=== PATIENT | female | born 1950 | race Caucasian/White ===

== ENCOUNTER 2023-12-28 02:18 | Outpatient (RCR) | payer MEDICARE, OTHER, SELFPAY ==
--- OUTSIDE RECORDS SUMMARY | 2023-12-28 02:20 | XMS_ITS | Encounter Summary ---
Author Organization [facility] Address [facility] [place] [address] Care Team Providers Care Network Specialist Name Role Phone Josefina Crocker APRN Primary Care Provider +1- [phone] Reason for Visit * Reason Comments Medication Refill Encounter Details Date Type Department Care Team (Late st Contact Info) Description 12/01/2023 Refill Hematology [place] [phone] Jenny Melissa MD [facility] HEMATOLOGY/[place] [address] Social History Tobacco Use Types Packs/Day Years Used Date Smoking Tobacco: Never Smokeless Tobacco: Never Alcohol Use Standard Drinks/Week Comments Not Currently 1 (1 standard drink = 0.6 oz pur e alcohol) 1-2 times a month B1300 Health Literacy Answer Date Recor ded How often do you need to hav e someone help you when you read instructions, pamphlets, or other written material from your doctor or pharmacy? Never 10/31/2023 [facility] Utilities Answer Date Recorded In the past 12 months has th e electric, gas, oil, or water company threatened to shut off services in your home? No 10/31/2023 Overall Financial Resource Strain (CARDIA) Answe r Date Recorded How hard is it for you to pa y for the very basics like food, housing, medical care, and heating? Patient declined 10/31/2023 Hunger Vital Sign Answer Date Recorded Within the past 12 months, y ou worried that your food would run out before you got the money to buy more. Never true 10/31/19 24 Within the past 12 months, t he food you bought just didn't last and you didn't have money to get more. Never true 10/31/2023 PRAPARE - Transportation Answer Date Re corded In the past 12 months, has l ack of transportation kept you from medical appointments or from getting medications? No 10/04 In the past 12 months, has l ack of transportation kept you from meetings, work, or from getting things needed for daily living? No 10/31/2023 Housing Stability Vital Sign Answer Levar e Recorded In the last 12 months, was t here a time when you were not able to pay the mortgage or rent on time? No 10/31/2023 Number of Times Moved in the Last Year Not on fi le 10/31/2023 At any time in the past 12 m [facility], were you homeless or living in a assisted (including now)? No 10/31/2023 Sex and Gender Information Value Date Recorded Sex Assigned at Not on file Gender Identity Not on file Sexual Orientation Not on file documented as of this encounter Plan of Treatment Upcoming Encounters Date Type Department Care Team (Late st Contact Info) Description 12/28/2023 10:00 AM EDT Office Visit Hematology/Oncology at [address] [phone] Sumanth Bermudez MD [facility] HEMATOLOGY/[place] [address] 12/28/2023 10:30 AM EDT Infusion Hematology Oncology at [address] [phone] 01/02/2024 3:20 PM EDT Hospital [place] [address] Astrid Ortega MD [facility] [place] [address] 04/22/2024 10:00 AM EST TH Visit (TeleHealth) Hematology and Oncology at [address] [phone] Tracy Beltran [facility] [place] [address] 05/20/2024 10:40 AM EST Hospital Encounter Mammography/[place] [phone] 05/20/2024 11:50 AM EST Office [place] [phone] Magaly Quijano APRN [facility] [place] [address] 11/15/2024 4:00 PM EDT Office Visit Hematology [place] [phone] Jenny Melissa MD [facility] DR HEMATOLOGY/[place] [address] documented as of this encounter Visit Diagnoses Not on filedocumented in this encounter Care Teams Network Specialist Relationship Specialty Start Date End Date Josefina Crocker APRN [address] [place] [address] PCP - General Family Medicine 07/17/23 documented as of this encounter
--- OUTSIDE RECORDS SUMMARY | 2023-12-28 02:20 | XMS_ITS | Encounter Summary ---
[place] [address] Care Team Providers Care Hairspring Ii Inspector Name Role Phone Josefina Crockre APRN Primary Care Provider [phone]- [phone] Reason for Visit * Treatment/Therapy Plan Authorization (Routine) - Authorized Specialty Diagnoses / Procedures Referred By Contac t Referred To Contact Gynecology Oncology Diagnoses Endometrial adenocarcinoma Acquired hypothyroidism Astrid Ortega MD [facility] [place] [address] [facility] Top Precipitator Operator [address] [place] [address] Referral ID Status Reason Start Date Expiration Date V isits Requested Visits Authorized [id number] Authorized 12/01/2023 11/30/2024 99 100 Encounter Details Date Type Department Care Team (Latest Contact Info) Description 12/04/2023 7:53 AM EDT - 12/04/2023 7:55 AM EDT Hospital Encounter [place] [address] Endometrial adenocarcinoma; Acquired hypothyroidism Discharge Disposition: Home Social History Tobacco Use Types Packs/Day Years [...] from your doctor or pharmacy? Never 10/31/2023 [facility] Utilities Answer Date Recorded In the past [...] any time in the past 12 m [facility], were you homeless or living in a [place] health care facility (including now)? No 10/31/2023 Sex and Gender Information Value Date Recorded Sex Assigned at Not on file Gender Identity Not on file Sexual Orientation Not on file documented as of this encounter Last Filed Vital Signs Vital Sign Reading Time Taken Comments Blood Pressure 134/64 12/04/2023 9:00 AM EDT Pulse 70 12/04/2023 9:00 AM EDT Temperature 36.3 ??C (97.3 ??F) 12/04/2023 9:00 AM ED T Respiratory Rate 16 12/04/2023 9:00 AM EDT Oxygen Saturation 97% 12/04/2023 9:00 AM EDT Inhaled Oxygen Concentration - - Weight 57.5 kg (126 lb 12.2 oz) 12/04/2023 9:00 AM EDT Height 160 cm (5' 2.99) 12/04/2023 9:00 AM EDT Body Mass Index 22.46 12/04/2023 9:00 AM EDT documented in this encounter Medications at Time of Discharge Medication Sig Dispensed Refills Start Date End Date prochlorperazine (Compazine) 10 mg tabletIndications:Endome trial adenocarcinoma,Chemother apy induced nausea and vomiting Take 1 tablet by mouth every 6 hours on schedule for the first 3 days after chemotherapy. Thereafter, take 1 tablet by mouth every 6 hours as needed for nausea and vomiting. 30 tablet 5 11/03/2023 lidocaine-prilocaine (EMLA) CreamIndications:Endomet rial adenocarcinoma,Central venous catheter in place Apply to port site 1 hour prior to access. Cover with saran wrap. 30 g 11/03/2023 ondansetron (Zofran) 8 mg tabletIndications:Endome trial adenocarcinoma,Chemother apy induced nausea and vomiting Take 1 tablet by mouth every 8 hours as needed for nausea and vomiting. DO NOT take within the first 3 days after chemotherapy. 20 tablet 11/03/2023 cholecalciferol, Vitamin D3, 50 mcg (2,000 unit) Capsule Take 2,000 Units by mouth daily. lisinopriL (Zestril) 40 mg tabletIndications:hypert ension Take 40 mg by mouth daily. Indications: high blood pressure amLODIPine (Norvasc) 5 mg tabletIndications:hypert ension Take 5 mg by mouth daily. Indications: high blood pressure EPINEPHrine (EPIPEN) 0.3 mg/0.3 mL (1:1,000) Auto-Injector Inject 0.3 mg into the muscle once. multivitamin (THERAGRAN) Tablet Take 1 tablet by mouth daily. documented as of this encounter Progress Notes * Jossie Nolan RN - 12/04/2023 9:40 AM EDT Patient Name: Marychuy Hood Patient Age: 73 y.o. Birthdate: 1950 Admit date: 12/04/2023 Attending Physician: No att. providers found TIME TREATMENT STARTED: 09:02 TIME TREATMENT ENDED: 15:05 Marychuy Hood, 73 y.o. female with diagnosis of endometrial cancer is here for chemotherapy infusion of pembrolizumab, paclitaxel, and carboplatin. CYCLE: 1 DAY: 1 S: Pt. offers no complaints at this time. O: Chemotherapy orders independently verified for correct drug name, route and dosage per patient'sheight, weight and BSA by Jossie Nolan RN and onsite pharmacist REACTIONS (DESCRIPTION, TIME, INTERVENTION AND EFFECTIVENESS) NA A: Pt. Tolerated treatment well. Marychuy Hood confirms that all questions and issues have been addressed. P: Return to clinic as advised. documented in this encounter Plan of Treatment Upcoming Encounters Date Type Department Care Team (Late st Contact Info) Description 12/28/2023 10:00 AM EDT Office Visit Hematology/Oncology at [address] [phone] Sumanth Bermudez MD [facility] HEMATOLOGY/[place] [address] 12/28/2023 10:30 AM EDT Infusion Hematology Oncology at [address] [address] 01/02/2024 3:20 PM EDT Hospital [place] [address] Astrid Ortega MD [facility] [place] [address] 04/22/2024 10:00 AM EST TH Visit (TeleHealth) Hematology and Oncology at [address] [phone] Tracy Beltran [facility] [place] [address] 05/20/2024 10:40 AM EST Hospital Encounter Mammography/[place] [address] 05/20/2024 11:50 AM EST Office Visit General Surgery at [place] [phone] Magaly Quijano APRN [facility] [place] [address] 11/15/2024 4:00 PM EDT Office Visit [place] [address] Jenny Melissa MD [facility] DR HEMATOLOGY/[place]O [place] [phone] documented as of this encounter Visit Diagnoses Diagnosis Endometrial adenocarcinoma Malignant neoplasm of corpus uteri, except isthmus Acquired hypothyroidism Unspecified hypothyroidism documented in this encounter Administered Medications Inactive Administered Medications - up to 3 most recent administrations Medication Order MAR Action Action Date Dose Rate Site aprepitant (Cinvanti) (7.2 mg/mL) injection emulsion 130 mg 130 mg, Intravenous, Administer over 2 Minutes, ONCE, 1 dose, On Mon12/04/23 at 0915, Alternative administration of IV push over 2 minutes is a recommendation from the government operations consultant. Administer prior to chemotherapy., Routine Given 12/04/2023 9:25 AM EDT 130 mg CARBOplatin (Paraplatin) 384 mg in dextrose 5% 288.4 mL infusion 384 mg (Target AUC = 5), Intravenous, ONCE, 1 dose, On Mon12/04/23 at 1015, Administer over 30 Minutes, Warning Vesicant/Irritant Medication New Bag 12/04/2023 2:27 PM EDT 384 mg 576.8 mL/hr dexAMETHasone (Decadron) tablet 10 mg 10 mg, Oral, ONCE, 1 dose, On Mon12/04/23 at 0915, Administer 30 minutes prior to PACLitaxeL., Routine Given 12/04/2023 9:26 AM EDT 10 mg diphenhydrAMINE (Benadryl) capsule 50 mg 50 mg, Oral, ONCE, 1 dose, On Mon12/04/23 at 0915, Administer 30 minutes prior to PACLitaxeL., Routine Given 12/04/2023 9:26 AM EDT 50 mg famotidine (Pepcid) (10 mg/mL) injection 20 mg 20 mg, Intravenous, ONCE, 1 dose, On Mon12/04/23 at 0915, Administer 30 minutes prior to PACLitaxeL. Given 12/04/2023 9:26 AM EDT 20 mg PACLitaxeL (Taxol) 280 mg in sodium chloride 0.9% Non-PVC 546.67 mL infusion 280 mg (175 mg/m2/dose ? 1.6 m2 Treatment Plan BSA from Recorded weight), Intravenous, ONCE, 1 dose, On Mon12/04/23 at 1015, Administer over 3 Hours, 3 Step Titration for Infusions 1 and 2. Regular (Not Titrated) Rate to start at infusion 3 if no HSR. Step 1: Start at a rate of 1.8 mL/hr for 15 minutes. Step 2: Increase rate to 18.2 mL/hr for 15 minutes. Step 3: Increase to regular infusion rate 182.2 mL/hr for remainder of infusion. Warning Vesicant/Irritant Medication Warning Vesicant/Irritant Medication , Should this infusion follow 3 Step Titration (Initial Dosing) or Standard Infusion? Initial: 3 Step Titration New Bag 12/04/2023 10:35 AM EDT 280 mg 182.2 mL/hr palonosetron (Aloxi) (0.05 mg/mL) injection 0.25 mg 0.25 mg, Intravenous, ONCE, 1 dose, On Mon12/04/23 at 0915, Administer over 30 seconds., Routine Given 12/04/2023 9:15 AM EDT 0.25 mg pembrolizumab (Keytruda) 200 mg in sodium chloride 0.9% 108 mL infusion 200 mg, Intravenous, ONCE, 1 dose, On Mon12/04/23 at 1015, Administer over 30 Minutes, Flush Line with NS after each dose, This agent is restricted to outpatient use. Is this drug being given as an outpatient? Yes New Bag 12/04/2023 9:45 AM EDT 200 mg 216 mL/hr sodium chloride 0.9 % (flush) (BD PosiFlush Normal Saline 0.9) flush 5-20 mL 5-20 mL, Intravenous, EVERY 1 MIN PRN, Starting on Mon12/04/23 at 0855, Until Mon12/05/23 at 0434, Line Care, Flush pertains to all indwelling lines. Flush per protocol found in the job aid using the link provided on this medication record. Refer to Intravenous (IV) Job Aid: Adult Flushing & Catheter Care (4736) job aid for additional information regarding guidelines and administration., Routine Given 12/04/2023 3:03 PM EDT 20 mLs Given 12/04/2023 2:21 PM EDT 10 mLs Given 12/04/2023 9:25 AM EDT 20 mLs sodium chloride 0.9% infusion 500 mL, Intravenous, ONCE, 1 dose, On Mon12/04/23 at 0915 New Bag 12/04/2023 9:29 AM EDT 500 mLs documented in this encounter Care Teams Hairspring Ii Inspector Relationship Specialty Start Date End Date Josefina Crocker, MARKET RESEARCH ASSOCIATE [address] [place] [address] PCP - General Family Medicine 07/17/23 documented as of this encounter
--- OUTSIDE RECORDS SUMMARY | 2023-12-28 02:20 | XMS_ITS | Encounter Summary ---
Author Organization [place] [address] Care Team Providers Care Global Sales Executive Name Role Phone ObiJosefina Mona RIOS Primary Care Provider +1- [phone] Reason for Referral * Diagnostic Test (Routine) - Authorized Specialty Diagnoses / Procedures Referred By Contac t Referred To Contact Radiology Diagnoses Endometrial adenocarcinoma Procedures CT Chest Abdomen Pelvis w Contrast (Generic) Astrid Ortega MD [facility] [place] [address] [facility] [place] [address] Referral ID Status Reason Start Date Expiration Date Visits Requested Visits Authorized [id number] Authorized Specialty Service Requested 12/01/2023 06/01/2025 1 1 Encounter Details Date Type Department Care Team (Late st Contact Info) Description 12/01/2023 Orders Only [place] [address] Adriana Rincon RN Endometrial adenocarcinoma; Abnormal results of thyroid function studies Social History Tobacco Use Types Packs/Day Years [...] from your doctor or pharmacy? Never 10/31/[address] [facility] Utilities Answer Date Recorded In the [...] any time in the past 12 m [facility], were you homeless or living in a half-way (including now)? No 10/31/2023 Sex and Gender Information Value Date Recorded Sex Assigned at Not on file Gender Identity Not on file Sexual Orientation Not on file documented as of this encounter Plan of Treatment Upcoming Encounters Date Type Department Care Team (Late st Contact Info) Description 12/28/2023 10:00 AM EDT Office Visit Hematology/Oncology at [address] [address] Sumanth Bermudez MD [facility] HEMATOLOGY/[place] [address] 12/28/2023 10:30 AM EDT Infusion Hematology Oncology at [address] [address] 01/02/2024 3:20 PM EDT Hospital Encounter CT Scan at [place] [phone] Astrid Ortega MD [facility] [place] [address] 04/22/2024 10:00 AM EST TH Visit (TeleHealth) Hematology and Oncology at [address] [phone] Tracy Beltran [facility] [place] [address] 05/20/2024 10:40 AM EST Hospital Encounter Mammography/[place] [phone] 05/20/2024 11:50 AM EST Office Visit [place] [phone] Magaly Quijano APRN [facility] [place] [address] 11/15/2024 4:00 PM EDT Office Visit Hematology [place] [phone] Jenny Melissa MD [facility] HEMATOLOGY/[place] [address] Scheduled Orders Name Type Priority Associated Diagnoses Orde r Schedule [facility] STAT Endometrial adenocarcinoma Abnormal results of thyroid function studies Every 3 weeks for 11 Occurrences starting 12/01/2023 until 11/30/2024, [address] Chest Abdomen Pelvis w Contrast (Generic) Imaging Routine Endometrial adenocarcinoma Expected: 01/05/2024 (Approximate), Expires: 06/01/2024 documented as of this encounter Results * [facility] (12/04/2023 8:11 AM EDT) TSH 4.00 0.27 - 4.20 mcIU/mL [facility] Comment: Reference Interval (mcIU/mL): Females: ??First Trimester: 0.23-3.88 ??Second Trimester: 0.22-3.90 ??Third Trimester: 0.44-4.66 Blood 12/04/2023 8:11 AM EDT 12/04/2023 8:15 AM EDT Narrative Resulting Agency Comment Spec In Lab Astrid Ortega MD CHEMISTRY ORDERABL ES [facility] [place] [address] documented in this encounter Visit Diagnoses Diagnosis Endometrial adenocarcinoma Malignant neoplasm of corpus uteri, except isthmus Abnormal results of thyroid function studies Nonspecific abnormal results of thyroid function study documented in this encounter Care Teams Global Sales Executive Relationship Specialty Start Date End Date Josefina Crocker APRN [address] [place] [address] PCP - General Family Medicine 07/17/23 documented as of this encounter
--- OUTSIDE RECORDS SUMMARY | 2023-12-28 02:20 | XMS_ITS | Encounter Summary ---
Author Organization [facility] [address] Care Team Providers Care Impregnator Operator Name Role Phone Josefina Crocker APRN Primary Care Provider +1- [phone] Reason for Visit * Consultation (Routine) - Closed Specialty Diagnoses / Procedures Referred By Renato linares Referred To Contact Diagnoses Endometrial adenocarcinoma Astrid Ortega MD [facility] [place] [address] [facility] Hem [place]c [address] [place] [address] Referral ID Status Reason Start Date Expiration Date V isits Requested Visits Authorized [id number] Closed Continuity of Care 11/29/2023 11/28/2024 1 1 Encounter Details Date Type Department Care Team (Latest Contact Info) Description 12/04/2023 1:00 PM EDT Clinical Support Hematology [place] [address] [facility] DR [place] [address] Endometrial adenocarcinoma, endometrioid type, FIGO grade 2 Social History Tobacco Use Types Packs/Day Years [...] from your doctor or pharmacy? Never 10/31/2023 [facility] Utilities Answer Date Recorded In the [...] any time in the past 12 m [facility], were you homeless or living in a nursing home (including now)? No 10/31/2023 Sex and Gender Information Value Date Recorded Sex Assigned at Not on file Gender Identity Not on file Sexual Orientation Not on file documented as of this encounter Progress Notes * Gilma Chávez, RD - 12/04/2023 1:00 PM EDT [facility] Initial Assessment Patient Name: Marychuy Hood Diagnosis: Endometrial Cancer Referred by: Astrid Ortega MD Treatment: Carboplatin/Paclitaxel/Bevacizumab/Pembrolizumab Assessment: Marychuy is a 73 year old female diagnosed with Stage 1 breast s/p right mastectomy and Tamoxifen x 3 years. Recently diagnosed with metastatic endometrial cancer. Met with patient during infusion to answer questions and concerns related to low fiber diet. Per record review, she was placed on a low f iber diet per colorectal surgeon (per 10/10/23 note). Low fiber diet due to an obstructing mass to her colon. Marychuy has historically consumed a very high fiber diet and had many questions based on her online research. Past Medical History: Diagnosis Date Acquired hypothyroidism 12/04/2023 Wt Readings from Last 10 Encounters: 12/04/23 57.5 kg (126 lb 12.2 oz) 11/13/23 58 kg (127 lb 13.9 oz) 11/08/23 58.2 kg (128 lb 4.9 oz) 11/01/23 58.1 kg (128 lb) 10/10/23 58.9 kg (129 lb 14.4 oz) 05/18/23 59.8 kg (131 lb 13.4 oz) 03/25/21 55.4 kg (122 lb 1.6 oz) 02/17/21 54.7 kg (120 lb 9.6 oz) 01/28/21 57.6 kg (127 lb) 12/30/20 57.8 kg (127 lb 8 oz) Estimated Needs: Calories: 3118-8248 (25 - 30 kcal/kg) Protein: 86-115 gm (1.5 - 2 gm/kg) Meds: Miralax, MVI, Lisinopril, Vitamin D3 Labs: (12/04/23) Juanito MOTTL A/P: Reviewed foods with Marychuy that are recommended and what she should avoid. Recommend she follow low fiber diet guidelines and not to exceed 8 gm per day. While a low fiber diet will likely be challenging for her, as she eats a high fiber diet at baseline, anticipate good compliance. Patient asked well thought out and appropriate questions. Intervention: [place] [employer] - list of fiber containing foods and amount per serving NCM - Low Fiber Diet (8 grams) Geriatric Dietitian, Low Fiber Foods List Monitoring: Follow up phone call in 3 weeks. Moving forward, infusions will be in [place], [place]. Patient has RD contact information and was encouraged to call or email with any questions or concerns. documented in this encounter Plan of Treatment Upcoming Encounters Date Type Department Care Team (Late st Contact Info) Description 12/28/2023 10:00 AM EDT Office Visit Hematology/Oncology at [address] [place] [address] [phone] Sumanth Bermudez MD [facility] HEMATOLOGY/[place] [address] 12/28/2023 10:30 AM EDT Infusion Hematology Oncology at [address] [place] [address] [phone] 01/02/2024 3:20 PM EDT Hospital Encounter [place] [phone] Astrid Ortega MD [facility] [place] [address] 04/22/2024 10:00 AM EST TH Visit (TeleHealth) Hematology and Oncology at [address] [phone] Tracy Beltran [facility] [place] [address] 05/20/2024 10:40 AM EST Hospital Encounter Mammography/[place] [phone] 05/20/2024 11:50 AM EST Office Visit [place] [phone] Magaly Quijano APRN [facility] [place] [address] 11/15/2024 4:00 PM EDT Office Visit Hematology [place] [address] Jenny Melissa MD [facility] HEMATOLOGY/[place] [address] Scheduled Referrals Name Type Priority Associated Diagnoses Orde r Schedule Referral to Nutrition Services Outpatient Referral Routine Endometrial adenocarcinoma Ordered: 11/29/2023 documented as of this encounter Visit Diagnoses Diagnosis Endometrial adenocarcinoma, endometrioid type, FIGO grade 2 Malignant neoplasm of corpus uteri, except isthmus documented in this encounter Care Teams Impregnator Operator Relationship Specialty Start Date End Date Josefina Crocker APRN [address] [place] [address] PCP - General Family Medicine 07/17/23 documented as of this encounter
--- OUTSIDE RECORDS SUMMARY | 2023-12-28 02:20 | XMS_ITS | Encounter Summary ---
[place] [address] Care Team Providers Care Converting Technician Name Role Phone Josefina Crocker APRN Primary Care Provider +1- [phone] Encounter Details Date Type Department Care Team (Latest Contact Info) Description 12/04/2023 7:56 AM EDT - 12/04/2023 11:59 PM EDT Hospital Encounter Hematology [place] [phone] Endometrial adenocarcinoma; Abnormal results of thyroid function studies Discharge Disposition: Home Social History Tobacco Use [...] from your doctor or pharmacy? Never 10/31/2023 [facility] Utilities Answer Date Recorded In the past 12 months has e electric, gas, oil, or water company [...] were you homeless or living in a penitentiary (including now)? No 10/31/2023 Sex and Gender Information Value Date Recorded Sex Assigned at Not on file Gender Identity Not on file Sexual Orientation Not on file documented as of this encounter Medications at Time of Discharge Medication Sig Dispensed Refills Start Date End Date prochlorperazine (Compazine) 10 mg tabletIndications:Endome trial adenocarcinoma,Chemother apy induced nausea and vomiting Take 1 tablet by mouth every 6 hours on schedule for the first 3 days after chemotherapy. Thereafter, take 1 tablet by mouth every 6 hours as needed for nausea and vomiting. 30 tablet 11/03/2023 lidocaine-prilocaine (EMLA) CreamIndications:Endomet rial adenocarcinoma,Central venous [...] mouth daily. documented as of this encounter Plan of Treatment Upcoming Encounters Date Type Department Care Team (Late st Contact Info) Description 12/28/2023 10:00 AM EDT Office Visit Hematology/Oncology at [address] [phone] Sumanth Bermudez MD [facility] HEMATOLOGY/[place] [address] 12/28/2023 10:30 AM EDT Infusion Hematology Oncology at [address] [address] 01/02/2024 3:20 PM EDT Hospital Encounter [place] [phone] Astrid Ortega MD [facility] [place] [address] 04/22/2024 10:00 AM EST TH Visit (TeleHealth) Hematology and Oncology at [address] [address] Tracy Beltran [facility] [place] [address] 05/20/2024 10:40 AM EST Hospital Encounter Mammography/[place] [phone] 05/20/2024 11:50 AM EST Office Visit [place] [phone] Magaly Quijano APRN [facility] [place] [address] 11/15/2024 4:00 PM EDT Office Visit Hematology and Oncology at [facility] [place] [phone] Tesha Melissa MD [facility] [place]EMATOLOGY/[place] [address] documented as of this encounter Procedures Procedure Name Priority Date/Time Associated Diagnosis Comments HC THYROID STIMULATING HORMONE, SERUM STAT 12/04/2023 8:11 AM EDT Endometrial adenocarcinoma Abnormal results of thyroid function studies HEMOGRAM Routine 12/04/2023 8:11 AM EDT Endometrial adenocarcinoma DIFFERENTIAL, AUTOMATED Routine 12/04/2023 8:11 AM EDT Endometrial adenocarcinoma HC CBC,PLT & AUTO DIFF Routine 12/04/2023 8:11 AM EDT Endometrial adenocarcinoma COMPREHENSIVE METABOLIC PANEL (NON-FASTING) STAT 12/04/2023 8:11 AM EDT Endometrial adenocarcinoma documented in this encounter Results * Differential, Automated (12/04/2023 8:11 AM EDT) Neutrophils % 58.6 % [facility] Neutr Abs (ANC) 2.34 1.70 - 6.10 x10(3)/[facility] Lymphocytes % 27.1 % [facility] Lymphocytes Abs 1.1 0.9 - 3.2 x10(3)/[facility] Monocytes % 12.0 % [facility] Monocyte Abs 0.5 0.3 - 0.9 x10(3)/[facility] Eosinophils % 1.0 % [facility] Eosinophils Abs 0.0 0.0 - 0.4 x10(3)/[facility] Basophils % 0.8 % [facility] Basophils Abs 0.0 0.0 - 0.1 x10(3)/[facility]OR[facility]ORY Immature Gran % 0.50 % [facility] Comment: Immature granulocytes(IG's)percentage and absolute count will include metamyelocytes, myelocytes, and promyelocytes. Blood smears from CBCs yielding IG's will be scanned manually for concordance. If this scan disagrees with the automated IG or if promyelocytes are noted, a manual differential will be performed. [place] Gran Abs 0.02 0.00 - 0.04 x10(3)/[facility] Blood 12/04/2023 8:11 AM EDT 12/04/2023 8:15 AM EDT Narrative Resulting Agency Comment Spec In Lab Astrid Ortega MD HEMATOLOGY ORDERAB LES Performing Organization Address City/State/[facility] Co de Phone Number [facility] [place] [address] * (ABNORMAL) Hemogram (12/04/2023 8:11 AM EDT) WBC 4.0 4.0 - 9.5 x10(3)/[facility] RBC 3.85(L) 4.00 - 5.21 x10(6)/[facility] Hemoglobin 11.2(L) 11.7 - 15.5 g/dL [facility] Hematocrit 34.3(L) 35.7 - 45.8 % [facility] MCV 89.1 82.6 - 94.4 fL [facility] MCH 29.1 27.1 - 32.0 pg [facility] MCHC 32.7 31.7 - 35.0 g/dL [facility] Platelets 314 145 - 357 x10(3)/[place] RDWSD 43.3 37.0 - 46.0 fL [facility] RDWCV 13.3 11.5 - 14.1 % [facility] MPV 8.4 7.6 - 12.9 fL [facility] nRBC % Auto 0.0 % [facility] nRBC Abs Auto 0.000 0.000 - 0.000 x10(3)/mcL [facility] Blood 12/04/2023 8:11 AM EDT 12/04/2023 8:15 AM EDT Narrative Resulting Agency Comment Spec In Lab Astrid Ortega MD HEMATOLOGY ORDERAB LES [facility] [place] [address] * (ABNORMAL) Comprehensive metabolic panel (non-fasting) (12/04/2023 8:11 AM EDT) Glucose Lvl 84 65 - 199 mg/dL [facility] Comment:Diabetes: >=200 mg/d L plus symptoms BUN 17 8 - 18 mg/dL [facility] Creatinine 0.92 0.70 - 1.20 mg/dL [facility] Sodium 140 135 - 145 mmol/L [facility] Potassium 4.6 3.5 - 5.0 mmol/L [facility] Comment: Please note: ??Patients with WBC >100,000 may have falsely elevated Potassium levels. ??For accurate Potassium quantification in these patients send serum separator tube (gold top) for subsequent determinations. ??Contact the Clinical Chemistry Laboratory if there are any questions. Chloride 103 98 - 107 mmol/L [facility] CO2 27 22 - 31 mmol/L [facility] Anion Gap 10 5 - 15 mmol/L [facility] Calcium 9.5 8.5 - 10.5 mg/dL [facility] Total Protein 7.0 6.1 - 8.0 g/dL [facility] Albumin 4.0 3.2 - 5.2 g/dL [facility] AST 22 0 - 30 unit/L [facility] ALT 16 0 - 30 unit/L [facility] Alk Phos 52 35 - 105 unit/L [facility] Total Bilirubin <0.2(L) 0.2 - 1.3 mg/dL [facility] Estimated GFR 67 >=60 mL/min/1. 73 m?? [facility] Comment: This patient's estimated GFR was calculated using the 2020 CKD-EPI equation. The estimated GFR can vary from the measured GFR by up to 30% in the absence of rapidly changing kidney function. Assessment of the estimated GFR is not appropriate when creatinine concentrations are rapidly changing. For clinical situations in which a more precise estimate of GFR is necessary, consider alternative methods of GFR estimation such as a 24-hour urine creatinine clearance. Assignment of CKD stage 1-5 for patients with an eGFR near the transition point between stages may be based on clinical assessment of muscle mass and symptoms in addition to eGFR. Blood 12/04/2023 8:11 AM EDT 12/04/2023 8:15 AM EDT Narrative Resulting Agency Comment Spec In Lab Astrid Ortega MD CHEMISTRY ORDERABL ES Performing Organization Address [facility] Co de Phone Number [facility] [place] [address] * TSH Leary (12/04/2023 8:11 AM EDT) TSH 4.00 0.27 - 4.20 mcIU/mL [facility] Comment: Reference Interval (mcIU/mL): Females: ??First Trimester: 0.23-3.88 ??Second Trimester: 0.22-3.90 ??Third Trimester: 0.44-4.66 Blood 12/04/2023 8:11 AM EDT 12/04/2023 8:15 AM EDT Narrative Resulting Agency Comment Spec In Lab Astrid Ortega MD CHEMISTRY ORDERABL ES Performing Organization Address City/[facility]/ZIP Co de Phone Number [place] [address] documented in this encounter Visit Diagnoses Diagnosis Endometrial adenocarcinoma Malignant neoplasm of corpus uteri, except isthmus Abnormal results of thyroid function studies Nonspecific abnormal results of thyroid function study documented in this encounter Care Teams Converting Technician Relationship Specialty Start Date End Date Josefina Crocker APRN [address] [place] [address] PCP - General Family Medicine 07/17/23 documented as of this encounter
--- OUTSIDE RECORDS SUMMARY | 2023-12-28 02:20 | XMS_ITS | Encounter Summary ---
Author Organization [facility] Address [facility] [place] [address] Care Team Providers Care Kiln Packer Name Role Phone ObiJosefina Mona RIOS Primary Care Provider +1- [phone] Encounter Details Date Type Department Care Team (Late st Contact Info) Description 12/04/2023 Orders Only [place] [address] Astrid Ortega MD [facility] [place] [address] Acquired hypothyroidism Social History Tobacco Use Types Packs/Day Years [...] any time in the past 12 m [facility], were you homeless or living in a long-term (including now)? No 10/31/2023 Sex and Gender Information Value Date Recorded Sex Assigned at Not on file Gender Identity Not on file Sexual Orientation Not on file documented as of this encounter Plan of Treatment Upcoming Encounters Date Type Department Care Team (Late st Contact Info) Description 12/28/2023 10:00 AM EDT Office Visit Hematology/Oncology at [address] [phone] Sumanth Bermudez MD [facility] HEMATOLOGY/[place] [address] 12/28/2023 10:30 AM EDT Infusion Hematology Oncology at [address] [phone] 01/02/2024 3:20 PM EDT Hospital [place] [address] Astrid Ortega MD [facility] [place] [address] 04/22/2024 10:00 AM EST TH Visit (TeleHealth) Hematology and Oncology at [address] [phone] Tracy Beltran [facility] [place] [address] 05/20/2024 10:40 AM EST Hospital Encounter Mammography[place] [phone] 05/20/2024 11:50 AM EST Office [place] [phone] Magaly Quijano APRN [facility] [place] [address] 11/15/2024 4:00 PM EDT Office Visit Hematology [place] [phone] Jenny Melissa MD [facility] [place]EMATOLOGY/[place] [address] documented as of this encounter Visit Diagnoses Diagnosis Acquired hypothyroidism Unspecified hypothyroidism documented in this encounter Care Teams Kiln Packer Relationship Specialty Start Date End Date Josefina Crocker APRN [address] [place] [address] PCP - General Family Medicine 07/17/23 documented as of this encounter
--- OUTSIDE RECORDS SUMMARY | 2023-12-28 02:20 | XMS_ITS | Encounter Summary ---
[place] [address] Care Team Providers Care Oil Rigger Name Role Phone Josefina Crocker APRN Primary Care Provider +1- [phone] Encounter Details Date Type Department Care Team (Late st Contact Info) Description 12/05/2023 Telephone [place] [address] Adriana Rincon, RN Social History Tobacco Use Types Packs/Day Years [...] from your doctor or pharmacy? Never 10/31/2023 [facility] Utilities Answer Date Recorded In the past [...] any time in the past 12 m [facility], were you homeless or living in a half-way (including now)? No 10/31/2023 Sex and Gender Information Value Date Recorded Sex Assigned at Not on file Gender Identity Not on file Sexual Orientation Not on file documented as of this encounter Miscellaneous Notes * Telephone Encounter - Adriana Rincon RN - 12/05/2023 12:05 PM EDT Attempted to call patient but reached voicemail. Informed patient that a message would be sent via [facility]. Left call back number for any questions. * Telephone Encounter - Adriana Rincon RN - 12/05/2023 11:22 AM EDT ----- Message from Nannette Rojas RN sent at 12/05/2023 10:46 AM EDT ----- 1042: She had chemo yesterday (Monday) and she has a friend that has tested positive for covid. Shehas tested negative for covid, but she doesn't know if there is anything she should be doing or looking out for. She would like a call back documented in this encounter Plan of Treatment Upcoming Encounters Date Type Department Care Team (Late st Contact Info) Description 12/28/2023 10:00 AM EDT Office Visit Hematology/Oncology at [address] [address] Sumanth Bermudez MD [facility] HEMATOLOGY/[place] [address] 12/28/2023 10:30 AM EDT Infusion Hematology Oncology at [address] [address] 01/02/2024 3:20 PM EDT Hospital [place] [phone] Astrid Ortega MD [facility] [place] [address] 04/22/2024 10:00 AM EST TH Visit (TeleHealth) Hematology and Oncology at [address] [address] Tracy Beltran [facility] [place] [address] 05/20/2024 10:40 AM EST Hospital Encounter Mammography/[place] [address] 05/20/2024 11:50 AM EST Office [place] [phone] Magaly Quijano APRN [facility] [place] [address] 11/15/2024 4:00 PM EDT Office Visit Hematology [place] [phone] Jenny Melissa MD [facility] DR HEMATOLOGY/[place] [address] documented as of this encounter Visit Diagnoses Not on filedocumented in this encounter Care Teams Oil Rigger Relationship Specialty Start Date End Date Josefina Crocker APRN [address] [place] [address] PCP - General Family Medicine 07/17/23 documented as of this encounter
--- OUTSIDE RECORDS SUMMARY | 2023-12-28 02:20 | XMS_ITS | Encounter Summary ---
Author Organization [facility] Address [facility] [place] [address] Care Team Providers Care Police Patrol Officer Name Role Phone ObiJosefina Mona RIOS Primary Care Provider +1- [phone] Encounter Details Date Type Department Care Team (Latest Contact Info) Description 12/01/2023 1:30 PM EDT TH Visit (TeleHealth) Gynecology [place] [phone] Fuad Perez MD [facility] [place] [address] Endometrial adenocarcinoma, endometrioid type, FIGO grade 2 [...] from your doctor or pharmacy? Never 10/31/2023 [facility] Utilities Answer Date Recorded In the [...] money to buy more. Never true 10/31/19 Within the past 12 months, t he [...] any time in the past 12 m [facility], were you homeless or living in a [place] health care facility (including now)? No 10/31/2023 Sex and Gender Information Value Date Recorded Sex Assigned at Not on file Gender Identity Not on file Sexual Orientation Not on file documented as of this encounter Progress Notes * Fuad Perez MD - 12/01/2023 1:30 PM EDT Division of Gynecologic Oncology [place] [phone] Pre-chemotherapy Visit: Patient Active Problem List Diagnosis Code Endometrial adenocarcinoma, endometrioid type, FIGO grade 2 C54.1 Malignant neoplasm of right breast in female, estrogen receptor positive C50.911, Z17.0 Osteopenia of multiple sites M85.89 Liver mass R16.0 Acquired hypothyroidism E03.9 Reason for visit: Marychuy Hood is seen today in anticipation of cycle # 2 of Carboplatin/Paclitaxel chemotherapy. She is undergoing chemotherapy for recurrent endometrial cancer. MMR proficient Oncology history: grade 2 endometrial cancer s/p TAHBSO in 2014, breast cancer s/p right mastectomy in 2020 presenting for evaluation of likely metastatic endometrial cancer. CT 09/27/23 with large colon mass, hilar lymphadenopathy, liver mass Marychuy had a colonoscopy in September 2023 for evaluation of bright red rectal bleeding which showed alarge mass in the sigmoid colon pathology c/w endometrial ca recurrence. 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 She did OK with her first cycle. She had ~1 week malaise and has been feeling a little better since. On cycle day 4-5 she had significant muscle aches. She does have significant fatigue with significant decrease in her stamina. No new issues with her bladder or bowels. No numbness or tingling in her hands or feet. She did have some nausea up to cycle day 4, well treated with antiemetics. Review of Systems All other systems reviewed and are negative. Objective: There were no vitals filed for this visit. There is no height or weight on file to calculate BMI. There is no height or weight on file to calculate BSA. Physical Exam TH visit GOG performance status= 0 CTCAE Toxicity grading for the prior cycle: Neutrophils: 0- Normal / not present Hemoglobin: 1- < LLN - 10.0 g/dl ; < LLN - 6.2 mmol/L ; < LLN - 100 g/L Platelets: 0- Normal / not present Creatinine: 0- Normal Fatigue: 0- Normal / not present Hand-foot: 0- Normal / not present Nausea: 0- Normal / not present Vomitin- Normal / not present Neuropathy (sensory): 0- Normal / not present Labs: Acceptable for chemotherapy No results found for: CA125 Assessment and Plan: Marychuy Hood is a 73 y.o. year old with recurrent endometrioid endometrial cancerwho is here today for cycle 2 of Taxol/Carboplatin. She tolerated the first cycle well, plan to add Pembrolizumab. We reviewed possible toxicity related to Pembrolizumab. No dose-limiting toxicities, will proceedwith chemotherapy today as scheduled. RTC three weeks. FUAD PEREZ MD documented in this encounter Plan of Treatment Upcoming Encounters Date Type Department Care Team (Late st Contact Info) Description 12/28/2023 10:00 AM EDT Office Visit Hematology/Oncology at [address] [phone] Sumanth Bermudez MD [facility] HEMATOLOGY/[place] [address] 12/28/2023 10:30 AM EDT Infusion Hematology Oncology at [address] [address] 01/02/2024 3:20 PM EDT Hospital Encounter [place] [phone] Fuad Perez MD [facility] [place] [address] 04/22/2024 10:00 AM EST TH Visit (TeleHealth) Hematology and Oncology at [address] [phone] Tracy Beltran [facility] [place] [address] 05/20/2024 10:40 AM EST Hospital Encounter Mammography/[place] [phone] 05/20/2024 11:50 AM EST Office Visit [place] [address] Magaly Quijano APRN [facility] [place] [address] 11/15/2024 4:00 PM EDT Office Visit Hematology [place] [phone] Jenny Melissa MD [facility] [place]EMATOLOGY/[place] [address] documented as of this encounter Visit Diagnoses Diagnosis Endometrial adenocarcinoma, endometrioid type, FIGO grade 2 Malignant neoplasm of corpus uteri, except isthmus documented in this encounter Care Teams Police Patrol Officer Relationship Specialty Start Date End Date Josefina Crocker APRN [address] [place] [address] PCP - General Family Medicine 07/17/23 documented as of this encounter
--- OUTSIDE RECORDS SUMMARY | 2023-12-28 02:20 | XMS_ITS | Encounter Summary ---
Author Organization [facility] Address [facility] [place] [address] Care Team Providers Care Seed Corn Manager Production Name Role Phone Josefina Crocker APRN Primary Care Provider +1- [phone] Encounter Details Date Type Department Care Team (Latest Contact Info) Description 12/04/2023 Travel Social History Tobacco Use Types Packs/Day Years [...] from your doctor or pharmacy? Never 10/31/2023 [facility] Utilities Answer Date Recorded In the past 12 months has [employer], gas, oil, or water [employer] threatened to shut off services in your [...] any time in the past 12 m [facility], were you homeless or living in a senior living (including now)? No 10/31/2023 Sex and Gender Information Value Date Recorded Sex Assigned at Not on file Gender Identity Not on file Sexual Orientation Not on file documented as of this encounter Plan of Treatment Upcoming Encounters Date Type Department Care Team (Late st Contact Info) Description 12/28/2023 10:00 AM EDT Office Visit Hematology/Oncology at [address] [address] Sumanth Bermudez MD [facility] HEMATOLOGY/[place] [address] 12/28/2023 10:30 AM EDT Infusion Hematology Oncology at [address] [address] 01/02/2024 3:20 PM EDT Hospital [place] [address] Astrid Ortega MD [facility] [place] [address] 04/22/2024 10:00 AM EST TH Visit (TeleHealth) Hematology and Oncology at [address] [phone] Tracy Beltran [facility] [place] [address] 05/20/2024 10:40 AM EST Hospital Encounter Mammography/DXA at [place] [phone] 05/20/2024 11:50 AM EST Office Visit General Surgery at [place] [phone] Magaly Quijano APRN [facility] [place] [address] 11/15/2024 4:00 PM EDT Office Visit Hematology and Oncology at [place] [phone] Jenny Melissa MD [facility] [place]EMATOLOGY/[place] [address] documented as of this encounter Visit Diagnoses Not on filedocumented in this encounter Care Teams Seed Corn Manager Production Relationship Specialty Start Date End Date Josefina Crocker APRN [address] [place] [address] PCP - General Family Medicine 07/17/23 documented as of this encounter
--- OUTSIDE RECORDS SUMMARY | 2023-12-28 02:20 | XMS_ITS | Encounter Summary ---
[facility] Organization [facility] [address] Care Team Providers Care Fence Installer Helper Name Role Phone Josefina Crocker APRN Primary Care Provider [phone]- [phone] Reason for Visit * Treatment/Therapy Plan Authorization (Routine) - Authorized Specialty Diagnoses / Procedures Referred By Contac t Referred To Contact Gynecology Oncology Diagnoses Endometrial adenocarcinoma Acquired hypothyroidism Astrid Ortega MD [facility] [place] [address] [facility] Propeller Engineer [address] [place] [id number] Referral ID Status Reason Start Date Expiration Date V isits Requested Visits Authorized [id number] Authorized 12/01/2023 11/30/2024 99 100 Encounter Details Date Type Department Care Team (Late st Contact Info) Description 12/28/2023 10:30 AM EDT Infusion Hematology Oncology at [address] [phone] Social History Tobacco Use Types Packs/Day Years [...] from your doctor or pharmacy? Never 10/31/2023 [facility] Utilities Answer Date Recorded In [...] any time in the past 12 m [facility], were you homeless or living in a intermediate (including now)? No 10/31/2023 Sex and Gender Information Value Date Recorded Sex Assigned at Not on file Gender Identity Not on file Sexual Orientation Not on file documented as of this encounter Plan of Treatment Upcoming Encounters Date Type Department Care Team (Late st Contact Info) Description 12/28/2023 10:00 AM EDT Office Visit Hematology/Oncology at [address] [phone] Sumanth Bermudez MD [facility] HEMATOLOGY/[place] [address] 01/02/2024 3:20 PM EDT Hospital Encounter CT Scan at [place] [phone] Astrid Ortega MD [facility] DR [place] [address] 04/22/2024 10:00 AM EST TH Visit (TeleHealth) Hematology and Oncology at [address] [phone] Tracy Beltran [facility] [place] [address] 05/20/2024 10:40 AM EST Hospital Encounter Mammography/DXA at [place] [phone] 05/20/2024 11:50 AM EST Office [place] [address] Magaly Quijano APRN [facility] [place] [address] 11/15/2024 4:00 PM EDT Office Visit Hematology and Oncology at [place] [phone] Jenny Melissa MD [facility] HEMATOLOGY/[place] [address] documented as of this encounter Visit Diagnoses Not on filedocumented in this encounter Care Teams Fence Installer Helper Relationship Specialty Start Date End Date Josefina Crocker APRN [address] [place] [id number] PCP - General Family Medicine 07/17/23 documented as of this encounter
--- OUTSIDE RECORDS SUMMARY | 2023-12-28 02:20 | XMS_ITS ---
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 Name Role Phone Josefina Crocker APRN Primary Care Provider +1- [phone] Active Problems Problem Noted Date Diagnosed Date Acquired hypothyroidism 12/04/2023 Liver mass 10/16/2023 Osteopenia of multiple sites 04/18/2021 Malignant neoplasm of right breast in female, estrogen receptor positive 12/25/2020 Overview (02/17/2021): 12/16/20 dx AVH: ER/NV+/HER2- right breast IDC [id number] Stage IA right upper outer quadrant Screening mammogram detected at [facility] 11/30/20 cat 0 Diagnostic images 12/10 , biopsy 12/16/20 c/w grade 2 IDCA er/pr++ her2 neg MRI 12/30/20 showed bilateral multifocal abnormalities and 2 abnormal nodes on the right Right axillary US was benign MRI guided biopsy of the Left lesions 1 and 3 were benign, papilloma and ALH respectively Right mastectomy and sentinel node biopsy showed IDCA 20 mm grade 2, 0/2 LN + , with DCIS Oncotype dx is pending. Risk factors: personal hx of endometrial cancer; FHx breast cancer in one half- sister who recently of lung cancer and was a chronic smoker; 2 other sisters are without cancer. Marychuy's grand mother had bone cancer. Menses began at age 15 until approximately age 59; DUB resulted in endometrial biopsy s/p TAHBSO at [facility] in 2016. 1st at age 31 Endometrial adenocarcinoma, endometrioid type, F IGO grade 2 08/01/2014 Current Oncology Plans [facility] TYPE COPYIST ONC CERVICAL CANCER - CARBOplatin / PACLitaxeL / BEVACizumab / PEMBROLIZUMAB (EVERY 3 WEEKS)* Plan Start Date:12/04/2023 Plan Provider:Astrid Ortega MD Linked Problems Endometrial adenocarcinomaAc quired hypothyroidism Treatment Medications Current Day (Day 1 , Cycle 2 - Planned for 12/25/2023) Next Day (Day 1, Cycle 3 - Planned for 01/15/2024) CARBOplatin (Paraplatin) in 150 mL infusionPACLitaxeL (Taxol) ConcentratePACLitaxeL (Taxol) in Non-PVC sodium chloride 0.9% 500 mL infusionpembrolizumab (Keytruda) in sodium chloride 0.9% 100 mL infusionpembrolizumab (Keytruda) Recon Soln CARBOplatin (Paraplatin) 373 mg in dextrose 5% 287.3 mL infusionPACLitaxeL (Taxol) 280 mg in sodium chloride 0.9% Non-PVC 546.67 mL infusionpembrolizumab (Keytruda) 200 mg in sodium chloride 0.9% 108 mL infusion CARBOplatin (Paraplatin) 373 mg in dextrose 5% 287.3 mL infusionPACLitaxeL (Taxol) 280 mg in sodium chloride 0.9% Non-PVC 546.67 mL infusionpembrolizumab (Keytruda) 200 mg in sodium chloride 0.9% 108 mL infusion Past Plans ADULT TREATMENT Plan Name Start Date Discontinue Date Treatment Medications Discontinue Reason Plan Provider Cycles [facility] TYPE COPYIST ONC ENDOMETRIAL CANCER - CARBOplatin / PACLitaxeL 11/13/19 24 12/01/2023 CARBOplatin (Paraplatin) in 150 mL infusionPACLitaxeL (Taxol) ConcentratePACLitaxeL (Taxol) in Non-PVC sodium chloride 0.9% 500 mL infusion Patient Preference Astrid Rutherford MD 1 of 4 cycles started Radiation Treatments * No radiation treatments are documented for this patient in [facility]. Treatments may have been administered in another system.
--- OUTSIDE RECORDS SUMMARY | 2023-12-28 02:20 | XMS_ITS | Clinical Summary ---
Author Organization [facility] [place] [address] Care Team Providers Care Judo Teacher Name Role Phone Josefina Crocker APRN Primary Care Provider [phone] Allergies Active Allergy Reactions Criticality Noted Date Comments Hymenoptera Allergenic Extract Anaphylaxis High 07/07 Medications Medication Sig Dispensed Refills Start Date End Date Status EPINEPHrine (EPIPEN) 0.3 mg/0.3 mL (1:1,000) Auto-Injector Inject 0.3 mg into the muscle once. Active multivitamin (THERAGRAN) Tablet Take 1 tablet by mouth daily. Active lisinopriL (Zestril) 40 mg tabletIndications:h ypertension Take 40 mg by mouth daily. Indications: high blood pressure Active amLODIPine (Norvasc) 5 mg tabletIndications:h ypertension Take 5 mg by mouth daily. Indications: high blood pressure Active cholecalciferol, Vitamin D3, 50 mcg (2,000 unit) Capsule Take 2,000 Units by mouth daily. Active prochlorperazine (Compazine) 10 mg tabletIndications:E ndometrial adenocarcinoma,Chem otherapy induced nausea and vomiting Take 1 tablet by mouth every 6 hours on schedule for the first 3 days after chemotherapy. Thereafter, take 1 tablet by mouth every 6 hours as needed for nausea and vomiting. 30 tablet 5 11/03/2023 Active Additional Information Patient not taking.Reported on 11/08/2023 lidocaine-prilocain e (EMLA) CreamIndications:En dometrial adenocarcinoma,Cent ral venous catheter in place Apply to port site 1 hour prior to access. Cover with saran wrap. 30 g 11/03/2023 Active Additional Information Patient not taking.Reported on 11/08/2023 ondansetron (Zofran) 8 mg tabletIndications:E ndometrial adenocarcinoma,Chem otherapy induced nausea and vomiting Take 1 tablet by mouth every 8 hours as needed for nausea and vomiting. DO NOT take within the first 3 days after chemotherapy. 20 tablet 11/03/2023 Active Additional Information Patient not taking.Reported on 11/08/2023 Active Problems Problem Noted Date Diagnosed Date Acquired hypothyroidism 12/04/2023 Liver mass 10/16/2023 Osteopenia of multiple sites 04/18/2021 Malignant neoplasm of right breast in female, estrogen receptor positive 12/25/2020 Overview (02/17/2021): 12/16/20 dx AVH: ER/HI+/HER2- right breast IDC [id number] Stage IA right upper outer quadrant Screening mammogram detected at [facility] 11/30/20 cat 0 Diagnostic images [...] 59; DUB resulted in endometrial biopsy s/p ADRIANNE at [facility] in 2015. 1st at age 31 Endometrial adenocarcinoma, endometrioid type, F IGO grade 2 08/01/2014 Encounters Date Type Department Care Team Description 12/28/2023 10:30 AM EDT Infusion Hematology Oncology at [address] [phone] 12/26/2023 Travel 12/15/2023 12:30 PM EDT TH Visit (TeleHealth) [place] [address] Astrid Ortega MD Endometrial adenocarcinoma, endometrioid type, FIGO grade 2 12/15/2023 Orders Only [place] [address] Nannette Perea, RN Endometrial adenocarcinoma 12/05/2023 Telephone Gyne[place] [address] Adriana Rincon RN 12/04/2023 1:00 PM EDT Clinical Support Hematology and Oncology at [place] [phone] Endometrial adenocarcinoma, endometrioid type, FIGO grade 2 12/04/2023 7:56 AM EDT - 12/04/2023 11:59 PM EDT Hospital Encounter Hematology [place] [address] Endometrial adenocarcinoma; Abnormal results of thyroid function studies Discharge Disposition: Home 12/04/2023 7:53 AM EDT - 12/04/2023 7:55 AM EDT Hospital Encounter Hematology [place] [phone] Endometrial adenocarcinoma; Acquired hypothyroidism Discharge Disposition: Home 12/04/2023 Orders Only [place] [address] Astrid Ortega MD Acquired hypothyroidism 12/04/2023 Travel 12/01/2023 1:30 PM EDT TH Visit (TeleHealth) [place] [address] Astrid Ortega MD Endometrial adenocarcinoma, endometrioid type, FIGO grade 2 12/01/2023 Orders Only [place] [address] Adriana Rincon RN Endometrial adenocarcinoma; Abnormal results of thyroid function studies 12/01/2023 Refill Hematology [place] [address] Jenny Melissa MD 11/29/2023 Travel 11/28/2023 Orders Only Hematology [place] [address] Mark Landin MD Endometrial adenocarcinoma (Primary Dx) 11/22/2023 12:49 PM EDT - 11/22/2023 11:59 PM EDT Hospital En[place] [address] Astrid Ortega MD Endometrial adenocarcinoma Discharge Disposition: Home 11/22/2023 11:00 AM EDT Clinical Support Hematology and Oncology at [place] [phone] Eliezer Kelly, [facility] Endometrial adenocarcinoma, endometrioid type, FIGO grade 2 11/22/2023 Travel 11/19/2023 Travel 11/14/2023 Telephone [place]ne[place] [address] Kaitlynn Ford 11/13/2023 6:55 AM EDT - 11/13/2023 11:59 PM EDT Hospital Encounter Hematology [place] [phone] Endometrial adenocarcinoma Discharge Disposition: Home 11/13/2023 6:55 AM EDT - 11/13/2023 11:59 PM EDT Hospital Encounter Hematology [place] [phone] Endometrial adenocarcinoma Discharge Disposition: Home 11/12/2023 Travel 11/10/2023 Orders Only Hematology [place] [address] Mark Landin MD 11/10/2023 Orders Only [place] [phone] Saba Pace RN Endometrial adenocarcinoma 11/09/2023 Orders Only Gynecology Oncology at [place] [phone] Nannette Perea, RN Endometrial adenocarcinoma 11/08/2023 1:00 PM EDT Clinical Support Hematology and Oncology at [place] [phone] Eliezer Kelly, [facility] Endometrial adenocarcinoma, endometrioid type, FIGO grade 2 11/08/2023 10:30 AM EDT Office Visit Hematology and Oncology at [place] [phone] Jenny Melissa MD Endometrial adenocarcinoma, endometrioid type, FIGO grade 2; Malignant neoplasm of upper-outer quadrant of right breast in female, estrogen receptor positive 11/08/2023 Travel 11/08/2023 Notes Only Gynecology Oncology at [place] [phone] Saba Pace RN 11/06/2023 Travel 11/06/2023 Orders Only Radiology at [place] [phone] Zulma Loyd PA 11/01/2023 1:20 PM EDT Office Visit Gynecology Oncology at [place] [phone] Astrid Ortega MD Endometrial adenocarcinoma, endometrioid type, FIGO grade 2 11/01/2023 Orders Only [place] [address] Astrid Ortega MD 11/01/2023 Orders Only [place] [address] Nannette Perea, RN Endometrial adenocarcinoma; Central venous catheter in place; Chemotherapy induced nausea and vomiting 10/31/2023 Travel 10/26/2023 Orders Only [place] [address] Astrid Ortega MD Endometrial adenocarcinoma, endometrioid type, FIGO grade 2; Liver mass 10/24/2023 Orders [place] [address] Jossie Jamison MD Endometrial cancer 10/24/2023 Multidisciplinary Ca re Committee [place] [address] Jossie Jamison MD 10/20/2023 1:27 PM EDT - 10/20/2023 11:59 PM EDT Hospital En[place] [address] Jossie Jamison MD Discharge Disposition: Home 10/20/2023 1:26 PM EDT Hospital Encounter [place] [address] Jossie Jamison MD Malignant neoplasm of sigmoid colon Discharge Disposition: Home 10/19/2023 6:21 AM EDT - 10/19/2023 11:59 PM EDT Hospital En[place] [address] Jossie Jamison MD Malignant neoplasm of sigmoid colon Discharge Disposition: Home 10/19/2023 Travel 10/17/2023 Travel 10/10/2023 10:00 AM EDT Office [place] [address] Jossie Jamison MD Malignant neoplasm of sigmoid colon; Personal history of breast cancer; History of endometrial cancer; S/P total hysterectomy and bilateral salpingo-oophorectom y; S/P mastectomy, right; Liver mass 10/10/2023 Notes [place] [address] Jeremias Erwin DO 10/10/2023 Travel 10/08/2023 8:30 PM EDT Ancillary [place] [address] Jossie Jamison MD Malignant neoplasm of sigmoid colon 10/08/2023 Orders Only [place] [phone] Jossie Jamison MD Malignant neoplasm of sigmoid colon from Last 3 Months Family History Medical History Relation Comments Cancer Maternal Grandfather bone Lung Cancer Maternal Uncle Breast Cancer Paternal Half-Sister half sister Lung Cancer Paternal Half-Sister Bladder Cancer Neg Hx Colorectal Cancer Neg Hx Kidney Cancer Neg Hx Ovarian Cancer Neg Hx Uterine Cancer Neg Hx Relation Status Comments Maternal Grandfather Maternal Uncle Paternal Half-Sister Social History Tobacco Use Types Packs/Day Years [...] from your doctor or pharmacy? Never 10/31/2023 [facility] Utilities Answer Date Recorded In the past 12 months has th e [employer], gas, oil, or water Gertrude threatened to shut off services in your [...] any time in the past 12 m [facility], were you homeless or living in a intermediate (including now)? No 10/31/2023 Sex and Gender Information Value Date Recorded Sex Assigned at Not on file Gender Identity Not on file Sexual Orientation Not on file Last Filed Vital Signs Vital Sign Reading [...] Mass Index 22.46 12/04/2023 9:00 AM EDT Plan of Treatment Upcoming Encounters Date Type Department Care Team (Late st Contact Info) Description 12/28/2023 10:00 AM EDT Office Visit Hematology/Oncology at [address] [phone] Sumanth Bermudez MD [facility] HEMATOLOGY/[place] [address] 12/28/2023 10:30 AM EDT Infusion Hematology Oncology at [address] [address] 01/02/2024 3:20 PM EDT Hospital [place] [phone] Astrid Ortega MD [facility] [place] [address] 04/22/2024 10:00 AM EST TH Visit (TeleHealth) Hematology and Oncology at [address] [address] Tracy Beltran, [facility] [place] [address] 05/20/2024 10:40 AM EST Hospital Encounter Mammography/DXA at [place] [phone] 05/20/2024 11:50 AM EST Office Visit General Surgery at [place] [phone] Magaly Quijano APRN [facility] [place] [address] 11/15/2024 4:00 PM EDT Office Visit Hematology and Oncology at [place] [phone] Jenny Melissa MD [facility] HEMATOLOGY/[place] [address] Health Maintenance Due Date Last Done Comments CT Colonography 1952 Colonoscopy 1952 Colorectal Cancer Screening 1952 FIT DNA 1952 FIT 1952 Sigmoidoscopy (10 year) with FIT yearly 1952 Sigmoidoscopy 1952 Hepatitis C Screening 1970 Tdap adult 09/10/1971 Tetanus vaccine 09/10/1971 Breast Cancer Share Decision Needed 1992 Zoster vaccine (1 of 2) 2002 Advance Directive 09/10/2007 Pneumoccocal Vaccine: 65+ (1 of 1 - PCV) 2017 Covid-19 Vaccine (1 - 2022- season) 2023 Influenza (Flu) vaccine (1 o f 1 - Influenza standard series) 02/04/2024 Breast Cancer screening 05/18/2025 05/18/2023, 03/23 Bone Density Scan 05/18/2038 05/18/2023 Medical Devices Implanted Type Area Partner Cco Device Identifier Shelf Expiration Date Model / Serial / Lot Breast Clip-01/04/2021 Implanted:Qty : 1 on 01/04/2021 Breast Clip Left: Breast [id number] / [id number] / [id number] Breast Clip-01/04/2021 Implanted:Qty : 1 on 01/04/2021 Breast Clip Left: Breast TRIMARK-E VIVA-2S / [id number] / [id number] Port Infusion 8fr Cath Power Lp Ct Plastic Dignity [id number]/03 Implanted:Qty : 1 on 11/22/2023 by Dov Walls PA IMPLANTS Right: Chest Wall [employer] - [employer] [place] 11/03/2027 [id number] / [id number] Procedures Procedure Name Priority Date/Time Associated Diagnosis Comments DIFFERENTIAL, AUTOMATED Routine 12/04/2023 8:11 AM EDT Endometrial adenocarcinoma HEMOGRAM Routine 12/04/2023 8:11 AM EDT Endometrial adenocarcinoma HC CBC,PLT & AUTO DIFF Routine 12/04/2023 8:11 AM EDT Endometrial adenocarcinoma COMPREHENSIVE METABOLIC PANEL (NON-FASTING) STAT 12/04/2023 8:11 AM EDT Endometrial adenocarcinoma HC THYROID STIMULATING HORMONE, SERUM STAT 12/04/2023 8:11 AM EDT Endometrial adenocarcinoma Abnormal results of thyroid function studies IR MEDIPORT PLACEMENT Routine 11/22/2023 2:51 PM EDT Endometrial adenocarcinoma DIFFERENTIAL, AUTOMATED Routine 11/13/2023 7:00 AM EDT Endometrial adenocarcinoma HEMOGRAM Routine 11/13/2023 7:00 AM EDT Endometrial adenocarcinoma HC VENIPUNCTURE Routine 11/13/2023 7:00 AM EDT Endometrial adenocarcinoma COMPREHENSIVE METABOLIC PANEL (NON-FASTING) STAT 11/13/2023 7:00 AM EDT Endometrial adenocarcinoma NM PET CT SKULL BASE TO MID-THIGH ([facility]) Routine 10/20/2023 2:53 PM EDT Malignant neoplasm of sigmoid colon POCT GLUCOSE Routine 10/20/2023 1:34 PM EDT IR BIOPSY LIVER PERCUTANEOUS - NON-FOCAL PARENCHYMA STAT 10/19/2023 8:20 AM EDT Malignant neoplasm of sigmoid colon SURGICAL PATHOLOGY REPORT Routine 10/19/2023 8:10 AM EDT SPECIMEN TO PATHOLOGY Routine 10/19/2023 7:00 AM EDT SURGICAL PATHOLOGY SCAN 10/11/2023 12:00 AM EDT DIFFERENTIAL, AUTOMATED Routine 10/10/2023 12:17 PM EDT Malignant neoplasm of sigmoid colon HEMOGRAM Routine 10/10/2023 12:17 PM EDT Malignant neoplasm of sigmoid colon HC CBC,PLT & AUTO DIFF Routine 10/10/2023 12:17 PM EDT Malignant neoplasm of sigmoid colon BASIC METABOLIC PANEL (NON-FASTING) Routine 10/10/2023 12:17 PM EDT Malignant neoplasm of sigmoid colon HEPATIC FUNCTION PANEL Routine 10/10/2023 12:17 PM EDT Malignant neoplasm of sigmoid colon HC CARCINO-EMBRYONIC AG ASSAY Routine 10/10/2023 12:17 PM EDT Malignant neoplasm of sigmoid colon REQUEST FOR 2ND READ CT CHEST ABDOMEN PELVIS Routine 10/08/2023 8:25 PM EDT Malignant neoplasm of sigmoid colon DXA CENTRAL SPINE, HIP, AND/OR WHOLE BODY (GENERIC) Routine 05/18/2023 11:15 AM EST Malignant neoplasm of upper-outer quadrant of right breast in female, estrogen receptor positive Osteopenia of multiple sites MAMMO SCREENING CAD AND MARKOS LEFT Routine 05/18/2023 10:16 AM EST Encounter for screening mammogram for breast cancer from Last 3 Months or Most Recently Relevant to Health Maintenance Results * TSH [place] (12/04/2023 8:11 AM EDT) Pathologist [facility] [place] TSH 4.00 0.27 - 4.20 mcIU/mL [facility] Comment: Reference Interval (mcIU/mL): Females: ??First Trimester: 0.23-3.88 ??Second Trimester: 0.22-3.90 ??Third Trimester: 0.44-4.66 Blood 12/04/2023 8:11 AM EDT 12/04/2023 8:15 AM EDT Narrative Resulting Agency Comment Spec In Lab Astrid Ortega MD CHEMISTRY ORDERABL ES [facility] [place] [address] * (ABNORMAL) Hemogram (12/04/2023 8:11 AM EDT) Only the most recent of3 resultswithin the time period is included. Pathologist [facility] [place] WBC 4.0 4.0 - 9.5 x10(3)/[facility] LABORATORY RBC 3.85(L) 4.00 - 5.21 x10(6)/[facility]ATORY Hemoglobin 11.2(L) 11.7 - 15.5 g/dL [facility] Hematocrit 34.3(L) 35.7 - 45.8 % [facility] MCV 89.1 82.6 - 94.4 fL [facility] MCH 29.1 27.1 - 32.0 pg [facility] MCHC 32.7 31.7 - 35.0 g/dL [facility] Platelets 314 145 - 357 x10(3)/[facility] LABORATORY RDWSD 43.3 37.0 - 46.0 fL [facility] RDWCV 13.3 11.5 - 14.1 % [facility] MPV 8.4 7.6 - 12.9 fL [facility] nRBC % Auto 0.0 % [facility] nRBC Abs Auto 0.000 0.000 - 0.000 x10(3)/[facility] Blood 12/04/2023 8:11 AM EDT 12/04/2023 8:15 AM EDT Narrative Resulting Agency Comment Spec In Lab Astrid Ortega MD HEMATOLOGY ORDERAB LES [facility] [place] [address] * Differential, Automated (12/04/2023 8:11 AM EDT) Only the most recent of3 resultswithin the time period is included. Neutrophils % 58.6 % [facility] Neutr Abs (ANC) 2.34 1.70 - 6.10 x10(3)/[facility] Lymphocytes % 27.1 % [facility] Lymphocytes Abs 1.1 0.9 - 3.2 x10(3)/[facility] Monocytes % 12.0 % [facility] Monocyte Abs 0.5 0.3 - 0.9 x10(3)/[facility]ATORY Eosinophils % 1.0 % [facility] Eosinophils Abs 0.0 0.0 - 0.4 x10(3)/[facility] Basophils % 0.8 % [facility] Basophils Abs 0.0 0.0 - 0.1 x10(3)/[facility] Immature Gran % 0.50 % [facility] Comment: Immature granulocytes(IG's)percentage and absolute count will include metamyelocytes, myelocytes, and promyelocytes. Blood smears from CBCs yielding IG's will be scanned manually for concordance. If this scan disagrees with the automated IG or if promyelocytes are noted, a manual differential will be performed. [place] Gran Abs 0.02 0.00 - 0.04 x10(3)/mcL [facility] Blood 12/04/2023 8:11 AM EDT 12/04/2023 8:15 AM EDT Narrative Resulting Agency Comment Spec In Lab Astrid Ortega MD HEMATOLOGY ORDERAB LES [facility] [place] [address] * (ABNORMAL) Comprehensive metabolic panel (non-fasting) (12/04/2023 8:11 AM EDT) Only the most recent of2 resultswithin the time period is included. Glucose Lvl 84 65 - 199 mg/dL [facility] Comment:Diabetes: >=200 mg/d L plus symptoms BUN 17 8 - 18 mg/dL [facility] Creatinine 0.92 0.70 - 1.20 mg/dL [facility] Sodium 140 135 - 145 mmol/L [facility] Potassium 4.6 3.5 - 5.0 mmol/L [facility] Comment: Please note: ??Patients with WBC >100,000 may have falsely elevated Potassium levels. ??For accurate Potassium quantification in these patients send serum separator tube (gold top) for subsequent determinations. ??Contact the Clinical Chemistry Laboratory if there are any questions. Chloride 103 98 - 107 mmol/L [facility] CO2 27 22 - 31 mmol/L [facility] Anion Gap 10 5 - 15 mmol/L [facility] Calcium 9.5 8.5 - 10.5 mg/dL [facility] Total Protein 7.0 6.1 - 8.0 g/dL [facility] Albumin 4.0 3.2 - 5.2 g/dL [facility] AST 22 0 - 30 unit/L [facility] ALT 16 0 - 30 unit/L [facility] Alk Phos 52 35 - 105 unit/L [facility] Total Bilirubin <0.2(L) 0.2 - 1.3 mg/dL [facility] Estimated GFR 67 >=60 mL/min/1. 73 m?? [facility] Comment: This patient's estimated GFR [...] MD CHEMISTRY ORDERABL ES Performing Organization Address City/State/[facility] Co de Phone Number [facility] [place] [address] * IR Mediport Placement (11/22/2023 2:51 PM EDT) Anatomical Region Laterality Modality X-Ray Angiograph y Narrative 11/22/2023 3:14 PM EDT Interventional Radiology Procedure Note Procedure: Chest port implant Indication: Endometrial adenocarcinoma, durable fpc central venous access for chemotherapy Procedure summary: 1.) Venous access with ultrasound guidance 2.) Tunneled port insertion under fluoroscopic guidance Pre-procedure: Informed consent for the procedure including risks, benefits, and alternatives was obtained. Active time-out was performed prior to the procedure. Maximum sterile barrier technique was used throughout the procedure. Sedation: The patient received split doses of intravenous midazolam and fentanyl from the interventional radiology nurse while pulse, pressure, and oxygen saturation were continuously monitored. Technique: The patient's neck was sonographically evaluated for potential access sites, and the right internal jugular vein was determined to be patent. Local anesthetic was administered. The vein was accessed via real-time ultrasound and micropuncture set with 21 gauge needle and a permanent image was stored. A 0.018 wire was advanced into superior vena cava. The remainder of the procedure was performed under fluoroscopic guidance. A 4 F introducer sheath was placed and the wire exchanged for a 0.035 J wire. The wire was advanced into the inferior vena cava. Local anesthetic was administered on the anterior chest wall inferolateral to the puncture site. A 2 cm transverse incision was made in the right anterior chest wall, and with blunt dissection the port pocket was created. A trocar was then used to advance the catheter subcutaneously to the venous access site. A 4 F introducer sheath was exchanged for a peel-away sheath over the wire. The wire and inner obturator were removed and the catheter advanced into the superior vena cava under fluoroscopic guidance. The catheter was trimmed to appropriate length and attached to the port. The port was inserted into the pocket and the sheath was removed. Catheter tip location was identified and a permanent image was stored. The port flushed and aspirated well. ??The pocket was closed using a two-layer technique with 2-0 vicryl deep interrupted and 4-0 vicryl running sutures. The skin closed was with dermabond. The port was not left accessed. Medications: Lidocaine 1% 10 mL subcut; lidocaine 2% with epinephrine 1:100,000 10 mL subcut; midazolam 1 mg IV; fentanyl 50 mcg IV Contrast: None Fluoroscopy: 0.89 mGy Estimated blood loss: 4 mL Complications: No immediate Impression: 1.) Patent right internal jugular vessel by sonographic evaluation. 2.) Implantation of power-injectable, Medcomp Dignity Mini 8 F low profile single-lumen port in right chest with tip in the superior cavoatrial junction. The port may be used immediately. hydrotel operator: Dov Walls PA-C. Present during the intraservice time as documented by the interventional radiology nurse. Attending of record: Kenneth Lai MD 11/22/2023 Astrid Ortega MD IM IR ORDERABLES * NM PET CT Skull Base to Mid-thigh (10/20/2023 2:53 PM EDT) [employer] WORKSTATION ID [id number] DH RAD Anatomical Region Laterality Modality Positron Emissio n Tomography (PET) Impressions 10/25/2023 1:31 PM EDT 1. ??FDG avid right hepatic lesion consistent with biopsy proven mullerian origin metastatic disease. 2. ??FDG avid sigmoid colon mass, consistent with biopsy-proven primary adenocarcinoma. 3. ??FDG avid right subphrenic lymph node highly concerning for metastatic disease. 4. ??FDG avid right mammary lymph node, concerning for metastatic disease. 5. ??FDG avid peritoneal nodule concerning for peritoneal metastatic disease. 6. ??Indeterminate left upper lobe pulmonary nodule, this may be inflammatory versus malignant. Attention on future imaging. Preliminary report signed by: Yris Aguilar at 10/25/2023 1:27 PM I have personally reviewed the image(s) and the resident's interpretation and agree with the findings, Jude Meneses MD at 10/25/2023 1:31 PM Thank you for letting us participate in the care of this patient. ??If you are a health care provider and have any questions regarding this report, please contact the number below. ??For patients who have questions please contact the health care technician that requested your imaging first. ? Electronically signed by: Jude Meneses MD, [facility] ([phone]), at 10/25/2023 1:31 PM Narrative 10/25/2023 1:31 PM EDT EXAMINATION: NM PET CT STANDARD SKULL BASE TO MID-THIGH CLINICAL HISTORY: Colon, breast, endometrial cancers, new liver lesion, chest nodes, lung nodules C18.7, Malignant neoplasm of sigmoid colon TECHNIQUE: Following IV injection of 89-whskyc-1-deoxyglucose (FDG) a standard uptake of approximately 60 minutes, a noncontrast CT scan followed by a PET scan were acquired from the base of the skull to mid thighs. The noncontrast CT was used for anatomic localization and photon attenuation correction of the PET scan. Blood glucose level: 104 (mg/dL) FDG dose: 8.7 mCi COMPARISON: CT of chest abdomen and pelvis dated 09/27/2023 FINDINGS: HEAD/NECK: Normal activity in all soft tissue regions of the neck and visualized lower head. CHEST: Sub-5 mm non-FDG avid left upper lobe pulmonary nodule (axial image 89). FDG avid 0.8 cm right mammary lymph node (axial image 73). Status post right mastectomy. ABDOMEN/PELVIS: Similar size of a 5.2 cm right subcapsular hepatic lobe FDG avid lesion (axial image 107). Enlarged 1.7 cm right subphrenic FDG avid lymph node (axial image 117). Similar size of a 3.6 cm FDG avid sigmoid colon mass (axial image 208). No bowel dilation. FDG avid FDG avid peritoneal soft tissue nodule within the pelvis (axial image 194). SKELETON/EXTREMITIES: Normal activity in all regions of the axial and visualized appendicular skeleton. No suspicious osseous lesions. Procedure Note Jude Meneses MD - 10/25/2023 EXAMINATION: NM PET CT STANDARD SKULL BASE TO MID-THIGH CLINICAL HISTORY: Colon, breast, endometrial cancers, new liver lesion,chest nodes, lung nodules C18.7, Malignant neoplasm of sigmoid colon TECHNIQUE: Following IV injection of 57-xlpkvd-6-deoxyglucose (FDG) astandard uptake of approximately 60 minutes, a noncontrast CT scan followed by aPET scan were acquired from the base of the skull to mid thighs. The noncontrast CTwas used for anatomic localization and photon attenuation correction of thePET scan. Blood glucose level: 104 (mg/dL) FDG dose: 8.7 mCi COMPARISON: CT of chest abdomen and pelvis dated 09/27/2023 FINDINGS: HEAD/NECK: Normal activity in all soft tissue regions of the neck and visualizedlower head. CHEST: Sub-5 mm non-FDG avid left upper lobe pulmonary nodule (axial image 89). FDG avid 0.8 cm right mammary lymph node (axial image 73). Status post right mastectomy. ABDOMEN/PELVIS: Similar size of a 5.2 cm right subcapsular hepatic lobe FDG avid lesion(axial image 107). Enlarged 1.7 cm right subphrenic FDG avid lymph node (axial image 117). Similar size of a 3.6 cm FDG avid sigmoid colon mass (axial image 208). Nobowel dilation. FDG avid FDG avid peritoneal soft tissue nodule within the pelvis (axialimage 194). SKELETON/EXTREMITIES: Normal activity in all regions of the axial and visualized appendicular skeleton. No suspicious osseous lesions. IMPRESSION 1. FDG avid right hepatic lesion consistent with biopsy proven mullerianorigin metastatic disease. 2. FDG avid sigmoid colon mass, consistent with biopsy-proven primary adenocarcinoma. 3. FDG avid right subphrenic lymph node highly concerning formetastatic disease. 4. FDG avid right mammary lymph node, concerning for metastaticdisease. 5. FDG avid peritoneal nodule concerning for peritoneal metastaticdisease. 6. Indeterminate left upper lobe pulmonary nodule, this may beinflammatory versus malignant. Attention on future imaging. Preliminary report signed by: Yris Aguilar at 10/25/2023 1:27 PM I have personally reviewed the image(s) and the resident's interpretationand agree with the findings, Jude Meneses MD at 10/25/2023 1:31 PM Thank you for letting us participate in the care of this patient. If youare a health care provider and have any questions regarding this report,please contact the number below. For patients who have questions please contactthe health care technician that requested your imaging first. Electronically signed by: Jude Meneses MD, [facility]([phone]), at 10/25/2023 1:31 PM Jossie Jamison MD IMG PET ORDERABLES * POCT Glucose (10/20/2023 1:34 PM EDT) POC Glucose 104 65 - 199 mg/dL [facility] Comment: Supplemental ranges: <140 mg/dL before meals <180 mg/dL all other times of the day Blood 10/20/2023 1:34 PM EDT 10/20/2023 1:34 PM EDT Jossie Jamison MD POINT OF CARE TEST O RDERABLES [facility] [place] [address] * IR Biopsy Liver Percutaneous (10/19/2023 8:20 AM EDT) Anatomical Region Laterality Modality Abdomen X-Ray Angiograph y Narrative 10/19/2023 8:19 AM EDT Preoperative Diagnosis: ? Liver mass. ??History of colon cancer, ovarian cancer, breast cancer. Postoperative Diagnosis: ?? Same. Procedure Performed: US guided ??liver mass biopsy. Estimated Blood Loss: Negligible. Anesthesia: 1. Conscious sedation with titrated Fentanyl and Versed during continuous hemodynamic monitoring including pulse oximetry, heart rate and blood pressure was provided by an independent qualified trained Nurse. ?? I was present during the intraservice time as documented by the IR Nurse. ?? Please see nursing notes for exact medication dosages. 2. 1% lidocaine, local. The patient was informed of the risks, benefits, and alternatives to the procedure and gave written consent, which was then placed in the chart. Appropriate time-out was performed prior to the procedure. Description of Procedure and Findings: All elements of maximal sterile barrier technique were met including cap, mask, sterile gown, sterile gloves, large sterile sheet, hand hygiene and 2% chlorhexidine for cutaneous antisepsis. The upper abdomen was prepped and draped in the usual sterile fashion. ?? Local anesthetic was administered. ??Using US guidance, a 17-gauge trocar needle was advanced into the mass within the high right hepatic lobe/capsule. Through this trocar needle, multiple 18-gauge cores were obtained. The needles were removed. A follow-up US demonstrates no evidence of capsular hematoma or free fluid. The patient tolerated the procedure well. Impression: Uneventful US guided liver mass biopsy. I, the attending Interventional Radiologist performed the entire procedure. Jossie Jamison MD [facility] [place]LES * (ABNORMAL) Surgical Pathology Report (10/19/2023 8:10 AM EDT) FINAL DIAGNOSIS (AP) [id number] ? Location: 3ZV The signing pathologist has (i) examined the relevant preparation(s) for the specimen(s) and (ii) rendered or confirmed the diagnosis(es). . ?Molecular Genetics RESULTS TEST: HER2 (ERBB2) FISH, Liver Biopsy, tumor of mullerian origin METHOD: Fluorescence in situ hybridization (FISH) with chromosome 17 centromere (17p11.1-q11.1) probe and a locus specific probe for the HER2 gene locus (17q11.2- q12). SAMPLE ANALYZED: A2-18 RESULT: ?NEGATIVE FOR HER2/ADELINA AMPLIFICATION ? TOTAL # SIGNALS/TOTAL # NUCLEI COUNTED FOR HER2 PROBE = 109 ? TOTAL # SIGNALS/TOTAL # NUCLEI COUNTED FOR CEP-17 PROBE = 78 ? HER2 TO CEP-17 RATIO = 1.4 ?(NORMAL RANGE <2.0) ? TOTAL # NUCLEI COUNTED = 40 ? AVERAGE # HER2 signals/cell = 2.7 Interpretation: ??Paraffin-embedded tissue sections were submitted for HER2 (ERBB2)gene amplification analysis by FISH. ??Direct analysis was performed using the Spokeable Kit. ??Slide adequacy and signal enumeration were evaluated and satisfactory for both control and patient slides. In typical settings, a signal ratio derived from the HER2 probe and the CEP-17 centromere probe of ?2.0 is considered positive for HER2 gene amplification. Up to about 35% of patients with uterine serous carcinomas may harbor ERBB2 (HER2) gene amplification, and it has been shown that addition of trastuzumab to carboplatin and paclitaxel based chemotherapeutic regimens is well tolerated and increases progression-free survival. The NCCN guidelines for uterine cancers recognizes the utility of adding trastuzumab to therapeutic regimens in advanced (stage III/IV) and recurrent uterine serous carcinomas that are HER2-positive. Reference: Sg VACA et al. Randomized Phase II Trial of Carboplatin-Paclitaxel Versus Carboplatin-Paclitaxel- Trastuzumab in Uterine Serous Carcinomas That Overexpress Human Epidermal Growth Factor Receptor 2/adelina. J Clin Oncol. 2018;36(20):7769-7250. National Comprehensive Cancer Network. Uterine Neoplasms (Version 3.2019). https:// www.nccn.org/profession als/physician_gls/pdf/u kathie.pdf. Accessed 09/07/2018. Electronically signed by: ?Asha Capellan MD Verified: ??12/22/2023 16:36 ??Pathologist Performed at: ??-[facility] Dept. of Pathology, [place] [address] [employer] Servicer: Deangelo Iverson MD, AP, ??CLIA Certificate: [id number] ? Addendum ADDENDUM DISCUSSION . ADDENDUM DISCUSSION Immunostaining for HER2 is equivocal (2+). HER2 FISH is pending and will be reported in a separate molecular pathology report. Assessment of Her2 Overexpression by Immunohistochemistry ?Score ?Criteria ?Biopsies ?Resections Negative ?0 ?? Absence of membranous ?? Absence of membranous ?staining at any ? staining at any ?magnification. ?magnification. Negative ?1+ ??Complete or incomplete ??Complete or incomplete ?(basolateral/lateral) ?? (basolateral/lateral) ? staining in 5 or more ??staining in 10% cells ?clustered cells visible or more visible only ? only with x 400. ? with x 400. Equivocal ?? 2+ ??Complete or incomplete ??Complete or incomplete ?(basolateral/lateral) ?? (basolateral/lateral) ?staining in 5 or more ?? staining in 10% cells ?clustered cells visible ??or more visible with ? only with x 100-200. ?? x 100-200. Positive ?3+ ??Strong complete or in ?? Strong complete or in ?complete (basolater ? complete (basolater ?al/lateral) membranous ??al/lateral) membra ? reactivity in 5 or ? nous reactivity in 10% ? more clustered cells ?cells or more visible ? visible with x 20-40. ?? with x 20-40. Immunohistochemical assay was performed on paraffin-embedded tissue sections fixed in 10% neutral buffered formalin for 6-72 hours using the polymer technique with appropriate positive and negative controls. The assay was performed according to the gravel machine operator ??'s instructions using an Anti-HER2 (4B5) antibody. Electronically signed by: ?Cb PEREZ PhD, Michelle Verified: ??12/18/2023 16:28 ??Pathologist Performed at: ??-[facility] Dept. of Pathology, [place] [id number] [employer] Servicer: Deangelo Iverson MD, FCAP, ??[facility] Certificate: [id number] ? Addendum ADDENDUM DISCUSSION Block ? Antibody ? Result (Positive/Negative) A2 ? MLH1 ?Positive, intact nuclear staining ? MSH2 ?Positive, intact nuclear staining ? MSH6 ?Positive, intact nuclear staining ? PMS2 ?Positive, intact nuclear staining Interpretation: Immunostains for MLH1, MSH2, MSH6 and PMS2 reveal intact nuclear staining in tumor cells. ??In a very small percentage of tumors, there may still be an underlying hereditary defect in these DNA mismatch repair genes despite intact nuclear expression of the protein in tumor cells ?? . Genetic counseling and/or additional workup is indicated in patients with a family history that meets current criteria for HNPCC screening. ?? Further testing for microsatellite instability in available in the [facility] ([facility]) if the clinical suspicion for Russ syndrome remains high despite the intact mismatch repair protein expression. Electronically signed by: ?Rita PEREZ, Cash Verified: ??11/14/2023 9:58 ?? Pathologist Performed at: ??-[facility] Dept. of Pathology, [place] [address] [employer] Servicer: Deangelo Iverson MD, [facility], ??CLIA Certificate: [id number] . 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 Electronically signed by: ?Cb PEREZ PhD, Michelle Verified: ??10/23/2023 11:04 ??Pathologist Performed at: ??-[facility] Dept. of Pathology, [place] [address] [employer] Servicer: Deangelo Iverson MD, AP, ??CLIA Certificate: [id number] DISCUSSION Dr. Jovanni Mccain (Gynecologic Pathology) has reviewed this case and agrees with the diagnosis. THIS RESULT REQUIRES PHYSICIAN/A.P.P. FOLLOW UP ADDITIONAL STUDIES Immunohistochemistry Studies: Formalin-fixed, paraffin-embedded tissue sections are studied using the polymer technique with appropriate positive and negative controls. ?These IHC studies provide the pathologist with adjunctive diagnostic information. Antibody specificity has been verified by testing antibodies on a series of in-house tissues with known immunohistochemical performance characteristics. The clinical interpretation of any antibody positive staining or its absence is evaluated within the context of clinical presentation, morphology, histopathological criteria and other diagnostic tests. Block ? Antibody ?Result (Positive/Negative) A2 ? PAX8 ? Positive A2 ? ER ? Positive A2 ? HI ? Positive A2 ? CK7 ?Positive A2 ? CDX2 ? Positive (patchy) A2 ? CK20 ? Negative A2 ? GATA3 ?Negative A2 ? SATB2 ?Negative SPECIMEN(S) SUBMITTED A - Liver, biopsy (Multiple) CLINICAL INFORMATION Malignant neoplasm of sigmoid colon, DX: New diagnosis of colon cancer-liver mass, has history of breast and endometrial cancer SPECIMEN PROCESSING A - Labeled/Fixative: Liver, formalin. Quantity/Size: Multiple, ranging from 0.6 x 0.1 cm to 2.3 x 0.1 cm Tissue Description: Romo needle core biopsies. Sections/Processing: Entirely submitted in 2 cassettes labeled A1-A2. ??sdy(A) 12/22/2023 4:36 PM EDT [facility] 10/19/2023 8:10 AM EDT Jossie Jamison MD PATHOLOGY/CYTOLOGY O RDERAGOYO Performing Organization Address City/[facility]/ZIP Co de Phone Number [facility] [place] [address] * Specimen to Pathology (10/19/2023 7:00 AM EDT) AP Specimen 10/19/2023 7:00 AM EDT 10/19/2023 7:00 AM EDT Narrative [facility] - 10/19/2023 7:00 AM EDT Specimen requisition ordered. ??Separate Pathology report to follow Jossie Jamison MD PATHOLOGY/CYTOLOGY O OPAL Performing Organization Address [facility] Co de Phone Number [facility] [place] [address] * SCAN DOC: SURGICAL PATHOLOGY (10/11/2023 12:00 AM EDT) Narrative 10/11/2023 12:00 AM EDT Ordered by an unspecified provider. Scanning Provider MEDIA MGR SCAN EXT O RDR/RSLT * CEA (10/10/2023 12:17 PM EDT) CEA 1.3 ng/mL [facility] Comment: Reference range: ??(20-69 years): Non-smoker: ??less than or equal to 3.8 ng/mL Smoker: ??less than 5.5 ng/ml This result was generated using a Maryan Kenan immunoassay. ??Results obtained from other methods or manufacturers cannot be used interchangeably with this method. Blood 10/10/2023 12:1 7 PM EDT 10/10/2023 12:22 PM EDT Narrative Resulting Agency Comment Spec In Lab Jossie Jamison MD CHEMISTRY ORDERABLES Performing Organization Address [facility] Co de Phone Number [facility] [place] [address] * (ABNORMAL) Hepatic Function Panel (10/10/2023 12:17 PM EDT) Total Protein 7.2 6.1 - 8.0 g/dL [facility] Albumin 4.2 3.2 - 5.2 g/dL [facility] AST 18 0 - 30 unit/L [facility] ALT 12 0 - 30 unit/L [facility] Alk Phos 47 35 - 105 unit/L [facility] Total Bilirubin <0.2(L) 0.2 - 1.3 mg/dL [facility] Bili, Direct <0.1 0.0 - 0.3 mg/dL [facility] Blood 10/10/2023 12:1 7 PM EDT 10/10/2023 12:22 PM EDT Narrative Resulting Agency Comment Spec In Lab Jossie Jamison MD CHEMISTRY ORDERABLES [facility] [place] [address] * (ABNORMAL) Basic Metabolic Panel (non-fasting) (10/10/2023 12:17 PM EDT) Glucose Lvl 102 65 - 199 mg/dL [facility] Comment:Diabetes: >=200 mg/d L plus symptoms BUN 19(H) 8 - 18 mg/dL [facility] Creatinine 0.94 0.70 - 1.20 mg/dL [facility] Sodium 138 135 - 145 mmol/L [facility] Potassium 4.5 3.5 - 5.0 mmol/L [facility] Comment: Please note: ??Patients with WBC >100,000 may have falsely elevated Potassium levels. ??For accurate Potassium quantification in these patients send serum separator tube (gold top) for subsequent determinations. ??Contact the Clinical Chemistry Laboratory if there are any questions. Chloride 102 98 - 107 mmol/L [facility] CO2 26 22 - 31 mmol/L [facility] Anion Gap 10 5 - 15 mmol/L [facility] Calcium 9.5 8.5 - 10.5 mg/dL [facility] Estimated GFR 65 >=60 mL/min/1. 73 m?? [facility] Comment: This patient's estimated GFR [...] and symptoms in addition to eGFR. Blood 10/10/2023 12:1 7 PM EDT 10/10/2023 12:22 PM EDT Narrative Resulting Agency Comment Spec In Lab Jossie Jamison MD CHEMISTRY ORDERABLES Performing Organization Address City/State/[facility] Co de Phone Number [facility] [place] [phone] * Request For 2nd Read CT Chest Abdomen Pelvis (10/08/2023 8:25 PM EDT) WORKSTATION ID [id number] DH RAD Anatomical Region Laterality Modality Chest, Abdomen, Pelvis SO Impressions 10/08/2023 8:47 PM EDT 1. ??New enlarged cardiophrenic lymph node accompanies many new subcentimeter mediastinal and hilar lymph nodes in this patient status post right mastectomy. 2. ??New 5 cm enhancing hepatic pericapsular mass at the liver dome bulging into the newly thickened right hemidiaphragm reflecting peritoneal metastatic disease. 3. ??Obstructing sigmoid mass. No pathologically enlarged deep pelvic nor retroperitoneal lymph nodes. Thank you for letting us participate in the care of this patient. ??If you are a health care provider and have any questions regarding this report, please contact the number below. ??For patients who have questions please contact the health care technician that requested your imaging first. ? Electronically signed by: Xenia Boss MD, [facility] ([phone]), at 10/08/2023 8:47 PM Narrative 10/08/2023 8:47 PM EDT EXAMINATION: REQUEST FOR 2ND READ CT CHEST ABDOMEN PELVIS CLINICAL HISTORY: new diagnosis colon cancer, history of breast and ovarian cancer. Evaluate for metastatic disease; Sending Institution [facility]; Date of exam [id number]; I believe a reinterpretation of this exam may alter care of Patient. Yes C18.7, Malignant neoplasm of sigmoid colon TECHNIQUE: Helical CT of the chest, abdomen, and pelvis following the intravenous administration of contrast. 100 cc Omnipaque 350 intravenous contrast.. Oral contrast was administered. Study performed September 27, [address] [facility] COMPARISON: CT scan the chest August 19, 2014 FINDINGS: Chest: Lungs and large airways: No nodule. No mass. Pleura: No effusion. Heart/vasculature: Normal size heart without pericardial effusion. No central pulmonary artery emboli. Lymph nodes: Many new subcentimeter mediastinal and hilar lymph nodes. Mediastinum and it[place]: New right 8 x 23 mm cardiophrenic lymph node. Status post right mastectomy. Abdomen/pelvis: Liver: New 5 cm heterogeneously enhancing pericapsular implant at the liver dome bulging into the newly thickened right hemidiaphragm. Bile ducts: Nondilated. Gallbladder: No calcified gallstones. Normal caliber wall. Pancreas: Normal attenuation without ductal dilatation. Spleen: Normal. Adrenals: Normal. Kidneys: Normal. Urinary Bladder: Normal. Vasculature: Normal caliber abdominal aorta. Patent renal, hepatic and portal veins. Lymph Nodes: No pathologically enlarged retroperitoneal, mesenteric nor deep pelvic lymph nodes Bowel: Enhancing shouldered 4.5 cm sigmoid mass proximal to which is above average fecal burden within the nonthickened remaining colon. Enteric contrast reaches the splenic flexure. Normal caliber small bowel. Peritoneum and retroperitoneum: No omental thickening. No ascites. Abdominal wall: New thickening of the right diaphragm Reproductive organs: Uterus not visualized Osseous structures: No suspicious lesions. Procedure Note Xenia Boss MD - 10/08/2023 EXAMINATION: REQUEST FOR 2ND READ CT CHEST ABDOMEN PELVIS CLINICAL HISTORY: new diagnosis colon cancer, history of breast andovarian cancer. Evaluate for metastatic disease; Sending Institution [facility];Date of exam [id number]; I believe a reinterpretation of this exam may alter careof Patient. Yes C18.7, Malignant neoplasm of sigmoid colon TECHNIQUE: Helical CT of the chest, abdomen, and pelvis following the intravenous administration of contrast. 100 cc Omnipaque 350 intravenous contrast.. Oral contrast was administered. Study performed September [facility]. COMPARISON: CT scan the chest August 19, 2014 FINDINGS: Chest: Lungs and large airways: No nodule. No mass. Pleura: No effusion. Heart/vasculature: Normal size heart without pericardial effusion. Nocentral pulmonary artery emboli. Lymph nodes: Many new subcentimeter mediastinal and hilar lymph nodes. Mediastinum and italia: New right 8 x 23 mm cardiophrenic lymph node. Status post right mastectomy. Abdomen/pelvis: Liver: New 5 cm heterogeneously enhancing pericapsular implant at theliver dome bulging into the newly thickened right hemidiaphragm. Bile ducts: Nondilated. Gallbladder: No calcified gallstones. Normal caliber wall. Pancreas: Normal attenuation without ductal dilatation. Spleen: Normal. Adrenals: Normal. Kidneys: Normal. Urinary Bladder: Normal. Vasculature: Normal caliber abdominal aorta. Patent renal, hepatic andportal veins. Lymph Nodes: No pathologically enlarged retroperitoneal, mesenteric nordeep pelvic lymph nodes Bowel: Enhancing shouldered 4.5 cm sigmoid mass proximal to which isabove average fecal burden within the nonthickened remaining colon. Entericcontrast reaches the splenic flexure. Normal caliber small bowel. Peritoneum and retroperitoneum: No omental thickening. No ascites. Abdominal wall: New thickening of the right diaphragm Reproductive organs: Uterus not visualized Osseous structures: No suspicious lesions. IMPRESSION 1. New enlarged cardiophrenic lymph node accompanies many newsubcentimeter mediastinal and hilar lymph nodes in this patient status post rightmastectomy. 2. New 5 cm enhancing hepatic pericapsular mass at the liver dome bulginginto the newly thickened right hemidiaphragm reflecting peritoneal metastatic disease. 3. Obstructing sigmoid mass. No pathologically enlarged deep pelvic nor retroperitoneal lymph nodes. Thank you for letting us participate in the care of this patient. If youare a health care provider and have any questions regarding this report,please contact the number below. For patients who have questions please contactthe health care technician that requested your imaging first. Jossie Jamison MD IMG OUTSIDE [facility] ORDERABLES * DXA Central Spine, Hip, and/or Whole Body (Generic) (05/18/2023 11:15 AM EST) Anatomical Region Laterality Modality C-spine, Hip N/A Other Impressions 05/18/2023 4:09 PM EST Measurements meet WHO criteria for osteopenia. Estimating Fracture Risk: ? The relationship between bone mineral density (BMD) and risk of fracture is well established. As BMD decreases, risk increases. Quantifying risk is difficult and is usually limited to estimation of the relative risk - a term which may have limited value when trying to discuss an individual's risk. Estimating the absolute risk for a patient requires an understanding of the incidence rate in a given population and consideration of multiple, partially independent, risk factors in addition to BMD. ? The World Health Organization (WHO) has developed a fracture risk prediction tool that calculates a ten-year risk of major osteoporotic fracture based on femoral neck bone density measurements and nine clinical risk factors for individuals who have not been treated for osteoporosis. This is available through an interactive web-based interface (http://www.shef.ac.uk/FRAX/) and can be used to estimate a given patient's absolute risk of major osteoporotic fracture or hip fracture over the next 10 years. These estimates may prove useful when discussing risk with a patient. It is important, however, to understand the tool's limitations and how a given individual's risk might differ from the tool's estimate. The tool does not take into account the dose-response associated with most risk factors. For example, the significant increase in risk associated with multiple prior fractures compared to a single prior fracture is not taken into account. Similarly, the location of a previous fracture, the amount of glucocorticoids and number of cigarettes smoked are not considered. These limitations are discussed in a Frequently Asked Questions section of the FRAX website which you are encouraged to review. ? DEXA data sheets with BMD measurements and plots are available in [employer] under the imaging tab. Paper copies will be sent to providers without World[employer] access. If you have received this report without the data sheet and do not have access to Worldrat, please contact Radiology [facility] at [phone] Monday thru Monday 8am-4pm. ? Bone Density Report ? Name: ?ErwinYuMarychuy W Age: ? 72 Sex: ? Female Ethnicity: ? White Date of : 1950 Referring Provider: JENNY MELISSA Study: Bone densitometry was performed. Model: [employer] Bibi (S/N [id number]) SW version 13.6.0.5 Exam Date: May 18, 2023 Accession number: [id number] Bone Density: Region ? BMD ?T-score ??Z-score ? AP Spine(L1, L2, L4) ? 1.004 ?? -0.3 ?1.9 ? Femoral Neck (Left) ?0.620 ?? -2.1 ? -0.2 ? Total Hip (Left) ? 0.844 ?? -0.8 ?0.7 ? World Health Organization criteria for BMD impression classify patients as: Normal (T-score at or above -1.0), Osteopenia (T-score between -1.0 and -2.5), or Osteoporosis (T-score at or below -2.5). Thank you for letting us participate in the care of this patient. ??If you are a health care provider and have any questions regarding this report, please contact the number below. ??For patients who have questions please contact the health care technician that requested your imaging first. ? Electronically signed by: Yris Eduardo MD, [facility] ([phone]), at 05/18/2023 4:09 PM Narrative 05/18/2023 4:09 PM EST EXAMINATION: DXA CENTRAL SPINE, HIP, AND/OR WHOLE BODY (GENERIC) CLINICAL HISTORY: 72 years Female hx osteopenia ?? (as entered by ordering provider) TECHNIQUE: Scans were acquired at the lumbar spine and ??left hip using the [employer] Horizon A system. COMPARISON: none FINDINGS: Femoral neck BMD: 0.620 ? g/cm2 Lowest T-score at a diagnostic region of interest: T-score: -2.1, JOSIE: left ??femoral neck, WHO diagnosis: ??osteopenia Procedure Note Yris Eduardo MD - 05/18/2023 EXAMINATION: DXA CENTRAL SPINE, HIP, AND/OR WHOLE BODY (GENERIC) CLINICAL HISTORY: 72 years Female hx osteopenia (as entered byordering provider) TECHNIQUE: Scans were acquired at the lumbar spine and left hip usingthe [employer] Horizon A system. COMPARISON: none FINDINGS: Femoral neck BMD: 0.620 g/cm2 Lowest T-score at a diagnostic region of interest: T-score: -2.1, JOSIE: left femoral neck, WHO diagnosis: osteopenia IMPRESSION Measurements meet WHO criteria for osteopenia. Estimating Fracture Risk: ? The relationship between bone mineral density (BMD) and risk of fractureis well established. As BMD decreases, risk increases. Quantifying risk isdifficult and is usually limited to estimation of the relative risk - a term which mayhave limited value when trying to discuss an individual's risk. Estimatingthe absolute risk for a patient requires an understanding of the incidencerate in a given population and consideration of multiple, partially independent,risk factors in addition to BMD. ? The World Health Organization (WHO) has developed a fracture riskprediction tool that calculates a ten-year risk of major osteoporotic fracture basedon femoral neck bone density measurements and nine clinical risk factorsfor individuals who have not been treated for osteoporosis. This isavailable through an interactive web-based interface (http://www.shef.ac.uk/FRAX/)and can be used to estimate a given patient's absolute risk of majorosteoporotic fracture or hip fracture over the next 10 years. These estimates mayprove useful when discussing risk with a patient. It is important, however, to understand the tool's limitations and how a given individual's risk mightdiffer from the tool's estimate. The tool does not take into account thedose-response associated with most risk factors. For example, the significant increasein risk associated with multiple prior fractures compared to a single priorfracture is not taken into account. Similarly, the location of a previous fracture,the amount of glucocorticoids and number of cigarettes smoked are notconsidered. These limitations are discussed in a Frequently Asked Questions sectionof the FRAX website which you are encouraged to review. ? DEXA data sheets with BMD measurements and plots are available in [employer]under the imaging tab. Paper copies will be sent to providers without [employer] access.If you have received this report without the data sheet and do not haveaccess to [employer], please contact Radiology [facility] at [phone] Monday thr 8am-4pm. Bone Density Report Name: Marychuy Hood Age: 72 Sex: Female Ethnicity: White Date of : 1950 Referring Provider: JENNY MELISSA Study: Bone densitometry was performed. Model: [employer] A (S/N [id number]) Molcure version 13.6.0.5 Exam Date: May 18, 2023 Accession number: [id number] Bone Density: Region BMD T-score Z-score AP Spine(L1, L2, L4) 1.004 -0.3 1.9 Femoral Neck (Left) 0.620 -2.1 -0.2 Total Hip (Left) 0.844 -0.8 0.7 World Health Organization criteria for BMD impression classify patients as: Normal (T-score at or above -1.0), Osteopenia (T-score between -1.0 and -2.5), or Osteoporosis (T-score at or below -2.5). Thank you for letting us participate in the care of this patient. If youare a health care provider and have any questions regarding this report,please contact the number below. For patients who have questions please contactthe health care technician that requested your imaging first. Electronically signed by: Yris Eduardo MD, [facility]([phone]), at 05/18/2023 4:09 PM Jenny Melissa MD IMG DEXA ORDERABLES * Mammo Screening Cad and Markos Left (05/18/2023 10:16 AM EST) Anatomical Region Laterality Modality Breast Left Mammography Narrative 05/18/2023 10:55 AM EST LEFT BREAST MAMMOGRAPHY REASON FOR EXAM: Screening TECHNIQUE: CC and MLO views were obtained of the left breast using standard 2-D mammography as well as 3-D tomosynthesis. Computer aided detection was used. This is compared with prior images. FINDINGS: There are scattered areas of fibroglandular density. There are no suspicious microcalcifications, masses, or areas of distortion. The pattern is stable. CONCLUSION: No mammographic evidence of malignancy. RECOMMENDATION: Regular screening mammograms starting at age 40 reduces the risk of from breast cancer. Yearly screening provides the most benefit. Women should discuss with their provider their preferred breast cancer screening schedule. Women should report any breast changes to a health care provider right away. Some women, because of their family history, a genetic tendency, or other factors, should be screened with annual breast MRI as well as with mammograms. A result letter has been sent to this patient by the [facility]. BIRADS CATEGORY 1: NEGATIVE Electronically signed by: Dion Martinez III, MD Chelita Connelly APRN IMG MAMMO ORDERABLE S from Last 3 Months or Most Recently Relevant to Health Maintenance Advance Directives Documents on File Type Date Recorded Patient Effervescent Salts Compounder Expl anation Personal Effervescent Salts Compounder 12/31/2020 1:23 PM eric hood Personal Effervescent Salts Compounder 12/31/2020 1:23 PM ty hood * Attempt Cardiopulmonary Resuscitation - Inpatient (Latest Code Status on File) Date Activated Date Inactivated Comments 11/22/2023 1:44 PM 11/23/2023 4:36 AM Question Answer Comments Code Status decision made by: Patient * Attempt Cardiopulmonary Resuscitation - Inpatient Date Activated Date Inactivated Comments 10/19/2023 6:39 AM 10/20/2023 4:39 AM Question Answer Comments Code Status decision made by: Patient * Attempt Cardiopulmonary Resuscitation - Inpatient Date Activated Date Inactivated Comments 01/28/2021 12:42 PM 01/28/2021 7:42 PM Question Answer Comments Code Status decision made by: Patient * Full Code Date Activated Date Inactivated Comments 08/01/2014 4:11 PM 08/04/2014 2:55 PM Care Teams Judo Teacher Relationship Specialty Start Date End Date Josefina Crocker APRN [address] [place] [address] PCP - General Family Medicine 07/17/23
--- OUTSIDE RECORDS SUMMARY | 2023-12-28 02:20 | XMS_ITS | Encounter Summary ---
Author Organization [facility] Address [facility] [place] [address] Care Team Providers Care Supercharge Repair Supervisor Name Role Phone ObiJosefina Mona RIOS Primary Care Provider +1- [phone] Encounter Details Date Type Department Care Team (Latest Contact Info) Description 12/15/2023 12:30 PM EDT TH Visit (TeleHealth) [place] [phone] Fuad Perez MD [facility] [place] [address] Endometrial adenocarcinoma, endometrioid type, FIGO grade 2 [...] from your doctor or pharmacy? Never 10/31/2023 [facility] Utilities Answer Date Recorded In [...] any time in the past 12 m [facility], were you homeless or living in a penitentiary (including now)? No 10/31/2023 Sex and Gender Information Value Date Recorded Sex Assigned at Not on file Gender Identity Not on file Sexual Orientation Not on file documented as of this encounter Progress Notes * Fuad Perez MD - 12/15/2023 12:30 PM EDT Division of Gynecologic Oncology [place] [id number] Pre-chemotherapy Visit: Patient Active Problem List Diagnosis Code Endometrial adenocarcinoma, endometrioid type, FIGO grade 2 C54.1 Malignant neoplasm of right breast in female, estrogen receptor positive C50.911, Z17.0 Osteopenia of multiple sites M85.89 Liver mass R16.0 Acquired hypothyroidism E03.9 Reason for visit: Marychuy Hood is seen via [facility] in anticipation of cycle # 3 of carbo/taxol/pembro chemotherapy. She is undergoing chemotherapy for recurrent [...] to the office today before cycle # 3 of carbo/taxol/pembrolizumab chemotherapy. Pembrolizumab was added with cycle 2. She tolerated this cycle well. Her bone and joint pain was less severe. Her primary issue is the degree of fatigue. She feels her bowels are improving and she has started to incorperate some vegetable. No nausea/emesis. She has soft stools, using miralax daily. Review of Systems All other systems reviewed [...] year old with recurrent endometrioid endometrial cancerwho presenting prior to cycle 3 of cabro/taxol/pembro. She is tolerating therapy OK, her main issue now is fatigue. We discussed strategies to manage this. I do think she can safely expand her diet and this may help. She is going to transition her infusions to St. . She will see me back after cycle 3 with a CTscan at that time. FUAD PEREZ MD documented in this encounter Plan of Treatment Upcoming Encounters Date Type Department Care Team (Late st Contact Info) Description 12/28/2023 10:00 AM EDT Office Visit Hematology/Oncology at [address] [phone] Sumanth Bermudez MD [facility] HEMATOLOGY/[place] [address] 12/28/2023 10:30 AM EDT Infusion Hematology Oncology at [address] [address] 01/02/2024 3:20 PM EDT Hospital [place] [phone] Fuad Perez MD [facility] [place] [address] 04/22/2024 10:00 AM EST TH Visit (TeleHealth) Hematology and Oncology at [address] [phone] Tracy Beltran [facility] [address] 05/20/2024 10:40 AM EST Hospital Encounter Mammography/[place] [address] 05/20/2024 11:50 AM EST Office [place] [address] Magaly Quijano APRN [facility] [place] [address] 11/15/2024 4:00 PM EDT Office Visit Hematology [place] [address] Jenny Melissa MD [facility] DR HEMATOLOGY/[place] [address] documented as of this encounter Visit Diagnoses Diagnosis Endometrial adenocarcinoma, endometrioid type, 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
--- OUTSIDE RECORDS SUMMARY | 2023-12-28 02:20 | XMS_ITS | Encounter Summary ---
[place] [address] Care Team Providers Care Senior Media Planner Name Role Phone Obi Josefina Mona RIOS Primary Care Provider +1- [phone] Encounter Details Date Type Department Care Team (Late st Contact Info) Description 12/15/2023 Orders Only Gyne[place] [phone] Nannette Perea, RN Endometrial adenocarcinoma Social History Tobacco Use Types Packs/Day Years [...] from your doctor or pharmacy? Never 10/31/2023 [facility] Utilities Answer Date Recorded In the past 12 months has [employer] electric, gas, oil, or water company threatened [...] any time in the past 12 m [facility], were you homeless or living in a chcf (including now)? No 10/31/2023 Sex and Gender Information Value Date Recorded Sex Assigned at Not on file Gender Identity Not on file Sexual Orientation Not on file documented as of this encounter Plan of Treatment Upcoming Encounters Date Type Department Care Team (Late st Contact Info) Description 12/28/2023 10:00 AM EDT Office Visit Hematology/Oncology at [address] [phone] Sumanth Bermudez MD [facility] HEMATOLOGY/[place] [address] 12/28/2023 10:30 AM EDT Infusion Hematology Oncology at [address] [phone] 01/02/2024 3:20 PM EDT Hospital Encounter [place] [address] Astrid Ortega MD [facility] [place] [address] 04/22/2024 10:00 AM EST TH Visit (TeleHealth) Hematology and Oncology at [address] [place] [address] Tracy Beltran [facility] [place] [address] 05/20/2024 10:40 AM EST Hospital Encounter Mammography/[place] [address] 05/20/2024 11:50 AM EST Office [place] [address] Magaly Quijano APRN [facility] [place] [address] 11/15/2024 4:00 PM EDT Office Visit Hematology and Oncology at [place] [phone] Jenny Melissa MD [facility] [place]ATOLOGY[place] [address] documented as of this encounter Visit Diagnoses Diagnosis Endometrial adenocarcinoma Malignant neoplasm of corpus uteri, except isthmus documented in this encounter Care Teams Senior Media Planner Relationship Specialty Start Date End Date Josefina Crocker APRN [address] [place] [phone] PCP - General Family Medicine 07/17/23 documented as of this encounter
--- OUTSIDE RECORDS SUMMARY | 2023-12-28 02:20 | XMS_ITS | Encounter Summary ---
Author Organization [facility] Address [facility] [place] [address] Care Team Providers Care It Technical Specialist Name Role Phone Josefina Crocker APRN Primary Care Provider +1- [phone] Encounter Details Date Type Department Care Team (Latest Contact Info) Description 12/26/2023 Travel Social History Tobacco Use Types Packs/Day [...] from your doctor or pharmacy? Never 10/31/2023 [facility] Utilities Answer Date Recorded In the past 12 months has [employer], gas, oil, or water [employer] threatened to shut off services in your [...] any time in the past 12 m [facility], were you homeless or living in a long term (including now)? No 10/31/2023 Sex and Gender Information Value Date Recorded Sex Assigned at Not on file Gender Identity Not on file Sexual Orientation Not on file documented as of this encounter Plan of Treatment Upcoming Encounters Date Type Department Care Team (Late st Contact Info) Description 12/28/2023 10:00 AM EDT Office Visit Hematology/Oncology at [address] [phone] Sumanth Bermudez MD [facility] HEMATOLOGY/[place] [address] 12/28/2023 10:30 AM EDT Infusion Hematology Oncology at [address] [phone] 01/02/2024 3:20 PM EDT Hospital [place] [address] Astrid Ortega MD [facility] GYNECOLOGIC [place] [address] 04/22/2024 10:00 AM EST TH Visit (TeleHealth) Hematology and Oncology at [address] [phone] Tracy Beltran [facility] [place] [address] 05/20/2024 10:40 AM EST Hospital Encounter Mammography/DXA at [place] [phone] 05/20/2024 11:50 AM EST Office Visit General Surgery at [place] [phone] Magaly Quijano APRN [facility] [place] [address] 11/15/2024 4:00 PM EDT Office Visit Hematology and Oncology at [place] [phone] Jenny Melissa MD [facility] HEMATOLOGY/[place] [address] documented as of this encounter Visit Diagnoses Not on filedocumented in this encounter Care Teams It Technical Specialist Relationship Specialty Start Date End Date Josefina Crocker APRN 2 [place] [address] PCP - General Family Medicine 07/17/23 documented as of this encounter
--- OUTSIDE RECORDS SUMMARY | 2023-12-28 02:21 | XMS_ITS | Encounter Summary ---
[place] [address] Care Team Providers Care Grape Crusher Name Role Phone Josefina Crocker APRN Primary Care Provider +1- [phone] Encounter Details Date Type Department Care Team (Late st Contact Info) Description 11/14/2023 Telephone [place] [phone] Kaitlynn Ford Social History Tobacco Use Types Packs/Day Years [...] from your doctor or pharmacy? Never 10/31/2023 [facility] Utilities Answer Date Recorded In the past [...] in the past 12 m [facility], were you homeless or living in a skilled nursing (including now)? No 10/31/2023 Sex and Gender Information Value Date Recorded Sex Assigned at Not on file Gender Identity Not on file Sexual Orientation Not on file documented as of this encounter Plan of Treatment Upcoming Encounters Date Type Department Care Team (Late st Contact Info) Description 12/28/2023 10:00 AM EDT Office Visit Hematology/Oncology at [address] [phone] Sumanth Bermudez MD [facility] HEMATOLOGY/[place] [address] 12/28/2023 10:30 AM EDT Infusion Hematology Oncology at [address] [address] 01/02/2024 3:20 PM EDT Hospital [place] [address] Astrid Ortega MD [facility] GYNECOLOGIC [place] [address] 04/22/2024 10:00 AM EST TH Visit (TeleHealth) Hematology and Oncology at [address] [address] Tracy Beltran [facility] [place] [address] 05/20/2024 10:40 AM EST Hospital Encounter Mammography/DXA at [place] [phone] 05/20/2024 11:50 AM EST Office [place] [address] Magaly Quijano APRN [facility] [place] [address] 11/15/2024 4:00 PM EDT Office Visit Hematology and Oncology at [place] [phone] Jenny Melissa MD [facility] HEMATOLOGY/[place] [address] documented as of this encounter Visit Diagnoses Not on filedocumented in this encounter Care Teams Grape Crusher Relationship Specialty Start Date End Date Josefina Crocker APRN [address] [place] [address] PCP - General Family Medicine 07/17/23 documented as of this encounter
--- OUTSIDE RECORDS SUMMARY | 2023-12-28 02:21 | XMS_ITS | Encounter Summary ---
Author Organization [facility] Address [facility] [place] [address] Care Team Providers Care Traffic Police Officer Name Role Phone ObiJosefina Mona RIOS Primary Care Provider +1- [phone] Encounter Details Date Type Department Care Team (Late st Contact Info) Description 10/26/2023 Orders Only [place] [address] Astrid Ortega MD [facility] [place] [address] Endometrial adenocarcinoma, endometrioid type, FIGO grade 2; Liver mass Social History Tobacco Use Types Packs/Day Years Used Date Smoking Tobacco: Never Smokeless Tobacco: Never Alcohol Use Standard Drinks/Week Comments Not Currently 1 (1 standard drink = 0.6 oz pur e alcohol) 1-2 times a month Overall Financial Resource Strain (CARDIA) Answe r Date Recorded How hard is it for you to pa y for the very basics like food, housing, medical care, and heating? Not very hard 12/25/2020 PRAPARE - Transportation Answer Date Re corded In the past 12 months, has l ack of transportation kept you from medical appointments or from getting medications? No 12/04 In the past 12 months, has l ack of transportation kept you from meetings, work, or from getting things needed for daily living? No 12/25/2020 Sex and Gender Information Value Date Recorded Sex Assigned at Not on file Gender Identity Not on file Sexual Orientation Not on file documented as of this encounter Plan of Treatment Upcoming Encounters Date Type Department Care Team (Late st Contact Info) Description 12/28/2023 10:00 AM EDT Office Visit Hematology/Oncology at [address] [phone] Sumanth Bermudez MD [facility] HEMATOLOGY/[place] [address] 12/28/2023 10:30 AM EDT Infusion Hematology Oncology at [address] [phone] 01/02/2024 3:20 PM EDT Hospital [place] [phone] Astrid Ortega MD [facility] G[place] [address] 04/22/2024 10:00 AM EST TH Visit (TeleHealth) Hematology and Oncology at [address] [address] Tracy Beltran [facility] [place] [address] 05/20/2024 10:40 AM EST Hospital Encounter Mammography[place] [phone] 05/20/2024 11:50 AM EST Office [place] [phone] Magaly Quijano APRN [facility] [place] [address] 11/15/2024 4:00 PM EDT Office Visit Hematology [place] [address] Jenny Melissa MD [facility] HEMATOLOGY[place] [address] Scheduled Orders Name Type Priority Associated Diagnoses Orde r Schedule Specimen to Pathology Additional Testing Pathology/Cytol ogy Routine Endometrial adenocarcinoma, endometrioid type, FIGO grade 2 Liver mass Ordered: 10/26/2023 documented as of this encounter Visit Diagnoses Diagnosis Endometrial adenocarcinoma, endometrioid type, FIGO grade 2 Malignant neoplasm of corpus uteri, except isthmus Liver mass Unspecified disorder of liver documented in this encounter Care Teams Traffic Police Officer Relationship Specialty Start Date End Date Josefina Crocker APRN [address] [place] [address] PCP - General Family Medicine 07/17/23 documented as of this encounter
--- OUTSIDE RECORDS SUMMARY | 2023-12-28 02:21 | XMS_ITS | Encounter Summary ---
Author Organization [facility] Address [facility] [place] [address] Care Team Providers Care Certified Pedorthotist Name Role Phone Obi Josefina Dunn APRN Primary Care Provider +1- [phone] Encounter Details Date Type Department Care Team (Latest Contact Info) Description 10/24/2023 Multidisciplinary Ca [place] [address] Jossie Jamison MD [facility] [place] [address] Social History Tobacco Use Types Packs/Day Years [...] of this encounter Progress Notes * Jossie Jamison MD - 10/24/2023 7:24 AM EDT GI - Tumor Board Note Date Presented: 10/24/2023 Presenting Physician: Jossie Jamison Diagnosis/Tumor Site: Distal sigmoid colon Is this Metastatic Disease: Yes Synopsis of History/HPI: Marychuy Hood is a 73 yo woman with a newly diagnosed endoscopically obstructing colon mass - no clinical or radiographic signs of obstruction. Staging CT scan with a new liver mass, thickening of the diaphragm and some enlarged nodes in the chest She has a personal history of breast and endometrial cancers. She underwent liver biopsy and PET CT(not read) CEA 1.3 Imaging: CT CAP 09/27/2023 IMPRESSION 1. New enlarged cardiophrenic lymph node accompanies many new subcentimeter mediastinal and hilar lymph nodes in this patient status post right mastectomy. 2. New 5 cm enhancing hepatic pericapsular mass at the liver dome bulging into the newly thickened right hemidiaphragm reflecting peritoneal metastatic disease. 3. Obstructing sigmoid mass. No pathologically enlarged deep pelvic nor retroperitoneal lymph nodes. PET CT done but not read. 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 Surgical Pathology DIAGNOSIS Distal sigmoid mass Biopsy: - Adenocarcinoma (see Note). Note: Immunostains for MLH1, MSH2, MSH6 and PMS2 reveal intact nuclear staining in tumor cells. In a very small percentage of tumors, there may still be an underlying hereditary defect in these DNA mismatch repair genes despite intact nuclear expression of the protein in tumor cells . Genetic counseling and/or additional workup is indicated in patients with a family history that meets current criteria for Russ syndrome screening. NOTE: Slides re-reviewed in light of liver biopsy showing metastatic endometrial cancer and colon tumor with PAX8 stain positive consistent with endometrial cancer. Stage: IV Clinical Data (Exams, Labs, etc.): CEA 1.3 Recommendations: All sites consistent with recurrent, metastatic endometrial cancer. Referral to [facility] [facility] ONC. May benefit from fecal diversion DISCLAIMER: The patient was discussed and the tumor board made recommendations but it is ultimatelyup to the treatment provider(s) and the patient to determine the patient???s care. Jossie Jamison MD FACS F[employer] cable rigger Division of Colon and Rectal Surgery [facility] Pager [phone] documented in this encounter Plan of Treatment Upcoming Encounters Date Type Department Care Team (Late st Contact Info) Description 12/28/2023 10:00 AM EDT Office Visit Hematology/Oncology at [address] [phone] Sumanth Bermudez MD [facility] HEMATOLOGY/[place] [address] 12/28/2023 10:30 AM EDT Infusion Hematology Oncology at [address] [phone] 01/02/2024 3:20 PM EDT [place] [phone] Astrid Ortega MD [facility] [place] [address] 04/22/2024 10:00 AM EST TH Visit (TeleHealth) Hematology and Oncology at [address] [phone] Tracy Beltran [facility] [place] [address] 05/20/2024 10:40 AM EST Hospital Encounter Mammography[place] [phone] 05/20/2024 11:50 AM EST Office [place] [address] Magaly Quijano APRN [facility] [place] [address] 11/15/2024 4:00 PM EDT Office Visit [place] [address] Jenny Melissa MD [facility] HEMATOLOGY/[place] [address] documented as of this encounter Visit Diagnoses Not on filedocumented in this encounter Care Teams Certified Pedorthotist Relationship Specialty Start Date End Date Josefina Crocker APRN [address] [place], [place] [phone] PCP - General Family Medicine 07/17/23 documented as of this encounter
--- OUTSIDE RECORDS SUMMARY | 2023-12-28 02:21 | XMS_ITS | Encounter Summary ---
[place] [address] Care Team Providers Care Clinical Review Specialist Name Role Phone Josefina Crocker APRN Primary Care Provider +1- [phone] Encounter Details Date Type Department Care Team (Latest Contact Info) Description 11/13/2023 6:55 AM EDT - 11/13/2023 11:59 PM EDT Hospital Encounter Hematology [place] [phone] Endometrial adenocarcinoma Discharge Disposition: Home Social History Tobacco Use [...] doctor or pharmacy? Never 10/31/2023 [facility] Utilities Answer Date Recorded In the [...] any time in the past 12 m [facility], were you homeless or living in a custodial (including now)? No 10/31/2023 Sex and Gender Information Value Date Recorded Sex Assigned at Not on file Gender Identity Not on file Sexual Orientation Not on file documented as of this encounter Medications at Time of Discharge Medication Sig Dispensed Refills Start Date End Date prochlorperazine (Compazine) 10 mg tabletIndications:Endom etrial adenocarcinoma,Chemothe rapy induced nausea and vomiting Take 1 tablet by mouth every 6 hours on schedule for the first 3 days after chemotherapy. Thereafter, take 1 tablet by mouth every 6 hours as needed for nausea and vomiting. 30 tablet 11/03/2023 lidocaine-prilocaine (EMLA) CreamIndications:Endome trial adenocarcinoma,Central venous catheter in place Apply to port site 1 hour prior to access. Cover with saran wrap. 30 g 11/03/2023 ondansetron (Zofran) 8 mg tabletIndications:Endom etrial adenocarcinoma,Chemothe rapy induced nausea and vomiting Take 1 tablet by mouth every 8 hours as needed for nausea and vomiting. DO NOT take within the first 3 days after chemotherapy. 20 tablet 11/03/2023 cholecalciferol, Vitamin D3, 50 mcg (2,000 unit) Capsule Take 2,000 Units by mouth daily. lisinopriL (Zestril) 40 mg tabletIndications:hyper tension Take 40 mg by mouth daily. Indications: high blood pressure amLODIPine (Norvasc) 5 mg tabletIndications:hyper tension Take 5 mg by mouth daily. Indications: high blood pressure EPINEPHrine (EPIPEN) 0.3 mg/0.3 mL (1:1,000) Auto-Injector Inject 0.3 mg into the muscle once. multivitamin (THERAGRAN) Tablet Take 1 tablet by mouth daily. dexAMETHasone (Decadron) 4 mg tabletIndications:Endom etrial adenocarcinoma,Chemothe rapy induced nausea and vomiting Take 1 tablet by mouth 2x daily as needed for nausea and vomiting. 20 tablet 5 11/03/2023 11/15/2023 tamoxifen (Nolvadex) 10 mg tablet Take 1 tablet by mouth daily. 90 tablet 3 07/14/2023 11/15/2023 documented as of this encounter Plan of Treatment Upcoming Encounters Date Type Department Care Team (Late st Contact Info) Description 12/28/2023 10:00 AM EDT Office Visit Hematology/Oncology at [address] [phone] Sumanth Bermudez MD [facility] HEMATOLOGY/[place] [address] 12/28/2023 10:30 AM EDT Infusion Hematology Oncology at [address] [phone] 01/02/2024 3:20 PM EDT Hospital [place] [address] Astrid Ortega MD [facility] [place] [address] 04/22/2024 10:00 AM EST TH Visit (TeleHealth) Hematology and Oncology at [address] [phone] Tracy Beltran [facility] [place] [address] 05/20/2024 10:40 AM EST Hospital Encounter Mammography/[place] [address] 05/20/2024 11:50 AM EST Office [place] [address] Magaly Quijano APRN [facility] [place] [address] 11/15/2024 4:00 PM EDT Office Visit Hematology [place] [address] Jenny Melissa MD [facility] DR HEMATOLOGY/[place] [address] documented as of this encounter Procedures Procedure Name Priority Date/Time Associated Diagnosis Comments HEMOGRAM Routine 11/13/2023 7:00 AM EDT Endometrial adenocarcinoma DIFFERENTIAL, AUTOMATED Routine 11/13/2023 7:00 AM EDT Endometrial adenocarcinoma HC VENIPUNCTURE Routine 11/13/2023 7:00 AM EDT Endometrial adenocarcinoma COMPREHENSIVE METABOLIC PANEL (NON-FASTING) STAT 11/13/2023 7:00 AM EDT Endometrial adenocarcinoma documented in this encounter Results * Differential, Automated (11/13/2023 7:00 AM EDT) Neutrophils % 64.2 % [facility] Neutr Abs (ANC) 3.98 1.70 - 6.10 x10(3)/[facility] Lymphocytes % 23.6 % [facility] Lymphocytes Abs 1.5 0.9 - 3.2 x10(3)/[facility] Monocytes % 10.0 % [facility] Monocyte Abs 0.6 0.3 - 0.9 x10(3)/[facility] Eosinophils % 1.5 % [facility] Eosinophils Abs 0.1 0.0 - 0.4 x10(3)/[facility] Basophils % 0.5 % [facility] Basophils Abs 0.0 0.0 - 0.1 x10(3)/[facility] Immature Gran % 0.20 % [facility] Comment: Immature granulocytes(IG's)percentage and absolute count will include metamyelocytes, myelocytes, and promyelocytes. Blood smears from CBCs yielding IG's will be scanned manually for concordance. If this scan disagrees with the automated IG or if promyelocytes are noted, a manual differential will be performed. Citlalli Gran Abs 0.01 0.00 - 0.04 x10(3)/[facility] Blood 11/13/2023 7:00 AM EDT 11/13/2023 7:07 AM EDT Narrative Resulting Agency Comment Spec In Lab Astrid Ortega MD HEMATOLOGY ORDERAB LES [facility] [place] [address] * (ABNORMAL) Hemogram (11/13/2023 7:00 AM EDT) WBC 6.2 4.0 - 9.5 x10(3)/[facility] RBC 4.03 4.00 - 5.21 x10(6)/[facility] Hemoglobin 11.6(L) 11.7 - 15.5 g/dL [facility] Hematocrit 35.7 35.7 - 45.8 % [facility] MCV 88.6 82.6 - 94.4 fL [facility] MCH 28.8 27.1 - 32.0 pg [facility] MCHC 32.5 31.7 - 35.0 g/dL [facility] Platelets 415(H) 145 - 357 x10(3)/[facility] RDWSD 42.2 37.0 - 46.0 [facility] RDWCV 12.9 11.5 - 14.1 % [facility] MPV 8.6 7.6 - 12.9 [facility] nRBC % Auto 0.0 % [facility] nRBC Abs Auto 0.000 0.000 - 0.000 x10(3)/[facility] Blood 11/13/2023 7:00 AM EDT 11/13/2023 7:07 AM EDT Narrative Resulting Agency Comment Spec In Lab Astrid Ortega MD HEMATOLOGY ORDERAB LES [facility] [place] [address] * Comprehensive metabolic panel (non-fasting) (11/13/2023 7:00 AM EDT) Glucose Lvl 100 65 - 199 mg/dL [facility] Comment:Diabetes: >=200 mg/d L plus symptoms BUN 16 8 - 18 mg/dL [facility] Creatinine 0.96 0.70 - 1.20 mg/dL [facility] Sodium 135 135 - 145 mmol/L [facility] Potassium 4.6 3.5 - 5.0 mmol/L [facility] Comment: Please note: ??Patients with WBC >100,000 may have falsely elevated Potassium levels. ??For accurate Potassium quantification in these patients send serum separator tube (gold top) for subsequent determinations. ??Contact the Clinical Chemistry Laboratory if there are any questions. Chloride 100 98 - 107 mmol/L [facility] CO2 26 22 - 31 mmol/L [facility] Anion Gap 9 5 - 15 mmol/L [facility] Calcium 9.7 8.5 - 10.5 mg/dL [facility] Total Protein 7.1 6.1 - 8.0 g/dL [facility] Albumin 4.2 3.2 - 5.2 g/dL [facility] AST 28 0 - 30 unit/L [facility] ALT 17 0 - 30 unit/L [facility] Alk Phos 52 35 - 105 unit/L [facility] Total Bilirubin 0.2 0.2 - 1.3 mg/dL [facility] Estimated GFR 63 >=60 mL/min/1. 73 m?? [facility] Comment: This patient's estimated GFR [...] and symptoms in addition to eGFR. Blood 11/13/2023 7:00 AM EDT 11/13/2023 7:07 AM EDT Narrative Resulting Agency Comment Spec In Lab Astrid Ortega MD CHEMISTRY ORDERABL ES [facility] [place] [address] documented in this encounter Visit Diagnoses Diagnosis Endometrial adenocarcinoma Malignant neoplasm of corpus uteri, except isthmus documented in this encounter Care Teams Clinical Review Specialist Relationship Specialty Start Date End Date Josefina Crocker APRN [address] [place] [id number] PCP - General Family Medicine 07/17/23 documented as of this encounter
--- OUTSIDE RECORDS SUMMARY | 2023-12-28 02:21 | XMS_ITS | Encounter Summary ---
Author Organization [facility] [place] [address] Care Team Providers Care Tubing Machine Operator Name Role Phone ObiJosefina Mona RIOS Primary Care Provider +1- [phone] Encounter Details Date Type Department Care Team (Late st Contact Info) Description 11/06/2023 [place] [address] Zulma Loyd PA [facility] [place] [address] Social History Tobacco Use Types Packs/Day Years [...] from your doctor or pharmacy? Never 10/31/2023 [facility] Utilities Answer Date Recorded In [...] time in the past 12 m [facility], were you homeless or living in a jail (including now)? No 10/31/2023 Sex and Gender Information Value Date Recorded Sex Assigned at Not on file Gender Identity Not on file Sexual Orientation Not on file documented as of this encounter H&P Notes * Zulma Loyd PA - 11/06/2023 9:27 AM EDT Images from the original note were not included. Interventional Radiology Focused Pre-procedure H&P: PCP: Josefina Crocker APRN Referring Provider: No ref. provider found Planned procedure: Port implant Procedure indication: Endometrial cancer, need for long-term durable venous access for systemic chemotherapy IR workflow: Procedure request received through Interventional Radiology eDH order queue. There are no answered order specific questions. History of Present Illness: Per chart review, Marychuy Hood is a 73 y.o. female with PMH of endometrial CA who presents to Interventional Radiology to undergo port implant for systemic chemotherapy. First infusion is not yet scheduled. Remainder of patient's medical and surgical history, allergies, medications, and social/family history obtained below as previously outlined in patient's medical record. IR History: Date/Procedure Meds Given/Comments 10/19/23 Liver Biopsy Perc Fentanyl 100mcg/IV, Versed 1mg/IV. Tolerated procedure well. Gelfoam usedupon removal of needle. Imagin10/20/23 Assessment: 73 y.o. female with endometrial CA presenting to Interventional Radiology for port. Plan Planned procedure: Port implant Labs to be performed day of procedure: No labs Sedation: Moderate (Conscious sedation) Prophylactic antibiotic : None Contrast: No contrast Additional medications for procedure: Lidocaine Planned access site: RIGHT IJ vein Position: Supine Consent: Pending Medications to discontinue (and days held): None Cytopathology presence needed: No Case Urgency:: G3- Elective Outpatient intervention over14 days Labs: Lab Results Component Value Date HGB 11.7 10/10/2023 HCT 36.3 10/10/2023 WBC 6.6 10/10/2023 PLATELET 388 (H) 10/10/2023 BUN 19 (H) 10/10/2023 CREATININE 0.94 10/10/2023 ALBUMIN 4.2 10/10/2023 BILIDIR <0.1 10/10/2023 BILITOT <0.2 (L) 10/10/2023 AST 18 10/10/2023 ALT 12 10/10/2023 ALKPHOS 47 10/10/2023 Allergies: Hymenoptera allergenic extract Medications: Current Outpatient Medications on File Prior to Visit Medication Sig Dispense Refill prochlorperazine (Compazine) 10 mg tablet Take 1 tablet by mouth every 6 hours on schedule for the first 3 days after chemotherapy. Thereafter, take 1 tablet by mouth every 6 hours as needed for nausea and vomiting. 30 tablet 5 dexAMETHasone (Decadron) 4 mg tablet Take 1 tablet by mouth 2x daily as needed for nausea and vomiting. 20 tablet 5 lidocaine-prilocaine (EMLA) Cream Apply to port site 1 hour prior to access. Cover with saran wrap.30 g 5 ondansetron (Zofran) 8 mg tablet Take 1 tablet by mouth every 8 hours as needed for nausea and vomiting. DO NOT take within the first 3 days after chemotherapy. 20 tablet 5 cholecalciferol, Vitamin D3, 50 mcg (2,000 unit) Capsule Take 2,000 Units by mouth daily. tamoxifen (Nolvadex) 10 mg tablet Take 1 tablet by mouth daily. (Patient not taking: Reported on 11/01/2023) 90 tablet 3 lisinopriL (Zestril) 40 mg tablet Take 40 mg by mouth daily. Indications: high blood pressure amLODIPine (Norvasc) 5 mg tablet Take 5 mg by mouth daily. Indications: high blood pressure EPINEPHrine (EPIPEN) 0.3 mg/0.3 mL (1:1,000) Auto-Injector Inject 0.3 mg into the muscle once. multivitamin (THERAGRAN) Tablet Take 1 tablet by mouth daily. No current facility-administered medications on file prior to visit. Past Medical/Surgical history: Patient Active Problem List Diagnosis Code Endometrial adenocarcinoma, endometrioid type, FIGO grade 2 C54.1 Malignant neoplasm of right breast in female, estrogen receptor positive C50.911, Z17.0 Osteopenia of multiple sites M85.89 Liver mass R16.0 No past medical history on file. Past Surgical History: Procedure Laterality Date IR BIOPSY LIVER PERCUTANEOUS - NON-FOCAL PARENCHYMA 10/19/2023 IR Biopsy Liver Percutaneous [facility] INTERVENTIONL RAD MRI GUIDED BIOPSY BREAST VACUUM ASSISTED LEFT Left 01/04/2021 MRI Guided Biopsy Breast Vacuum Assisted Left 01/04/2021 [facility] RAD MRI PRO BX/REMV, LYMPH NODE, DEEP AXILL Right 01/28/2021 BIOPSY OR EXCISION OF LYMPH NODE(S), OPEN, DEEP AXILLARY NODE(S) (WRVU 6.43) performed by Trev Erazo MD at [facility] MAIN OR PRO INTRAOP SENTINEL LYMPH ID W/DYE INJECTION Right 01/28/2021 INTRAOPERATIVE ID (MAPPING) SENTINEL LYMPH NODE,INCLUDES INJECTION (WRVU 2.5) performed by Trev Erazo MD at [facility] MAIN OR PRO MASTECTOMY, SIMPLE, COMPLETE Right 01/28/2021 MASTECTOMY, SIMPLE, COMPLETE (WRVU 15.85) performed by Trev Erazo MD at [facility] MAIN OR Social History and Habits: Social History Tobacco Use Smoking status: Never Smokeless tobacco: Never Vaping Use Vaping status: Never Used Substance Use Topics Alcohol use: Not Currently Alcohol/week: 1.0 standard drink of alcohol Types: 1 Cans of beer per week Comment: 1-2 times a month Drug use: No Significant Family History: Family History Problem Relation Age of Onset Cancer Maternal Grandfather bone Breast Cancer Paternal Half-Sister 60 half sister Lung Cancer Paternal Half-Sister Lung Cancer Maternal Uncle Colorectal Cancer Neg Hx Kidney Cancer Neg Hx Bladder Cancer Neg Hx Uterine Cancer Neg Hx Ovarian Cancer Neg Hx Pertinent ROS: as per HPI Physical Exam: Pending (to be performed in IR the day of procedure) ASA: Pending (to be assessed in IR the day of procedure) Mallampati class: Pending (to be assessed in IR the day of procedure) 11/06/2023 Zulma Loyd PA-C documented in this encounter Plan of Treatment Upcoming Encounters Date Type Department Care Team (Late st Contact Info) Description 12/28/2023 10:00 AM EDT Office Visit Hematology/Oncology at [address] [phone] Sumanth Bermudez MD [facility] HEMATOLOGY/[place] [address] 12/28/2023 10:30 AM EDT Infusion Hematology Oncology at [address] [phone] 01/02/2024 3:20 PM EDT Hospital [place] [address] Astrid Ortega MD [facility] [place] [address] 04/22/2024 10:00 AM EST TH Visit (TeleHealth) Hematology and Oncology at [address] [phone] Tracy Beltran [facility] [place] [address] 05/20/2024 10:40 AM EST Hospital Encounter Mammography[place] [address] 05/20/2024 11:50 AM EST Office [place] [address] Magaly Quijano APRN [facility] [place] [address] 11/15/2024 4:00 PM EDT Office Visit Hematology [place] [address] Jenny Melissa MD [facility] [place]OLOGY[place] [address] documented as of this encounter Visit Diagnoses Not on filedocumented in this encounter Care Teams Tubing Machine Operator Relationship Specialty Start Date End Date Josefina Crocker APRN [address] [place] [address] PCP - General Family Medicine 07/17/23 documented as of this encounter
--- OUTSIDE RECORDS SUMMARY | 2023-12-28 02:21 | XMS_ITS | Encounter Summary ---
[place] [address] Care Team Providers Care Advanced Research Programs Director Name Role Phone Obi Josefina Dunn APRN Primary Care Provider +1- [phone] Encounter Details Date Type Department Care Team (Late st Contact Info) Description 11/10/2023 Orders Only [place] [phone] Saba Pace, RN Endometrial adenocarcinoma Social History Tobacco Use [...] your doctor or pharmacy? Never 10/31/2023 [facility] Utilities Answer Date Recorded In the past 12 months has [employer], gas, oil, or water company threatened [...] time in the past 12 m [facility], were you homeless or living in [...] 10:00 AM EDT Office Visit Hematology/Oncology at [address] [phone] Sumanth Bermudez MD [facility] HEMATOLOGY/[place] [address] 12/28/2023 10:30 AM EDT Infusion Hematology Oncology at [address] [phone] 01/02/2024 3:20 PM EDT Hospital [place] [address] Astrid Ortega MD [facility] [place] [address] 04/22/2024 10:00 AM EST TH Visit (TeleHealth) Hematology and Oncology at [address] [place] [address] [facility]an [facility] [place] [address] 05/20/2024 10:40 AM EST Hospital Encounter Mammography/[place] [address] 05/20/2024 11:50 AM EST Office Visit [place] [address] Magaly Quijano APRN [facility] [place] [address] 11/15/2024 4:00 PM EDT Office Visit Hematology and Oncology at [place] [phone] Jenny Melissa MD [facility] HEMATOLOGY/[place] [address] Scheduled Orders Name Type Priority Associated Diagnoses Orde r Schedule Specimen to Pathology Additional Testing Pathology/Cyto logy Routine Endometrial adenocarcinoma Ordered: 11/10/2023 documented as of this encounter Visit Diagnoses Diagnosis Endometrial adenocarcinoma Malignant neoplasm of corpus uteri, except isthmus documented in this encounter Care Teams Advanced Research Programs Director Relationship Specialty Start Date End Date Josefina Crocker APRN [address] [place] [id number] PCP - General Family Medicine 07/17/23 documented as of this encounter
--- OUTSIDE RECORDS SUMMARY | 2023-12-28 02:21 | XMS_ITS | Encounter Summary ---
Author Organization [facility] [place] [address] Care Team Providers Care Renewable Energy Project Manager Name Role Phone Josefina Crocker APRN Primary Care Provider +1- [phone] Encounter Details Date Type Department Care Team (Latest Contact Info) Description 10/10/2023 Travel Social History Tobacco Use Types Packs/Day [...] 10:00 AM EDT Office Visit Hematology/Oncology at [address] [phone] Sumanth Bermudez MD [facility] HEMATOLOGY/[place] [address] 12/28/2023 10:30 AM EDT Infusion Hematology Oncology at [address] [phone] 01/02/2024 3:20 PM EDT Hospital Encounter CT Scan at [place] [phone] Astrid Ortega MD [facility] [place] [address] 04/22/2024 10:00 AM EST TH Visit (TeleHealth) Hematology and Oncology at [address] [phone] Tracy Beltran [facility] [place] [address] 05/20/2024 10:40 AM EST Hospital Encounter Mammography/DXA at [place] [phone] 05/20/2024 11:50 AM EST Office Visit General Surgery at [place] [phone] Maagly Quijano APRN [facility] [place] [address] 11/15/2024 4:00 PM EDT Office Visit Hematology and Oncology at [place] [phone] Jenny Melissa MD [facility] HEMATOLOGY/[place] [address] documented as of this encounter Visit Diagnoses Not on filedocumented in this encounter Care Teams Renewable Energy Project Manager Relationship Specialty Start Date End Date Josefina Crocker APRN [address] [place] [address] PCP - General Family Medicine 07/17/23 documented as of this encounter
--- OUTSIDE RECORDS SUMMARY | 2023-12-28 02:21 | XMS_ITS | Encounter Summary ---
[place] [address] Care Team Providers Care Junior Business Analyst Name Role Phone Josefina Crocker APRN Primary Care Provider +1- [phone] Reason for Referral * Consultation (Routine) - Authorized Specialty Diagnoses / Procedures Referred By Conttalon t Referred To Contact Hematology and Oncology Diagnoses Endometrial adenocarcinoma Astrid Ortega MD [facility] [place] [address] Mark Landin MD [address] [place] [address] [place] [address] Referral ID Status Reason Start Date Expiration Date Visits Requested Visits Authorized [id number] Authorized Consult, Test & Treat 11/03/2023 11/02/2024 1 1 * Diagnostic Test (Routine) - Closed Specialty Diagnoses / Procedures Referred By Conttalon t Referred To Contact Radiology Diagnoses Endometrial adenocarcinoma Procedures IR Mediport Placement Astrid Ortega MD [facility] [place] [address] [facility] [place] [address] Referral ID Status Reason Start Date Expiration Date V isits Requested Visits Authorized [id number] Closed Specialty Service Requested 11/03/2023 05/03/2025 1 1 Encounter Details Date Type Department Care Team (Late st Contact Info) Description 11/01/2023 Orders Only [place] [phone] Nannette Perea, RN Endometrial adenocarcinoma; Central venous catheter in place; Chemotherapy induced nausea and vomiting Social History Tobacco Use Types Packs/Day Years [...] from your doctor or pharmacy? Never 10/31/2023 [facility] Utilities Answer Date Recorded In the past 12 months has th e [employer], gas, oil, or water [place] threatened to shut off services in your [...] time in the past 12 m [facility], were you homeless or living in [...] 10:00 AM EDT Office Visit Hematology/Oncology at [address] [phone] Sumanth Bermudez MD [facility] HEMATOLOGY/[place] [address] 12/28/2023 10:30 AM EDT Infusion Hematology Oncology at [address] [phone] 01/02/2024 3:20 PM EDT Hospital [place] [phone] Astrid Ortega MD [facility] [place] [address] 04/22/2024 10:00 AM EST TH Visit (TeleHealth) Hematology and Oncology at [address] [phone] Tracy Beltran [facility] [place] [address] 05/20/2024 10:40 AM EST Hospital Encounter Mammography/[place] [phone] 05/20/2024 11:50 AM EST Office [place] [phone] Magaly Quijano APRN [facility] [place] [address] 11/15/2024 4:00 PM EDT Office Visit Hematology [place] [phone] Jenny Melissa MD [facility] HEMATOLOGY/[place] [address] Scheduled Orders Name Type Priority Associated Diagnoses Orde r Schedule CBC (with Diff) Lab Routine Endometrial adenocarcinoma Every 3 weeks for 12 Occurrences starting 11/03/2023 until 10/31/2024, 2 completed Comprehensive metabolic panel (non-fasting) Lab STAT Endometrial adenocarcinoma Every 3 weeks for 12 Occurrences starting 11/03/2023 until 10/31/2024, 2 completed Scheduled Referrals Name Type Priority Associated Diagnoses Orde r Schedule Referral to Hematology and Oncology Outpatient Referral Routine Endometrial adenocarcinoma Ordered: 11/03/2023 documented as of this encounter Results * (ABNORMAL) Comprehensive metabolic panel (non-fasting) (12/04/2023 8:11 AM EDT) Glucose Lvl 84 65 - 199 mg/dL [facility] Comment:Diabetes: >=200 mg/d L plus symptoms BUN 17 8 - 18 mg/dL [facility] Creatinine 0.92 0.70 - 1.20 mg/dL [facility] Sodium 140 135 - 145 mmol/L [facility] Potassium 4.6 3.5 - 5.0 mmol/L [facility] Comment: Please note: ??Patients with WBC >100,000 may have falsely elevated Potassium levels. ??For accurate Potassium quantification in these patients send serum separator tube (gold top) for subsequent determinations. ??Contact the Clinical Chemistry Laboratory if there are any questions. Chloride 103 98 - 107 mmol/L [facility] CO2 27 22 - 31 mmol/L [facility] Anion Gap 10 5 - 15 mmol/L [facility] Calcium 9.5 8.5 - 10.5 mg/dL [facility] Total Protein 7.0 6.1 - 8.0 g/dL [facility] Albumin 4.0 3.2 - 5.2 g/dL [facility] AST 22 0 - 30 unit/L [facility] ALT 16 0 - 30 unit/L [facility] Alk Phos 52 35 - 105 unit/L [facility] Total Bilirubin <0.2(L) 0.2 - 1.3 mg/dL [facility] Estimated GFR 67 >=60 mL/min/1. 73 m?? [facility] Comment: This patient's estimated GFR was [...] Lab Astrid Ortega MD CHEMISTRY ORDERABL ES [facility] [place] [address] * IR Mediport Placement (11/22/2023 2:51 PM EDT) Anatomical Region Laterality Modality X-Ray Angiograph y Narrative 11/22/2023 3:14 PM EDT Interventional Radiology Procedure Note Procedure: Chest port implant Indication: Endometrial adenocarcinoma, [facility] central venous access for chemotherapy Procedure summary: [...] junction. The port may be used immediately. lap machine operator: Dov Walls PA-C. Present during the intraservice time as documented by the interventional radiology nurse. Attending of record: Kenenth Lai MD 11/22/2023 Astrid Ortega MD IMG IR ORDERABLES * Comprehensive metabolic panel (non-fasting) (11/13/2023 7:00 AM EDT) Glucose Lvl 100 65 - 199 mg/dL [facility] Comment:Diabetes: >=200 mg/d L plus symptoms BUN 16 8 - 18 mg/dL [facility] Creatinine 0.96 0.70 - 1.20 mg/dL [facility] Sodium 135 135 - 145 mmol/L [facility] Potassium 4.6 3.5 - 5.0 mmol/L [facility] Comment: Please note: ??Patients with WBC >100,000 may have falsely elevated Potassium levels. ??For accurate Potassium quantification in these patients send serum separator tube (gold top) for subsequent determinations. ??Contact the Clinical Chemistry Laboratory if there are any questions. Chloride 100 98 - 107 mmol/L [facility] CO2 26 22 - 31 mmol/L [facility] Anion Gap 9 5 - 15 mmol/L [facility] Calcium 9.7 8.5 - 10.5 mg/dL [facility] Total Protein 7.1 6.1 - 8.0 g/dL [facility] Albumin 4.2 3.2 - 5.2 g/dL [facility] AST 28 0 - 30 unit/L [facility] ALT 17 0 - 30 unit/L [facility] Alk Phos 52 35 - 105 unit/L [facility] Total Bilirubin 0.2 0.2 - 1.3 mg/dL [facility] Estimated GFR 63 >=60 mL/min/1. 73 m?? [facility] Comment: This patient's estimated GFR was [...] Lab Astrid Ortega MD [place] [address] documented in this encounter Visit Diagnoses Diagnosis Endometrial adenocarcinoma Malignant neoplasm of corpus uteri, except isthmus Central venous catheter in place Chemotherapy induced nausea and vomiting Nausea with vomiting Endometrial adenocarcinoma Malignant neoplasm of corpus uteri, except isthmus documented in this encounter Care Teams Junior Business Analyst Relationship Specialty Start Date End Date Josefina Crocker APRN [address] [place] [address] PCP - General Family Medicine 07/17/23 documented as of this encounter
--- OUTSIDE RECORDS SUMMARY | 2023-12-28 02:21 | XMS_ITS | Encounter Summary ---
[place] [address] Care Team Providers Care Site Physician Name Role Phone Josefina Crocker APRN Primary Care Provider +1- [phone] Reason for Visit * Diagnostic Test (Routine) - Closed Specialty Diagnoses / Procedures Referred By Renato t Referred To Contact Radiology Diagnoses Malignant neoplasm of sigmoid colon Procedures NM PET CT Skull Base to Mid-thigh Jossie Jamison MD [facility] [place] [address] [place] [address] Referral ID Status Reason Start Date Expiration Date V isits Requested Visits Authorized [id number] Closed Specialty Service Requested 10/10/2023 04/11/2025 1 1 Encounter Details Date Type Department Care Team (Latest Contact Info) Description 10/20/2023 1:27 PM EDT - 10/20/2023 11:59 PM EDT Hospital Encounter [place] [phone] Jossie Jamison MD [facility] [place] [address] Discharge Disposition: Home Social History Tobacco Use [...] Sig Dispensed Refills Start Date End Date cholecalciferol, Vitamin D3, 50 mcg (2,000 unit) [...] Tablet Take 1 tablet by mouth daily. tamoxifen (Nolvadex) 10 mg tablet Take 1 tablet by mouth daily. 90 tablet 3 07/14/2023 11/15/2023 melatonin 1 mg Tablet Take 1 mg by mouth daily as needed. Taken at bedtime as needed 11/01/2023 B-Complex with Vitamin C (SUPER B C) Capsule Take 1 capsule by mouth daily. 11/01/2023 documented as of this encounter Plan of Treatment Upcoming Encounters Date Type Department Care Team (Late st Contact Info) Description 12/28/2023 10:00 AM EDT Office Visit Hematology/Oncology at [address] [phone] Sumanth Bermudez MD [facility] HEMATOLOGY/[place] [address] 12/28/2023 10:30 AM EDT Infusion Hematology Oncology at [address] [phone] 01/02/2024 3:20 PM EDT Hospital Encounter CT Scan at [place] [phone] Astrid Ortega MD [facility] [place] [address] 04/22/2024 10:00 AM EST TH Visit (TeleHealth) Hematology and Oncology at [address] [phone] Tracy Beltran [facility] [place] [address] 05/20/2024 10:40 AM EST Hospital Encounter Mammography/DXA at [place] [phone] 05/20/2024 11:50 AM EST Office Visit General Surgery at [place] [phone] Magaly Quijano APRN [facility] [address] 11/15/2024 4:00 PM EDT Office Visit Hematology [place] [phone] Jenny Melissa MD [facility] HEMATOLOGY/[place] [address] documented as of this encounter Procedures Procedure Name Priority Date/Time Associated Diagnosis Comments NM PET CT SKULL BASE TO MID-THIGH ([facility]) Routine 10/20/2023 2:53 PM EDT Malignant neoplasm of sigmoid colon POCT GLUCOSE Routine 10/20/2023 1:34 PM EDT documented in this encounter Results * POCT Glucose (10/20/2023 1:34 PM EDT) POC Glucose 104 65 - 199 mg/dL [facility] Comment: Supplemental ranges: <140 mg/dL before meals <180 mg/dL all other times of the day Blood 10/20/2023 1:34 PM EDT 10/20/2023 1:34 PM EDT Jossie Jamison MD POINT OF CARE TEST O RDERABLES [facility] [place] [address] documented in this encounter Visit Diagnoses Not on filedocumented in this encounter Administered Medications Inactive Administered Medications - up to 3 most recent administrations Medication Order MAR Action Action Date Dose Rate Site ALPRAZolam (Xanax) tablet 0.5 mg 0.5 mg, Oral, ONCE, 1 dose, On Mon10/20/23 at 1400, Radiology Protocol Medication, Routine Given 10/20/2023 1:45 PM EDT 0.5 mg documented in this encounter Care Teams Site Physician Relationship Specialty Start Date End Date Josefina Crocker APRN [address] [place] [address] PCP - General Family Medicine 07/17/23 documented as of this encounter
--- OUTSIDE RECORDS SUMMARY | 2023-12-28 02:21 | XMS_ITS | Encounter Summary ---
Author Organization [facility] Address [facility] [place] [address] Care Team Providers Care Feed Adviser Name Role Phone ObiJosefina Mona RIOS Primary Care Provider +1- [phone] Encounter Details Date Type Department Care Team (Late st Contact Info) Description 10/10/2023 Notes [place] [address] Jeremias Erwin, [facility] [place] [address] Social History Tobacco Use Types Packs/Day Years [...] as of this encounter H&P Notes * Jeremias Erwin, DO - 10/10/2023 3:12 PM EDT Images from the original note were not included. INTERVENTIONAL RADIOLOGY FOCUSED H&P and PRE-PROCEDURE NOTE: PCP: Josefina Crocker APRN Referring Provider: Yocasta Jamison. Planned Procedure: Planned procedure: Liver mass biopsy Procedure Indication: New diagnosis of colon cancer. Liver mass. History of both breast and endometrial carcinoma. Concern for metastatic disease. Need for histopathologic diagnosis. Procedure Request: Procedure request received through the Interventional Radiology eDH order queue. Presenting Diagnosis/ Complaint: Marychuy Hood is a 73 y.o. female presenting to IR for liver mass biopsy. Past medical history is significant for history of both breast and endometrial carcinoma with newly diagnosed colon cancer. Found to have a liver mass on staging CT. Concern for metastatic disease. Need for histopathologic diagnosis to guide treatment. Antiplatelets: None. Anticoagulants: None. Recent Laboratories: Platelets: 388 on 10/10/2023. INR: None. Creatinine: 0.94 on 10/10/2023. Getting Laboratories Before Procedure: No. Allergies: None pertinent. Past Medical/Surgical History: Patient Active Problem List Diagnosis Code Endometrial adenocarcinoma, endometrioid type, FIGO grade 2 C54.1 Malignant neoplasm of right breast in female, estrogen receptor positive C50.911, Z17.0 Osteopenia of multiple sites M85.89 No past medical history on file. Past Surgical History: Procedure Laterality Date MRI GUIDED BIOPSY BREAST VACUUM ASSISTED LEFT Left 01/04/2021 MRI Guided Biopsy Breast Vacuum Assisted Left 01/04/2021 [facility] RAD MRI PRO BX/REMV, LYMPH NODE, DEEP AXILL Right 01/28/2021 BIOPSY OR EXCISION OF LYMPH NODE(S), OPEN, DEEP AXILLARY NODE(S) (WRVU 6.43) performed by Trev Erazo MD at [facility] MAIN OR PRO INTRAOP SENTINEL LYMPH ID W/DYE INJECTION Right 01/28/2021 INTRAOPERATIVE ID (MAPPING) SENTINEL LYMPH NODE,INCLUDES INJECTION (WRVU 2.5) performed by Trev Erazo MD at [facility] MAIN OR PRO MASTECTOMY, SIMPLE, COMPLETE Right 01/28/2021 MASTECTOMY, SIMPLE, COMPLETE (WRVU 15.85) performed by Trev Erazo MD at [facility] MAIN OR Medications: Current Outpatient Medications on File Prior to Visit Medication Sig Dispense Refill cholecalciferol, Vitamin D3, 50 mcg (2,000 unit) Capsule Take 2,000 Units by mouth daily. tamoxifen (Nolvadex) 10 mg tablet Take 1 tablet by mouth daily. 90 tablet 3 lisinopriL (Zestril) 40 mg tablet Take 40 mg by mouth daily. Indications: high blood pressure amLODIPine (Norvasc) 5 mg tablet Take 5 mg by mouth daily. Indications: high blood pressure melatonin 1 mg Tablet Take 1 mg by mouth daily as needed. Taken at bedtime as needed EPINEPHrine (EPIPEN) 0.3 mg/0.3 mL (1:1,000) Auto-Injector Inject 0.3 mg into the muscle once. multivitamin (THERAGRAN) Tablet Take 1 tablet by mouth daily. B-Complex with Vitamin C (SUPER B C) Capsule Take 1 capsule by mouth daily. No current facility-administered medications on file prior to visit. Allergies: Hymenoptera allergenic extract Social History and Habits: Social History Socioeconomic History Marital status: Spouse name: Not on file Number of children: Not on file Years of education: Not on file Highest education level: Not on file Occupational History Not on file Tobacco Use Smoking status: Never Smokeless tobacco: Never Vaping Use Vaping Use: Never used Substance and Sexual Activity Alcohol use: Not Currently Alcohol/week: 1.0 standard drink of alcohol Types: 1 Cans of beer per week Comment: 1-2 times a month Drug use: No Sexual activity: Yes Partners: Male Other Topics Concern Not on file Social History Narrative Marychuy lives in [place], she has been to Shailesh for 36 years. They have two children 30 and 33yo; and 1 granddaughter 2yo. 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 Social Determinants of Health Financial Resource Strain: Low Risk (12/25/2020) Overall Financial Resource Strain (CARDIA) Difficulty of Paying Living Expenses: Not very hard Food Insecurity: Not on file Transportation Needs: No Transportation Needs (12/25/2020) PRAPARE - Transportation Lack of Transportation (Medical): No Lack of Transportation (Non-Medical): No Physical Activity: Not on file Intimate Partner Violence: Not on file Housing Stability: Not on file Significant Family History: Family History Problem Relation Age of Onset Cancer Maternal Grandfather bone Breast Cancer Paternal Half-Sister 60 half sister Lung Cancer Paternal Half-Sister Lung Cancer Maternal Uncle Colorectal Cancer Neg Hx Kidney Cancer Neg Hx Bladder Cancer Neg Hx Uterine Cancer Neg Hx Ovarian Cancer Neg Hx Pertinent ROS: as per HPI Labs: Lab Results Component Value Date WBC 6.6 10/10/2023 HCT 36.3 10/10/2023 PLATELET 388 (H) 10/10/2023 BUN 19 (H) 10/10/2023 CREATININE 0.94 10/10/2023 ALKPHOS 47 10/10/2023 AST 18 10/10/2023 ALBUMIN 4.2 10/10/2023 BILIDIR <0.1 10/10/2023 BILITOT <0.2 (L) 10/10/2023 ALT 12 10/10/2023 PROT 7.2 10/10/2023 K 4.5 10/10/2023 Imaging: Physical Exam: Pending (to be performed in angio the day of procedure) ASA: Pending (to be assessed in angio the day of procedure) Mallampati Class: Pending (to be assessed in angio the day of procedure) Assessment: 73 y.o. female presenting to IR for liver mass biopsy. Past medical history is significant for history of both breast and endometrial carcinoma with newly diagnosed colon cancer. Found tohave a liver mass on staging CT. Concern for metastatic disease. Need for histopathologic diagnosisto guide treatment. Reviewed with Attending: Dr. Erwin Plan: Planned procedure: Liver mass biopsy Labs to be performed day of procedure: No labs Sedation: Moderate (Conscious sedation) Prophylactic antibiotic : None Contrast: No contrast Additional medications for procedure: Lidocaine Planned access site: Right upper quadrant Position: Supine Consent: Pending Medications to discontinue (and days held): None Case Urgency:: G2- Elective Outpatient intervention within 8-14 days 10/10/2023 documented in this encounter Plan of Treatment Upcoming Encounters Date Type Department Care Team (Late st Contact Info) Description 12/28/2023 10:00 AM EDT Office Visit Hematology/Oncology at [address] [phone] Sumanth Bermudez MD [facility] HEMATOLOGY/[place] [address] 12/28/2023 10:30 AM EDT Infusion Hematology Oncology at [address] [phone] 01/02/2024 3:20 PM EDT Hospital Encounter CT Scan at [place] [phone] Astrid Ortega MD [facility] [place] [address] 04/22/2024 10:00 AM EST TH Visit (TeleHealth) Hematology and Oncology at [address] [phone] Tracy Beltran [facility] [place] [address] 05/20/2024 10:40 AM EST Hospital Encounter Mammography/DXA at [place] [phone] 05/20/2024 11:50 AM EST Office Visit General Surgery at [place] [phone] Magaly Quijano APRN [facility] [place] [address] 11/15/2024 4:00 PM EDT Office Visit H[place]ology [place] [phone] Jenny Melissa MD [facility] HEMATOLOGY/[place] [address] documented as of this encounter Visit Diagnoses Not on filedocumented in this encounter Care Teams Feed Adviser Relationship Specialty Start Date End Date Josefina Crocker APRN [address] [place] [address] PCP - General Family Medicine 07/17/23 documented as of this encounter
--- OUTSIDE RECORDS SUMMARY | 2023-12-28 02:21 | XMS_ITS | Encounter Summary ---
Author Organization [facility] Address [facility] [place] [address] Care Team Providers Care Particle Board Supervisor Name Role Phone Josefina Crocker APRN Primary Care Provider +1- [phone] Encounter Details Date Type Department Care Team (Latest Contact Info) Description 10/31/2023 Travel Social History Tobacco Use Types Packs/Day [...] from your doctor or pharmacy? Never 10/31/2023 [facility] Utilities Answer Date Recorded In the past 12 months has [employer], gas, oil, or water [employer] threatened to shut off services in your [...] any time in the past [address] [facility], were you homeless or living in a senior care (including now)? No 10/31/2023 Sex and Gender Information Value Date Recorded Sex Assigned at Not on file Gender Identity Not on file Sexual Orientation Not on file documented as of this encounter Plan of Treatment Upcoming Encounters Date Type Department Care Team (Late st Contact Info) Description 12/28/2023 10:00 AM EDT Office Visit Hematology/Oncology at [address] [phone] Sumanth Bermudez MD [facility] HEMATOLOGY/[place] [address] 12/28/2023 10:30 AM EDT Infusion Hematology Oncology at [address] [phone] 01/02/2024 3:20 PM EDT Hospital [place] [address] Astrid Ortega MD [facility] [place] [address] 04/22/2024 10:00 AM EST TH Visit (TeleHealth) Hematology and Oncology at [address] [phone] Tracy Beltran [facility] [address] 05/20/2024 10:40 AM EST Hospital Encounter Mammography/DXA at [place] [phone] 05/20/2024 11:50 AM EST Office Visit General Surgery at [place] [phone] Magaly Quijano APRN [facility] [place] [place] [address] 11/15/2024 4:00 PM EDT Office Visit Hematology and Oncology at [place] [phone] Jenny Melissa MD [facility] HEMATOLOGY/[place] [address] documented as of this encounter Visit Diagnoses Not on filedocumented in this encounter Care Teams Particle Board Supervisor Relationship Specialty Start Date End Date Josefina Crocker APRN [address] [place] [address] PCP - General Family Medicine 07/17/23 documented as of this encounter
--- OUTSIDE RECORDS SUMMARY | 2023-12-28 02:21 | XMS_ITS | Encounter Summary ---
[place] [address] Care Team Providers Care Hospice Clinical Supervisor Name Role Phone Obi Josefina Dunn APRN Primary Care Provider +1- [phone] Encounter Details Date Type Department Care Team (Late st Contact Info) Description 11/08/2023 Notes Only Gy[place] [phone] Saba Pace, RN Social History Tobacco Use Types Packs/Day [...] Recorded In the past 12 months has [employer], gas, oil, or water company threatened [...] any time in the past 12 m [facility], were you homeless or living in a snf (including now)? No 10/31/2023 Sex and Gender Information Value Date Recorded Sex Assigned at Not on file Gender Identity Not on file Sexual Orientation Not on file documented as of this encounter Progress Notes * Saba Pace RN - 11/08/2023 9:50 AM EDT Prior auth submitted via CoverMyMeds for Lidocaine-Prilocaine 2.5-2.5% cream. Rubio: [id number]. Awaiting response from plan. documented in this encounter Plan of Treatment Upcoming Encounters Date Type Department Care Team (Late st Contact Info) Description 12/28/2023 10:00 AM EDT Office Visit Hematology/Oncology at [address] [phone] Sumanth Bermudez MD [facility] HEMATOLOGY/[place] DEPT. [place], [place] [phone] 12/28/2023 10:30 AM EDT Infusion Hematology Oncology at [address] [phone] 01/02/2024 3:20 PM EDT Hospital Encounter CT Scan at [place] [phone] Astrid Ortega MD [facility] [place] [address] 04/22/2024 10:00 AM EST TH Visit (TeleHealth) Hematology and Oncology at [address] [phone] Tracy Beltran [facility] [place] [address] 05/20/2024 10:40 AM EST Hospital Encounter Mammography/DXA at [place] [phone] 05/20/2024 11:50 AM EST Office [place] [address] Magaly Quijano APRN [facility] [place] [address] 11/15/2024 4:00 PM EDT Office Visit Hematology and Oncology at [place] [phone] Jenny Melissa MD [facility] [place]EMATOLOGY/[place] [address] documented as of this encounter Visit Diagnoses Not on filedocumented in this encounter Care Teams Hospice Clinical Supervisor Relationship Specialty Start Date End Date Josefina Crocker APRN [address] [place] [address] PCP - General Family Medicine 07/17/23 documented as of this encounter
--- OUTSIDE RECORDS SUMMARY | 2023-12-28 02:21 | XMS_ITS | Encounter Summary ---
[place] [address] Care Team Providers Care Dye Operator Name Role Phone Josefina Crocker APRN Primary Care Provider +1- [phone] Reason for Referral * Diagnostic Test (STAT) - Closed Specialty Diagnoses / Procedures Referred By Contac t Referred To Contact Radiology Diagnoses Malignant neoplasm of sigmoid colon Procedures IR Biopsy Liver Percutaneous Jossie Jamison MD [facility] [place] [address] [place] [address] Referral ID Status Reason Start Date Expiration Date V isits Requested Visits Authorized [id number] Closed Specialty Service Requested 10/10/2023 04/11/2025 1 1 Reason for Visit * Diagnostic Test (STAT) - Closed Specialty Diagnoses / Procedures Referred By Contac t Referred To Contact Radiology Diagnoses Malignant neoplasm of sigmoid colon Procedures IR Biopsy Liver Percutaneous Jossie Jamison MD [facility] [place] [address] [facility] [place] [address] Referral ID Status Reason Start Date Expiration Date V isits Requested Visits Authorized [id number] Closed Specialty Service Requested 10/10/2023 04/11/2025 1 1 Encounter Details Date Type Department Care Team (Latest Contact Info) Description 10/19/2023 6:21 AM EDT - 10/19/2023 11:59 PM EDT Hospital Encounter [place] [address] Jossie Jamison MD [facility] [place] [address] Malignant neoplasm of sigmoid colon Discharge Disposition: Home Social History Tobacco Use [...] Sign Reading Time Taken Comments Blood Pressure 118/63 10/19/2023 9:00 AM EDT Pulse 59 10/19/2023 8:15 AM EDT Temperature 36.7 ??C (98.1 ??F) 10/19/2023 8:25 AM ED T Respiratory Rate 18 10/19/2023 9:00 AM EDT Oxygen Saturation 95% 10/19/2023 9:00 AM EDT Inhaled Oxygen Concentration - - Weight - - Height - - Body Mass Index - - documented in this encounter Discharge Instructions * Discharge Instructions* Ghassan Rubio RN - 10/19/2023 7:14 AM EDT [facility] Vascular and Interventional Radiology Liver Biopsy Biopsy Discharge Instructions Call your doctor immediately if you develop a sudden onset of weakness, increased pain or swelling at the biopsy site or heavy bleeding at the biopsy site. Activity And Diet: Go home and rest quietly for the remainder of the day. You may resume your normal activities tomorrow. Resume your usual diet after the procedure. Do not drive, sign any important/legal documents, or make any important decisions for 24 hours following sedation medications. You have received medication during your procedure to help lessen anxiety and keep you comfortable.These medications affect judgement and reaction time. We recommend that you do not drive, operate equipment, sign any important documents, or smoke unattended for 24 hours following your procedure. Because of the sedation, be careful on stairs, as you may be unsteady on your feet. When to call your healthcare provider: If you see any redness, swelling or drainage at the biopsy site. If you develop chills. If you have a fever greater than or equal to 101 degrees Fahrenheit. If you develop pain around the biopsy site. Bandage: Check the dressing/bandaid throughout the day for an increase in drainage. Keep the biopsy site dryfor 24 hours. Replace the bandaid as needed. You may shower 24 hours after the biopsy. Medication: DO NOT take aspirin-containing products, ibuprofen, or blood-thinning medication for the next 24 hours unless your clinician says you may do so. Generally you may use acetaminophen as needed for discomfort unless you have liver disease and are instructed not to take acetaminophen. Biopsy Results The results of your biopsy should be available within 5 business days and will be reported to you by your primary out of school hours care worker or the clinician who ordered the biopsy. Please do not call us for results as we will not have them. If you have not been contacted by your clinician within 5 business days you should call that officefor further information. When to call the Interventional Radiology Department: Please call with any questions or concerns. If it is during regular office hours, please call [phone]. If it is after regular office hours, or on weekends or holidays, please call [phone] and ask to speak to the Bundle Wrapper coupon collection clerk for Interventional Radiology. documented in this encounter Medications at Time [...] daily. 11/01/2023 documented as of this encounter Progress Notes * Jamie Tilley RN - 10/19/2023 11:59 PM EDT Follow up call completed for Marychuy Hood on 10/20/2023 and a voicemail was left encouraging the patient to call the IR Department should they have any ongoing question or concerns. * Ghassan Rubio RN - 10/19/2023 8:20 AM EDT [facility] NURSING DATABASE Name: Marychuy Hood Date of : 1950 AGE: 73 y.o. Address: [address] [place] [phone] (home) Mobile: Telephone Information: Referring Provider: Jossie Jamison REASON FOR VISIT: Order Questions Answers Where will study be performed? [facility] Radiology [120] To be scheduled Next available after expected date Reason for exam and clinical history: new diagnosis of colon cancer -liver mass. Has history of breast and endometrial cancer. Is the patient on anticoagulant / antiplatelet therapy ? No Planned procedure: Liver mass biopsy Labs to be performed day of procedure: No labs Sedation: Moderate (Conscious sedation) Prophylactic antibiotic : None Contrast: No contrast Additional medications for procedure: Lidocaine Planned access site: Right upper quadrant Position: Supine Consent: Pending Medications to discontinue (and days held): None Case Urgency:: G2- Elective Outpatient intervention within 8-14 days Allergies Allergen Reactions Hymenoptera Allergenic Extract Anaphylaxis Pertinent PMH: Patient Active Problem List Diagnosis Code Endometrial adenocarcinoma, endometrioid type, FIGO grade 2 C54.1 Malignant neoplasm of right breast in female, estrogen receptor positive C50.911, Z17.0 Osteopenia of multiple sites M85.89 Date/Procedure Meds Given/Comments 10/19/23 Liver Biopsy Perc Fentanyl 100mcg/IV, Versed 1mg/IV. Tolerated procedure well. Gelfoam usedupon removal of needle. 0737 to procedure room IR2 via stretcher. Remains in stretcher supine. All monitors, O2, safety strap in place. Meds per protocol. Needle Out: 0814 Laboratory Results: Lab Results Component Value Date CREATININE 0.94 10/10/2023 Lab Results Component Value Date K 4.5 10/10/2023 Lab Results Component Value Date PLATELET 388 (H) 10/10/2023 documented in this encounter H&P Notes * Dov Walls PA - 10/19/2023 6:47 AM EDT Interventional Radiology Interval H&P: Procedure: Liver biopsy Update to H&P: The patient's history and physical exam have been reviewed and completed. There has been NO interval change from that of the pre-procedural note done within the last 30 days. Thereis NO change in the procedural plan. Meds: Current medications reviewed. No medications held. Labs: No new relevant labs. Physical Exam: General: Awake, alert, oriented Cardiovascular: Regular, Normal Pulmonary: Breath sounds clear to auscultation Abdomen: Nontender, nondistended The planned procedure (and sedation plan if appropriate), its benefits and risks, and alternatives were discussed with the patient. The patient consented to the procedure. The indications for the procedure are still present. Pre-sedation Assessment: Sedation Plan: moderate (conscious sedation) ASA: 2: Patient with mild systemic disease Mallampati: I: soft palate, fauces, tonsillar pillars and uvula can be seen Confirm NPO status: Yes History of anesthetic complications: No Current medications reviewed: Yes Allergies reviewed: Yes Source Note - Jeremias Erwin DO - 10/10/2023 3:12 PM EDT Images [...] Guided Biopsy Breast Vacuum Assisted Left 01/04/2021 [facility] RAD MRI PRO BX/REMV, LYMPH NODE, DEEP AXILL Right 01/28/2021 BIOPSY OR EXCISION OF LYMPH NODE(S), OPEN, DEEP AXILLARY NODE(S) (WRVU 6.43) performed by Trev Erazo MD at [facility] MAIN OR PRO INTRAOP SENTINEL LYMPH ID W/DYE INJECTION Right 01/28/2021 INTRAOPERATIVE ID (MAPPING) SENTINEL LYMPH NODE,INCLUDES INJECTION (WRVU 2.5) performed by Trev Erazo MD at [facility] MAIN OR PRO MASTECTOMY, SIMPLE, COMPLETE Right 01/28/2021 MASTECTOMY, SIMPLE, COMPLETE (WRVU 15.85) performed by Trev Erazo MD at [facility] MAIN OR Medications: Current Outpatient Medications [...] file Social History Narrative Marychuy lives in [place], she has been to [facility] for 36 years. They have two children 30 and 33yo; and 1 granddaughter 2yo. 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 Social Determinants of [...] AM EDT Office Visit Hematology/Oncology at [address] [phone] Sumanth Bermudez MD [facility] HEMATOLOGY/[place] [address] 12/28/2023 10:30 AM EDT Infusion Hematology Oncology at [address] [phone] 01/02/2024 3:20 PM EDT Hospital Encounter [place] [address] Astrid Ortega MD [facility] [place] [address] 04/22/2024 10:00 AM EST TH Visit (TeleHealth) Hematology and Oncology at [address] [phone] Tracy Beltran [facility] [address] 05/20/2024 10:40 AM EST Hospital Encounter Mammography/[place] [phone] 05/20/2024 11:50 AM EST Office Visit [place] [address] Magaly Quijano APRN [facility] [place] [address] 11/15/2024 4:00 PM EDT Office Visit Hematology [place] [address] Jenny Melissa MD [facility] HEMATOLOGY[place] [address] documented as of this encounter Procedures Procedure Name Priority Date/Time Associated Diagnosis Comments IR BIOPSY LIVER PERCUTANEOUS - NON-FOCAL PARENCHYMA STAT 10/19/2023 8:20 AM EDT Malignant neoplasm of sigmoid colon SURGICAL PATHOLOGY REPORT Routine 10/19/2023 8:10 AM EDT SPECIMEN TO PATHOLOGY Routine 10/19/2023 7:00 AM EDT documented in this encounter Results * IR Biopsy Liver Percutaneous (10/19/2023 8:20 [...] performed the entire procedure. Jossie Jamison MD [facility] IR ORDERABLES * (ABNORMAL) Surgical Pathology Report (10/19/2023 8:10 AM EDT) Pathologist [facility] [place] FINAL DIAGNOSIS (AP) [id number] ? Location: [facility] The signing pathologist has (i) examined the [...] FISH. ??Direct analysis was performed using the PathVysion Kit. ??Slide adequacy and signal enumeration were [...] serous carcinomas that are HER2-positive. Reference: Sg VACA, et al. Randomized Phase II Trial of Carboplatin-Paclitaxel Versus Carboplatin-Paclitaxel- Trastuzumab in Uterine Serous Carcinomas That Overexpress Human Epidermal Growth Factor Receptor 2/adelina. J Clin Oncol. 2018;36(20):1443-0263. National Comprehensive Cancer Network. Uterine Neoplasms (Version 3.2019). https:// www.nccn.org/profession als/physician_gls/pdf/barron vázquez.pdf. Accessed 09/07/2018. Electronically signed by: ?Asha Capellan MD Verified: ??12/22/2023 16:36 ??Pathologist Performed at: ??-[facility] Dept. of Pathology, [place] [address] Director Of Rehabilitation And Wellness: Deangelo Iverson MD, FCAP, ??CLIA Certificate: [id number] ? Addendum ADDENDUM DISCUSSION . ADDENDUM DISCUSSION [...] The assay was performed according to the reinsurance clerk ??'s instructions using an Anti-HER2 (4B5) antibody. Electronically signed by: ?Cb PEREZ PhD, Michelle Verified: ??12/18/2023 16:28 ??Pathologist Performed at: ??-[facility] Dept. of Pathology, [place] [address] Director Of Rehabilitation And Wellness: Deangelo Iverson MD, FCAP, ??CLIA Certificate: [id number] ? Addendum ADDENDUM DISCUSSION Block ? Antibody [...] Verified: ??11/14/2023 9:58 ?? Pathologist Performed at: ??-[facility] Dept. of Pathology, [place] [address] Director Of Rehabilitation And Wellness: Deangelo Iverson MD, FCPAOLA, ??CLIA Certificate: [id number] . 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 Electronically signed by: ?Cb PEREZ PhD, Michelle Verified: ??10/23/2023 11:04 ??Pathologist Performed at: ??-[facility] Dept. of Pathology, [place] [address] Director Of Rehabilitation And Wellness: Deangelo Iverson MD, [facility], ??CLIA Certificate: [id number] DISCUSSION Dr. Jovanni Mccain (Gynecologic Pathology) has [...] A2 ? ER ? Positive A2 ? MT ? Positive A2 ? CK7 ?Positive A2 [...] 8:10 AM EDT Jossie Jamison MD PATHOLOGY/CYTOLOGY Ignacio JOSEPH Performing Organization Address [facility] de Phone Number [facility] [place] [address] * Specimen to Pathology (10/19/2023 7:00 AM EDT) AP Specimen 10/19/2023 7:00 AM EDT 10/19/2023 7:00 AM EDT Narrative [facility] - 10/19/2023 7:00 AM EDT Specimen requisition ordered. ??Separate Pathology report to follow Jossie Jamison MD PATHOLOGY/CYTOLOGY Ignacio JOSEPH Performing Organization Address [facility] de Phone Number [facility] [place] [address] documented in this encounter Visit Diagnoses Diagnosis Malignant neoplasm of sigmoid colon documented in this encounter Administered Medications Inactive Administered Medications - up to 3 most recent administrations Medication Order MAR Action Action Date Dose Rate Site fentaNYL (pf) (50 mcg/mL) multi-dose injection 25-50 mcg 25-50 mcg, Intravenous, EVERY 3 MIN PRN, Starting on Radha 10/19/23 at 0640, Until Radha 10/19/23 at 0918, Pain, per unit protocol, For use in Interventional Radiology (IR) only for procedural sedation with direct provider supervision and verbal order. - Start dose: 50 mcg (reduce dose to 25 mcg if history of sedation sensitivity). - Titration dose: 25-50 mcg IV, (based on patient response) every 3 minutes PRN to maintain procedural pain less than 2 per Pain Scale. Maximum dose: 50 mcg/dose, 250 mcg/hour, Angio/IR (Intra-Procedure), Routine Given 10/19/2023 8:07 AM EDT 25 mcg Given 10/19/2023 8:03 AM EDT 25 mcg Given 10/19/2023 8:00 AM EDT 25 mcg lidocaine (Xylocaine) 1% (10 mg/mL) injection 10 mg 10 mg, Subcutaneous, ONCE, 1 dose, On Radha 10/19/23 at 0700, For use in Interventional Radiology (IR) only for procedure with direct provider supervision and verbal order., Angio/IR (Intra-Procedure), Routine Given 10/19/2023 8:07 AM EDT 10 mg midazolam (pf) (Versed) (1 mg/mL) multi-dose injection 0.5-1 mg 0.5-1 mg, Intravenous, EVERY 3 MIN PRN, Starting on Radha 10/19/23 at 0640, Until Radha 10/19/23 at 0918, Sedation, For use in Interventional Radiology (IR) only for procedural sedation with direct provider supervision and verbal order. - Start dose: 1 mg (Reduce dose to 0.5 mg if history of sedation sensitivity). - Titration dose: 0.5 mg - 1 mg (based on patient response) every 3 minutes PRN to obtain RASS score of -3. Maximum dose: 1 mg/dose, 5 mg/hour., Angio/IR (Intra-Procedure), Routine Given 10/19/2023 8:00 AM EDT 0.5 mg Given 10/19/2023 7:50 AM EDT 0.5 mg documented in this encounter Care Teams Dye Operator Relationship Specialty Start Date End Date Josefina Crocker APRN [address] [place] [address] PCP - General Family Medicine 07/17/23 documented as of this encounter
--- OUTSIDE RECORDS SUMMARY | 2023-12-28 02:21 | XMS_ITS | Encounter Summary ---
Author Organization [facility] [place] [address] Care Team Providers Care Wooden Box Maker Name Role Phone Joesfina Crocker APRN Primary Care Provider +1- [phone] Encounter Details Date Type Department Care Team (Latest Contact Info) Description 10/17/2023 Travel Social History Tobacco Use Types Packs/Day [...] 10:00 AM EDT Office Visit Hematology/Oncology at [address] [phone] Sumanth Bemrudez MD [facility] HEMATOLOGY/[place] [address] 12/28/2023 10:30 AM EDT Infusion Hematology Oncology at [address] [phone] 01/02/2024 3:20 PM EDT Hospital Encounter CT Scan at [place] [phone] Astrid Ortega MD [facility] [place] [address] 04/22/2024 10:00 AM EST TH Visit (TeleHealth) Hematology and Oncology at [address] [phone] Tracy Beltran [facility] [place] [address] 05/20/2024 10:40 AM EST Hospital Encounter Mammography/DXA at [place] [phone] 05/20/2024 11:50 AM EST Office Visit General Surgery at [place] [phone] Magaly Quijano APRN [facility] [place] [address] 11/15/2024 4:00 PM EDT Office Visit Hematology and Oncology at [place] [phone] Jenny Melissa MD [facility] HEMATOLOGY[place] [address] documented as of this encounter Visit Diagnoses Not on filedocumented in this encounter Care Teams Wooden Box Maker Relationship Specialty Start Date End Date Josefina Crocker APRN [address] [place] [address] PCP - General Family Medicine 07/17/23 documented as of this encounter
--- OUTSIDE RECORDS SUMMARY | 2023-12-28 02:21 | XMS_ITS | Encounter Summary ---
Author Organization [facility] [place] [address] Care Team Providers Care Dumping Machine Operator Name Role Phone ObiJosefina Mona RIOS Primary Care Provider +1- [phone] Reason for Referral * Consultation (Urgent) - Closed Specialty Diagnoses / Procedures Referred By Conttalon t Referred To Contact Gynecology Oncology Diagnoses Endometrial cancer Jossie Jamison MD [facility] [address] Astrid Ortega MD [facility] [place] [address] Referral ID Status Reason Start Date Expiration Date V isits Requested Visits Authorized [id number] Closed Consult, Test & Treat 10/24/2023 10/23/2024 1 1 Encounter Details Date Type Department Care Team (Late st Contact Info) Description 10/24/2023 Orders [place] [address] Jossie Jamison MD [facility] [place] [address] Endometrial cancer Social History Tobacco Use Types Packs/Day Years [...] Notes * Jossie Jamison MD - 10/24/2023 9:56 AM EDT I spoke with Marychuy on the phone. Discussed that pathology shows metastatic endometrial cancer on liver biopsy. Colon pathology re-reviewed and is consistent with an endometrial cancer NOT a colon cancer. Her prior endometrial cancer treatment was at [facility] due to insurance coverage. She is now able to have treatment at and would like to be seen by our Forestry Support Specialist Onc team here. I have already reached out to Dr. Ortega and will place an urgent referral Discussed with Marychuy that PET CT is still not read. Discussed that liver lesion is actually thought to be a large peritoneal lesion on the liver capsule and with some diaphragm thickening. There isalso a node in the chest that is FDG avid. Discussed possible fecal diversion due to obstructive symptoms. Marychuy is noticing increasing changes in her bowels but is moving her bowels. Would like to discuss with Dr. No Elena regarding this diagnosis but may need to consider fecal diversion. Suspect resection is not beneficial at thistime given multiple sites of disease Jossie Jamison MD FACS [employer] geothermal heat pump machinist Division of Colon and Rectal Surgery [facility] Pager [phone] documented in this encounter Plan of Treatment Upcoming Encounters Date Type Department Care Team (Late st Contact Info) Description 12/28/2023 10:00 AM EDT Office Visit Hematology/Oncology at [address] [phone] Sumanth Bermudez MD [facility] HEMATOLOGY/[place] [address] 12/28/2023 10:30 AM EDT Infusion Hematology Oncology at [address] [phone] 01/02/2024 3:20 PM EDT Hospital [place] [phone] Astrid Ortega MD [facility] [place] [address] 04/22/2024 10:00 AM EST TH Visit (TeleHealth) Hematology and Oncology at [address] [phone] Tracy Beltran [facility] [place] [address] 05/20/2024 10:40 AM EST Hospital Encounter Mammography/[place] [address] 05/20/2024 11:50 AM EST Office [place] [phone] Magaly Quijano APRN [facility] [place] [address] 11/15/2024 4:00 PM EDT Office Visit Hematology [place] [phone] Jenny Melissa MD [facility] HEMATOLOGY[place] [address] Scheduled Referrals Name Type Priority Associated Diagnoses Order Schedule Referral to Gynecologic Oncology Outpatient Referral Urgent Endometrial cancer Ordered: 10/24/2023 documented as of this encounter Visit Diagnoses Diagnosis Endometrial cancer Malignant neoplasm of corpus uteri, except isthmus documented in this encounter Care Teams Dumping Machine Operator Relationship Specialty Start Date End Date Josefina Crocker APRN [address] [place] [address] PCP - General Family Medicine 07/17/23 documented as of this encounter
--- OUTSIDE RECORDS SUMMARY | 2023-12-28 02:21 | XMS_ITS | Encounter Summary ---
Author Organization [facility] Address [facility] [place] [address] Care Team Providers Care Nursery School Attendant Name Role Phone ObiJosefina Mona RIOS Primary Care Provider +1- [phone] Encounter Details Date Type Department Care Team (Late st Contact Info) Description 11/28/2023 Orders Only Hematology [place] [address] Mark Landin MD [facility] HEMATOLOGY/[place] [address] Endometrial adenocarcinoma (Primary Dx) Social History Tobacco Use Types Packs/Day Years [...] from your doctor or pharmacy? Never 10/31/2023 [facility] Utilities Answer Date Recorded In the [...] any time in the past 12 m [facility], were you homeless or living in a detention (including now)? No 10/31/2023 Sex and Gender Information Value Date Recorded Sex Assigned at Not on file Gender Identity Not on file Sexual Orientation Not on file documented as of this encounter Plan of Treatment Upcoming Encounters Date Type Department Care Team (Late st Contact Info) Description 12/28/2023 10:00 AM EDT Office Visit Hematology/Oncology at [address] [phone] Sumanth Bermudez MD [facility] HEMATOLOGY/[place] [address] 12/28/2023 10:30 AM EDT Infusion Hematology Oncology at [address] [phone] 01/02/2024 3:20 PM EDT Hospital [place] [address] Astrid Ortega MD [facility] [place] [address] 04/22/2024 10:00 AM EST TH Visit (TeleHealth) Hematology and Oncology at [address] [phone] [facility] [place] [address] 05/20/2024 10:40 AM EST Hospital Encounter Mammography/[place] [phone] 05/20/2024 11:50 AM EST Office Visit [place] [phone] Magaly Quijano APRN [facility] [place] [address] 11/15/2024 4:00 PM EDT Office Visit Hematology [place] [phone] Jenny Melissa MD [facility] DR HEMATOLOGY/[place] [address] Scheduled Orders Name Type Priority Associated Diagnoses Orde r Schedule CBC (with Diff) Lab Routine Endometrial adenocarcinoma As Needed for 4 Occurrences starting 11/28/2023 until 11/27/2024 Comprehensive metabolic panel (non-fasting) Lab Routine Endometrial adenocarcinoma As Needed for 4 Occurrences starting 11/28/2023 until 11/27/2024 documented as of this encounter Visit Diagnoses Diagnosis Endometrial adenocarcinoma- Primary Malignant neoplasm of corpus uteri, except isthmus documented in this encounter Care Teams Nursery School Attendant Relationship Specialty Start Date End Date Josefina Crocker APRN [address] [place] [address] PCP - General Family Medicine 07/17/23 documented as of this encounter
--- OUTSIDE RECORDS SUMMARY | 2023-12-28 02:21 | XMS_ITS | Encounter Summary ---
[place] [address] Care Team Providers Care Harp Regulator Name Role Phone Josefina Crocker APRN Primary Care Provider +1- [phone] Reason for Visit * Reason Comments Follow-up Encounter Details Date Type Department Care Team (Latest Contact Info) Description 11/08/2023 1:00 PM EDT Clinical Support Hematology [place] [phone] Eliezer Kelly, [facility] Endometrial adenocarcinoma, endometrioid type, FIGO [...] from your doctor or pharmacy? Never 10/31/2023 [facility] Utilities Answer Date Recorded In the past 12 months has e [employer], gas, oil, or water [employer] threatened to shut off services in your [...] any time in the past 12 m [facility], were you homeless or living in a mcfp (including now)? No 10/31/2023 Sex and Gender Information Value Date Recorded Sex Assigned at Not on file Gender Identity Not on file Sexual Orientation Not on file documented as of this encounter Progress Notes * Eliezer Kelly, [facility] - 11/08/2023 1:00 PM EDT Chemotherapy Teaching Visit PATIENT ID: Marychuy Hood is a 73 y.o. female with endometrial adenocarcinoma who presents today for chemotherapy teaching and is accompanied by her Shailesh. The plan is for carboplatin and paclitaxel given every 21 days. The following information was reviewed with the patient and Shailesh. Chemotherapy Therapy Schedule: Carboplatin (30 minute infusion) + paclitaxel (3 hour infusion) IV every 21 days Attending IS ANALYST/ONC: Dr. Ortega Provider Visits: Marychuy will see either her physician or nurse practitioner prior to every cycle Possible Side Effects include, but are not limited to: Carboplatin (paraplatin): The most common side effects include decrease in blood counts (decrease in white blood cells, red blood cells and platelets resulting in increased risk of infection, anemia and bleeding), nausea and vomiting, taste changes, hair loss, weakness, low magnesium level. Less common side effects include infusion reaction, diarrhea or constipation, mouth sores, kidney dysfunction, ringing in the ears or hearing loss, electrolyte abnormalities. Paclitaxel (taxol): The most common potential side effects include: Decrease in blood counts (decrease in white blood cells, red blood cells and platelets, resulting in increased risk of infection, anemia and bleeding), numbness and tingling in the hands and feet, infusion reactions, nausea/vomiting, hair loss, diarrhea, muscle aches/joint pain, fatigue. The muscle aches tend to occur in the 2-3 days after treatment and last a few days. Less common side effects include swelling of the feet or ankles, liver dysfunction, nail changes. Medications: the following prescriptions should be picked up before starting treatment Prochlorperazine (compazine): 1 tablet (10 mg) PO Q6H on days 1 through 3. Dexamethasone 4 mg PO BID PRN nausea & vomiting on days 1 through 3. Ondansetron (zofran): 1 tablet (8 mg) every 8 hours as needed for nausea starting on day 4. Do NOT take within 3 days of chemotherapy. Plan: Marychuy was given written information regarding chemotherapy regimen, side effects and management strategies. she was given an opportunity to ask questions and verbalized understanding of the information and treatment plan. No barriers to learning were identified. she was counseled on how to call for any further questions or concerns. Chemotherapy is scheduled to begin on 11/13/23 Supportive Care: Antiemetics were reviewed with and Marychuy understands how and when to take the medications prescribed Prescriptions for prochlorperazine, ondansetron, and dexamethasone were sent/called to her preferred pharmacy. Each medication reviewed with patient. Discussed bowel regimen. Recommended to increase fiber, fluids and activity to help bowel function.Discussed possible need for stool softener, gentle laxative and fiber supplement if she is having issues with constipation. Advised that she call the clinic if she has not had a bowel movement in > 48 hours. Discussed use of acetaminophen (Tylenol). Patient made aware of antipyretic effects and encouraged she monitor temperature prior to taking when at risk for infection. We also discussed ibuprofen. Patient made aware of risks of bleeding with NSAIDS and to monitor this throughout treatment. Discussed potential for peripheral neuropathy with paclitaxel. Informed patient new chemotherapy teaching packet will include information on complementary and alternative medicine options. Explained there is limited robust evidence in support of these therapies, but they may help some patients. Advised Marychuy to further discuss these options with their provider if interested. Discussed hair loss. Chemotherapy exposure precautions reviewed. Follow up: Return to clinic on 11/13/23 60 of this 60 minute face to face encounter was spent in counseling, education and coordination of care. documented in this encounter Plan of Treatment Upcoming Encounters Date Type Department Care Team (Late st Contact Info) Description 12/28/2023 10:00 AM EDT Office Visit Hematology/Oncology at [address] [phone] Sumanth Bermudez MD [facility] HEMATOLOGY/[place] [address] 12/28/2023 10:30 AM EDT Infusion Hematology Oncology at [address] [phone] 01/02/2024 3:20 PM EDT Hospital [place] [phone] Astrid Ortega MD [facility] [place] [address] 04/22/2024 10:00 AM EST TH Visit (TeleHealth) Hematology and Oncology at [address] [phone] Tracy Beltran [facility] [place] [address] 05/20/2024 10:40 AM EST Hospital Encounter Mammography/[place] [phone] 05/20/2024 11:50 AM EST Office [place] [phone] Magaly Quijano APRN [facility] [place] [address] 11/15/2024 4:00 PM EDT Office Visit Hematology [place] [address] Jenny Melissa MD [facility] HEMATOLOGY/[place] [address] documented as of this encounter Visit Diagnoses Diagnosis Endometrial adenocarcinoma, endometrioid type, FIGO grade 2 Malignant neoplasm of corpus uteri, except isthmus documented in this encounter Care Teams Harp Regulator Relationship Specialty Start Date End Date Josefina Crockre APRN [address] [place] [address] PCP - General Family Medicine 07/17/23 documented as of this encounter
--- OUTSIDE RECORDS SUMMARY | 2023-12-28 02:21 | XMS_ITS | Encounter Summary ---
Author Organization [facility] Address [facility] [place] [address] Care Team Providers Care Night Shift Name Role Phone ObiJosefina Mona RIOS Primary Care Provider +1- [phone] Reason for Visit * Reason Comments Follow-up Encounter Details Date Type Department Care Team (Late st Contact Info) Description 11/08/2023 10:30 AM EDT Office Visit Hematology [place] [phone] Jenny Melissa MD [facility] HEMATOLOGY/[place] [address] Endometrial adenocarcinoma, endometrioid type, FIGO grade 2; Malignant neoplasm of upper-outer quadrant of right breast in female, estrogen receptor positive Social History Tobacco Use Types Packs/Day Years [...] your doctor or pharmacy? Never 10/31/2023 [facility] Utilities Answer Date Recorded In the [...] in the past 12 m [facility], were you homeless or living in a halfway (including now)? No 10/31/2023 Sex and Gender Information Value Date Recorded Sex Assigned at Not on file Gender Identity Not on file Sexual Orientation Not on file documented as of this encounter Last Filed Vital Signs Vital Sign Reading Time Taken Comments Blood Pressure 142/73 11/08/2023 10:27 AM EDT Pulse 63 11/08/2023 10:27 AM EDT Temperature 36.1 ??C (96.9 ??F) 11/08/2023 10:27 AM E DT Respiratory Rate 18 11/08/2023 10:27 AM EDT Oxygen Saturation 99% 11/08/2023 10:27 AM EDT Inhaled Oxygen Concentration - - Weight 58.2 kg (128 lb 4.9 oz) 11/08/2023 10:27 AM EDT Height 159.5 cm (5' 2.8) 11/08/2023 10:27 AM ED T Body Mass Index 22.88 11/08/2023 10:27 AM EDT documented in this encounter Progress Notes * Jenny Melissa MD - 11/08/2023 10:30 AM EDT 73 yo with right breast cancer dx 2019 Current treatment : tamoxifen Cc: breast cancer Interval history: Unfortunately Marychuy was recently diagnosed with metastatic endometrial cancer. She had a TAHBSO in 2015 for this, but developed bowel function changes and colonoscopy revealed an obstructing mass. Pathology cn/w metastatic endometrial cancer. I was contacted and recommended d/c of tamoxifen. She'd been on it since 04/25 and we stopped it and resumed reduced dose last June due to fatigue and depression symptoms. Patient Active Problem List Diagnosis Code Endometrial adenocarcinoma, endometrioid type, FIGO grade 2 C54.1 Malignant neoplasm of right breast in female, estrogen receptor positive C50.911, Z17.0 HPI: 12/16/20 dx AVH: ER/PA+/HER2- right breast IDC pT1cN0 Stage IA right upper outer quadrant Screening mammogram detected at [facility] 11/30/20 cat 0 Diagnostic images [...] + , with DCIS Oncotype dx is low risk. Risk factors: personal hx of endometrial cancer; FHx breast cancer in one half- sister who recently of lung cancer and was a chronic smoker; 2 other sisters are without cancer. Marychuy's grand mother had bone cancer. Menses began at age 15 until approximately age 59; [facility] 1st at age 31 S/p Right mastectomy, SLN neg. 01/23 oncotype score of 5 pT2N0 grade 2 dexa viewed independently by me, T-2.2 , osteopenia/ borderline osteoporosis. Left mammo 03/26 benign Left mammo today benign. Imaging, pathology, medical chart reviewed and discussed with Tahira other providers. Impression: 73 yo with stage I breast cancer, s/p tamoxifen x 3 years. D/c tamoxifen due to caution even though she has had TAHBSO given known effect of endometrial hyperplasia due to tamoxifen. Plan: ok to omit mammogram while she's undergoing treatments F/u 1 yr documented in this encounter Plan of Treatment Upcoming Encounters Date Type Department Care Team (Late st Contact Info) Description 12/28/2023 10:00 AM EDT Office Visit Hematology/Oncology at [address] [phone] Sumanth Bermudez MD [facility] HEMATOLOGY/[place] [address] 12/28/2023 10:30 AM EDT Infusion Hematology Oncology at [address] [phone] 01/02/2024 3:20 PM EDT Hospital [place] [address] Astrid Ortega MD [facility] [place] [address] 04/22/2024 10:00 AM EST TH Visit (TeleHealth) Hematology and Oncology at [address] [phone] Tracy Beltran [facility] MEDICAL ONCOLOGY [place], [place] [phone] 05/20/2024 10:40 AM EST Hospital Encounter Mammography/[place] [address] 05/20/2024 11:50 AM EST Office [place] [address] Magaly Quijano APRN [facility] GENERAL SURGERY [place], [place] [phone] 11/15/2024 4:00 PM EDT Office Visit Hematology [place] [address] Jenny Melissa MD [facility] HEMATOLOGY/[place] [address] documented as of this encounter Visit Diagnoses Diagnosis Endometrial adenocarcinoma, endometrioid type, FIGO grade 2 Malignant neoplasm of corpus uteri, except isthmus Malignant neoplasm of upper-outer quadrant of right breast in female, estrogen receptor positive documented in this encounter Care Teams Night Shift Relationship Specialty Start Date End Date Josefina Crocker APRN [address] [place] [address] PCP - General Family Medicine 07/17/23 documented as of this encounter
--- OUTSIDE RECORDS SUMMARY | 2023-12-28 02:21 | XMS_ITS | Encounter Summary ---
Author Organization [facility] Address [facility] [place] [address] Care Team Providers Care Hostess Name Role Phone Josefina Crocker APRN Primary Care Provider +1- [phone] Encounter Details Date Type Department Care Team (Latest Contact Info) Description 11/12/2023 Travel Social History Tobacco Use Types Packs/Day [...] from your doctor or pharmacy? Never 10/31/2023 [facility] Utilities Answer Date Recorded In the past 12 months has [email or web address], gas, oil, or water [employer] threatened to shut off services in your [...] time in the past 12 m [facility], were you homeless or living in a prison (including now)? No 10/31/2023 Sex and Gender Information Value Date Recorded Sex Assigned at Not on file Gender Identity Not on file Sexual Orientation Not on file documented as of this encounter Plan of Treatment Upcoming Encounters Date Type Department Care Team (Late st Contact Info) Description 12/28/2023 10:00 AM EDT Office Visit Hematology/Oncology at [address] [phone] Sumanth Bermudez MD [facility] HEMATOLOGY/[place] [address] 12/28/2023 10:30 AM EDT Infusion Hematology Oncology at [address] [phone] 01/02/2024 3:20 PM EDT Hospital [place] [address] Astrid Ortega MD [facility] [place] [address] 04/22/2024 10:00 AM EST TH Visit (TeleHealth) Hematology and Oncology at [address] [phone] Tracy Beltran [facility] [place] [address] 05/20/2024 10:40 AM EST Hospital Encounter Mammography/DXA at [place] [phone] 05/20/2024 11:50 AM EST Office Visit General Surgery at [place] [phone] Magaly Quijano APRN [facility] [place] [place] [address] 11/15/2024 4:00 PM EDT Office Visit Hematology and Oncology at [place] [phone] Jenny Melissa MD [facility] HEMATOLOGY[place] [address] documented as of this encounter Visit Diagnoses Not on filedocumented in this encounter Care Teams Hostess Relationship Specialty Start Date End Date Josefina Crocker APRN [address] [place] [address] PCP - General Family Medicine 07/17/23 documented as of this encounter
--- OUTSIDE RECORDS SUMMARY | 2023-12-28 02:21 | XMS_ITS | Encounter Summary ---
Author Organization [facility] Address [facility] [place] [address] Care Team Providers Care Application Packaging Consultant Name Role Phone Josefina Crocker APRN Primary Care Provider +1- [phone] Encounter Details Date Type Department Care Team (Latest Contact Info) Description 11/08/2023 Travel Social History Tobacco Use Types Packs/Day [...] or pharmacy? Never 10/31/2023 [facility] Utilities Answer Date Recorded In the past 12 months has [employer], gas, oil, or water [employer] threatened to shut off services in your [...] 10:00 AM EDT Office Visit Hematology/Oncology at [address] [phone] Sumanth Bermudez MD [facility] HEMATOLOGY/[place] [address] 12/28/2023 10:30 AM EDT Infusion Hematology Oncology at [address] [phone] 01/02/2024 3:20 PM EDT Hospital [place] [address] Astrid Ortega MD [facility] [place] [address] 04/22/2024 10:00 AM EST TH Visit (TeleHealth) Hematology and Oncology at [address] [phone] Tracy Beltran [facility] [place] [place] [address] 05/20/2024 10:40 AM EST Hospital Encounter Mammography/DXA at [place] [phone] 05/20/2024 11:50 AM EST Office Visit General Surgery at [place] [phone] Magaly Quijano APRN [facility] [place] [address] 11/15/2024 4:00 PM EDT Office Visit Hematology and Oncology at [place] [phone] Jenny Melissa MD [facility] [place] [address] documented as of this encounter Visit Diagnoses Not on filedocumented in this encounter Care Teams Application Packaging Consultant Relationship Specialty Start Date End Date Josefina Crocker APRN [address] [place] [address] PCP - General Family Medicine 07/17/23 documented as of this encounter
--- OUTSIDE RECORDS SUMMARY | 2023-12-28 02:21 | XMS_ITS | Encounter Summary ---
[place] [address] Care Team Providers Care Chief Counsel Name Role Phone Josefina Crocker APRN Primary Care Provider +1- [phone] Reason for Referral * Diagnostic Test (Routine) - Closed Specialty Diagnoses / Procedures Referred By Contac t Referred To Contact Radiology Diagnoses Malignant neoplasm of sigmoid colon Procedures NM PET CT Skull Base to Mid-thigh Jossie Jamison MD [facility] [place] [address] [place] [address] Referral ID Status Reason Start Date Expiration Date V isits Requested Visits Authorized [id number] Closed Specialty Service Requested 10/10/2023 04/11/2025 1 1 Reason for Visit * Diagnostic Test (Routine) - Closed Specialty Diagnoses / Procedures Referred By Contac t Referred To Contact Radiology Diagnoses Malignant neoplasm of sigmoid colon Procedures NM PET CT Skull Base to Mid-thigh Jossie Jamison MD [facility] [place] [address] [facility] [place] [address] Referral ID Status Reason Start Date Expiration Date V isits Requested Visits Authorized [id number] Closed Specialty Service Requested 10/10/2023 04/11/2025 1 1 Encounter Details Date Type Department Care Team (Latest Contact Info) Description 10/20/2023 1:26 PM EDT Hospital Encounter [place] [address] Jossie Jamison MD [facility] GENERAL SURGERY [place] [id number] Malignant neoplasm of sigmoid colon Discharge Disposition: [...] AM EDT Office Visit Hematology/Oncology at [address] [phone] Sumanth Bermudez MD [facility] HEMATOLOGY/[place] [address] 12/28/2023 10:30 AM EDT Infusion Hematology Oncology at [address] [phone] 01/02/2024 3:20 PM EDT Hospital [place] [phone] Astrid Ortega MD [facility] [place] [address] 04/22/2024 10:00 AM EST TH Visit (TeleHealth) Hematology and Oncology at [address] [phone] Tracy Beltran [facility] [place] [address] 05/20/2024 10:40 AM EST Hospital Encounter Mammography/[place] [phone] 05/20/2024 11:50 AM EST Office [place] [phone] Magaly Quijano APRN [facility] [place] [address] 11/15/2024 4:00 PM EDT Office Visit Hematology [place] [address] Jenny Melissa MD [facility] HEMATOLOGY[place] [address] documented as of this encounter Procedures Procedure Name Priority Date/Time Associated Diagnosis Comments NM PET CT SKULL BASE TO MID-THIGH ([facility]) Routine 10/20/2023 2:53 PM EDT Malignant neoplasm of sigmoid colon documented in this encounter Results * NM PET CT Skull Base to Mid-thigh (10/20/2023 2:53 PM EDT) WORKSTATION ID [id number] [facility] Anatomical Region Laterality Modality Positron Emissio n [...] who have questions please contact the health home care scheduler that requested your imaging first. ? Electronically signed by: Jude Meneses MD, [facility] ([phone]), at 10/25/2023 1:31 PM Narrative 10/25/2023 1:31 PM EDT EXAMINATION: NM PET CT STANDARD SKULL BASE TO MID-THIGH CLINICAL HISTORY: Colon, breast, endometrial cancers, new liver lesion, chest nodes, lung nodules C18.7, Malignant neoplasm of sigmoid colon TECHNIQUE: Following IV injection of 95-xlhffr-8-deoxyglucose (FDG) a standard uptake of approximately 60 [...] sigmoid colon TECHNIQUE: Following IV injection of 27-gatffw-5-deoxyglucose (FDG) astandard uptake of approximately 60 minutes, [...] patients who have questions please contactthe health home care scheduler that requested your imaging first. Electronically signed by: Jude Meneses MD, [facility]([phone]), at 10/25/2023 1:31 PM Jossie Jamison MD IMG PET ORDERABLES documented in this encounter Visit Diagnoses Diagnosis Malignant neoplasm of sigmoid colon documented in this encounter Administered Medications Inactive Administered Medications - up to 3 most recent administrations Medication Order MAR Action Action Date Dose Rate Site fludeoxyglucose (F-18) FDG injection 0-20 mCi 0-20 mCi, Intravenous, ONCE PRN, 1 dose, Starting on Mon10/20/23 at 1345, Until Mon10/20/23 at 1340, Per Protocol, Radiology Contrast, Routine Given 10/20/2023 1:40 PM EDT 8.7 mCi Left Arm documented in this encounter Care Teams Chief Counsel Relationship Specialty Start Date End Date Josefina Crocker, FLIGHT SURGEON [address] [place] [address] PCP - General Family Medicine 07/17/23 documented as of this encounter
--- OUTSIDE RECORDS SUMMARY | 2023-12-28 02:21 | XMS_ITS | Encounter Summary ---
Author Organization [facility] Address [facility] [place] [address] Care Team Providers Care Story Writer Name Role Phone Josefina Crocker APRN Primary Care Provider +1- [phone] Encounter Details Date Type Department Care Team (Latest Contact Info) Description 11/06/2023 Travel Social History Tobacco Use Types Packs/Day [...] from your doctor or pharmacy? Never 10/31/2023 [facility] Utilities Answer Date Recorded In the past 12 months has [email or web address], gas, oil, or water [employer] threatened to shut off services in your [...] time in the past [address] [facility], were you homeless or living [...] 10:00 AM EDT Office Visit Hematology/Oncology at [address] [phone] Sumanth Bermudez MD [facility] HEMATOLOGY/[place] [address] 12/28/2023 10:30 AM EDT Infusion Hematology Oncology at [address] [phone] 01/02/2024 3:20 PM EDT Hospital Encounter [place] [address] Astrid Ortega MD [facility] [place] [address] 04/22/2024 10:00 AM EST TH Visit (TeleHealth) Hematology and Oncology at [address] [phone] Tracy Beltran [facility] [place] [place] [address] 05/20/2024 10:40 AM EST Hospital Encounter Mammography/DXA at [place] [phone] 05/20/2024 11:50 AM EST Office Visit General Surgery at [place] [phone] Magaly Quijano APRN [facility] [place] [address] 11/15/2024 4:00 PM EDT Office Visit Hematology and Oncology at [place] [phone] Jenny Melissa MD [facility] HEMATOLOGY/[place] [address] documented as of this encounter Visit Diagnoses Not on filedocumented in this encounter Care Teams Story Writer Relationship Specialty Start Date End Date Josefina Crocker APRN [address] [place] [address] PCP - General Family Medicine 07/17/23 documented as of this encounter
--- OUTSIDE RECORDS SUMMARY | 2023-12-28 02:21 | XMS_ITS | Encounter Summary ---
Author Organization [facility] [place] [address] Care Team Providers Care Inspection Machine Tender Name Role Phone Josefina Crocker APRN Primary Care Provider +1- [phone] Encounter Details Date Type Department Care Team (Latest Contact Info) Description 11/29/2023 Travel Social History Tobacco Use Types Packs/Day [...] from your doctor or pharmacy? Never 10/31/2023 [facility] Utilities Answer Date Recorded In the past 12 months has [employer], gas, oil, or water [employer] threatened to shut off services in your [...] time in the past 12 m [facility], were you homeless or living in a group home (including now)? No 10/31/2023 Sex and Gender Information Value Date Recorded Sex Assigned at Not on file Gender Identity Not on file Sexual Orientation Not on file documented as of this encounter Plan of Treatment Upcoming Encounters Date Type Department Care Team (Late st Contact Info) Description 12/28/2023 10:00 AM EDT Office Visit Hematology/Oncology at [address] [phone] Sumanth Bermudez MD [facility] HEMATOLOGY/[place] [address] 12/28/2023 10:30 AM EDT Infusion Hematology Oncology at [address] [phone] 01/02/2024 3:20 PM EDT Hospital [place] [address] Astrid Ortega MD [facility] [place] [address] 04/22/2024 10:00 AM EST TH Visit (TeleHealth) Hematology and Oncology at [address] [phone] Tracy Beltran [facility] [place] [address] 05/20/2024 10:40 AM EST Hospital Encounter Mammography/DXA at [place] [phone] 05/20/2024 11:50 AM EST Office Visit General Surgery at [place] [phone] Magaly Quijano APRN [facility] [place] [address] 11/15/2024 4:00 PM EDT Office Visit Hematology and Oncology at [place] [phone] Jenny Melisas MD [facility] [place]ATOLOGY[place] [address] documented as of this encounter Visit Diagnoses Not on filedocumented in this encounter Care Teams Inspection Machine Tender Relationship Specialty Start Date End Date Josefina Crocker APRN 2 [place] [address] PCP - General Family Medicine 07/17/23 documented as of this encounter
--- OUTSIDE RECORDS SUMMARY | 2023-12-28 02:21 | XMS_ITS | Encounter Summary ---
[place] [address] Care Team Providers Care Associate Pastor Name Role Phone Josefina Crocker APRN Primary Care Provider +1- [phone] Encounter Details Date Type Department Care Team (Latest Contact Info) Description 11/22/2023 11:00 AM EDT Clinical Support [place]ematology [place] [phone] Eliezer Kelly, [facility] Endometrial adenocarcinoma, endometrioid type, FIGO grade 2 [...] from your doctor or pharmacy? Never 10/31/2023 [facility] Utilities Answer Date Recorded In the [...] any time in the past 12 m [facility], were you homeless or living in a assisted (including now)? No 10/31/2023 Sex and Gender Information Value Date Recorded Sex Assigned at Not on file Gender Identity Not on file Sexual Orientation Not on file documented as of this encounter Progress Notes * Eliezer Kelly, [facility] - 11/22/2023 11:00 AM EDT PATIENT ID: Marychuy Hood is a 73 y.o. female with endometrial cancer who presents today for immunotherapy teaching and is accompanied by her Shailesh. The plan is for carbo/taxol (already initiated, chemotherapy teach complete) plus the addition of pembrolizumab if carbo/taxol are tolerated well given every 21 days. The following information was reviewed with the patient and Shailesh. See Chemo Teach note from 11/08/2023 for Carbo/Taxol information. Only pembrolizumab was covered during today's visit. Antitumor Therapy Schedule: Carboplatin (30 minute infusion) + paclitaxel (3 hour infusion) + pembrolizumab (30 minute infusion) IV every 21 days Laboratory Tests: Check blood counts, kidney and liver function, thyroid function and electrolytes prior to each treatment. Possible Side Effects of pembrolizumab include, but are not limited to: Side effects are most likely to occur after 3-4 cycles of immunotherapy, though they can occur at any time. The most common potential side effects are fatigue, decreased appetite, itching, rash, nausea, and anemia (low red blood cell counts). Potential for more serious immune-mediated reaction can involve the lungs (pneumonitis), GI tract (colitis), liver (hepatitis) and kidney (nephritis), among others.Additionally endocrinopathies, or dysfunction of an endocrine gland, such as the thyroid gland or adrenal gland can occur. If the following symptoms occur, we ask that you call to report them immediately: Profound fatigue Rash and/or itching. Particularly if the rash is blistering, or located on the palms of the hands, soles of the feet, mouth or groin. Joint pain. Call especially if joint pain is interfering with your normal activities. Any change in breathing or new cough. 3 or more watery stools in 24 hrs, or blood in the stool. (Do not take Imodium) Severe or persistent headaches, vision changes or dizziness. Prompt treatment with high dose steroids may be required. Plan: Marychuy Hood was given written information regarding immunotherapy regimen, side effects and management strategies. She was given an opportunity to ask questions and verbalized understanding of the information and treatment plan. No barriers to learning were identified. She was counseled on how to call for any further questions or concerns. Immunotherapy is scheduled to begin on date TBD Supportive Care: Do not take antidiarrheal for diarrhea- patient must call to evaluate further 30 of this 30 minute face to face encounter was spent in counseling, education and coordination of care documented in this encounter Plan of Treatment Upcoming Encounters Date Type Department Care Team (Late st Contact Info) Description 12/28/2023 10:00 AM EDT Office Visit Hematology/Oncology at [address] [phone] Sumanth Bermudez MD [facility] [place] [address] 12/28/2023 10:30 AM EDT Infusion Hematology Oncology at [address] [phone] 01/02/2024 3:20 PM EDT Hospital Encounter CT Scan at [address] Astrid Ortega MD [facility] [place] [address] 04/22/2024 10:00 AM EST TH Visit (TeleHealth) Hematology and Oncology at [address] [phone] Tracy Beltran, [facility] [place] [address] 05/20/2024 10:40 AM EST Hospital Encounter Mammography/[place] [address] 05/20/2024 11:50 AM EST Office Visit General Surgery at [address] Magaly Quijano APRN [facility] [place] [address] 11/15/2024 4:00 PM EDT Office Visit Hematology and Oncology at [place] [phone] Jenny Melissa MD [facility] HEMATOLOGY/[place] [address] documented as of this encounter Visit Diagnoses Diagnosis Endometrial adenocarcinoma, endometrioid type, FIGO grade 2 Malignant neoplasm of corpus uteri, except isthmus documented in this encounter Care Teams Associate Pastor Relationship Specialty Start Date End Date Josefina Crocker APRN [address] [place] [address] PCP - General Family Medicine 07/17/23 documented as of this encounter
--- OUTSIDE RECORDS SUMMARY | 2023-12-28 02:21 | XMS_ITS | Encounter Summary ---
Author Organization [facility] [address] Care Team Providers Care Gas Plumbing Inspector Name Role Phone ObiJosefina Mona RIOS Primary Care Provider +1- [phone] Encounter Details Date Type Department Care Team (Late st Contact Info) Description 11/10/2023 Orders Only Hematology [place] [address] Mark Landin MD [facility] HEMATOLOGY/[place] [address] Social History Tobacco Use Types Packs/Day Years [...] from your doctor or pharmacy? Never 10/31/2023 [facility] Utilities Answer Date Recorded In the [...] any time in the past 12 m [facility], were you homeless or living in a [facility] (including now)? No 10/31/2023 Sex and Gender Information Value Date Recorded Sex Assigned at Not on file Gender Identity Not on file Sexual Orientation Not on file documented as of this encounter Plan of Treatment Upcoming Encounters Date Type Department Care Team (Late st Contact Info) Description 12/28/2023 10:00 AM EDT Office Visit Hematology/Oncology at [address] [phone] Sumanth Bermudez MD [facility] HEMATOLOGY/[place] [address] 12/28/2023 10:30 AM EDT Infusion Hematology Oncology at [address] [phone] 01/02/2024 3:20 PM EDT Hospital [place] [address] Astrid Ortega MD [facility] [place] [address] 04/22/2024 10:00 AM EST TH Visit (TeleHealth) Hematology and Oncology at [address] [phone] Tracy Beltran [facility] [place] [address] 05/20/2024 10:40 AM EST Hospital Encounter Mammography[place] [phone] 05/20/2024 11:50 AM EST Office [place] [phone] Magaly Quijano APRN [facility] [place] [address] 11/15/2024 4:00 PM EDT Office Visit Hematology [place] [phone] Jenny Melissa MD [facility] HEMATOLOGY/[place] [address] documented as of this encounter Visit Diagnoses Not on filedocumented in this encounter Care Teams Gas Plumbing Inspector Relationship Specialty Start Date End Date Josefina Crocker APRN [address] [place] [address] PCP - General Family Medicine 07/17/23 documented as of this encounter
--- OUTSIDE RECORDS SUMMARY | 2023-12-28 02:21 | XMS_ITS | Encounter Summary ---
Author Organization [facility] Address [place] [address] Care Team Providers Care Color Maker Formulator Name Role Phone ObiJosefina Mona RIOS Primary Care Provider +1- [phone] Encounter Details Date Type Department Care Team (Late st Contact Info) Description 11/01/2023 Orders Only Gy[place] [address] Atsrid Ortega MD [facility] [place] [address] Social History Tobacco Use Types Packs/Day Years [...] your doctor or pharmacy? Never 10/31/2023 [facility] Utilities Answer Date Recorded In [...] in the past 12 m [facility], were you homeless or living in [...] 10:00 AM EDT Office Visit Hematology/Oncology at [address] [phone] Sumanth Bermudez MD [facility] HEMATOLOGY/[place] [address] 12/28/2023 10:30 AM EDT Infusion Hematology Oncology at [address] [phone] 01/02/2024 3:20 PM EDT Hospital [place] [address] Astrid Ortega MD [facility] [place] [address] 04/22/2024 10:00 AM EST TH Visit (TeleHealth) Hematology and Oncology at [address] [phone] Tracy Beltran [facility] [place] [address] 05/20/2024 10:40 AM EST Hospital Encounter Mammography/[place] [phone] 05/20/2024 11:50 AM EST Office Visit [place] [phone] Magaly Quijano APRN [facility] [place] [address] 11/15/2024 4:00 PM EDT Office Visit Hematology [place] [phone] Jenny Melissa MD [facility] [place]EMATOLOGY[place] [address] documented as of this encounter Visit Diagnoses Not on filedocumented in this encounter Care Teams Color Maker Formulator Relationship Specialty Start Date End Date Josefina Crocker APRN [address] [place] [address] [id number] PCP - General Family Medicine 07/17/23 documented as of this encounter
--- OUTSIDE RECORDS SUMMARY | 2023-12-28 02:21 | XMS_ITS | Encounter Summary ---
[place] [address] Care Team Providers Care Magnetizer Name Role Phone Josefina Crocker APRN Primary Care Provider [phone]- [phone] Reason for Referral * Diagnostic Test (Routine) - Closed Specialty Diagnoses / Procedures Referred By Contac t Referred To Contact Radiology Diagnoses Endometrial adenocarcinoma Procedures IR Mediport Astrid Driver MD [facility] [place] [address] [place] [address] Referral ID Status Reason Start Date Expiration Date V isits Requested Visits Authorized [id number] Closed Specialty Service Requested 11/03/2023 05/03/2025 1 1 Reason for Visit * Diagnostic Test (Routine) - Closed Specialty Diagnoses / Procedures Referred By Contac t Referred To Contact Radiology Diagnoses Endometrial adenocarcinoma Procedures IR Astrid Hartman MD [facility] [place] [address] [facility] [place] [address] Referral ID Status Reason Start Date Expiration Date V isits Requested Visits Authorized [id number] Closed Specialty Service Requested 11/03/2023 05/03/2025 1 1 Encounter Details Date Type Department Care Team (Latest Contact Info) Description 11/22/2023 12:49 PM EDT - 11/22/2023 11:59 PM EDT Hospital [place] [address] Astrid Ortega MD [facility] [place] [address] Endometrial adenocarcinoma Discharge Disposition: Home Social History [...] from your doctor or pharmacy? Never 10/31/2023 [facility] Utilities Answer Date Recorded In the [...] any time in the past 12 m [facility], were you homeless or living in a skilled nursing (including now)? No 10/31/2023 Sex and Gender Information Value Date Recorded Sex Assigned at Not on file Gender Identity Not on file Sexual Orientation Not on file documented as of this encounter Last Filed Vital Signs Vital Sign Reading Time Taken Comments Blood Pressure 141/71 11/22/2023 3:00 PM EDT Pulse 63 11/22/2023 2:46 PM EDT Temperature 36.6 ??C (97.8 ??F) 11/22/2023 1:14 PM ED T Respiratory Rate 16 11/22/2023 3:00 PM EDT Oxygen Saturation 98% 11/22/2023 3:00 PM EDT Inhaled Oxygen Concentration - - Weight - - Height - - Body Mass Index - - documented in this encounter Discharge Instructions * Discharge Instructions* Asha Schroeder RN - 11/22/2023 2:09 PM EDT Department of Vascular and Interventional Radiology Discharge Instructions for your Chest Port You have received a ???Power Port?? , which provides access for infusions and blood draws. What makes this a ???Power Port?? is the unique ability to ???power inject?? contrast (intravenous dye) through the port when getting a CT scan, which produces superior images (pictures). Patients who don???t have these special ports need to have an IV started if they need dye injected for their CT scan. Your port is printed with the letters ???CT?? which can be detected by x- ray to identify it as a ???Power Port?? . You will be provided with an ID card stating the credit interviewer and type of port you have. Please carry this with you in a safe place. Bandage: There is a sterile dressing over the port site consisting of small gauze with a clear dressing (Tegaderm or [id number] ). This dressing should be left in place for 48 hours. If the clear dressing becomes loose you should place tape over the edges to secure it in place. Note: If you have steri-strips beneath your dressing, simply allow them to fall off. Do not peel them off. There may be [place] (skin glue) also, allow this to flake off. Pain: Apply ice bag to site (s) at 30 minute intervals (30 minutes on and 30 minutes off) for 24 hours?? . May use as needed for pain and/or bruising after 24 hours. Bathing: Do not take a shower until 48 hours after your port is placed; after this time you may shower with the dressing in place, then remove it and pat your skin dry. After 48 hours, we recommend that you cover the area with THE AQUA GUARD PROVIDED for 1 week while showering, facing away from theshower stream. You may use a bandaid to cover the site after the 48 hours are up if there is any drainage. No tub baths, whirlpools or swimming for one week following port placement. Flushing the mediport: If your port has not been used, it must be flushed every 30 days. What to expect when your port is accessed: 1. You may feel tenderness the first few times it is accessed but generally this subsides over time. Ask your healthcare provider to use a local anesthetic on the site if discomfort is a problem for you. You may ask for a prescription for a topical cream (EMLA) from your clinician; you may apply athome prior to your appointments, to help numb the skin over your port. 2. The clinician should be wearing sterile gloves and a mask during the access procedure. Anyone inthe room with you should also have a mask on. 3. The skin over and 2 inches around the port should be cleaned with a disinfectant 4. Tell the clinician if you would like the skin numbed (lidocaine) before the access needle is placed. 5. Unless you are unable to take heparin (blood thinner), the port should be injected with a heparin solution before deaccess (at end of each treatment or blood draw). When to call your healthcare provider: If you notice bleeding from the puncture site in your neck, or from the port incision on your chest, you should apply firm pressure over the site for 10-15 minutes, keeping the site covered. Call if you are still bleeding after 10-15 minutes. If you develop pain, redness, drainage or swelling at or around the port site, or the puncture sitein the neck If you develop fever (elevation of more than 2 degrees or greater than 101F) and/or shaking chills When to call the Interventional Radiology Department: Please call with any questions or concerns. If it is during regular office hours, please call [phone]. If it is after regular office hours, or on weekends or holidays, please call [phone] and ask to speak to the Judicial Registrar correctional therapy teacher for Interventional Radiology. XXX You have received medication during your procedure to help lessen anxiety and keep you comfortable. These medications affect judgement and reaction time. We recommend that you do not drive, operate equipment, sign any important documents, or smoke unattended for 24 hours following your procedure. Because of the sedation, be careful on stairs, as you may be unsteady on your feet. You may resume your regular diet as tolerated. IV site -- slight redness, or tenderness is normal, you can use a warm compress. If tenderness and redness increases or foul drainage occurs, please contact your M. D. Revised 03/21/19 documented in this encounter Medications at Time [...] 3 days after chemotherapy. 20 tablet 5 11/03/2023 cholecalciferol, Vitamin D3, 50 mcg (2,000 [...] as of this encounter Progress Notes * Emy Garcia RN - 11/22/2023 11:59 PM EDT Follow up call completed for mediport placement on 11/22/23. Patient states that they have no concerns or questions at this time and was encouraged to call IR Department should any question or concerns arise. * Asha Schroeder RN - 11/22/2023 2:06 PM EDT ANGIO NURSING DATABASE Name: Marychuy Hood Date of : 1950 AGE: 73 y.o. [address]: [address] [place] [phone] (home) Mobile: Telephone Information: Referring Provider: Astrid Ortega REASON FOR VISIT: Order Questions Answers Where will study be performed? [facility] Radiology [120] To be scheduled Ordering department to coordinate scheduling Is the patient on anticoagulant / antiplatelet therapy ? No Reason for exam and clinical history: 73 y.o. with endometrial cancer needs port Planned procedure: Port implant Labs to be performed day of procedure: No labs Sedation: Moderate (Conscious sedation) Prophylactic antibiotic : None Contrast: No contrast Additional medications for procedure: Lidocaine Planned access site: RIGHT IJ vein Position: Supine Consent: Pending Medications to discontinue (and days held): None Case Urgency:: G3- Elective Outpatient intervention over14 days Allergies Allergen Reactions Hymenoptera Allergenic Extract Anaphylaxis Pertinent PMH: Patient Active Problem List Diagnosis Code Endometrial adenocarcinoma, endometrioid type, FIGO grade 2 C54.1 Malignant neoplasm of right breast in female, estrogen receptor positive C50.911, Z17.0 Osteopenia of multiple sites M85.89 Liver mass R16.0 Date/Procedure Meds Given/Comments 10/19/23 Liver Biopsy Perc Fentanyl 100mcg/IV, Versed 1mg/IV. Tolerated procedure well. Gelfoam usedupon removal of needle. 11/22/23 Mediport Placement Fentanyl 50mcg IV, Versed 1 mg IV, Lido/wwo Epi 1354 to procedure room IR6 via stretcher. Onto table supine. All monitors, O2, safety strap in place. Meds per protocol. Laboratory Results: Lab Results Component Value Date CREATININE 0.96 11/13/2023 Lab Results Component Value Date K 4.6 11/13/2023 Lab Results Component Value Date PLATELET 415 (H) 11/13/2023 documented in this encounter H&P Notes * Dov Walls PA - 11/22/2023 1:43 PM EDT Interventional Radiology Interval H&P: Procedure: Chest port Update to H&P: The patient's history and [...] Normal Pulmonary: Breath sounds clear to auscultation The planned procedure (and sedation plan if [...] Yes Allergies reviewed: Yes Source Note - Zulma Loyd PA - 11/06/2023 9:27 AM [...] NON-FOCAL PARENCHYMA 10/19/2023 IR Biopsy Liver Percutaneous [facility] MRI GUIDED BIOPSY BREAST VACUUM ASSISTED LEFT Left 01/04/2021 MRI Guided Biopsy Breast Vacuum Assisted Left 01/04/2021 [facility] RAD MRI PRO BX/REMV, LYMPH NODE, DEEP AXILL Right 01/28/2021 BIOPSY OR EXCISION OF LYMPH NODE(S), OPEN, DEEP AXILLARY NODE(S) (WRVU 6.43) performed by Trev Erazo MD at [facility] MAIN OR PRO INTRAOP SENTINEL LYMPH ID W/DYE INJECTION Right 01/28/2021 INTRAOPERATIVE ID (MAPPING) SENTINEL LYMPH NODE,INCLUDES INJECTION (WRVU 2.5) performed by Trev Erazo MD at [facility] MAIN OR PRO MASTECTOMY, SIMPLE, COMPLETE Right 01/28/2021 MASTECTOMY, SIMPLE, COMPLETE (WRVU 15.85) performed by Trev Erazo MD at [facility] MAIN OR Social History and Habits: Social [...] 10:00 AM EDT Office Visit Hematology/Oncology at [address] [phone] Sumanth Bermudez MD [facility] HEMATOLOGY/[place] [address] 12/28/2023 10:30 AM EDT Infusion Hematology Oncology at [address] [phone] 01/02/2024 3:20 PM EDT Hospital [place] [phone] Astrid Ortega MD [facility] [place] [address] 04/22/2024 10:00 AM EST TH Visit (TeleHealth) Hematology and Oncology at [address] [phone] Tracy Beltran [facility] [place] [address] 05/20/2024 10:40 AM EST Hospital Encounter Mammography/DXA at [place] [phone] 05/20/2024 11:50 AM EST Office Visit General Surgery at [place] [phone] Magaly Quijano APRN [facility] [place] [address] 11/15/2024 4:00 PM EDT Office Visit Hematology and Oncology at [place] [phone] Jenny Melissa MD [facility] [place]OLOG[place] [address] documented as of this encounter Procedures Procedure Name Priority Date/Time Associated Diagnosis Comments IR MEDIPORT PLACEMENT Routine 11/22/2023 2:51 PM EDT Endometrial adenocarcinoma documented in this encounter Results * IR Mediport Placement (11/22/2023 2:51 PM EDT) Anatomical Region Laterality Modality X-Ray Angiograph y Narrative 11/22/2023 3:14 PM EDT Interventional Radiology Procedure Note Procedure: Chest port implant Indication: Endometrial adenocarcinoma, durable residential central venous access for chemotherapy Procedure summary: [...] junction. The port may be used immediately. gravity prospecting operator: Dov Walls PA-C. Present during the intraservice time as documented by the interventional radiology nurse. Attending of record: Kenneth Lai MD 11/22/2023 Astrid Ortega MD IMG IR ORDERABLES documented in this encounter Visit Diagnoses Diagnosis Endometrial adenocarcinoma Malignant neoplasm of corpus uteri, except isthmus documented in this encounter Administered Medications Inactive Administered Medications - up to 3 most recent administrations Medication Order MAR Action Action Date Dose Rate Site fentaNYL (pf) (50 mcg/mL) multi-dose injection 25-50 mcg 25-50 mcg, Intravenous, EVERY 3 MIN PRN, Starting on Mon11/22/23 at 1320, Until Mon11/22/23 at 1509, Pain, per unit protocol, For use in [...] mcg/dose, 250 mcg/hour, Angio/IR (Intra-Procedure), Routine Given 11/22/2023 2:05 PM EDT 50 mcg lidocaine (Xylocaine) 1% (10 mg/mL) injection 10 mg 10 mg, Subcutaneous, ONCE, 1 dose, On Mon11/22/23 at 1345, For use in Interventional Radiology (IR) only for procedure with direct provider supervision and verbal order., Angio/IR (Intra-Procedure), Routine Given 11/22/2023 2:23 PM EDT 10 mg midazolam (pf) (Versed) (1 mg/mL) multi-dose injection 0.5-1 mg 0.5-1 mg, Intravenous, EVERY 3 MIN PRN, Starting on Mon11/22/23 at 1320, Until Mon11/22/23 at 1509, Sedation, For use in Interventional Radiology (IR) [...] mg/dose, 5 mg/hour., Angio/IR (Intra-Procedure), Routine Given 11/22/2023 2:05 PM EDT 1 mg documented in this encounter Care Teams Magnetizer Relationship Specialty Start Date End Date Josefina Crocker APRN [address] [place] [id number] PCP - General Family Medicine 07/17/23 documented as of this encounter
--- OUTSIDE RECORDS SUMMARY | 2023-12-28 02:21 | XMS_ITS | Encounter Summary ---
Author Organization [facility] [place] [address] Care Team Providers Care Parking Station Attendant Name Role Phone ObiJosefina Mona RIOS Primary Care Provider +1- [phone] Reason for Visit * Reason Comments Establish Care * Consultation (Urgent) - Closed Specialty Diagnoses / Procedures Referred By Conttalon t Referred To Contact Gynecology Oncology Diagnoses Endometrial cancer Jossie Jamison MD [facility] [place] [address] Astrid Ortega MD [facility] [place] [address] Referral ID Status Reason Start Date Expiration Date V isits Requested Visits Authorized [id number] Closed Consult, Test & Treat 10/24/2023 10/23/2024 1 1 Encounter Details Date Type Department Care Team (Late st Contact Info) Description 11/01/2023 1:20 PM EDT Office Visit Gynecology Oncology at [place] [phone] Astrid Ortega MD [facility] [place] [address] Endometrial adenocarcinoma, endometrioid type, FIGO grade 2 [...] from your doctor or pharmacy? Never 10/31/2023 [facility] Utilities Answer Date Recorded In the past [...] any time in the past 12 m [facility], were you homeless or living in a snf (including now)? No 10/31/2023 Sex and Gender Information Value Date Recorded Sex Assigned at Not on file Gender Identity Not on file Sexual Orientation Not on file documented as of this encounter Last Filed Vital Signs Vital Sign Reading Time Taken Comments Blood Pressure 132/73 11/01/2023 1:18 PM EDT Pulse 78 11/01/2023 1:18 PM EDT Temperature 37.1 ??C (98.7 ??F) 11/01/2023 1:18 PM ED T Respiratory Rate 20 11/01/2023 1:18 PM EDT Oxygen Saturation 98% 11/01/2023 1:18 PM EDT Inhaled Oxygen Concentration - - Weight 58.1 kg (128 lb) 11/01/2023 1:18 PM EDT Height 159 cm (5' 2.6) 11/01/2023 1:18 PM EDT Body Mass Index 22.97 11/01/2023 1:18 PM EDT documented in this encounter Progress Notes * Alexandria Veliz MD - 11/01/2023 1:20 PM EDT Division of [place] [address] Gynecologic Oncology Clinic New Patient Visit Reason for visit: Endometrial cancer, referred by Jossie Jamison MD [facility] [place] [address] Problem List Patient Active Problem List Diagnosis Code Endometrial adenocarcinoma, endometrioid type, FIGO grade 2 C54.1 Malignant neoplasm of right breast in female, estrogen receptor positive C50.911, Z17.0 Osteopenia of multiple sites M85.89 Liver mass R16.0 History of present illness: Marychuy Hood is a 73 y.o. female with a history significant for grade 2 endometrial cancer s/p TAHBSO in 2014, breast cancer s/p right mastectomy in 2020 presenting for evaluation of likely metastatic endometrial cancer. Marychuy had a colonoscopy in September 2023 for evaluation of bright red rectal bleeding which showed alarge mass in the sigmoid colon, initially thought to be a sigmoid adenocarcinoma. CT scan showed an enlarged cardiophrenic lymph node, several enlarged mediastinal and hilar lymph nodes and a 5cm hepatic pericapsular mass at the liver dome with a thickened right hemidiaphragm. 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 Review of the initial colon biopsy showed that it was PAX8 stain positive also consistent with endometrial cancer (addendum pending). She has been feeling OK. She has fatigue and muscle cramps. She has some gas pain. She has frequentsoft bowel movements and she sometimes has fecal incontinence. She is eating a low fiber diet, which she does not like. No nausea. Cancer screening 1. Mammography: 05/2023: Left breast without evidence of malignancy. 2. Colonoscopy: 04/2021: two tubular adenomas in cecum; 09/2023: circumferential distal sigmoid mass, partially obstructing. Family history: Maternal grandfather: bone cancer Paternal half sister: breast and lung cancer Endometrial: None Ovarian:None Colon:None Pancreas:None Past medical history 1. Grade 2 endometrial cancer. 2. Breast cancer. 3. Osteopenia. 4. Sigmoid colon cancer. Past surgical history 1. Total hysterectomy and bilateral salpingo-oophorectomy 2. Right mastectomy Social history: Lives with her , Shailesh, and is retired. Her has had a stroke and is unable to write, but otherwise she does not need to care for her . He also recently completed therapy for Melanoma. Tobacco history: None. Alcohol history: Previously had 7 drinks per week, no recent alcohol use Other drugs: None Herbal/alternative therapies: None. Performance status: Karnofsky Scale - 100 Medications Prior to Admission medications Medication Sig Start Date End Date Taking? Authorizing Provider cholecalciferol, Vitamin D3, 50 mcg (2,000 unit) Capsule Take 2,000 Units by mouth daily. PROVIDER,HISTORICAL tamoxifen (Nolvadex) 10 mg tablet Take 1 tablet by mouth daily. 07/14/23 Jenny Melissa MD lisinopriL (Zestril) 40 mg tablet Take 40 mg by mouth daily. Indications: high blood pressure PROVIDER, HISTORICAL amLODIPine (Norvasc) 5 mg tablet Take 5 mg by mouth daily. Indications: high blood pressure PROVIDER, HISTORICAL melatonin 1 mg Tablet Take 1 mg by mouth daily as needed. Taken at bedtime as needed PROVIDER, HISTORICAL EPINEPHrine (EPIPEN) 0.3 mg/0.3 mL (1:1,000) Auto-Injector Inject 0.3 mg into the muscle once. PROVIDER, HISTORICAL multivitamin (THERAGRAN) Tablet Take 1 tablet by mouth daily. PROVIDER, HISTORICAL B-Complex with Vitamin C (SUPER B C) Capsule Take 1 capsule by mouth daily. PROVIDER, HISTORICAL Allergies Allergies Allergen Reactions Hymenoptera Allergenic Extract Anaphylaxis Vital signs: There were no vitals taken for this visit. Physical examination General: She is alert and oriented, well-groomed and dressed, no obvious distress. She ambulates easily. HEENT: PERRLA, no scleral icterus or corneal arcus. Mucus membranes were moist. Neck was supple andwithout thyromegaly or adenopathy. Lungs: Clear to auscultation bilaterally Heart: RRR, no murmur, rubs, gallop Abdomen:Soft, non tender, non distended. No HSM, no palpable masses. Extremities: No edema. CT PET 10/20/2023: 1. FDG avid right hepatic lesion consistent with biopsy proven mullerian origin metastatic disease. 2. FDG avid sigmoid colon mass, consistent with biopsy-proven primary adenocarcinoma. 3. FDG avid right subphrenic lymph node highly concerning for metastatic disease. 4. FDG avid right mammary lymph node, concerning for metastatic disease. 5. FDG avid peritoneal nodule concerning for peritoneal metastatic disease. 6. Indeterminate left upper lobe pulmonary nodule, this may be inflammatory versus malignant. Attention on future imaging. 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 Electronically signed by: Cb PEREZ PhD, Michelle Impression/plan: Marychuy Hood is a 73 y.o. woman with a history of TAHBSO for grade 2 endometrial cancer nine years ago presenting for metastases to the liver and sigmoid colon. I recommended she undergo carbo/taxol chemotherapy with the addition of Pembrolizumab if she tolerates carbo/taxol OK. We reviewed the planned schedule of q 3 week carbo/taxol and the side effects including alopecia, nausea, emesis, diarrhea, constipation, renal failure, electrolytes imbalance, bone marrow suppression, neuropathy, and fatigue. We reviewed the side effects of Pembrolizumab including autoimmune disease, colitis, pneumonitis. In addition we reviewed the prognosis related to recurrent endometrial cancer and that this is not a curable disease, but we may be able to achieve symptom control and prolongation of life with treatment. . Alexandria Veliz MD, PGY2 10/31/2023 9:50 AM I have seen and examined the patient and reviewed and edited the resident's above history and I agree with the details as written. The assessment and plan were formulated in discussion with me and I agree with them as documented. Astrid Ortega MD documented in this encounter Plan of Treatment Upcoming Encounters Date Type Department Care Team (Late st Contact Info) Description 12/28/2023 10:00 AM EDT Office Visit Hematology/Oncology at [address] [phone] Sumanth Bermudez MD [facility] HEMATOLOGY/[place] [address] 12/28/2023 10:30 AM EDT Infusion Hematology Oncology at [address] [phone] 01/02/2024 3:20 PM EDT Hospital [place] [phone] Astrid Ortega MD [facility] G[place]IC [place] [address] 04/22/2024 10:00 AM EST TH Visit (TeleHealth) Hematology and Oncology at [address] [phone] Tracy Beltran [facility] [place] [address] 05/20/2024 10:40 AM EST Hospital Encounter Mammography/[place] [phone] 05/20/2024 11:50 AM EST Office [place] [phone] Magaly Quijano APRN [facility] [place] [address] 11/15/2024 4:00 PM EDT Office Visit Hematology [place] [phone] Jenny Melissa MD [facility] HEMATOLOGY[place] [address] Scheduled Referrals Name Type Priority Associated Diagnoses Order Schedule Referral to Gynecologic Oncology Outpatient Referral Urgent Endometrial cancer Ordered: 10/24/2023 documented as of this encounter Visit Diagnoses Diagnosis Endometrial adenocarcinoma, endometrioid type, FIGO grade 2 Malignant neoplasm of corpus uteri, except isthmus documented in this encounter Care Teams Parking Station Attendant Relationship Specialty Start Date End Date Josefina Crocker APRN [address] [place] [address] PCP - General Family Medicine 07/17/23 documented as of this encounter
--- OUTSIDE RECORDS SUMMARY | 2023-12-28 02:21 | XMS_ITS | Encounter Summary ---
[place] [address] Care Team Providers Care Sign Language Instructor Name Role Phone Josefina Crocker APRN Primary Care Provider +1- [phone] Reason for Referral * Consultation (Routine) - Closed Specialty Diagnoses / Procedures Referred By Renato linares Referred To Contact Diagnoses Endometrial adenocarcinoma Astrid Ortega MD [facility] DR [place] [address] [facility] Hem Onc [address] [place] [address] Referral ID Status Reason Start Date Expiration Date V isits Requested Visits Authorized [id number] Closed Continuity of Care 11/29/2023 11/28/2024 1 1 Encounter Details Date Type Department Care Team (Late st Contact Info) Description 11/09/2023 Orders Only [place] [address] Nannette Perea RN Endometrial adenocarcinoma Social History Tobacco Use [...] your doctor or pharmacy? Never 10/31/2023 [facility] Utilities Answer Date Recorded In the [...] 10:00 AM EDT Office Visit Hematology/Oncology at [address] [phone] Sumanth Bermudez MD [facility] HEMATOLOGY/[place] [address] 12/28/2023 10:30 AM EDT Infusion Hematology Oncology at [address] [phone] 01/02/2024 3:20 PM EDT Hospital Encounter CT Scan at [place] [phone] Astrid Ortega MD [facility] DR [place]EC[place] [address] 04/22/2024 10:00 AM EST TH Visit (TeleHealth) Hematology and Oncology at [address] [phone] Tracy Beltran [facility] [place] [address] 05/20/2024 10:40 AM EST Hospital Encounter Mammography/DXA at [place] [phone] 05/20/2024 11:50 AM EST Office Visit General Surgery at [place] [phone] Magaly Quijano APRN [facility] [place] [address] 11/15/2024 4:00 PM EDT Office Visit Hematology [place] [address] Jenny Melissa MD [facility] [place]OLOG[place] [address] Scheduled Referrals Name Type Priority Associated Diagnoses Orde r Schedule Referral to Nutrition Services Outpatient Referral Routine Endometrial adenocarcinoma Ordered: 11/29/2023 documented as of this encounter Visit Diagnoses Diagnosis Endometrial adenocarcinoma Malignant neoplasm of corpus uteri, except isthmus documented in this encounter Care Teams Sign Language Instructor Relationship Specialty Start Date End Date Josefina Crocker APRN 2 [place] [address] PCP - General Family Medicine 07/17/23 documented as of this encounter
--- OUTSIDE RECORDS SUMMARY | 2023-12-28 02:21 | XMS_ITS | Encounter Summary ---
Author Organization [facility] Address [facility] [address] Care Team Providers Care Product Marketing Intern Name Role Phone Josefina Crocker APRN Primary Care Provider +1- [phone] Encounter Details Date Type Department Care Team (Latest Contact Info) Description 11/22/2023 Travel Social History Tobacco Use Types Packs/Day [...] Recorded In the past 12 months has [employer], gas, oil, or water [employer] threatened to shut off services in your [...] any time in the past 12 m [facility], were you homeless or living in a [...] 10:00 AM EDT Office Visit Hematology/Oncology at [address] [phone] Sumanth Bermudez MD [facility] HEMATOLOGY/[place] [address] 12/28/2023 10:30 AM EDT Infusion Hematology Oncology at [address] [phone] 01/02/2024 3:20 PM EDT Hospital Encounter [place] [address] Astrid Ortega MD [facility] [place] [address] 04/22/2024 10:00 AM EST TH Visit (TeleHealth) Hematology and Oncology at [address] [phone] Tracy Beltran [facility] [place] [address] 05/20/2024 10:40 AM EST Hospital Encounter Mammography/DXA at [place] [phone] 05/20/2024 11:50 AM EST Office Visit General Surgery at [place] [phone] Magaly Quijano APRN [facility] [place] [address] 11/15/2024 4:00 PM EDT Office Visit Hematology and Oncology at [place] [phone] Jenny Melissa MD [facility] [place]ATOLOGY/[place] [address] documented as of this encounter Visit Diagnoses Not on filedocumented in this encounter Care Teams Product Marketing Intern Relationship Specialty Start Date End Date Josefina Crocker APRN 2 [place] [address] PCP - General Family Medicine 07/17/23 documented as of this encounter
--- OUTSIDE RECORDS SUMMARY | 2023-12-28 02:21 | XMS_ITS | Encounter Summary ---
Author Organization [facility] Address [facility] [place] [address] Care Team Providers Care Heel Varnisher Name Role Phone Josefina Crocker APRN Primary Care Provider +1- [phone] Encounter Details Date Type Department Care Team (Latest Contact Info) Description 11/19/2023 Travel Social History Tobacco Use Types Packs/Day [...] from your doctor or pharmacy? Never 10/31/2023 [facility] Utilities Answer Date Recorded In the past 12 months has [email or web address], gas, oil, or water [employer] threatened to shut off services in your [...] any time in the past 12 m [facility], were you homeless or living in a m[facility] (including now)? No 10/31/2023 Sex and Gender Information Value Date Recorded Sex Assigned at Not on file Gender Identity Not on file Sexual Orientation Not on file documented as of this encounter Plan of Treatment Upcoming Encounters Date Type Department Care Team (Late st Contact Info) Description 12/28/2023 10:00 AM EDT Office Visit Hematology/Oncology at [address] [phone] Sumanth Bermudez MD [facility] HEMATOLOGY/[place] [address] 12/28/2023 10:30 AM EDT Infusion Hematology Oncology at [address] [phone] 01/02/2024 3:20 PM EDT Hospital [place] [address] Astrid Ortega MD [facility] [place] [address] 04/22/2024 10:00 AM EST TH Visit (TeleHealth) Hematology and Oncology at [address] [phone] Tracy Beltran [facility] [place] [address] 05/20/2024 10:40 AM EST Hospital Encounter Mammography/DXA at [place] [phone] 05/20/2024 11:50 AM EST Office Visit General Surgery at [place] [phone] Magaly Quijano APRN [facility] [place] [address] 11/15/2024 4:00 PM EDT Office Visit Hematology and Oncology at [place] [phone] Jenny Melissa MD [facility] HEMATOLOGY/[place] [address] documented as of this encounter Visit Diagnoses Not on filedocumented in this encounter Care Teams Heel Varnisher Relationship Specialty Start Date End Date Josefina Crocker APRN 2 [place] [address] PCP - General Family Medicine 07/17/23 documented as of this encounter
--- OUTSIDE RECORDS SUMMARY | 2023-12-28 02:21 | XMS_ITS | Encounter Summary ---
Author Organization [facility] [place] [address] Care Team Providers Care Clinical Statistical Programmer Name Role Phone Josefina Crocker APRN Primary Care Provider +1- [phone] Reason for Visit * Treatment/Therapy Plan Authorization (Routine) - Closed Specialty Diagnoses / Procedures Referred By Contac t Referred To Contact Hematology and Oncology Diagnoses Endometrial adenocarcinoma Procedures INFUSION THERAPY Astrid Ortega MD [facility] [place] [address] [facility] Infusion [address] [place] [address] Referral ID Status Reason Start Date Expiration Date Visits Re quested Visits Authorized [id number] Closed 11/01/2023 10/31/2024 99 99 Encounter Details Date Type Department Care Team (Latest Contact Info) Description 11/13/2023 6:55 AM EDT - 11/13/2023 11:59 PM EDT Hospital Encounter Hematology [place] [address] Endometrial adenocarcinoma Discharge Disposition: Home Social History [...] from your doctor or pharmacy? Never 10/31/2023 [facility] Utilities Answer Date Recorded In [...] any time in the past 12 m [facility], were you homeless or living in a m[facility] (including now)? No 10/31/2023 Sex and Gender Information Value Date Recorded Sex Assigned at Not on file Gender Identity Not on file Sexual Orientation Not on file documented as of this encounter Last Filed Vital Signs Vital Sign Reading Time Taken Comments Blood Pressure 145/71 11/13/2023 9:09 AM EDT Pulse 63 11/13/2023 9:09 AM EDT Temperature 36.4 ??C (97.5 ??F) 11/13/2023 9:09 AM ED T Respiratory Rate 17 11/13/2023 9:09 AM EDT Oxygen Saturation 99% 11/13/2023 9:09 AM EDT Inhaled Oxygen Concentration - - Weight 58 kg (127 lb 13.9 oz) 11/13/2023 9:09 AM EDT Height 159.8 cm (5' 2.91) 11/13/2023 9:09 AM ED T Body Mass Index 22.71 11/13/2023 9:09 AM EDT documented in this encounter Medications [...] vomiting. 30 tablet 5 11/03/2023 lidocaine-prilocaine (EMLA) CreamIndications:Endome trial adenocarcinoma,Central venous [...] 07/14/2023 11/15/2023 documented as of this encounter Progress Notes * Whit Huang, RN - 11/13/2023 9:15 AM EDT Patient Name: Marychuy Hood Patient Age: 73 y.o. Birthdate: 1950 Admit date: 11/13/2023 Attending Physician: No att. providers found TIME TREATMENT STARTED: 914 TIME TREATMENT ENDED: 1544 Marychuy Hood, 73 y.o. female with diagnosis of Endometrial Ca is here for chemotherapy infusion of Taxol and Carboplatin. CYCLE: 1 DAY: 1 S: Pt. offers no complaints at this time. O: Chemotherapy orders independently verified for correct drug name, route and dosage per patient'sheight, weight and BSA by Whit Huang RN and onsite pharmacist REACTIONS (DESCRIPTION, TIME, INTERVENTION AND EFFECTIVENESS) None A: Pt. Tolerated treatment well. Marychuy Hood confirms that all questions and issues have been addressed. P: Return to clinic as scheduled. Pt. chemo teaching instructions included: During clinic hours (8am-5pm Monday-Monday): pt. can call [phone] with questions or concerns. After clinic hours (5pm-8am Monday-Monday and weekends) pt can call [phone] and ask for the cath lab manager/oncologist medical transcription radiology. Marychuy verbalized understanding of potential chemotherapy side effects and home care including butnot limited to- handwashing to prevent infection, signs and symptoms of low blood counts (fever, fatigue, bleeding), to call with a fever of 100.4 or greater, any significant constipation/diarrhea, importance of nutrition and fluid intake (drinking at least 32-64 ounces of non-caffeinated beverages/ day), mouth care. Marychuy verbalized understanding of how to take prescription medications given for home use after chemotherapy. documented in this encounter Plan of Treatment Upcoming Encounters Date Type Department Care Team (Late st Contact Info) Description 12/28/2023 10:00 AM EDT Office Visit Hematology/Oncology at [address] [phone] Sumanth Bermudez MD [facility] HEMATOLOGY/[place] [address] 12/28/2023 10:30 AM EDT Infusion Hematology Oncology at [address] [phone] 01/02/2024 3:20 PM EDT Hospital Encounter CT Scan at [place] [phone] Astrid Ortega MD [facility] [place] [address] 04/22/2024 10:00 AM EST TH Visit (TeleHealth) Hematology and Oncology at [address] [phone] Tracy Beltran [facility] [place] [place] [address] 05/20/2024 10:40 AM EST Hospital Encounter Mammography/DXA at [place] [phone] 05/20/2024 11:50 AM EST Office Visit General Surgery at [place] [phone] Magaly Quijano APRN [facility] [place] [address] 11/15/2024 4:00 PM EDT Office Visit Hematology [place] [address] Jenny Melissa MD [facility] HEMATOLOGY[place] [address] documented as of this encounter Visit Diagnoses Diagnosis Endometrial adenocarcinoma Malignant neoplasm of corpus uteri, except isthmus documented in this encounter Administered Medications Inactive Administered Medications - up to 3 most recent administrations Medication Order MAR Action Action Date Dose Rate Site aprepitant (CINVANTI) injection Emulsion 130 mg 130 mg, Intravenous, Administer over 2 Minutes, ONCE, 1 dose, On Mon11/13/23 at 0900, Alternative administration of IV push over 2 minutes is a recommendation from the rehabilitation services coordinator. Administer prior to chemotherapy., Routine Given 11/13/2023 9:52 AM EDT 130 mg CARBOplatin (Paraplatin) 373 mg in dextrose 5% 287.3 mL infusion 373 mg (Target AUC = 5), Intravenous, ONCE, 1 dose, On Mon11/13/23 at 1300, Administer over 30 Minutes, Warning Vesicant/Irritant Medication New Bag 11/13/2023 2:58 PM EDT 373 mg 574.6 mL/hr dexAMETHasone (Decadron) 20 mg in sodium chloride 0.9% 50 mL infusion 20 mg, Intravenous, ONCE, 1 dose, On Mon11/13/23 at 0900, Administer over 10 Minutes, Administer 30 minutes prior to PACLitaxeL. New Bag 11/13/2023 9:53 AM EDT 20 mg 300 mL/hr diphenhydrAMINE (Benadryl) capsule 50 mg 50 mg, Oral, ONCE, 1 dose, On Mon11/13/23 at 0900, Administer 30 minutes prior to PACLitaxeL., Routine Given 11/13/2023 9:42 AM EDT 50 mg famotidine (Pepcid) (10 mg/mL) injection 20 mg 20 mg, Intravenous, ONCE, 1 dose, On Mon11/13/23 at 0900, Administer 30 minutes prior to PACLitaxeL. Given 11/13/2023 9:48 AM EDT 20 mg PACLitaxeL (Taxol) 280 mg in sodium chloride 0.9% Non-PVC 546.67 mL infusion 280 mg (175 mg/m2/dose ? 1.6 m2 Treatment Plan BSA from Recorded weight), Intravenous, ONCE, 1 dose, On Mon11/13/23 at 1000, Administer over 3 Hours, Warning Vesicant/Irritant Medication 3 Step Titration for Infusions 1 and 2. Regular (Not Titrated) Rate to start at infusion 3 if no HSR. Step 1: Start at a rate of 1.8 mL/hr for 15 minutes. Step 2: Increase rate to 18.2 mL/hr for 15 minutes. Step 3: Increase to regular infusion rate 182.2 mL/hr for remainder of infusion. Warning Vesicant/Irritant Medication , Should this infusion follow 3 Step Titration (Initial Dosing) or Standard Infusion? Initial: 3 Step Titration New Bag 11/13/2023 10:56 AM EDT 280 mg 182.2 mL/hr palonosetron (Aloxi) (0.05 mg/mL) injection 0.25 mg 0.25 mg, Intravenous, ONCE, 1 dose, On Mon11/13/23 at 0900, Administer over 30 seconds., Routine Given 11/13/2023 9:46 AM EDT 0.25 mg sodium chloride 0.9% infusion 500 mL, Intravenous, ONCE, 1 dose, On Mon11/13/23 at 0900 New Bag 11/13/2023 9:53 AM EDT 500 mLs documented in this encounter Care Teams Clinical Statistical Programmer Relationship Specialty Start Date End Date Josefina Crocker APRN [address] [place] [address] PCP - General Family Medicine 07/17/23 documented as of this encounter
--- OUTSIDE RECORDS SUMMARY | 2023-12-28 02:21 | XMS_ITS | Encounter Summary ---
Author Organization [facility] [place] [address] Care Team Providers Care Manager Diabetes Name Role Phone Josefina Crocker APRN Primary Care Provider +1- [phone] Encounter Details Date Type Department Care Team (Latest Contact Info) Description 10/19/2023 Travel Social History Tobacco Use Types Packs/Day [...] 10:00 AM EDT Office Visit Hematology/Oncology at [address] [phone] Sumanth Bermudez MD [facility] HEMATOLOGY/[place] [address] 12/28/2023 10:30 AM EDT Infusion Hematology Oncology at [address] [phone] 01/02/2024 3:20 PM EDT Hospital Encounter CT Scan at [place] [phone] Astrid Ortega MD [facility] GYNECOLOGIC [place] [address] 04/22/2024 10:00 AM EST TH Visit (TeleHealth) Hematology and Oncology at [address] [phone] Tracy Beltran [facility] DR [place] [address] 05/20/2024 10:40 AM EST Hospital Encounter Mammography/DXA at [place] [phone] 05/20/2024 11:50 AM EST Office Visit General Surgery at [place] [phone] Magaly Quijano APRN [facility] DR [place] [address] 11/15/2024 4:00 PM EDT Office Visit Hematology and Oncology at [place] [phone] Jenny Melissa MD [facility] HEMATOLOGY/[place] [address] documented as of this encounter Visit Diagnoses Not on filedocumented in this encounter Care Teams Manager Diabetes Relationship Specialty Start Date End Date Josefina Crocker APRN 2 [place] [address] PCP - General Family Medicine 07/17/23 documented as of this encounter
--- OUTSIDE RECORDS SUMMARY | 2023-12-28 02:22 | XMS_ITS | Encounter Summary ---
Author Organization [facility] [place] [address] Care Team Providers Care Lens Engraver Name Role Phone Zuleima Duvall APRN Primary Care Provider [phone] Encounter Details Date Type Department Care Team (Late st Contact Info) Description 03/25/2021 3:00 [place] [phone] Jessica Huang Social History Tobacco Use Types Packs/Day Years Used Date Smoking Tobacco: Never Smokeless Tobacco: Never Alcohol Use Standard Drinks/Week Comments Not Currently 1 (1 standard drink = 0.6 oz pur e alcohol) 1-2 times a month Overall Financial Resource Strain (CARDIA) Hebert r Date Recorded How hard is it [...] as of this encounter Progress Notes * Jessica Huang - 03/25/2021 3:00 PM EDT Marychuy Hood [id number] Check if yes to any of the following Covid-19 screening questions: []??? Fever or chills []??? Cough []??? Shortness of breath or difficulty breathing []??? Fatigue []??? Muscle or body aches []??? Headache []??? New loss of taste or smell []??? Sore throat []??? Congestion or runny nose []??? Nausea or vomiting []??? Diarrhea Referring Physician: Trev Erazo Previous Fitting: First fitting Insurance: medicare and [employer] Prescription:[x] Diagnoses: right breast cancer Date of Diagnoses: 12.16.20 Date of Surgery: 01/28/21 Type of Surgery: right breast mastectomy Additional Treatment: Pain/Sensitivity: no Skin Condition: good Range of motion: good Lymphedema: no Lymph Nodes Removed: yes 2 Assessment for Refill: Marychuy Hood comes in today for her first fitting following her mastectomy. 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 She would also like a molded cup bra for dressing up. Our goal is to achieve balance, symmetry, posture and overall appearance.Today we fit her with the products below. Measurements: 36 Plan: Form - Our goal is to restore balance & Symmetry and we determine with our client that the breast form described below is meeting her needs according to her type of surgery. [facility] Manufacture Model L/R Quantity Delivery Date L8030 [facility] [id number] 1 ORDERED 03.25.21(DROPSHIP) Bra - Our goal is to provide adequate measurement to reach the best comfort possible for different life styles, and we determine that with our client that the bra described below are meeting her needs according to her type of surgery and life style. [facility] Manufacture Model L/R Quantity Delivery Date L8000 ABC 132-M-BE 1 ORDERED 03.25.21(DROPSHIP) L8000 AMOENA [id number] 1 03.25.21 Follow up: PRN Payment Info: BILL INSURANCE Delivery date: 03.25.21 Marychuy Hood agrees to this plan and will call with questions/concerns. documented in this encounter Plan of Treatment Upcoming Encounters Date Type Department Care Team (Late st Contact Info) Description 12/28/2023 10:00 AM EDT Office Visit Hematology/Oncology at [address] [phone] Sumanth Bermudez MD [facility] HEMATOLOGY/[place] [address] 12/28/2023 10:30 AM EDT Infusion Hematology Oncology at [address] [phone] 01/02/2024 3:20 PM EDT Hospital [place] [phone] Astrid Ortega MD [facility] [place] [address] 04/22/2024 10:00 AM EST TH Visit (TeleHealth) Hematology and Oncology at [address] [phone] Tracy Beltran [facility] [place] [address] 05/20/2024 10:40 AM EST Hospital Encounter Mammography/[place] [phone] 05/20/2024 11:50 AM EST Office [place] [phone] Magaly Quijano APRN [facility] [place] [address] 11/15/2024 4:00 PM EDT Office Visit Hematology [place] [address] Jenny Melissa MD [facility] [place]EMATOLOGY[place] [address] documented as of this encounter Visit Diagnoses Not on filedocumented in this encounter Care Teams Lens Engraver Relationship Specialty Start Date End Date Zuleima Duvall APRN 2 [place] [phone] PCP - General Family Medicine 01/21/21 05/17/23 documented as of this encounter
--- OUTSIDE RECORDS SUMMARY | 2023-12-28 02:22 | XMS_ITS | Encounter Summary ---
Author Organization [facility] [place] [address] Care Team Providers Care Ambulatory Care Nurse Name Role Phone Zuleima Duvall APRN Primary Care Provider [phone] Encounter Details Date Type Department Care Team (Latest Contact Info) Description 05/17/2023 Travel Social History Tobacco Use Types Packs/Day [...] 10:00 AM EDT Office Visit Hematology/Oncology at [address] [phone] Sumanth Bermudez MD [facility] HEMATOLOGY/[place] [address] 12/28/2023 10:30 AM EDT Infusion Hematology Oncology at [address] [phone] 01/02/2024 3:20 PM EDT Hospital Encounter CT Scan at [place] [phone] Astrid Ortega MD [facility] GYNECOLOGIC [place] [address] 04/22/2024 10:00 AM EST TH Visit (TeleHealth) Hematology and Oncology at [address] [phone] [facility] [place] [address] 05/20/2024 10:40 AM EST Hospital Encounter Mammography/DXA at [place] [phone] 05/20/2024 11:50 AM EST Office Visit General Surgery at [place] [phone] Magaly Quijano APRN [facility] [place] [address] 11/15/2024 4:00 PM EDT Office Visit Hematology and Oncology at [place] [phone] Jenny Melissa MD [facility] HEMATOLOGY/[place] [address] documented as of this encounter Visit Diagnoses Not on filedocumented in this encounter Care Teams Ambulatory Care Nurse Relationship Specialty Start Date End Date Zuleima Duvall APRN 2 [place] [phone] PCP - General Family Medicine 01/21/21 05/17/23 documented as of this encounter
--- OUTSIDE RECORDS SUMMARY | 2023-12-28 02:22 | XMS_ITS | Encounter Summary ---
Author Organization [facility] Address [facility] [place] [address] Care Team Providers Care Clinical Quality Analyst Name Role Phone Zuleima Duvall APRN Primary Care Provider [phone] Encounter Details Date Type Department Care Team (Late st Contact Info) Description 03/25/2021 Orders [place] [address] Trev Erazo MD [facility] [place] [address] Malignant neoplasm of upper-outer quadrant of right breast in female, estrogen receptor positive (Primary Dx) Social History Tobacco Use Types [...] AM EDT Office Visit Hematology/Oncology at [address] [phone] Sumanth Bermudez MD [facility] HEMATOLOGY/[place] [address] 12/28/2023 10:30 AM EDT Infusion Hematology Oncology at [address] [phone] 01/02/2024 3:20 PM EDT Hospital [place] [phone] Astrid Ortega MD [facility] [place] [address] 04/22/2024 10:00 AM EST TH Visit (TeleHealth) Hematology and Oncology at [address] [phone] Tracy Beltran [facility] [place] [address] 05/20/2024 10:40 AM EST Hospital Encounter Mammography/[place] [phone] 05/20/2024 11:50 AM EST Office [place] [phone] Magaly Quijano APRN [facility] [place] [address] 11/15/2024 4:00 PM EDT Office Visit Hematology [place] [address] Jenny Melissa MD [facility] HEMATOLOGY/[place] [address] documented as of this encounter Visit Diagnoses Diagnosis Malignant neoplasm of upper-outer quadrant of right breast in female, estrogen receptor positive- Primary documented in this encounter Care Teams Clinical Quality Analyst Relationship Specialty Start Date End Date Zuelima Duvall APRN [address] [place] [address] PCP - General Family Medicine 01/21/21 05/17/23 documented as of this encounter
--- OUTSIDE RECORDS SUMMARY | 2023-12-28 02:22 | XMS_ITS | Encounter Summary ---
Author Organization [facility] Address [facility] [place] [address] Care Team Providers Care Senior User Experience Architect Name Role Phone None Primary Care Provider Unavailabl e Encounter Details Date Type Department Care Team (Latest Contact Info) Description 05/18/2023 10:56 AM EST - 05/18/2023 11:59 PM [facility] Hospital Encounter Mammography/DXA at [facility] [place] [phone] Jenny Melissa MD [facility] HEMATOLOGY/[place] [address] Malignant neoplasm of upper-outer quadrant of right breast in female, estrogen receptor positive; Osteopenia of multiple sites Discharge Disposition: Home Social History Tobacco Use [...] Sig Dispensed Refills Start Date End Date EPINEPHrine (EPIPEN) 0.3 mg/0.3 mL (1:1,000) Auto-Injector Inject 0.3 mg into the muscle once. multivitamin (THERAGRAN) Tablet Take 1 tablet by mouth daily. tamoxifen (Nolvadex) 20 mg tablet Take 1 tablet by mouth daily. 90 tablet 3 10/05/2022 07/14/2023 melatonin 1 mg Tablet Take 1 mg by mouth daily as needed. Taken at bedtime as needed 11/01/2023 B-Complex with Vitamin C (SUPER B C) Capsule Take 1 capsule by mouth daily. 11/01/2023 documented as of this encounter Plan of Treatment Upcoming Encounters Date Type Department Care Team (Late st Contact Info) Description 12/28/2023 10:00 AM EDT Office Visit Hematology/Oncology at [address] [phone] Sumanth Bermudez MD [facility] HEMATOLOGY/[place] [address] 12/28/2023 10:30 AM EDT Infusion Hematology Oncology at [address] [phone] 01/02/2024 3:20 PM EDT Hospital [place] [address] Astrid Ortega MD [facility] [place] [address] 04/22/2024 10:00 AM EST TH Visit (TeleHealth) Hematology and Oncology at [address] [phone] Tracy Beltran [facility] [place] [address] 05/20/2024 10:40 AM EST Hospital Encounter Mammography/DXA at [place] [phone] 05/20/2024 11:50 AM EST Office Visit General Surgery at [place] [phone] Magaly Quijano APRN [facility] [place] [address] 11/15/2024 4:00 PM EDT Office Visit [place]ology [place] [phone] Jenny Melissa MD [facility] HEMATOLOGY/[place] [address] documented as of this encounter Procedures Procedure Name Priority Date/Time Associated Diagnosis Comments DXA CENTRAL SPINE, HIP, AND/OR WHOLE BODY (GENERIC) Routine 05/18/2023 11:15 AM EST Malignant neoplasm of upper-outer quadrant of right breast in female, estrogen receptor positive Osteopenia of multiple sites documented in this encounter Results * DXA Central Spine, Hip, and/or Whole [...] BMD measurements and plots are available in EBalloon under the imaging tab. Paper copies will be sent to providers without EBalloon access. If you have received this report without the data sheet and do not have access to EBalloon, please contact Radiology Hardscape Foreman at [phone] Monday thru Monday 8am-4pm. ? Bone Density Report ? Name: ?Marychuy Hood Age: ? 72 Sex: ? Female Ethnicity: ? White Date of : 1950 Referring Provider: JENNY MELISSA Study: Bone densitometry was performed. Model: Enxue.com (S/N 816880V) version 13.6.0.5 Exam Date: May 18, 2023 Accession number: [id number] Bone Density: Region ? BMD ?T-score ??Z-score [...] who have questions please contact the health career development coordinator/teacher that requested your imaging first. ? Electronically signed by: Yris Eduardo MD, [facility] ([phone]), at 05/18/2023 4:09 PM Narrative 05/18/2023 4:09 PM EST EXAMINATION: DXA CENTRAL SPINE, HIP, AND/OR WHOLE BODY (GENERIC) CLINICAL HISTORY: 72 years Female hx osteopenia ?? (as entered by ordering provider) TECHNIQUE: Scans were acquired at the lumbar spine and ??left hip using the HoloCuralate A system. COMPARISON: none FINDINGS: Femoral neck [...] the lumbar spine and left hip usingthe ThirdPresence A system. COMPARISON: none FINDINGS: Femoral neck [...] copies will be sent to providers without SED Web access.If you have received this report without the data sheet and do not haveaccess to EBalloon, please contact Radiology Hardscape Foreman at [phone] Monday thrrid 8am-4pm. Bone Density Report Name: Marychuy Hood Age: 72 Sex: Female Ethnicity: White Date of : 1950 Referring Provider: JENNY MELISSA Study: Bone densitometry was performed. Model: Enxue.com (S/N [id number]) BPeSA version 13.6.0.5 Exam Date: May 18, 2023 Accession number: [id number] Bone Density: Region BMD T-score Z-score AP [...] patients who have questions please contactthe health career development coordinator/teacher that requested your imaging first. Electronically signed by: Yris Eduardo MD, [facility]([phone]), at 05/18/2023 4:09 PM Jenny Melissa MD IMG DEXA ORDERABLES documented in this encounter Visit Diagnoses Diagnosis Malignant neoplasm of upper-outer quadrant of right breast in female, estrogen receptor positive Osteopenia of multiple sites documented in this encounter Care Teams Senior User Experience Architect Relationship Specialty Start Date End Date None None PCP - General 05/18/23 07/16/23 documented as of this encounter
--- OUTSIDE RECORDS SUMMARY | 2023-12-28 02:22 | XMS_ITS | Encounter Summary ---
Author Organization [facility] Address [facility] [place] [address] Care Team Providers Care Bending Shed Worker Name Role Phone ObiJosefina Mona RIOS Primary Care Provider [phone] Encounter Details Date Type Department Care Team (Late st Contact Info) Description 09/27/2023 10:55 AM EDT Ancillary Procedure [place] [address] Devante Gonzalez MD [facility] [place] [address] Social History Tobacco Use Types Packs/Day Years [...] AM EDT Office Visit Hematology/Oncology at [address] [phone] Sumanth Bermudez MD [facility] HEMATOLOGY/[place] [address] 12/28/2023 10:30 AM EDT Infusion Hematology Oncology at [address] [phone] 01/02/2024 3:20 PM EDT Hospital [place] [phone] Astrid Ortega MD [facility] [place] [address] 04/22/2024 10:00 AM EST TH Visit (TeleHealth) Hematology and Oncology at [address] [phone] Tracy Beltran, [facility] [place] [place] [address] 05/20/2024 10:40 AM EST Hospital Encounter Mammography/[place] [phone] 05/20/2024 11:50 AM EST Office Visit [place] [phone] Magaly Quijano APRN [facility] [place] [address] 11/15/2024 4:00 PM EDT Office Visit Hematology [place] [address] Jenny Melissa MD [facility] HEMATOLOGY[place] [address] documented as of this encounter Procedures Procedure Name Priority Date/Time Associated Diagnosis Comments FILM LIBRARY STORAGE ONLY CT CHEST Routine 09/27/2023 10:55 AM EDT documented in this encounter Results * Film Library- Storage Only CT Chest (09/27/2023 10:55 AM EDT) 09/28/2023 1:47 PM EDT Narrative [facility] 09/28/2023 1:47 PM EDT This exam is auto-finalizing. It's purpose is for storage only. Devante Gonzalez MD IMG FILM LIBRARY ORD ERABLES [place], [place] documented in this encounter Visit Diagnoses Not on filedocumented in this encounter Care Teams Bending Shed Worker Relationship Specialty Start Date End Date Josefina Crocker APRN [address] [place] [address] PCP - General Family Medicine 07/17/23 documented as of this encounter
--- OUTSIDE RECORDS SUMMARY | 2023-12-28 02:22 | XMS_ITS | Encounter Summary ---
Author Organization [facility] Address [facility] [place] [address] Care Team Providers Care Manager Process Excellence Name Role Phone ObiJosefina Mona RIOS Primary Care Provider [phone] Encounter Details Date Type Department Care Team (Late st Contact Info) Description 09/27/2023 Interpretation [place] [phone] Yodit Lopes MD [facility] [place] [address] Social History Tobacco Use Types Packs/Day Years [...] 10:00 AM EDT Office Visit Hematology/Oncology at [address] [phone] Sumanth Bermudez MD [facility] HEMATOLOGY/[place] [address] 12/28/2023 10:30 AM EDT Infusion Hematology Oncology at [address] [phone] 01/02/2024 3:20 PM EDT Hospital [place] [phone] Astrid Ortega MD [facility] DR [place] [address] 04/22/2024 10:00 AM EST TH Visit (TeleHealth) Hematology and Oncology at [address] [phone] Tracy Beltran [facility] [place] [address] 05/20/2024 10:40 AM EST Hospital Encounter Mammography[place] [phone] 05/20/2024 11:50 AM EST Office [place] [phone] Magaly Quijano APRN [facility] [place] [address] 11/15/2024 4:00 PM EDT Office Visit Hematology [place] [address] Jenny Melissa MD [facility] [place]ATOLOG[place] [address] documented as of this encounter Visit Diagnoses Not on filedocumented in this encounter Care Teams Manager Process Excellence Relationship Specialty Start Date End Date Josefina Crocker APRN [address] [place] [address] PCP - General Family Medicine 07/17/23 documented as of this encounter
--- OUTSIDE RECORDS SUMMARY | 2023-12-28 02:22 | XMS_ITS | Encounter Summary ---
Author Organization [facility] Address [facility] [place] [address] Care Team Providers Care Home School Liaison Officer Name Role Phone Zuleima Duvall APRN Primary Care Provider [phone] Reason for Visit * Reason Comments Follow-up Encounter Details Date Type Department Care Team (Late st Contact Info) Description 03/25/2021 1:30 PM EDT Office Visit [place]ology [place] [phone] Trev Erazo MD [facility] [place] [address] Malignant neoplasm of upper-outer quadrant of right breast in female, estrogen receptor positive; Encounter for screening mammogram for malignant neoplasm of breast Social History Tobacco Use Types Packs/Day Years [...] Sign Reading Time Taken Comments Blood Pressure 184/88 03/25/2021 1:07 PM EDT Pulse 73 03/25/2021 1:07 PM EDT Temperature 37.3 ??C (99.1 ??F) 03/25/2021 1:07 PM ED T Respiratory Rate 16 03/25/2021 1:07 PM EDT Oxygen Saturation 100% 03/25/2021 1:07 PM EDT Inhaled Oxygen Concentration - - Weight 55.4 kg (122 lb 1.6 oz) 03/25/2021 1:07 P M EDT Height 163.1 cm (5' 4.21) 03/25/2021 1:07 PM ED T Body Mass Index 20.82 03/25/2021 1:07 PM EDT documented in this encounter Progress Notes * Trev Erazo MD - 03/25/2021 1:30 PM EDT Marychuy Hood is a 70-year-old woman who returns after right mastectomy and sentinel node excision on 01/28/2021. 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 It was ER positive, HER-2 negative, intermediate grade. 2 sentinel nodes were negative. Oncotype DX score: 5: 3% risk of distant mets. On physical exam her mastectomy site is healing well. There is an area about 1 cm x 0.5 cm of partial-thickness skin loss on the superior medial mastectomy flap that is nearly completely healed. There is no residual seroma. She has full range of motion of her right arm. Impression: Marychuy is recovering well from her right mastectomy. She will be discussing adjuvant hormone therapy with Dr. Melissa. I will schedule her to see our breast BOX ICER with a left mammo in 9 months. documented in this encounter Plan of Treatment Upcoming Encounters Date Type Department Care Team (Late st Contact Info) Description 12/28/2023 10:00 AM EDT Office Visit Hematology/Oncology at [address] [phone] Sumanth Bermudez MD [facility] HEMATOLOGY/[place] [address] 12/28/2023 10:30 AM EDT Infusion Hematology Oncology at [address] [phone] 01/02/2024 3:20 PM EDT Hospital Encounter CT Scan at [place] [phone] Astrid Ortega MD [facility] [place] [address] 04/22/2024 10:00 AM EST TH Visit (TeleHealth) Hematology and Oncology at [address] [phone] Tracy Beltran [facility] [place] [address] 05/20/2024 10:40 AM EST Hospital Encounter Mammography/DXA at [place] [phone] 05/20/2024 11:50 AM EST Office Visit General Surgery at [place] [phone] Magaly Quijano APRN [facility] [place] [address] 11/15/2024 4:00 PM EDT Office Visit [place] [phone] Jenny Melissa MD [facility] [place] [address] documented as of this encounter Results * Mammo Screening Cad and Markos Left (03/23/2022 2:27 PM EDT) Anatomical Region Laterality Modality Breast Left Mammography Narrative 03/24/2022 7:22 AM EDT LEFT BREAST MAMMOGRAPHY REASON FOR EXAM: Screening. S/P Right mastectomy. TECHNIQUE: CC and MLO views were obtained of the left breast using standard 2-D mammography as well as 3-D tomosynthesis. Computer aided detection was used. This is compared with prior images. FINDINGS: The breast is heterogeneously dense, which may obscure small masses. There are no suspicious microcalcifications, masses, or areas of distortion. The pattern is stable. CONCLUSION: No mammographic evidence of malignancy. RECOMMENDATION: Regular screening mammograms starting between age 40 and 50 reduces the risk of from breast cancer. All screening tests have both risks and benefits. These risks and benefits should be assessed for each individual patient through discussion with their provider to determine their preferred breast cancer screening schedule. Women should report any breast changes to a health care provider right away. Some women, because of their family history, a genetic tendency, or other factors, should be screened with annual breast MRI as well as with mammograms. (The number of women who fall into this category is very small). Patients and health care providers should discuss each patient? s history to decide if earlier screening and/or breast MRI are appropriate. Screening should continue as long as a woman is in good health and is expected to live 10 years or longer. Screening mammography may not detect 10-15% of breast cancers. A result letter has been sent to this patient by the [facility]. BIRADS CATEGORY 1: NEGATIVE Electronically signed by: ??JUWAN COLVIN MD Trev Erazo MD IMG MAMMO ORDERABLES documented in this encounter Visit Diagnoses Diagnosis Malignant neoplasm of upper-outer quadrant of right breast in female, estrogen receptor positive Encounter for screening mammogram for malignant neoplasm of breast Other screening mammogram Malignant neoplasm of upper-outer quadrant of right breast in female, estrogen receptor positive Encounter for screening mammogram for malignant neoplasm of breast Other screening mammogram documented in this encounter Care Teams Home School Liaison Officer Relationship Specialty Start Date End Date Zuleima Duvall APRN [address] [place] [phone] PCP - General Family Medicine 01/21/21 05/17/23 documented as of this encounter
--- OUTSIDE RECORDS SUMMARY | 2023-12-28 02:22 | XMS_ITS | Encounter Summary ---
Author Organization [facility] [place] [address] Care Team Providers Care Deputy Court Clerk Name Role Phone None Primary Care Provider Unavailabl e Reason for Visit * Reason Comments Follow-up Encounter Details Date Type Department Care Team (Late st Contact Info) Description 05/18/2023 2:00 PM EST Office [place] [address] Chelita Connelly, WORKFORCE PLANNING ANALYST [facility] [place] [address] Encounter for screening mammogram for breast cancer; Malignant neoplasm of upper-outer quadrant of right [...] as of this encounter Progress Notes * Chelita Connelly APRN - 05/18/2023 2:00 PM EST Marychuy Hood is a 72 y.o. woman who returns after right mastectomy and sentinel node excision on 01/28/2021, performed by Dr. Erazo. 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 It was ER positive, HER-2 negative, intermediate grade. 2 sentinel nodes were negative. Oncotype DX score: 5: 3% risk of distant mets. She has been feeling a little depressed, going to take a 6 week tamoxifen holiday. She does note fatigue in the afternoons. She is active with a big garden and preparing wood for the winter. Her had a melanoma removed from his ear and is getting immunotherapy. On physical exam there is no cervical or supraclavicular adenopathy. Her right mastectomy site is well healed. There is no axillary adenopathy. ROM is good. Left breast is soft and without masses. No axillary adenopathy. She has no abdominal or vertebral tenderness. Left breast mammogram is cat 1- scattered areas of density Impression: Normal clinical breast exam. Imaging is normal. Plan: I will see her back in one year with a left mammogram. She knows to call in the interim with any concerns over her breast exam. Chelita Connelly APRN documented in this encounter Plan of Treatment Upcoming Encounters Date Type Department Care Team (Late st Contact Info) Description 12/28/2023 10:00 AM EDT Office Visit Hematology/Oncology at [address] [phone] [facility] HEMATOLOGY/[place] [address] 12/28/2023 10:30 AM EDT Infusion Hematology Oncology at [address] [phone] 01/02/2024 3:20 PM EDT Hospital Encounter CT Scan at [place] [phone] [facility] [place] [address] 04/22/2024 10:00 AM EST TH Visit (TeleHealth) Hematology and Oncology at [address] [phone] Tracy Beltran [facility] [place] [address] 05/20/2024 10:40 AM EST Hospital Encounter Mammography/DXA at [place] [phone] 05/20/2024 11:50 AM EST Office Visit General Surgery at [address] [facility] [place] [address] 11/15/2024 4:00 PM EDT Office Visit Hematology and Oncology at [place] [phone] [facility] HEMATOLOGY/[place] [address] Scheduled Orders Name Type Priority Associated Diagnoses Orde r Schedule Mammo Screening Cad and Markos Left Imaging Routine Encounter for screening mammogram for breast cancer Expected: 05/18/2024, Expires: 11/16/2024 documented as of this encounter Visit Diagnoses Diagnosis Encounter for screening mammogram for breast cancer Malignant neoplasm of upper-outer quadrant of right breast in female, estrogen receptor positive documented in this encounter Care Teams Deputy Court Clerk Relationship Specialty Start Date End Date None None PCP - General 05/18/23 07/16/23 documented as of this encounter
--- OUTSIDE RECORDS SUMMARY | 2023-12-28 02:22 | XMS_ITS | Encounter Summary ---
Author Organization [facility] [place] [address] Care Team Providers Care Active Directory Architect Name Role Phone Zuleima Duvall APRN Primary Care Provider [phone] Encounter Details Date Type Department Care Team (Late st Contact Info) Description 03/23/2022 1:40 PM EDT [place] [phone] Chelita Connelly APRN [facility] [place] [address] Encounter for screening mammogram for breast cancer; [...] Progress Notes * Chelita Connelly APRN - 03/23/2022 1:40 PM EDT Marychuy Hood is a 71 y.o. woman who returns after right mastectomy and sentinel node excision on 01/28/2021, performed by Dr. Erazo. 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 It was ER positive, HER-2 negative, intermediate grade. 2 sentinel nodes were negative. Oncotype DX score: 5: 3% risk of distant mets. She has been under some stress it seems but not willing to share much. She is taking tamoxifen and tolerating well. She does note fatigue in the afternoons. She is active with a big garden and preparing wood for the winter. On physical exam there is no cervical or supraclavicular adenopathy. Her right mastectomy site is well healed. There is no axillary adenopathy. ROM is good. Left breast is soft and without masses. No axillary adenopathy. She has no abdominal or vertebral tenderness. Left breast mammogram is cat 1- heterogeneously dense Impression: Normal clinical breast exam. Imaging is normal. Plan: I will see her back in one year with a left mammogram. She knows to call in the interim with any concerns over her breast exam. documented in this encounter Plan of Treatment Upcoming Encounters Date Type Department Care Team (Late st Contact Info) Description 12/28/2023 10:00 AM EDT Office Visit Hematology/Oncology at [address] [phone] Sumanth Bermudez MD [facility] HEMATOLOGY/[place] [address] 12/28/2023 10:30 AM EDT Infusion Hematology Oncology at [address] [phone] 01/02/2024 3:20 PM EDT Hospital Encounter CT Scan at [place] [phone] Astrid Ortega MD [facility] [place] [address] 04/22/2024 10:00 AM EST TH Visit (TeleHealth) Hematology and Oncology at [address] [phone] Tracy Beltran [facility] [place] [place] [address] 05/20/2024 10:40 AM EST Hospital Encounter Mammography/DXA at [place] [phone] 05/20/2024 11:50 AM EST Office [place] [phone] Magaly Quijano APRN [facility] [place] [address] 11/15/2024 4:00 PM EDT Office Visit [place] [phone] Jenny Melissa MD [facility] HEMATOLOGY/[place] [address] documented as of this encounter Results * [...] Chelita Connelly APRN IMG MAMMO ORDERABLE S documented in this encounter Visit Diagnoses Diagnosis Encounter for screening mammogram for breast cancer Malignant neoplasm of upper-outer quadrant of right breast in female, estrogen receptor positive Encounter for screening mammogram for breast cancer documented in this encounter Care Teams Active Directory Architect Relationship Specialty Start Date End Date Zuleima Duvall APRN [address] [place] [phone] PCP - General Family Medicine 01/21/21 05/17/23 documented as of this encounter
--- OUTSIDE RECORDS SUMMARY | 2023-12-28 02:22 | XMS_ITS | Encounter Summary ---
Author Organization [facility] [place] [address] Care Team Providers Care Satellite Installation Technician Name Role Phone Zuleima Duvall APRN Primary Care Provider [phone] Encounter Details Date Type Department Care Team (Late st Contact Info) Description 04/26/2021 Notes Only Care Management [facility] [place] [address] Rose Marie Wong MSW Social History Tobacco Use Types Packs/Day Years [...] as of this encounter Progress Notes * Rose Marie Wong MSW - 04/26/2021 9:00 AM EST I'm able to return pt's call; she reports that she is no longer concerned about potential need for financial assistance re: property tax bill. She agrees to contact me for any changes in psychosocialstatus for which I can be of service. Completed today: Financial resources documented in this encounter Plan of Treatment Upcoming Encounters Date Type Department Care Team (Late st Contact Info) Description 12/28/2023 10:00 AM EDT Office Visit Hematology/Oncology at [address] [phone] Sumanth Bermudez MD [facility] HEMATOLOGY/[place] [address] 12/28/2023 10:30 AM EDT Infusion Hematology Oncology at [address] [phone] 01/02/2024 3:20 PM EDT Hospital [place]counter [place] [phone] Astrid Ortega MD [facility] [place] [address] 04/22/2024 10:00 AM EST TH Visit (TeleHealth) Hematology and Oncology at [address] [phone] Tracy Beltran [facility] [place] [address] 05/20/2024 10:40 AM EST Hospital Encounter Mammography/[place] [phone] 05/20/2024 11:50 AM EST Office Visit [place] [address] Magaly Quijano APRN [facility] [place] [address] 11/15/2024 4:00 PM EDT Office Visit Hematology [place] [address] Jenny Melissa MD [facility] [place] [address] documented as of this encounter Visit Diagnoses Not on filedocumented in this encounter Care Teams Satellite Installation Technician Relationship Specialty Start Date End Date Zuleima Duvall APRN [address] [place] [phone] PCP - General Family Medicine 01/21/21 05/17/23 documented as of this encounter
--- OUTSIDE RECORDS SUMMARY | 2023-12-28 02:22 | XMS_ITS | Encounter Summary ---
Author Organization [facility] [place] [address] Care Team Providers Care Mma Fighter Name Role Phone ObiJosefina Mona RIOS Primary Care Provider [phone] Encounter Details Date Type Department Care Team (Latest Contact Info) Description 10/08/2023 8:30 PM EDT Ancillary Procedure [place] [phone] Jossie Jamison MD [facility] [place] [address] Malignant neoplasm of sigmoid colon Social History Tobacco Use Types Packs/Day Years [...] 10:00 AM EDT Office Visit Hematology/Oncology at [address] [phone] Sumanth Bermudez MD [facility] HEMATOLOGY/[place] [address] 12/28/2023 10:30 AM EDT Infusion Hematology Oncology at [address] [phone] 01/02/2024 3:20 PM EDT Hospital Encounter [place] [phone] Astrid Ortega MD [facility] [place] [address] 04/22/2024 10:00 AM EST TH Visit (TeleHealth) Hematology and Oncology at [address] [phone] Tracy Beltran [facility] [place] [address] 05/20/2024 10:40 AM EST Hospital Encounter Mammography/[place] [phone] 05/20/2024 11:50 AM EST Office Visit General [place] [phone] Magaly Quijano APRN [facility] [place] [address] 11/15/2024 4:00 PM EDT Office Visit Hematology and [place] [address] Jenny Melissa MD [facility] HEMATOLOGY/[place] [address] documented as of this encounter Procedures Procedure Name Priority Date/Time Associated Diagnosis Comments REQUEST FOR 2ND READ CT CHEST ABDOMEN PELVIS Routine 10/08/2023 8:25 PM EDT Malignant neoplasm of sigmoid colon documented in this encounter Results * Request For 2nd Read CT Chest Abdomen Pelvis (10/08/2023 8:25 PM EDT) WORKSTATION ID [id number] RAD Anatomical Region Laterality Modality Chest, Abdomen, [...] who have questions please contact the health primary care provider that requested your imaging first. ? Electronically signed by: Xenia Boss MD, [facility] ([phone]), at 10/08/2023 8:47 PM Narrative 10/08/2023 8:47 PM EDT EXAMINATION: REQUEST FOR 2ND READ CT CHEST ABDOMEN PELVIS CLINICAL HISTORY: new diagnosis colon cancer, history of breast and ovarian cancer. Evaluate for metastatic disease; Sending Institution [facility]; Date of exam [id number]; I believe a reinterpretation of this exam may alter care of Patient. Yes C18.7, Malignant neoplasm of sigmoid colon TECHNIQUE: Helical CT of the chest, abdomen, and pelvis following the intravenous administration of contrast. 100 cc Omnipaque 350 intravenous contrast.. Oral contrast was administered. Study performed September 27, 2023 [facility]. COMPARISON: CT scan the chest August [...] cancer. Evaluate for metastatic disease; Sending Institution [facility];Date of exam [id number]; I believe a reinterpretation of this exam may alter careof Patient. Yes C18.7, Malignant neoplasm of sigmoid colon TECHNIQUE: Helical CT of the chest, abdomen, and pelvis following the intravenous administration of contrast. 100 cc Omnipaque 350 intravenous contrast.. Oral contrast was administered. Study performed September [facility]. COMPARISON: CT scan the chest August [...] patients who have questions please contactthe health primary care provider that requested your imaging first. Electronically signed by: Xenia Boss MD, [facility]([phone]), at 10/08/2023 8:47 PM Jossie Jamison MD IMG OUTSIDE INTERPRE TATION ORDERABLES documented in this encounter Visit Diagnoses Diagnosis Malignant neoplasm of sigmoid colon documented in this encounter Care Teams Mma Fighter Relationship Specialty Start Date End Date Josefina Crocker APRN [address] [place] [address] PCP - General Family Medicine 07/17/23 documented as of this encounter
--- OUTSIDE RECORDS SUMMARY | 2023-12-28 02:22 | XMS_ITS | Encounter Summary ---
Author Organization [facility] Address [facility] [place] [address] Care Team Providers Care Retail Planner Name Role Phone None Primary Care Provider Unavailabl e Encounter Details Date Type Department Care Team (Latest Contact Info) Description 05/18/2023 9:42 AM EST - 05/18/2023 10:55 AM [facility] Hospital Encounter Mammography/[place] [phone] Encounter for screening mammogram for breast cancer Discharge Disposition: Home Social History Tobacco Use [...] 10:00 AM EDT Office Visit Hematology/Oncology at [address] [phone] Sumanth Bermudez MD [facility] HEMATOLOGY/[place] [address] 12/28/2023 10:30 AM EDT Infusion Hematology Oncology at [address] [phone] 01/02/2024 3:20 PM EDT Hospital [place] [phone] Astrid Ortega MD [facility] [place] [address] 04/22/2024 10:00 AM EST TH Visit (TeleHealth) Hematology and Oncology at [address] [phone] Tracy Beltran [facility] [place] [address] 05/20/2024 10:40 AM EST Hospital Encounter Mammography/[place] [phone] 05/20/2024 11:50 AM EST Office Visit General Surgery at [place] [phone] Magaly Quijano APRN [facility] [place] [address] 11/15/2024 4:00 PM EDT Office Visit Hematology [place] [phone] Jenny Melissa MD [facility] HEMATOLOGY[place] [address] documented as of this encounter Procedures Procedure Name Priority Date/Time Associated Diagnosis Comments MAMMO SCREENING CAD AND LELA LEFT Routine 05/18/2023 10:16 AM EST Encounter for screening mammogram for breast cancer documented in this encounter Results * Mammo Screening Cad and Lela Left (05/18/2023 10:16 AM EST) Anatomical Region [...] by: Dion Martinez III, MD Chelita Connelly LEARNING AND DEVELOPMENT COORDINATOR IMG MAMMO ORDERABLE S documented in this encounter Visit Diagnoses Diagnosis Encounter for screening mammogram for breast cancer documented in this encounter Care Teams Retail Planner Relationship Specialty Start Date End Date None None PCP - General 05/18/23 07/16/23 documented as of this encounter
--- OUTSIDE RECORDS SUMMARY | 2023-12-28 02:22 | XMS_ITS | Encounter Summary ---
[place] [address] Care Team Providers Care C Software Engineer Name Role Phone Zuleima Duvall APRN Primary Care Provider [phone] Reason for Visit * Physical Therapy (Routine) - Closed Specialty Diagnoses / Procedures Referred By Renato t Referred To Contact Physical Therapy Diagnoses Breast cancer S/P R MAST SURGERY 01/[address] [facility] [place] [place] [address] [facility] [place] [address] Referral ID Status Reason Start Date Expiration Date Visits Re quested Visits Authorized [id number] Closed 01/18/2021 01/18/2022 100 100 Encounter Details Date Type Department Care Team (Late st Contact Info) Description 02/17/2021 11:00 AM EDT Office [place] [phone] Nola Weir, PT [facility] PHYSICAL MEDICINE & [place] [address] H/O right mastectomy Social History Tobacco Use Types Packs/Day Years [...] as of this encounter Miscellaneous Notes * Initial Evaluation - Nola Weir, PT - 02/17/2021 11:00 AM EDT Images from the original note were not included. PHYSICAL THERAPY EVALUATION Date of Exam/First treatment: 02/17/2021 Date of Onset 01/28/2021 Referring Provider: Trev Erazo Primary Insurance: Payor: MEDICARE / Plan: MEDICARE PART A & B / Product Type: *No Product type* / Diagnosis and pertinent co-morbidities: No diagnosis found. Medicare Cert Period: 02/17/2021 - 05/19/2021 total treatment time: 45 minutes total timed code treatment: 0 minutes 1 evaluation 15 min 1 exercise CURRENT HISTORY: Marychuy Hood is a 70 y.o. female s/p R mastectomy for R sided breast cancer. 0/2 nodes positive. No complications. Pt wearing a sling, had drain removed 8 days ago. Patient Active Problem List Diagnosis Date Noted ??? Malignant neoplasm of right breast in female, estrogen receptor positive 12/25/2020 ??? Endometrial adenocarcinoma, endometrioid type, FIGO grade 2 08/01/2014 Adjuvant Treatment pending: Chemotherapy ? Radiation no Hormonal ? Social: Pt. lives in [place] with and daughter, lives about 2.5 hours away. Work: na Function/exercise history: Very active in the past, gardening and mt climibing Walking distance/frequency A short walk daily with her daughter Understands goal for weekly ex is 150 a week over the next few weeks. Other exercise Hobbies Pain: Minimal discomfort, mostly feelings of tingling and upper back pain, still wearing sling. FUNCTIONAL LIMITATIONS: On a difficulty scale with 0 being unable to perform an activity, and 10 being able to perform at a pre injury level she rates drive long distance, lift hand over head, wash hair 5/10 CLINICAL FINDINGS: Posture: Forward R shoulder, self corrects well Active Range of motion: supine right left Sh flexion 100 150 Sh abduction 90 150 Sh ER 50 6o Sh IR T12 T12 Strength: not tested today Palpation/inspection: scars healing well Flexibility: decreased at: pectoralis CLINICAL EVALUATION AND DIAGNOSIS: pt with limited rom, discomfort and dysfunction to benefit from home ex and manual thereapy. Pt at very low risk of lymphedema. Pt would like to be seen closer to her home 2.5 hours away and would like her referral sent to [facility]. Clinical presentation: Stable Evolving Unstable Notes: pt's daughter Angela present for eval today Clinical decision making of moderate complexity using standardized patient assessment instrument and measurable assessment of functional outcome. The patient's rehabilitation potential is good. GOALS: Therapy Short Term Goals: 2 weeks 1. Increase ROM 140 flexion 120 abd 2. Decrease discomfort to 0-2pt Therapy [facility] Goals: 6 weeks 1. Full functional use of UE without discomfort 2. Independent in home program1 INITIAL TREATMENT INCLUDED: Evaluation information about very low risk of lymphedema, MLD towards LX 5 min and instruction in home ex including deep breathing, head turns, postural ex and 1-3, cane over head and forearm up the wall, all to be done slowly 3-[address] Erazo allows pt to discharge use of sling. Fax referral to [phone] Plan: Treatment: Manual therapy and home ex Frequency and Duration: 2-3 tx The plan has been discussed with the patient and she has agreed with it. NOLA WEIR PT documented in this encounter Plan of Treatment Upcoming Encounters Date Type Department Care Team (Late st Contact Info) Description 12/28/2023 10:00 AM EDT Office Visit Hematology/Oncology at [address] [phone] [facility] HEMATOLOGY/[place] [address] 12/28/2023 10:30 AM EDT Infusion Hematology Oncology at [address] [phone] 01/02/2024 3:20 PM EDT Hospital Encounter CT Scan at [place] [phone] [facility] [place] [address] 04/22/2024 10:00 AM EST TH Visit (TeleHealth) Hematology and Oncology at [address] [phone] Tracy Beltran [facility] [place] [address] 05/20/2024 10:40 AM EST Hospital Encounter Mammography/DXA at [place] [phone] 05/20/2024 11:50 AM EST Office Visit General Surgery at [place] [phone] [facility] [place] [address] 11/15/2024 4:00 PM EDT Office Visit Hematology [place] [phone] [facility] HEMATOLOGY/[place] [address] documented as of this encounter Visit Diagnoses Diagnosis H/O right mastectomy Acquired absence of breast and nipple documented in this encounter Care Teams C Software Engineer Relationship Specialty Start Date End Date Zuleima Duvall APRN [address] [place] [phone] PCP - General Family Medicine 01/21/21 05/17/23 documented as of this encounter
--- OUTSIDE RECORDS SUMMARY | 2023-12-28 02:22 | XMS_ITS | Encounter Summary ---
Author Organization [facility] [place] [address] Care Team Providers Care Operations Business Partner Name Role Phone Zuleima Duvall APRN Primary Care Provider [phone] Encounter Details Date Type Department Care Team (Latest Contact Info) Description 05/03/2021 8:58 PM EST - 05/03/2021 11:59 PM EST Hospital [place] [phone] Discharge Disposition: Home Social History Tobacco Use [...] Take 1 tablet by mouth daily. tamoxifen (NOLVADEX) 20 mg Tablet Take 1 tablet by mouth daily. 90 tablet 3 04/13/2021 04/15/2022 diphenhydrAMINE (Benadryl) 25 mg Capsule Take 25 mg by mouth every 6 hours as needed for Itching. unknown dose 10/05/2022 melatonin 1 mg Tablet Take 1 mg by mouth daily as needed. Taken at bedtime as needed 11/01/2023 B-Complex with Vitamin C (SUPER B C) Capsule Take 1 capsule by mouth daily. 11/01/2023 Ascorbic Acid 500 mg Tablet, Chewable Take 1 tablet by mouth as needed. 10/05/2022 documented as of this encounter Plan of Treatment Upcoming Encounters Date Type Department Care Team (Late st Contact Info) Description 12/28/2023 10:00 AM EDT Office Visit Hematology/Oncology at [address] [phone] Sumanth Bermudez MD [facility] HEMATOLOGY/[place] [address] 12/28/2023 10:30 AM EDT Infusion Hematology Oncology at [address] [phone] 01/02/2024 3:20 PM EDT Hospital [place] [address] Astrid Ortega MD [facility] [place] [address] 04/22/2024 10:00 AM EST TH Visit (TeleHealth) Hematology and Oncology at [address] [phone] Tracy Beltran [facility] [address] 05/20/2024 10:40 AM EST Hospital Encounter Mammography/DXA at [place] [phone] 05/20/2024 11:50 AM EST Office [place] [address] Magaly Quijano APRN [facility] [place] [place] [address] 11/15/2024 4:00 PM EDT Office Visit Hematology and Oncology at [place] [phone] Jenny Melissa MD [facility] [place]OLOGY[place] [address] documented as of this encounter Procedures Procedure Name Priority Date/Time Associated Diagnosis Comments SURGICAL PATHOLOGY REPORT Routine 05/03/2021 2:04 PM EST documented in this encounter Results * Surgical Pathology Report (05/03/2021 2:04 PM EST) FINAL DIAGNOSIS (AP) [id number] ? Location: [facility] The signing pathologist has (i) examined the relevant preparation(s) for the specimen(s) and (ii) rendered or confirmed the diagnosis(es). . ?Surgical Pathology DIAGNOSIS A - 4mm cecal polyp: - ??Fragments of tubular adenoma. B - 2mm cecal polyp: - ??Tubular adenoma. - Multiple levels examined. Electronically signed by: ?Cb PEREZ PhD, Michelle Verified: ??05/12/2021 13:56 ??Pathologist Performed at: ??-[facility] Dept. of Pathology, [place], [place] SPECIMEN(S) SUBMITTED A - 4mm cecal polyp (_) B - 2mm cecal polyp (_) Referring Identifier: ??[id number] CLINICAL INFORMATION Abdominal pain and weight loss SPECIMEN PROCESSING A - Labeled/Fixativ e: 4 mm cecal polyp, formalin. Quantity/Size: Two, 0.4 x 0.3 x 0.2 and 0.5 x 0.3 x 0.2 cm. Tissue Description: Soft, strong tissues. Sections/Proces sing: Submitted en toto ??in 1 cassette labeled A1. B - Labeled/Fixativ e: 2 mm cecal polyp, formalin. Quantity/Size: Single, 0.4 x 0.3 x 0.2 cm. Tissue Description: Soft, strong tissue. Sections/Proces sing: Submitted en toto ??in 1 cassette labeled B1. ??MEGAN 05/12/2021 1:56 PM EST [facility] 05/03/2021 2:04 PM EST Narrative Resulting Agency Comment Spec In Lab / WKS Ashley Thrasher MD PATHOLOGY/CYTOLOGY O RDERABLES [facility] [place] [address] documented in this encounter Visit Diagnoses Not on filedocumented in this encounter Care Teams Operations Business Partner Relationship Specialty Start Date End Date Zuleima Duvall APRN [address] [place] [phone] PCP - General Family Medicine 01/21/21 05/17/23 documented as of this encounter
--- OUTSIDE RECORDS SUMMARY | 2023-12-28 02:22 | XMS_ITS | Encounter Summary ---
Author Organization [facility] Address [facility] [place] [address] Care Team Providers Care Tooling Specialist Name Role Phone None Primary Care Provider Unavailabl e Reason for Visit * Reason Comments Follow-up Encounter Details Date Type Department Care Team (Late st Contact Info) Description 05/18/2023 10:40 AM EST Office [place] [address] Magaly Quijano APRN [facility] [place] [place] [address] Encounter for follow-up surveillance of breast cancer; Malignant neoplasm of upper-outer quadrant of right breast in female, estrogen receptor positive; Breast cancer screening by mammogram Social History Tobacco Use Types Packs/Day Years [...] as of this encounter Progress Notes * Magaly Quijano, OUTSOLE CEMENTER MACHINE - 05/18/2023 10:40 AM EST Images from the original note were not included. Patient ID: Marychuy Hood is a 72 y.o. female HPI: Marychuy is a patient of Dr. 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 She is status post right mastectomy and sentinel node excision on January 28, 2021. At today's visit, Marychuy has no breast concerns and denies new lumps or bumps in her breasts or axilla. She performs infrequent self-breast exams. No nipple discharge or pain in either breast. She denies new headaches or significant weight changes. No chest pain or difficulty breathing. No new bony pain or tenderness. Marychuy denies significant changes to her health since her last visit. Breast cancer history: A screening mammogram in November 2020 showed a focal asymmetry in the right breast at 9:00. Diagnosticimaging showed a 1/8 cm hypoechoic lobulated mass with irregular borders and internal vascularity by US. A biopsy revealed intermediate grade IDC, ER/WY positive, HER-2 negative. Left MRI showed 3 lesions: they are all located pretty much behind the left nipple in the 5-6 o'clock radian. Lesion 1 was a 0.5 cm mass at 5:00, 6 cm from nipple. Lesion 2 was a 1 cm area of [id number]-cxwu-[id number] enhancement at 6:00, 4 cm from the nipple and lesion 3 is a 0.2 cm mass at 6:00, 2 cm from the nipple. Left axillary nodes are normal. A MRI biopsy was performed on lesions #1 and #3. Lesion 1 was a benign papillary lesion. Lesion 3 showed atypical lobular hyperplasia. Marychuy opted for a right mastectomy and SNE with Dr. Erazo on 01/28/21. Final pathology revealed 20mm intermediate grade IDC with solid papillary features and DCIS without lymph node involvement. Margins were negative. OncotypeDx Recurrence Score - 5. She started tamoxifen in May 2021. Breast Cancer Notes: Method of Cancer Detection Screening mammogram 11/30/2020 Menopausal Status at Diagnosis Postmenopausal Date of Diagnostic Biopsy 12/16/2020 Local Surgery Right mastectomy Axillary Management SNE ([address]) Date of Last Surgical Procedure 01/28/2021 Histology IDC with solid papillary fx, DCIS Location Right breast 9:00 Size of Primary Malignancy 20 mm Grade 2, intermediate Margins Not involved ER Positive WY Positive HER-2 Negative OncotypeDx Recurrence Score 5 Chemotherapy Not indicated Radiation Therapy Not indicated Adjuvant Endocrine Therapy Tamoxifen started 05/2021 Genetic Testing Not tested Surveillance Annual left mammogram and CBE Breast Cancer Risk Factors: History Age at delivery of first child 31 yo Breast fed Yes Menarche age 15 yo LMP / Menopause 59 yo Hormonal contraception use Yes, ~ 3 yrs Hormone replacement therapy No Family history of breast cancer Paternal half sister Family history of ovarian cancer No Ashkenazi Jehovah'S Witness heritage Yes Family History Problem (# of Occurrences) Relation (Name,Age of Onset) Cancer (1) Maternal Grandfather: bone Breast Cancer (1) Paternal Half-Sister (60): half sister Lung Cancer (2) Paternal Half-Sister, Maternal Uncle Negative family history of: Colorectal Cancer, Kidney Cancer, Bladder Cancer, Uterine Cancer, Ovarian Cancer Social Hx: Marychuy is active, though the weather this past summer definitely decreased that. She enjoys hiking, canoeing, and sailing. She does Jump or Fall dancing once a week. She has never smoked; ETOH - rare - holidays. Past Medical Hx: Endometrial cancer, osteopenia Past Surgical Hx: GEOFF BSO Physical Exam: General appearance: Alert, well-developed, well-nourished; in no acute distress. Skin: Warm and dry. Head: Normocephalic, atraumatic. Neck: Soft and supple without masses or supraclavicular adenopathy. Cardiovascular: Normal rate, regular rhythm and normal heart sounds. No murmur heard. Pulmonary: Effort normal and breath sounds normal. No signs of respiratory distress, cough, or wheezing. Breasts: Exam performed in the upright and supine positions. The right mastectomy scar is well-healed The scar is soft and nontender, without mass. No venous prominence, or skin thickening. The left breast has normal appearance and contour. No suspicious masses, tenderness, dimpling, erythema, or other skin changes. No nipple discharge or other nipple changes. The left nipple is everted. No palpable axillary lymph nodes bilaterally. Breast exam by palpation revealed no obvious or distinct masses or nodularity in the left breast. Musculoskeletal: Arms with full ROM without any evidence of lymphedema. Fully weight-bearing. Neurological: Alert and oriented x 4. Mood is euthymic and appropriate to the situation. Results: Imaging performed (left mammogram) at [facility] today shows no evidence of malignancy, BIRADS Category 1 with scattered areas of fibroglandular breast tissue. The results were pending at the timeof today's appointment. I notified Marychuy of results via myD-H. Assessment: Clinical breast / chest wall exam without notable masses, skin changes, dimpling, or nipple discharge. Doing well without evidence of local recurrence. Stable exam. Plan: 1. Encounter for follow-up surveillance of breast cancer 2. Malignant neoplasm of upper-outer quadrant of right breast in female, estrogen receptor positive 3. Breast cancer screening by mammogram - Mammo Screening Cad and Markos, Left - May 2024 I have discussed my assessment and recommendations with Marychuy to include breast awareness and annual mammographic screening with clinical breast exams. Based on her risk status, she will follow up with me in one year for ongoing breast cancer surveillance and screening. Marychuy will contact me ifmario develops any new breast changes or concerns prior to that appointment. She agrees to this plan. Survivorship recommendations: Continue annual bilateral screening mammograms until life expectancy is <10 years and you remainin good health, or as long as you would consider treatment for a breast cancer if found. Continue clinical breast exams at least once yearly. Continue self breast awareness. For any new or worsening symptoms for which cause remains undetermined, consider breast cancer recurrence. Specifically - new or worsening skeletal pain, headache, diplopia, neurologic deficits, elevated LFTs, abdominal pain/swelling, cough, or SOB. Get at least 150 minutes of cardiovascular exercise and 2 days of resistance/strength training per week. Ways to include exercise at home include yoga and bone building exercise videos online. Eat a mainly plant-based Mediterranean style diet. Minimize processed foods, simple carbohydrates, sugars, and artificial sweeteners. Do not smoke. If consuming alcohol, limit to 1 drink or less per day. Maintain or achieve a healthy weight. Normal BMI < 25 for individuals under 65 years old; 22-30 for > 65 years old. Manage stress levels. Be cautious about exposure risk, both what you put in and on your body (ie: artificial fragrances, artificial dyes, as well as certain ingredients in makeup, hair and body care, antiperspirant, sunscreen, insect repellant, laundry detergent, fabric softener, dryer sheets, etc.). Resources to help you make informed choices for personal care products are available at EWG (Environmental Working Group) at ewg.org and free apps for your cell phone from [employer] ([employer]) and [employer] ([employer]). Anticancer Lifestyle program offers free tools and information to help you improve your diet, increase fitness, decrease stress, and reduce your exposure to harmful chemicals in your home environment. Free course available at anticancerlifestyle.org All questions were answered to the patient's satisfaction and they state understanding and agreement with today's treatment plan. They are encouraged to follow up sooner if they develop any new or concerning symptoms. Magayl Quijano APRN Surgical Oncology P [phone] F [phone] [facility] documented in this encounter Plan of Treatment Upcoming Encounters Date Type Department Care Team (Late st Contact Info) Description 12/28/2023 10:00 AM EDT Office Visit Hematology/Oncology at [address] [phone] Sumanth Bermudez MD [facility] HEMATOLOGY/[place] [address] 12/28/2023 10:30 AM EDT Infusion Hematology Oncology at [address] [phone] 01/02/2024 3:20 PM EDT Hospital [place] [phone] Astrid Ortega MD [facility] [place] [address] 04/22/2024 10:00 AM EST TH Visit (TeleHealth) Hematology and Oncology at [address] [phone] Tracy Beltran, [facility] [place] [address] 05/20/2024 10:40 AM EST Hospital Encounter Mammography/[place] [phone] 05/20/2024 11:50 AM EST Office [place] [phone] Magaly Quijano APRN [facility] [place] [address] 11/15/2024 4:00 PM EDT Office Visit Hematology [place] [phone] Jenny Melissa MD [facility] DR HEMATOLOGY/[place] [address] documented as of this encounter Visit Diagnoses Diagnosis Encounter for follow-up surveillance of breast cancer Unspecified follow-up examination Malignant neoplasm of upper-outer quadrant of right breast in female, estrogen receptor positive Breast cancer screening by mammogram documented in this encounter Care Teams Tooling Specialist Relationship Specialty Start Date End Date None None PCP - General 05/18/23 07/16/23 documented as of this encounter
--- OUTSIDE RECORDS SUMMARY | 2023-12-28 02:22 | XMS_ITS | Encounter Summary ---
Author Organization [facility] Address [facility] [place] [address] Care Team Providers Care Prototype Model Maker Name Role Phone Zuelima Duvall APRN Primary Care Provider [phone] Encounter Details Date Type Department Care Team (Latest Contact Info) Description 03/23/2022 2:14 PM EDT - 03/23/2022 11:59 PM EDT Hospital Encounter Mammography/[place] [phone] Trev Erazo MD [facility] [place] [address] Malignant neoplasm of upper-outer quadrant of right breast in female, estrogen receptor positive; Encounter for screening mammogram for malignant neoplasm of breast ; Encounter for screening mammogram for malignant neoplasm of breast Discharge Disposition: Home Social History Tobacco Use [...] AM EDT Office Visit Hematology/Oncology at [address] [phone] Sumanth Bermudez MD [facility] HEMATOLOGY/[place] [address] 12/28/2023 10:30 AM EDT Infusion Hematology Oncology at [address] [phone] 01/02/2024 3:20 PM EDT Hospital [place] [address] Astrid Ortega MD [facility] [place] [address] 04/22/2024 10:00 AM EST TH Visit (TeleHealth) Hematology and Oncology at [address] [phone] Tracy Beltran [facility] [place] [address] 05/20/2024 10:40 AM EST Hospital Encounter Mammography/[place] [phone] 05/20/2024 11:50 AM EST Office Visit [place] [phone] Magaly Quijano APRN [facility] [place] [address] 11/15/2024 4:00 PM EDT Office Visit Hematology [place] [address] Jenyn Melissa MD [facility] DR HEMATOLOGY/[place] [address] documented as of this encounter Procedures Procedure Name Priority Date/Time Associated Diagnosis Comments MAMMO SCREENING CAD AND MARKOS LEFT Routine 03/23/2022 2:27 PM EDT Malignant neoplasm of upper-outer quadrant of right breast in female, estrogen receptor positive Encounter for screening mammogram for malignant neoplasm of breast documented in this encounter Results * Mammo [...] mammogram documented in this encounter Care Teams Prototype Model Maker Relationship Specialty Start Date End Date Zuleima Duvall APRN [address] [place] [phone] PCP - General Family Medicine 01/21/21 05/17/23 documented as of this encounter
--- OUTSIDE RECORDS SUMMARY | 2023-12-28 02:22 | XMS_ITS | Encounter Summary ---
Author Organization [facility] [place] [address] Care Team Providers Care Television Schedule Coordinator Name Role Phone Josefina Crocker APRN Primary Care Provider [phone] Encounter Details Date Type Department Care Team (Latest Contact Info) Description 09/21/2023 10:44 AM EDT - 09/21/2023 11:59 PM EDT Hospital [place] [phone] Discharge Disposition: Home Social History Tobacco Use [...] Sig Dispensed Refills Start Date End Date lisinopriL (Zestril) 40 mg tabletIndications:hyper tension Take [...] AM EDT Office Visit Hematology/Oncology at [address] [phone] Sumanth Bermudez MD [facility] HEMATOLOGY/[place] [address] 12/28/2023 10:30 AM EDT Infusion Hematology Oncology at [address] [phone] 01/02/2024 3:20 PM EDT Hospital [place] [address] Astrid Ortega MD [facility] [place] [address] 04/22/2024 10:00 AM EST TH Visit (TeleHealth) Hematology and Oncology at [address] [phone] Tracy Beltran [facility] [place] [address] 05/20/2024 10:40 AM EST Hospital Encounter Mammography/DXA at [place] [phone] 05/20/2024 11:50 AM EST Office Visit General Surgery at [place] [phone] Magaly Quijano APRN [facility] [place] [address] 11/15/2024 4:00 PM EDT Office Visit Hematology and Oncology at [place] [phone] Jenny Melissa MD [facility] [place]OLOG[place] [address] documented as of this encounter Procedures Procedure Name Priority Date/Time Associated Diagnosis Comments SURGICAL PATHOLOGY REPORT Routine 09/21/2023 9:05 AM EDT documented in this encounter Results * Surgical Pathology Report (09/21/2023 9:05 AM EDT) FINAL DIAGNOSIS (AP) [id number] ? Location: [facility] The signing pathologist has (i) examined the relevant preparation(s) for the specimen(s) and (ii) rendered or confirmed the diagnosis(es). . ? 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 Electronically signed by: ?Kunal Bond MD Verified: ??11/01/2023 14:24 ??Pathologist Performed at: ??-[facility] Dept. of Pathology, [place] [address] [employer] Clerk: Deangelo Iverson MD, LEYDA, ??CLIA Certificate: [id number] ?Surgical Pathology DIAGNOSIS Distal sigmoid mass Biopsy: - Adenocarcinoma ??(see Note). Note: ??Immunostains for MLH1, MSH2, MSH6 and PMS2 reveal [...] meets current criteria for Russ syndrome screening. CR-PX Electronically signed by: ?Kunal Bond MD Verified: ??09/27/2023 15:54 ??Pathologist Performed at: ??-[facility] Dept. of Pathology, [place] [address] [employer] Clerk: Deangelo Iverson MD, PAOLA, ??CLIA Certificate: [id number] ADDITIONAL STUDIES Immunohistochemistry Studies: These IHC studies provide the pathologist with adjunctive diagnostic information. Antibody specificity has been verified by testing antibodies on a series of in-house tissues with known immunohistochemical performance characteristics. The clinical interpretation of any antibody positive staining or its absence is evaluated within the context of clinical presentation, morphology, histopathological criteria and other diagnostic tests. Block ? Antibody ? Result (Positive/Negative) A1 ? MLH1 ?see note ? MSH2 ?see note ? MSH6 ?see note ? PMS2 ?see note Immunohistochemical assay was performed on paraffin-embedded tissue sections fixed in 10% neutral buffered formalin for 6-72 hours using the polymer system technique with appropriate controls. The assay was performed according to the pattern designer's instructions using anti-MLH-1 (ES05), anti-MSH-2 ([id number]), anti-MSH-6 (44), and anti-PMS-2 (MRQ-28) antibodies. SPECIMEN(S) SUBMITTED External clinical history provided. See eD-H for scanned documents. . SPECIMEN(S) SUBMITTED A - Distal sigmoid mass Biopsy Referring Identifier: ??[id number] CLINICAL INFORMATION Colonoscopy SPECIMEN PROCESSING A - Labeled/Fixative: Mass biopsy, formalin. Quantity/Size: Two, 0.3 and 0.5 cm. Tissue Description: Soft, strong tissues. Sections/Processing: Submitted in toto ??in 1 cassette labeled A1. ??sns 11/01/2023 2:24 PM EDT [facility] 09/21/2023 9:05 AM EDT Narrative Resulting Agency Comment Spec In Lab / [facility] Nathaniel Adam MD PATHOLOGY/CYTOLOG Y ORDERABLES [facility] [place] [address] documented in this encounter Visit Diagnoses Not on filedocumented in this encounter Care Teams Television Schedule Coordinator Relationship Specialty Start Date End Date Josefina Crocker APRN [address] [place] [id number] PCP - General Family Medicine 07/17/23 documented as of this encounter
--- OUTSIDE RECORDS SUMMARY | 2023-12-28 02:22 | XMS_ITS | Encounter Summary ---
Author Organization [facility] Address [facility] [place] [address] Care Team Providers Care Business Services Specialist Sales Name Role Phone Zuleima Duvall APRN Primary Care Provider [phone] Encounter Details Date Type Department Care Team (Latest Contact Info) Description 04/13/2021 1:00 PM EST TH Visit (TeleHealth) Hematology [place] [phone] Jenny Melissa MD [facility] HEMATOLOGY/[place] [address] Malignant neoplasm of upper-outer quadrant of right breast in female, estrogen receptor positive; Osteopenia of multiple sites Social History Tobacco Use Types Packs/Day Years [...] as of this encounter Progress Notes * Jenny Melissa MD - 04/13/2021 1:00 PM EST Patient consents to a telehealth consultation or follow up visit during the Covid19 crisis. Patientinformed that insurance will be billed for this visit. Cc: breast cancer Interval history: On-going digestive problems, work up delayed due to covid and breast cancer diagnosis. Colonoscopy coming up at [facility]. Patient Active Problem List Diagnosis Code ??? Endometrial adenocarcinoma, endometrioid type, FIGO grade 2 C54.1 ??? Malignant neoplasm of right breast in female, estrogen receptor positive C50.911, Z17.0 S/p Right mastectomy, oncotype score of 5 dexa viewed independently by me, T-2.2 , osteopenia/ borderline osteoporosis Discussed:endocrine therapy for breast cancer and bone health Optimal calcium in diet , optimal lifestyle with daily weight bearing exercise Declined endocrinology referal Thyroid function recently checked by PCP and was normal Plan: tamoxifen, due to borderline osteopenia. Marychuy would like to avoid bisphosphonates. F/u 3 months with telehealth Future in-person f/u at [facility] documented in this encounter Plan of Treatment Upcoming Encounters Date Type Department Care Team (Late st Contact Info) Description 12/28/2023 10:00 AM EDT Office Visit Hematology/Oncology at [address] [phone] Sumanth Bermudez MD [facility] HEMATOLOGY/[place] DEPT. [place], [place] [phone] 12/28/2023 10:30 AM EDT Infusion Hematology Oncology at [address] [phone] 01/02/2024 3:20 PM EDT Hospital [place] [address] Astrid Ortega MD [facility] [place] [address] 04/22/2024 10:00 AM EST TH Visit (TeleHealth) Hematology and Oncology at [address] [phone] Tracy Beltran [facility] [place] [address] 05/20/2024 10:40 AM EST Hospital Encounter Mammography/DXA at [place] [phone] 05/20/2024 11:50 AM EST Office Visit General Surgery at [place] [phone] Magaly Quijano APRN [facility] [place] [address] 11/15/2024 4:00 PM EDT Office Visit Hematology and Oncology at [place] [phone] Jenny Melissa MD [facility] [place]OLOG[place] [address] documented as of this encounter Visit Diagnoses Diagnosis Malignant neoplasm of upper-outer quadrant of right breast in female, estrogen receptor positive Osteopenia of multiple sites documented in this encounter Care Teams Business Services Specialist Sales Relationship Specialty Start Date End Date Zuleima Duvall APRN [address] [place] [phone] PCP - General Family Medicine 01/21/21 05/17/23 documented as of this encounter
--- OUTSIDE RECORDS SUMMARY | 2023-12-28 02:22 | XMS_ITS | Encounter Summary ---
[place] [address] Care Team Providers Care Belt Back Operator Name Role Phone Josefina Crocker APRN Primary Care Provider [phone]- [phone] Reason for Referral * Consultation (Priority 1) - Authorized Specialty Diagnoses / Procedures Referred By Renato linares Referred To Contact Genetics Diagnoses Malignant neoplasm of sigmoid colon Jossie Jamison MD [facility] [place] [address] [facility] Hem Onc [address] [place] [phone] Referral ID Status Reason Start Date Expiration Date Visits Requested Visits Authorized [id number] Authorized Consult, Test & Treat 10/10/2023 10/09/2024 1 1 * Diagnostic Test (STAT) - Closed Specialty Diagnoses / Procedures Referred By Renato linares Referred To Contact Radiology Diagnoses Malignant neoplasm of sigmoid colon Procedures IR Biopsy Liver Percutaneous Jossie Jamison MD [facility] [place] [place] [address] [facility] [place] [address] Referral ID Status Reason Start Date Expiration Date V isits Requested Visits Authorized [id number] Closed Specialty Service Requested 10/10/2023 04/11/2025 1 1 * Diagnostic Test (Routine) - Closed Specialty Diagnoses / Procedures Referred By Contac t Referred To Contact Radiology Diagnoses Malignant neoplasm of sigmoid colon Procedures NM PET CT Skull Base to Mid-thigh Jossie Jamison MD [facility] [place] [address] [place] [address] Referral ID Status Reason Start Date Expiration Date V isits Requested Visits Authorized [id number] Closed Specialty Service Requested 10/10/2023 04/11/2025 1 1 Reason for Visit * Reason Comments Establish Care * Consultation (Routine) - Closed Specialty Diagnoses / Procedures Referred By Contac t Referred To Contact General Surgery Diagnoses Mass of colon Nathaniel Adam MD [address] [place] [phone] [facility] Gen Surgery [address] [place] [address] Referral ID Status Reason Start Date Expiration Date V isits Requested Visits Authorized [id number] Closed Consult, Test & Treat 09/22/2023 09/21/2024 1 1 Encounter Details Date Type Department Care Team (Late st Contact Info) Description 10/10/2023 10:00 AM EDT Office [place] [address] Jossie Jamison MD [facility] [place] [address] Malignant neoplasm of sigmoid colon; Personal history of breast cancer; History of endometrial cancer; S/P total hysterectomy and bilateral salpingo-oophorectomy ; S/P mastectomy, right; Liver mass Social History Tobacco Use Types [...] Sign Reading Time Taken Comments Blood Pressure 143/75 10/10/2023 10:00 AM EDT Pulse 64 10/10/2023 10:00 AM EDT Temperature 36.3 ??C (97.4 ??F) 10/10/2023 1 0:00 AM EDT Respiratory Rate 16 10/10/2023 10:0 0 AM EDT Oxygen Saturation 100% 10/10/2023 10: 00 AM EDT Inhaled Oxygen Concentration - - Weight 58.9 kg (129 lb 14.4 oz) 024 10:00 AM EDT Height 162.6 cm (5' 4.02) 10/10/2023 1 0:00 AM EDT Body Mass Index 22.29 10/10/2023 10:00 AM EDT documented in this encounter Progress Notes * Kesha Ross, TARYN - 10/10/2023 10:00 AM EDT Images from the original note were not included. Colon Cancer Treatment Consultation ~ Division of Colon and Rectal Surgery ~ [facility] HPI: Marychuy Hood is a pleasant 73 y.o. female who we were asked to see by Dr. Adam regarding new diagnosis of sigmoid colon cancer. The patient's PCP is Josefina Crocker APRN. Marychuy endorses BRBPR that began in March/April 2023. She underwent colonoscopy in September 2023. Scope showed a partially obstructing mass in the distal sigmoid colon. Mass was biopsied and tattooed. The colonoscope could not be advanced past the mass due to poor quality of the prep. Biopsies showed adenocarcinoma, MMR intact. Systemic staging with CT CAP showed obstructing sigmoid mass. There is a 5 cm enhancing pericapsular mass at the liver dome bulging into the newly thickened right hemidiaphragm reflecting peritoneal metastatic disease. There were enlarged cardiophrenic lymph nodes with new subcentimeter mediastinaland hilar lymph nodes. CEA 1.3 Assessment of continence: patient notes that for the last several years, she has had clustering of small volume bowel movements. She notes that she is gassy. Recently has had multiple loose bowel movements/day. She describes intermittent BRBPR. Had increased bleeding in April, [place] time into June, and more recently (2.5 weeks). Describes bloody/mucusy stools. Has occasional incontinen ce to gas. Sometimes will leak stool with passage of gas. She has had lower abdominal pain since July 2023, she does not think there is any relation to dietary choices, although notes she is eating a softer food diet. No unintentional weight loss. She does note some bloating, thinks this is related to gas. Denies nausea or vomiting. She notes that food is not appetizing at this time. Interestingly had a colonoscopy 2.5 years ago at [facility]. Notes this was done prior tostarting Tamoxifen (due to history of abdominal cramping and clustering of bowel function). I do not have the endoscopy report available to review, however, per chart review, there is surgical pathology dated April 2021 (Dr. Thrasher), two tubular adenomas in the cecum. No known family history of colorectal cancer or polyps. Patient has personal history of infiltrating ductal carcinoma s/p right mastectomy and SNE January [address] Erazo[address] Se[address] Dr. Abreu in medical oncology. Personal history of endometrial cancer~ 9 years ago, s/p TAHBSO. No prior pelvic radiation. She is not a smoker. Review of Systems Constitutional: Positive for anorexia and malaise/fatigue. Negative for fever, weight loss, chills and sleep disturbance. Respiratory: Negative for cough, shortness of breath and chest discomfort. Genitourinary: Negative for stress incontinence and urge incontinence. Gastrointestinal: Positive for abdominal discomfort, diarrhea and other (BRBPR). Negative for vomiting, constipation and nausea. HENT: Negative. Psychiatric/Behavioral: Negative. Hematologic/Lymphatic: Negative. Allergic/Immunologic: Negative. Musculoskeletal: Negative. Endocrine: Negative. Cardiovascular: Negative. Neurological: Negative. Skin: Negative. 10/10/2023 9:51 AM COREFO Responses Incontinence Scale 30.56 Social Impact Scale 25 Frequency Scale 25 Stool Releated Aspects 33.33 Medication Scale 0 Total COREFO Score 25 The COREFO questionnaire is a validated questionnaire with 27 questions to assess colorectal functional outcome. Patients are asked to consider the two week period prior before filling out the questionnaire. Category scores range from zero to 100. A total score is calculated from the categories above, also ranging from zero to 100. A higher score represents an increased level of functional disturbance. Past medical history: Patient Active Problem List Diagnosis Code Endometrial adenocarcinoma, endometrioid type, FIGO grade 2 C54.1 Malignant neoplasm of right breast in female, estrogen receptor positive C50.911, Z17.0 Osteopenia of multiple sites M85.89 Past surgical history: Past Surgical History: Procedure Laterality Date MRI GUIDED BIOPSY BREAST VACUUM ASSISTED LEFT Left 01/04/2021 MRI Guided Biopsy Breast Vacuum Assisted Left 01/04/2021 [facility] RAD MRI PRO BX/REMV, LYMPH NODE, DEEP AXILL Right 01/28/2021 BIOPSY OR EXCISION OF LYMPH NODE(S), OPEN, DEEP AXILLARY NODE(S) (WRVU 6.43) performed by Trev Erazo MD at [facility] MAIN OR PRO INTRAOP SENTINEL LYMPH ID W/DYE INJECTION Right 01/28/2021 INTRAOPERATIVE ID (MAPPING) SENTINEL LYMPH NODE,INCLUDES INJECTION (WRVU 2.5) performed by Trev Erazo MD at [facility] MAIN OR PRO MASTECTOMY, SIMPLE, COMPLETE Right 01/28/2021 MASTECTOMY, SIMPLE, COMPLETE (WRVU 15.85) performed by Trev Erazo MD at [facility] MAIN OR Allergies: Hymenoptera allergenic extract Medications: reviewed in the electronic medical record. Current Outpatient Medications on File Prior to [...] by mouth daily. Indications: high blood pressure B-Complex with Vitamin C (SUPER B C) Capsule Take 1 capsule by mouth daily. melatonin 1 mg Tablet Take 1 mg by mouth daily as needed. Taken at bedtime as needed EPINEPHrine (EPIPEN) 0.3 mg/0.3 mL (1:1,000) Auto-Injector Inject 0.3 mg into the muscle once. multivitamin (THERAGRAN) Tablet Take 1 tablet by mouth daily. No current facility-administered medications on file prior to visit. Social history: reports that she has never smoked. She has never used smokeless tobacco. She reports that she does not currently use alcohol after a past usage of about 1.0 standard drink of alcohol per week. She reports that she does not use drugs. Family medical history: Family History Problem Relation Age of Onset Cancer Maternal Grandfather bone Breast Cancer Paternal Half-Sister 60 half sister Lung Cancer Paternal Half-Sister Lung Cancer Maternal Uncle Colorectal Cancer Neg Hx Kidney Cancer Neg Hx Bladder Cancer Neg Hx Uterine Cancer Neg Hx Ovarian Cancer Neg Hx Physical exam: Vitals: Blood pressure 143/75, pulse 64, temperature 36.3 ??C (97.4 ??F), resp. rate 16, height 162.6 cm (5' 4.02), weight 58.9 kg (129 lb 14.4 oz), SpO2 100%. BMI: Body mass index is 22.29 kg/m??. General Appearance: well developed and well nourished Neuro: awake, alert and oriented to person, place and time, no acute distress Psych: appropriate mood and affect Eyes: extra ocular muscles intact ENT: neck supple, no lyphadenopathy noted CV: regular rate and rhythm Resp: Unlabored, CTAB Lymph: no edema noted Abdomen: soft, non-tender, and not distended, no masses or organomegaly. Ext: no cyanosis Labs: reviewed. CEA 1.3 (10/10/2023) Endoscopy: reviewed. Colonoscopy September 2023 Colonoscopy April 2021 Path: reviewed. Surgical pathology September 2023 DIAGNOSIS Distal sigmoid mass Biopsy: - Adenocarcinoma [...] meets current criteria for Russ syndrome screening. Surgical pathology April 2021 DIAGNOSIS A - 4mm cecal polyp: - Fragments of tubular adenoma. B - 2mm cecal polyp: - Tubular adenoma. - Multiple levels examined. Imaging: CT September 2023 CT reviewed at [facility] IMPRESSION 1. New enlarged cardiophrenic lymph node accompanies many new subcentimeter mediastinal and hilar lymph nodes in this patient status post right mastectomy. 2. New 5 cm enhancing hepatic pericapsular mass at the liver dome bulging into the newly thickened right hemidiaphragm reflecting peritoneal metastatic disease. 3. Obstructing sigmoid mass. No pathologically enlarged deep pelvic nor retroperitoneal lymph nodes. Impression/Plan: Marychuy Hood is a 73 y.o. female with a new diagnosis of sigmoid colon cancer in the setting of rectal bleeding. Patient had staging CT scan which showed evidence concerning for metastatic disease to the liver and thickening of the diaphragm that may represent peritoneal disease. She has new enlarged cardiophrenic lymph node and new subcentimeter mediastinal and hilar lymphnodes. She has personal history of breast cancer s/p right mastectomy and sentinel node excision inAugu2020. Personal history of endometrial cancer approximately 9 years ago, s/p TAHBSO. Generally speaking, we discussed that initial treatment of colon cancer is surgical. This involves removing the portion of the colon containing the cancer as well as the blood vessels associated withthat segment of colon to remove the lymph nodes that drain that area. With concerning evidence for metastatic disease in the liver and new mediastinal and hilar lymph nodes, recommend proceeding witha PET/CT. In the setting of personal history of breast cancer and new diagnosis of primary colon cancer, will be important to undergo liver guided biopsy of new enhancing hepatic pericapsular mass atthe liver dome to determine if this represents metastatic disease from her primary colon tumor or her history of breast cancer. Her CEA is within normal range, however, we did discuss that this number is often nonspecific. If her PET/CT does show that her new cardiophrenic, mediastinal, and hilar lymph nodes are FDG avid, this may necessitate the need for additional testing/biopsies. If her liver lesion does prove to be metastatic from her primary colon tumor, recommendations for referral to medical oncology (provider that primarily sees GI malignancies) to discuss systemic chemotherapy. If the liver lesion is fromher previous history of breast cancer, will need to discuss with Dr. Abreu options for additional treatment. With her personal history of breast cancer, endometrial cancer, and new diagnosis of colon cancer, we will also refer her to our genetic counseling team for genetic testing to determine if she has a hereditary cancer syndrome. We discussed that this would likely not change her treatment plan, however, could potentially clarify screening for her children and any other first-degree family members. Patient does have 2 daughters, recommend screening colonoscopy starting at age 40. If there is no hereditary cancer syndromes identified, screening guidelines would recommend 10-year intervals, unless there are personal findings on colonoscopy. If there is other hereditary cancer syndromes identified, this may change how often screening colonoscopies are done. We will place referral to our genetic counseling team today. We will also await PET/CT and liver biopsies for further decision-making regarding. Kesha Ross PA-C Division of Colon and Rectal Surgery I have seen the patient and reviewed Kesha Ross PA-C's above history and I agree with the details as written. The assessment and plan were formulated in discussion with me and I agree with them as documented. Marychuy Hood is a 73 yo woman here with her and daughter to discuss management of new endoscopically obstructing colon cancer - no clinical or radiographic signs of obstruction. Staging CT scan with a new liver mass, thickening of the diaphragm and some enlarged nodes in the chest She has a personal history of breast and endometrial cancers. Discussed with Dr. Melissa her breast oncologist Plan liver biopsy to determine from which cancer the metastasis is from. Check PET scan to evaluateextent of disease in the chest and diaphragms. May need additional biopsies in the chest pending PET results and liver biopsy results. Referral for genetic counseling given 3 primary cancers. Screening recommendations for first degreerelatives discussed. No clinical obstruction - recommended low fiber diet and using miralax to keep stools soft and easyto pass. Jossie Jamison MD FACS [employer] billing analyst Division of Colon and Rectal Surgery [facility] Pager [phone] documented in this encounter Plan of Treatment Upcoming Encounters Date Type Department Care Team (Late st Contact Info) Description 12/28/2023 10:00 AM EDT Office Visit Hematology/Oncology at [address] [phone] Sumanth Bermudez MD [facility] HEMATOLOGY/[place] [address] 12/28/2023 10:30 AM EDT Infusion Hematology Oncology at [address] [phone] 01/02/2024 3:20 PM EDT Hospital [place] [address] Astrid Ortega MD [facility] [place] [address] 04/22/2024 10:00 AM EST TH Visit (TeleHealth) Hematology and Oncology at [address] [phone] Tracy Beltran [facility] DR MEDICAL ONCOLOGY [place], [place] [phone] 05/20/2024 10:40 AM EST Hospital Encounter Mammography/[place] [address] 05/20/2024 11:50 AM EST Office [place] [address] Magaly Quijano APRN [facility] [place] [place] [address] 11/15/2024 4:00 PM EDT Office Visit Hematology [place] [phone] Jenny Melissa MD [facility] HEMATOLOGY[facility] [place] [address] Scheduled Referrals Name Type Priority Associated Diagnoses Orde r Schedule Referral to Familial Cancer Program (Genetics) Outpatient Referral Routine Malignant neoplasm of sigmoid colon Ordered: 10/10/2023 documented as of this encounter Procedures Procedure Name Priority Date/Time Associated Diagnosis Comments HEMOGRAM Routine 10/10/2023 12:17 PM EDT Malignant neoplasm of sigmoid colon DIFFERENTIAL, AUTOMATED Routine 10/10/2023 12:17 PM EDT [...] Mid-thigh (10/20/2023 2:53 PM EDT) WORKSTATION ID [id number] RAD Anatomical Region Laterality Modality Positron Emissio [...] who have questions please contact the health furnace caretaker that requested your imaging first. ? Narrative 10/25/2023 1:31 PM EDT EXAMINATION: NM PET CT STANDARD SKULL BASE TO MID-THIGH CLINICAL HISTORY: Colon, breast, endometrial cancers, new liver lesion, chest nodes, lung nodules C18.7, Malignant neoplasm of sigmoid colon TECHNIQUE: Following IV injection of 16-ptjpdl-4-deoxyglucose (FDG) a standard uptake of approximately 60 [...] sigmoid colon TECHNIQUE: Following IV injection of 62-vrlkqe-5-deoxyglucose (FDG) astandard uptake of approximately 60 minutes, [...] patients who have questions please contactthe health furnace caretaker that requested your imaging first. Jossie Jamison MD IMG PET ORDERABLES * IR Biopsy Liver Percutaneous (10/19/2023 8:20 [...] performed the entire procedure. Jossie Jamison MD [facility] IR ORDERABLES * Differential, Automated (10/10/2023 12:17 PM EDT) Neutrophils % 67.3 % [facility] Neutr Abs (ANC) 4.46 1.70 - 6.10 x10(3)/[facility] Lymphocytes % 23.3 % [facility] Lymphocytes Abs 1.5 0.9 - 3.2 x10(3)/[facility] Monocytes % 7.7 % [facility] Monocyte Abs 0.5 0.3 - 0.9 x10(3)/[facility] Eosinophils % 0.9 % [facility] Eosinophils Abs 0.1 0.0 - 0.4 x10(3)/[facility] Basophils % 0.6 % [facility] Basophils Abs 0.0 0.0 - 0.1 x10(3)/[facility] Immature Gran % 0.20 % [facility] Comment: Immature granulocytes(IG's)percentage and absolute count will include metamyelocytes, myelocytes, and promyelocytes. Blood smears from CBCs yielding IG's will be scanned manually for concordance. If this scan disagrees with the automated IG or if promyelocytes are noted, a manual differential will be performed. [place] Gran Abs 0.01 0.00 - 0.04 x10(3)/[facility] Blood 10/10/2023 12:1 7 PM EDT 10/10/2023 12:22 PM EDT Narrative Resulting Agency Comment Spec In Lab Jossie Jamison MD HEMATOLOGY ORDERABLE S [facility] [place] [address] * (ABNORMAL) Hemogram (10/10/2023 12:17 PM EDT) WBC 6.6 4.0 - 9.5 x10(3)/[facility] RBC 4.05 4.00 - 5.21 x10(6)/[facility] Hemoglobin 11.7 11.7 - 15.5 g/dL [facility] Hematocrit 36.3 35.7 - 45.8 % [facility] MCV 89.6 82.6 - 94.4 [facility] MCH 28.9 27.1 - 32.0 pg [facility] MCHC 32.2 31.7 - 35.0 g/dL [facility] Platelets 388(H) 145 - 357 x10(3)/[facility] RDWSD 41.2 37.0 - 46.0 [facility] RDWCV 12.4 11.5 - 14.1 % [facility] MPV 8.6 7.6 - 12.9 [facility] nRBC % Auto 0.0 % [facility] nRBC Abs Auto 0.000 0.000 - 0.000 x10(3)/[facility] Blood 10/10/2023 12:1 7 PM EDT 10/10/2023 12:22 PM EDT Narrative Resulting Agency Comment Spec In Lab Jossie Jamison MD HEMATOLOGY ORDERABLE S [facility] [place] [address] * (ABNORMAL) Basic Metabolic Panel (non-fasting) (10/10/2023 12:17 PM EDT) Glucose Lvl 102 65 - 199 mg/dL [facility] Comment:Diabetes: >=200 mg/d L plus symptoms BUN 19(H) 8 - 18 mg/dL [facility] Creatinine 0.94 0.70 - 1.20 mg/dL [facility] Sodium 138 135 - 145 mmol/L [facility] Potassium 4.5 3.5 - 5.0 mmol/L [facility] Comment: Please note: ??Patients with WBC >100,000 may have falsely elevated Potassium levels. ??For accurate Potassium quantification in these patients send serum separator tube (gold top) for subsequent determinations. ??Contact the Clinical Chemistry Laboratory if there are any questions. Chloride 102 98 - 107 mmol/L [facility] CO2 26 22 - 31 mmol/L [facility] Anion Gap 10 5 - 15 mmol/L [facility] Calcium 9.5 8.5 - 10.5 mg/dL [facility] Estimated GFR 65 >=60 mL/min/1. 73 m?? [facility] Comment: This patient's estimated GFR [...] Jamison MD CHEMISTRY ORDERABLES Performing Organization Address [facility] de Phone Number [facility] [place] [address] * (ABNORMAL) Hepatic Function Panel (10/10/2023 12:17 PM EDT) Total Protein 7.2 6.1 - 8.0 g/dL [facility] Albumin 4.2 3.2 - 5.2 g/dL [facility] AST 18 0 - 30 unit/L [facility] ALT 12 0 - 30 unit/L [facility] Alk Phos 47 35 - 105 unit/L [facility] Total Bilirubin <0.2(L) 0.2 - 1.3 mg/dL [facility] Bili, Direct <0.1 0.0 - 0.3 mg/dL [facility] Blood 10/10/2023 12:1 7 PM EDT 10/10/2023 12:22 PM EDT Narrative Resulting Agency Comment Spec In Lab Jossie Jamison MD CHEMISTRY ORDERABLES Performing Organization Address [facility] de Phone Number [facility] [place] [address] * CEA (10/10/2023 12:17 PM EDT) Pathologist [facility] CEA 1.3 ng/mL [facility] [...] Jamison MD CHEMISTRY ORDERABLES Performing Organization Address [facility] [place] [address] documented in this encounter Visit Diagnoses Diagnosis Malignant neoplasm of sigmoid colon Personal history of breast cancer Personal history of malignant neoplasm of breast History of endometrial cancer Personal history of malignant neoplasm of other parts of uterus S/P total hysterectomy and bilateral salpingo-oophorectomy Acquired absence of both cervix and uterus S/P mastectomy, right Liver mass Unspecified disorder of liver Malignant neoplasm of sigmoid colon Malignant neoplasm of sigmoid colon documented in this encounter Care Teams Belt Back Operator Relationship Specialty Start Date End Date Josefina Crocker APRN [address] [place] [address] PCP - General Family Medicine 07/17/23 documented as of this encounter
--- OUTSIDE RECORDS SUMMARY | 2023-12-28 02:22 | XMS_ITS | Encounter Summary ---
Author Organization Formerly [facility] Address [facility] [place] [address] Care Team Providers Care Taffy Candy Maker Name Role Phone ObiJosefina Mona RIOS Primary Care Provider [phone] Encounter Details Date Type Department Care Team (Late st Contact Info) Description 09/27/2023 Interpretation [place] [phone] Devante Gonzalez MD [facility] [place] [address] Social History Tobacco Use Types Packs/Day Years [...] AM EDT Office Visit Hematology/Oncology at [address] [phone] Sumanth Bermudez MD [facility] HEMATOLOGY/[place] [address] 12/28/2023 10:30 AM EDT Infusion Hematology Oncology at [address] [phone] 01/02/2024 3:20 PM EDT Hospital [place] [phone] Astrid Ortega MD [facility] [place] [address] 04/22/2024 10:00 AM EST TH Visit (TeleHealth) Hematology and Oncology at [address] [phone] Tracy Beltran [facility] [place] [address] 05/20/2024 10:40 AM EST Hospital Encounter Mammography/[place] [phone] 05/20/2024 11:50 AM EST Office [place] [phone] Magaly Quijano APRN [facility] [place] [address] 11/15/2024 4:00 PM EDT Office Visit Hematology [place] [address] Jenny Melissa MD [facility] HEMATOLOGY/[place] [address] documented as of this encounter Procedures Procedure Name Priority Date/Time Associated Diagnosis Comments FILM LIBRARY STORAGE ONLY CT CHEST Routine 09/27/2023 10:55 AM EDT documented in this encounter Results * Film Library- Storage Only CT Chest (09/27/2023 10:55 AM EDT) 09/28/2023 1:47 PM EDT Narrative [facility] 09/28/2023 1:47 PM EDT This exam is auto-finalizing. It's purpose is for storage only. Devante Gonzalez MD IMG FILM LIBRARY ORD ERABLES Performing Organization Address City/State/[facility] Co de Phone Number [place], [place] documented in this encounter Visit Diagnoses Not on filedocumented in this encounter Care Teams Taffy Candy Maker Relationship Specialty Start Date End Date Josefina Crocker APRN [address] [place] [address] PCP - General Family Medicine 07/17/23 documented as of this encounter
--- OUTSIDE RECORDS SUMMARY | 2023-12-28 02:22 | XMS_ITS | Encounter Summary ---
Author Organization [facility] Address [facility] [place] [address] Care Team Providers Care Telemetry Technician Name Role Phone None Primary Care Provider Unavailabl e Reason for Visit * Reason Comments Follow-up Encounter Details Date Type Department Care Team (Late st Contact Info) Description 05/18/2023 1:00 PM EST Office Visit Hematology [place] [address] Jenny Melissa MD [facility] HEMATOLOGY/[place] [address] Malignant neoplasm of right breast in female, estrogen receptor positive, unspecified site of breast; Osteopenia of multiple sites; Endometrial adenocarcinoma, endometrioid type, FIGO grade 2 [...] Sign Reading Time Taken Comments Blood Pressure 147/75 05/18/2023 1:08 PM EST Pulse 76 05/18/2023 1:08 PM EST Temperature 36.3 ??C (97.3 ??F) 05/18/2023 1:08 PM ES T Respiratory Rate 16 05/18/2023 1:08 PM EST Oxygen Saturation 99% 05/18/2023 1:08 PM EST Inhaled Oxygen Concentration - - Weight 59.8 kg (131 lb 13.4 oz) 05/18/2023 1:08 PM EST Height 162.2 cm (5' 3.86) 05/18/2023 1:08 PM ES T Body Mass Index 22.73 05/18/2023 1:08 PM EST documented in this encounter Progress Notes * Jenny Melissa MD - 05/18/2023 1:00 PM EST 72 yo with right breast cancer dx 2019 Current treatment : tamoxifen Cc: breast cancer Interval history: Taking tamoxifen daily, and still struggling with fatigue, low energy and depression symptoms. Was hoping the summer months would help but they did not. being treated with immunotherapy. Daughter lives with them has social phobia. She asked her to ask about anti-depressants but Marychuy would rather discuss cessation of tamoxifen. PCP left. Marychuy has never had depression requiring counseling or treatment. She has several stressors but feels her mood darkened considerably when she started tamoxifen. 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 Enjoys weaving. On-going digestive problems, no worse since starting tamoxifen. Patient Active Problem List Diagnosis Code Endometrial adenocarcinoma, endometrioid type, FIGO grade 2 C54.1 Malignant neoplasm of right breast in female, estrogen receptor positive C50.911, Z17.0 HPI: 12/16/20 dx [facility]: ER/CO+/HER2- right breast IDC [id number] Stage IA right upper outer quadrant Screening mammogram detected at [facility] 11/30/20 cat 0 Diagnostic images 12/10 , [...] mammo 03/26 benign Left mammo today benign. Impression: 72 yo with stage I breast cancer, struggling with depression symptoms she associates with the start of tamoxifen, now going on 3 years. OK to hold for 4-6 wks and see if symptoms improve. Could then resume at a lower dose. Plan: F/u 6 wks by telehealth 6 months in person documented in this encounter Plan of Treatment Upcoming Encounters Date Type Department Care Team (Late st Contact Info) Description 12/28/2023 10:00 AM EDT Office Visit Hematology/Oncology at [address] [phone] Sumanth Bermudez MD [facility] HEMATOLOGY/[place] [address] 12/28/2023 10:30 AM EDT Infusion Hematology Oncology at [address] [phone] 01/02/2024 3:20 PM EDT Hospital Encounter CT Scan at [place] [phone] Astrid Ortega MD [facility] [place] [address] 04/22/2024 10:00 AM EST TH Visit (TeleHealth) Hematology and Oncology at [address] [phone] Tracy Beltran [facility] [address] 05/20/2024 10:40 AM EST Hospital Encounter Mammography/DXA at [place] [phone] 05/20/2024 11:50 AM EST Office [place] [address] Magaly Quijano APRN [facility] [place] [address] 11/15/2024 4:00 PM EDT Office Visit Hematology and Oncology at [place] [phone] Jenny Melissa MD [facility] HEMATOLOGY/[place] [address] documented as of this encounter Visit Diagnoses Diagnosis Malignant neoplasm of right breast in female, estrogen receptor positive, unspecified site of breast Osteopenia of multiple sites Endometrial adenocarcinoma, endometrioid type, FIGO grade 2 Malignant neoplasm of corpus uteri, except isthmus documented in this encounter Care Teams Telemetry Technician Relationship Specialty Start Date End Date None None PCP - General 05/18/23 07/16/23 documented as of this encounter
--- OUTSIDE RECORDS SUMMARY | 2023-12-28 02:22 | XMS_ITS | Encounter Summary ---
Author Organization [facility] [place] [address] Care Team Providers Care Costume Technician Name Role Phone Zuleima Duvall APRN Primary Care Provider [phone] Encounter Details Date Type Department Care Team (Late st Contact Info) Description 03/23/2021 External [place] [address] Provider, Scanning Social History Tobacco Use Types Packs/Day Years [...] 10:00 AM EDT Office Visit Hematology/Oncology at [address] [phone] Sumanth Bermudez MD [facility] HEMATOLOGY/[place] [address] 12/28/2023 10:30 AM EDT Infusion Hematology Oncology at [address] [phone] 01/02/2024 3:20 PM EDT Hospital Encounter CT Scan at [place] [phone] Astrid Ortega MD [facility] [place] [address] 04/22/2024 10:00 AM EST TH Visit (TeleHealth) Hematology and Oncology at [address] [phone] Tracy Beltran, [facility] [place] [address] 05/20/2024 10:40 AM EST Hospital Encounter Mammography/DXA at [place] [phone] 05/20/2024 11:50 AM EST Office Visit General Surgery at [place] [phone] Magaly Quijano APRN [facility] [place] [address] 11/15/2024 4:00 PM EDT Office Visit Hematology [place] [phone] Jenny Melissa MD [facility] [place] [address] documented as of this encounter Procedures Procedure Name Priority Date/Time Associated Diagnosis Comments SURGICAL PATHOLOGY SCAN Routine 03/23/2021 documented in this encounter Results * Scan Doc: Surgical Pathology (03/23/2021) Historical Provider MEDIA MGR SCAN EX T ORDR/RSLT documented in this encounter Visit Diagnoses Not on filedocumented in this encounter Care Teams Costume Technician Relationship Specialty Start Date End Date Zuleima Duvall APRN [address] [place] [phone] PCP - General Family Medicine 01/21/21 05/17/23 documented as of this encounter
--- OUTSIDE RECORDS SUMMARY | 2023-12-28 02:22 | XMS_ITS | Encounter Summary ---
[place] [address] Care Team Providers Care Senior Commissions Analyst Name Role Phone None Primary Care Provider Unavailabl e Reason for Visit * Reason Onset Date Comments Medication Management 07/14/2023 Encounter Details Date Type Department Care Team (Late st Contact Info) Description 07/14/2023 Telephone Hematology [place] [phone] Izabella Callejas, door to door fundraising collector Management Social History Tobacco Use Types Packs/Day Years [...] encounter Miscellaneous Notes * Telephone Encounter - Izabella Callejas RN - 07/14/2023 7:07 AM ESTSummary: medication management ----- Message from Izabella Callejas RN sent at 06/30/2023 1:37 PM EST ----- Regarding: f/u tamoxifen F/u as scheduled w/ [facility] Triage: Please call her in 2 weeks to see how cutting current supply of 20 mg tamoxifen into 10 mg is going. Does she need a new rx of 10 mg instead of cutting? Is so please pend and I will send. Thank you! Call placed to patient and spoke to Marychuy. The cutting is fine. Does not split exactly but since she takes one half one day and the other the next it averages out. Past two weeks she has had several friends that are sick and dying. So it is hard to say how she isfeeling with the lower dose of Tamoxifen. She has been seeing some persistent HTN. She is seeing a new PCP for medication adjustment. We looked up Tamoxifen and HTN and there was an 11% reported HTN with Tamoxifen. She will discuss this with her PCP. She understands to call if she has any questions or concerns moving forward. She filled her last 90 day supply of the 20 mg tablets. She requests we order the new 10 mg tabletsand she will compare cost. If the 10 mg is more she will have us discontinue the 10 and go back to 20 mg and she will cut. All questions answered to patient's apparent satisfaction. New prescription for 10 mg tamoxifen written and pended to provider for review and signature if in agreement. documented in this encounter Plan of Treatment Upcoming Encounters Date Type Department Care Team (Late st Contact Info) Description 12/28/2023 10:00 AM EDT Office Visit Hematology/Oncology at [address] [phone] Sumanth Bermudez MD [facility] HEMATOLOGY/[place] [address] 12/28/2023 10:30 AM EDT Infusion Hematology Oncology at [address] [phone] 01/02/2024 3:20 PM EDT Hospital Encounter CT Scan at [place] [phone] Astrid Ortega MD [facility] [address] 04/22/2024 10:00 AM EST TH Visit (TeleHealth) Hematology and Oncology at [address] [phone] Tracy Beltran [facility] [place] [place] [address] 05/20/2024 10:40 AM EST Hospital Encounter Mammography/DXA at [place] [phone] 05/20/2024 11:50 AM EST Office Visit General Surgery at [place] [phone] Magaly Quijano APRN [facility] [place] [address] 11/15/2024 4:00 PM EDT Office Visit Hematology and Oncology at [place] [phone] Jenny Melissa MD [facility] [place] [address] documented as of this encounter Visit Diagnoses Not on filedocumented in this encounter Care Teams Senior Commissions Analyst Relationship Specialty Start Date End Date None None PCP - General 05/18/23 07/16/23 documented as of this encounter
--- OUTSIDE RECORDS SUMMARY | 2023-12-28 02:22 | XMS_ITS | Encounter Summary ---
Author Organization [facility] Address [facility] [place] [address] Care Team Providers Care Supervisor Sewer System Name Role Phone Zuleima Duvall APRN Primary Care Provider [phone] Encounter Details Date Type Department Care Team (Late st Contact Info) Description 02/26/2021 Telephone Hematology [place] [phone] Jenny Melissa MD [facility] HEMATOLOGY/[place] [address] Social History Tobacco Use Types Packs/Day Years [...] encounter Miscellaneous Notes * Telephone Encounter - Jenny Melissa MD - 02/26/2021 8:25 AM EDT TC to pt with oncotype score Score returned very low at 5, showing a 3% distant recurrence risk on endocrine therapy alone and <1% benefit from chemotherapy. She is happy to hear this. Marychuy has a bone density scan and PT at [facility] coming up, but doesn't have a medical oncology apptyet. She is interested in an appt at our [facility] for breast prosthesis. I'll forward this to our patient support team. documented in this encounter Plan of Treatment Upcoming Encounters Date Type Department Care Team (Late st Contact Info) Description 12/28/2023 10:00 AM EDT Office Visit Hematology/Oncology at [address] [phone] Sumanth Bermudez MD [facility] HEMATOLOGY/[place] [address] 12/28/2023 10:30 AM EDT Infusion Hematology Oncology at [address] [phone] 01/02/2024 3:20 PM EDT Hospital [place] [address] Astrid Ortega MD [facility] [place] [address] 04/22/2024 10:00 AM EST TH Visit (TeleHealth) Hematology and Oncology at [address] [phone] Tracy Beltran [facility] [place] [address] 05/20/2024 10:40 AM EST Hospital Encounter Mammography/[place] [phone] 05/20/2024 11:50 AM EST Office Visit General Surgery at [place] [phone] Magaly Quijano APRN [facility] [place] [address] 11/15/2024 4:00 PM EDT Office Visit Hematology [place] [phone] Jenny Melissa MD [facility] DR HEMATOLOGY/[place] [address] documented as of this encounter Visit Diagnoses Not on filedocumented in this encounter Care Teams Supervisor Sewer System Relationship Specialty Start Date End Date Zuleima Duvall APRN [address] [place] [address] PCP - General Family Medicine 01/21/21 05/17/23 documented as of this encounter
--- OUTSIDE RECORDS SUMMARY | 2023-12-28 02:22 | XMS_ITS | Encounter Summary ---
Author Organization [facility]ly [facility] [place] [address] Care Team Providers Care Installer Interior Assemblies Name Role Phone Zuleima Duvall APRN Primary Care Provider [phone] Encounter Details Date Type Department Care Team (Late st Contact Info) Description 03/22/2021 Notes Only Care Management [facility] [place] [address] Rose Marie Wong MSW Social History Tobacco [...] Notes * Rose Marie Wong MSW - 03/22/2021 11:42 AM EDT I'm able to return phone call from Angela, pt's daughter, re: recent insurance bills pt receivedfor tx services. Pt answers call and reports that they looked at additional communications from [facility] that the services had been re-submitted to pt's Medicare, and the issue is resolved with the exception of $500. The family would still like to speak with someone about this remaining amount, and I provide them with contact information for pt advocates at [facility]. Pt agrees to stay in touch with me as needed per above. She also reports family has not yet received annual property tax bill, for which they're interested to receive cristel asst as able. We will continue to communicate about this when family received invoice. Completed today: Brief assessment Patient Financial Assistance/Insurance documented in this encounter Plan of Treatment Upcoming Encounters Date Type Department Care Team (Late st Contact Info) Description 12/28/2023 10:00 AM EDT Office Visit Hematology/Oncology at [address] [phone] Sumanth Bermudez MD [facility] HEMATOLOGY/[place] [address] 12/28/2023 10:30 AM EDT Infusion Hematology Oncology at [address] [phone] 01/02/2024 3:20 PM EDT Hospital [place] [address] Astrid Ortega MD [facility] [place] [address] 04/22/2024 10:00 AM EST TH Visit (TeleHealth) Hematology and Oncology at [address] [phone] Tracy Beltran [facility] [place] [address] 05/20/2024 10:40 AM EST Hospital Encounter Mammography/DXA at [place] [phone] 05/20/2024 11:50 AM EST Office Visit General Surgery at [place] [phone] Magaly Quijano APRN [facility] [place] [address] 11/15/2024 4:00 PM EDT Office Visit Hematology and Oncology at [place] [phone] Jenny Melissa MD [facility] [place]OLOG[place] [address] documented as of this encounter Visit Diagnoses Not on filedocumented in this encounter Care Teams Installer Interior Assemblies Relationship Specialty Start Date End Date Zuleima Duvall APRN [address] [place] [phone] PCP - General Family Medicine 01/21/21 05/17/23 documented as of this encounter
--- OUTSIDE RECORDS SUMMARY | 2023-12-28 02:22 | XMS_ITS | Encounter Summary ---
Author Organization [facility] Address [facility] [place] [address] Care Team Providers Care Remarketing Rep Name Role Phone Zuleima Duvall APRN Primary Care Provider [phone] Encounter Details Date Type Department Care Team (Latest Contact Info) Description 10/05/2022 10:00 AM EDT TH Visit (TeleHealth) [place] [phone] Tesha Melissa MD [facility] HEMATOLOGY/[place] [address] Malignant neoplasm of upper-outer quadrant of right [...] as of this encounter Progress Notes * Tesha Melissa MD - 10/05/2022 10:00 AM EDT Patient consents to a telehealth??consultation or follow up visit during the Covid19 crisis. Patient informed that insurance will be billed for this visit. ?? Cc: breast cancer ?? Interval history: Taking tamoxifen daily, not sure if it's impacting her or not. Has had trouble with fatigue and depression over the winter. PCP suggested tamoxifen is a depressant. Marychuy does have a hx of SAD, and her was recently diagnosed with melanoma so they've been dealing with that and making lots of trips to [facility]. Not a lot of exercise during the winter, likes to get outside inspring. Enjoys weaving. Looking forward to gardening. On-going digestive problems, no worse since starting tamoxifen. Had one episode of blood in stool, or at least on toilet paper, not sure if it might have been vaginal . Happened once without recurrence. ? Patient Active Problem List Diagnosis Code ??? Endometrial adenocarcinoma, endometrioid type, FIGO grade 2 C54.1 ??? Malignant neoplasm of right breast in female, estrogen receptor positive C50.911, Z17.0 ? HPI: 12/16/20 dx AVH: ER/N[place]+/HER2- right breast IDC pT1cN0 Stage IA right upper outer quadrant Screening mammogram detected at [facility] 11/30/20 cat 0 Diagnostic images 12/10 , biopsy 12/16/20 c/w grade 2 IDCA er/pr++ her2 neg MRI 12/30/20 showed bilateral multifocal abnormalities and 2 abnormal nodes on the right Right axillary US was benign MRI guided biopsy of the Left lesions 1 and 3 were benign, papilloma and ALH respectively ?? Right mastectomy and sentinel node biopsy showed IDCA 20 mm grade 2, 0/2 LN + , with DCIS Oncotype dx is pending. ?? Risk factors: personal hx of endometrial cancer; FHx breast cancer in one half- sister who recently of lung cancer and was a chronic smoker; 2 other sisters are without cancer. Marychuy's grand mother had bone cancer. Menses began at age 15 until approximately age 59; [facility] 1st at age 31 ?? S/p Right mastectomy, SLN neg. 01/23 oncotype score of 5 pT2N0 grade 2 ? dexa viewed independently by me, T-2.2 , osteopenia/ borderline osteoporosis ? S/p Right mastectomy, SLN neg. 01/23 oncotype score of 5 pT2N0 grade 2 ? dexa viewed independently by me, T-2.2 , osteopenia/ borderline osteoporosis Left mammo 03/26 benign ? Impression: 72 yo with stage I breast cancer, doing ok on tamoxifen. Side effects not-specific and multi-factorial. ?? Plan: Continue tamoxifen another 6 months and assess side effects then, AIs not recommended due toborderline osteopenia. Marychuy would like to avoid bisphosphonates.? Right mammo and CBE planned in March 2023 with surgical team, i'll see her then too and review s/e then as well as dexa scan. ? F/u 6 months with dexa scan contiue tamoxifen ? documented in this encounter Plan of Treatment Upcoming Encounters Date Type Department Care Team (Late st Contact Info) Description 12/28/2023 10:00 AM EDT Office Visit Hematology/Oncology at [address] [phone] Sumanth Bermudez MD [facility] HEMATOLOGY/[place] [address] 12/28/2023 10:30 AM EDT Infusion Hematology Oncology at [address] [phone] 01/02/2024 3:20 PM EDT Hospital [place] [phone] Astrid Ortega MD [facility] [place] [address] 04/22/2024 10:00 AM EST TH Visit (TeleHealth) Hematology and Oncology at [address] [phone] Tracy Beltran [facility] [place] [address] 05/20/2024 10:40 AM EST Hospital Encounter Mammography/[place] [address] 05/20/2024 11:50 AM EST Office [place] [address] Magaly Quijano APRN [facility] [address] 11/15/2024 4:00 PM EDT Office Visit Hematology and Oncology at [place] [phone] Tesha Melissa MD [facility] HEMATOLOGY[place] [address] documented as of this encounter Results * DXA Central Spine, [...] BMD measurements and plots are available in WriteLatex under the imaging tab. Paper copies will be sent to providers without E-WAYN access. If you have received this report without the data sheet and do not have access to WriteLatex, please contact Radiology Director Of Sustainable Design at [phone] Monday thru Monday 8am-4pm. ? Bone Density Report ? Name: ?Marychuy Hood Age: ? 72 Sex: ? Female Ethnicity: ? White Date of : 1950 Referring Provider: TESHA MELISSA Study: Bone densitometry was performed. Model: Fluid Stone (S/N [id number]) SW version 13.6.0.5 Exam Date: May 18, 2023 Accession number: [id number] Bone Density: Region ? BMD ?T-score ??Z-score [...] who have questions please contact the health manager wound care that requested your imaging first. ? Electronically signed by: Yris Eduardo MD, [facility] ([phone]), at 05/18/2023 4:09 PM Narrative 05/18/2023 4:09 PM EST EXAMINATION: DXA CENTRAL SPINE, HIP, AND/OR WHOLE BODY (GENERIC) CLINICAL HISTORY: 72 years Female hx osteopenia ?? (as entered by ordering provider) TECHNIQUE: Scans were acquired at the lumbar spine and ??left hip using the Siftit A system. COMPARISON: none FINDINGS: Femoral neck [...] the lumbar spine and left hip usingthe Siftit A system. COMPARISON: none FINDINGS: Femoral neck [...] BMD measurements and plots are available in EMosa Recordsunder the imaging tab. Paper copies will be sent to providers without WriteLatex access.If you have received this report without the data sheet and do not haveaccess to WriteLatex, please contact Radiology Director Of Sustainable Design at [phone] Monday thruFrid 8am-4pm. Bone Density Report Name: Marychuy Hood Age: 72 Sex: Female Ethnicity: White Date of : 1950 Referring Provider: TESHA MELISSA Study: Bone densitometry was performed. Model: tab ticketbroker A (S/N [id number]) GoMoto version 13.6.0.5 Exam Date: May 18, 2023 Accession number: [id number] Bone Density: Region BMD T-score Z-score AP [...] patients who have questions please contactthe health manager wound care that requested your imaging first. Tesha Melissa MD IMG DEXA ORDERABLES documented in this encounter Visit Diagnoses Diagnosis Malignant neoplasm of upper-outer quadrant of right breast in female, estrogen receptor positive Osteopenia of multiple sites Malignant neoplasm of upper-outer quadrant of right breast in female, estrogen receptor positive Osteopenia of multiple sites documented in this encounter Care Teams Remarketing Rep Relationship Specialty Start Date End Date Zuleima Duvall APRN [address] [place] [phone] PCP - General Family Medicine 01/21/21 05/17/23 documented as of this encounter
--- OUTSIDE RECORDS SUMMARY | 2023-12-28 02:22 | XMS_ITS | Encounter Summary ---
Author Organization [facility] Address [facility] [place] [address] Care Team Providers Care Head Of Acquisitions Name Role Phone Zuleima Duvall APRN Primary Care Provider [phone] Reason for Referral * Consultation (Routine) - Closed Specialty Diagnoses / Procedures Referred By Conttalon t Referred To Contact Diagnoses Malignant neoplasm of upper-outer quadrant of right breast in female, estrogen receptor positive Jenny Melissa MD [facility] HEMATOLOGY/[place] [address] Referral ID Status Reason Start Date Expiration Date V isits Requested Visits Authorized [id number] Closed Assume Subset of Care 09/07/2021 03/06/2022 1 1 Encounter Details Date Type Department Care Team (Latest Contact Info) Description 09/07/2021 9:30 AM EDT TH Visit (TeleHealth) Hematology [place] [address] Jenny Melissa MD [facility] HEMATOLOGY/[place] [address] Nerissa Corrigan DO [facility] HEMATOLOGY/[place] [address] Malignant neoplasm of upper-outer quadrant of right [...] Progress Notes * Jenny Melissa MD - 09/07/2021 9:30 AM EDT Patient consents to a telehealth consultation or follow up visit during the Covid19 crisis. Patientinformed that insurance will be billed for this visit. ?? Cc: breast cancer ?? Interval history: Started tamoxifen without difficulty. No side effects that she has noticed. On-going digestive problems, no worse since starting tamoxifen. No vaginal discharge or bleeding. Had blood work with PCP recently, normal cholesterol panel per her report. PCP is retiring. ?? Patient Active Problem List Diagnosis Code ??? Endometrial adenocarcinoma, endometrioid type, FIGO grade 2 C54.1 ??? Malignant neoplasm of right breast in female, estrogen receptor positive C50.911, Z17.0 ? S/p Right mastectomy, SLN neg. 01/23 oncotype score of 5 pT2N0 grade 2 ? dexa viewed independently by me, T-2.2 , osteopenia/ borderline osteoporosis ? Discussed plan going forward ?? Plan: Continue tamoxifen, due to borderline osteopenia. Marychuy would like to avoid bisphosphonates. Right mammo and CBE planned in December 2021 with surgical team Mid-year CBE in Jun 2022 with new PCP or med onc at [facility], will place referral for local care per her request dexa and blood work (CMP, vit D, lipids) every 2 yrs ?? F/u 1 yr with telehealth documented in this encounter Plan of Treatment Upcoming Encounters Date Type Department Care Team (Late st Contact Info) Description 12/28/2023 10:00 AM EDT Office Visit Hematology/Oncology at [address] [phone] Sumanth Bermudez MD [facility] HEMATOLOGY/[place] [address] 12/28/2023 10:30 AM EDT Infusion Hematology Oncology at [address] [phone] 01/02/2024 3:20 PM EDT Hospital [place] [phone] Astrid Ortega MD [facility] [place] [address] 04/22/2024 10:00 AM EST TH Visit (TeleHealth) Hematology and Oncology at [address] [phone] Tracy Beltran [facility] [place] [address] 05/20/2024 10:40 AM EST Hospital Encounter Mammography/[place] [phone] 05/20/2024 11:50 AM EST Office Visit [place] [phone] Magaly Quijano APRN [facility] [place] [address] 11/15/2024 4:00 PM EDT Office Visit Hematology [place] [address] Jenny Melissa MD [facility] [place]ATOLOGY[place] [address] Scheduled Referrals Name Type Priority Associated Diagnoses Order Schedule Referral to Hematology and Oncology Outpatient Referral Routine Malignant neoplasm of upper-outer quadrant of right breast in female, estrogen receptor positive Ordered: 09/07/2021 documented as of this encounter Visit Diagnoses Diagnosis Malignant neoplasm of upper-outer quadrant of right breast in female, estrogen receptor positive documented in this encounter Care Teams Head Of Acquisitions Relationship Specialty Start Date End Date Zuleima Duvall APRN [address] [place] [address] PCP - General Family Medicine 01/21/21 05/17/23 documented as of this encounter
--- OUTSIDE RECORDS SUMMARY | 2023-12-28 02:22 | XMS_ITS | Encounter Summary ---
Author Organization [facility] Address [facility] [place] [address] Care Team Providers Care Mathematics Department Chair Name Role Phone Josefina Crocker APRN Primary Care Provider [phone] Encounter Details Date Type Department Care Team (Late st Contact Info) Description 10/08/2023 Orders [place] [address] Jossie Jamison MD [facility] DR GENER[place] [address] Malignant neoplasm of sigmoid colon Social History [...] 10:00 AM EDT Office Visit Hematology/Oncology at [address] [phone] Sumanth Bermudez MD [facility] HEMATOLOGY/[place] [address] 12/28/2023 10:30 AM EDT Infusion Hematology Oncology at [address] [phone] 01/02/2024 3:20 PM EDT Hospital [place] [phone] Astrid Ortega MD [facility] [place] [address] 04/22/2024 10:00 AM EST TH Visit (TeleHealth) Hematology and Oncology at [address] [phone] Tracy Beltran [facility] [place] [address] 05/20/2024 10:40 AM EST Hospital Encounter Mammography[place] [phone] 05/20/2024 11:50 AM EST Office [place] [phone] Magaly Quijano APRN [facility] [place] [address] 11/15/2024 4:00 PM EDT Office Visit Hematology [place] [address] Jenny Melissa MD [facility] HEMATOLOGY/[place] [address] documented as of this encounter Results * CEA (10/10/2023 12:17 PM EDT) [facility] CEA 1.3 ng/mL [facility] Comment: Reference range: ??(20-69 years): Non-smoker: [...] In Lab Jossie Jamison MD CHEMISTRY ORDERABLES [facility] [place] [address] * (ABNORMAL) Hepatic Function Panel (10/10/2023 12:17 PM EDT) [facility] Total Protein 7.2 6.1 - 8.0 g/dL [facility] Albumin 4.2 3.2 - 5.2 g/dL [facility] AST 18 0 - 30 unit/L [facility] ALT 12 0 - 30 unit/L [facility] Alk Phos 47 35 - 105 unit/L [facility] Total Bilirubin <0.2(L) 0.2 - 1.3 mg/dL [facility] Bili, Direct <0.1 0.0 - 0.3 mg/dL [facility] Blood 10/10/2023 12:1 7 PM EDT 10/10/2023 12:22 PM EDT Narrative Resulting Agency Comment Spec In Lab Jossie Jamison MD CHEMISTRY ORDERABLES [facility] [place] [address] * (ABNORMAL) Basic Metabolic Panel (non-fasting) (10/10/2023 12:17 PM EDT) Glucose Lvl 102 65 - 199 mg/dL [facility] Comment:Diabetes: >=200 mg/d L plus symptoms BUN 19(H) 8 - 18 mg/dL [facility] Creatinine 0.94 0.70 - 1.20 mg/dL [facility] Sodium 138 135 - 145 mmol/L [facility] Potassium 4.5 3.5 - 5.0 mmol/L [facility] Comment: Please note: ??Patients with WBC >100,000 may have falsely elevated Potassium levels. ??For accurate Potassium quantification in these patients send serum separator tube (gold top) for subsequent determinations. ??Contact the Clinical Chemistry Laboratory if there are any questions. Chloride 102 98 - 107 mmol/L [facility] CO2 26 22 - 31 mmol/L [facility] Anion Gap 10 5 - 15 mmol/L [facility] Calcium 9.5 8.5 - 10.5 mg/dL [facility] Estimated GFR 65 >=60 mL/min/1. 73 m?? [facility] Comment: This patient's estimated GFR [...] In Lab Jossie Jamison MD CHEMISTRY ORDERABLES [facility] [place] [address] * Request For 2nd Read CT Chest Abdomen Pelvis (10/08/2023 8:25 PM EDT) WORKSTATION ID [id number] RAD Anatomical Region Laterality Modality Chest, Abdomen, [...] who have questions please contact the health animal caretaker that requested your imaging first. ? Narrative 10/08/2023 8:47 PM EDT EXAMINATION: REQUEST FOR 2ND READ CT CHEST ABDOMEN PELVIS CLINICAL HISTORY: new diagnosis colon cancer, history of breast and ovarian cancer. Evaluate for metastatic disease; Sending Institution [facility]; Date of exam [id number]; I believe a reinterpretation of this exam may alter care of Patient. Yes C18.7, Malignant neoplasm of sigmoid colon TECHNIQUE: Helical CT of the chest, abdomen, and pelvis following the intravenous administration of contrast. 100 cc Omnipaque 350 intravenous contrast.. Oral contrast was administered. Study performed September 27, 2023 [facility]. COMPARISON: CT scan the chest August 19, [...] cancer. Evaluate for metastatic disease; Sending Institution [facility];Date of exam [id number]; I believe a reinterpretation of this exam may alter careof Patient. Yes C18.7, Malignant neoplasm of sigmoid colon TECHNIQUE: Helical CT of the chest, abdomen, and pelvis following the intravenous administration of contrast. 100 cc Omnipaque 350 intravenous contrast.. Oral contrast was administered. Study performed September [facility]. COMPARISON: CT scan the chest August 19, [...] patients who have questions please contactthe health animal caretaker that requested your imaging first. Electronically signed by: Xenia Boss MD, [facility]([phone]), at 10/08/2023 8:47 PM Jossie Jamison MD IMG OUTSIDE INTERPRE TATION ORDERABLES documented in this encounter Visit Diagnoses Diagnosis Malignant neoplasm of sigmoid colon Malignant neoplasm of sigmoid colon documented in this encounter Care Teams Mathematics Department Chair Relationship Specialty Start Date End Date Josefina Crocker APRN [address] [place] [address] PCP - General Family Medicine 07/17/23 documented as of this encounter
--- OUTSIDE RECORDS SUMMARY | 2023-12-28 02:22 | XMS_ITS | Encounter Summary ---
[place] [address] Care Team Providers Care Dining Room Tables Set Up Attendant Name Role Phone Obi Josefina Mona RIOS Primary Care Provider [phone] Reason for Referral * Consultation (Routine) - Closed Specialty Diagnoses / Procedures Referred By Renato linares Referred To Contact General Surgery Diagnoses Mass of colon Nathaniel Adam MD [address] [place] [address] [facility] [address] [place] [phone] Referral ID Status Reason Start Date Expiration Date V isits Requested Visits Authorized [id number] Closed Consult, Test & Treat 09/22/2023 09/21/2024 1 1 Encounter Details Date Type Department Care Team (Late st Contact Info) Description 09/22/2023 Transcribe Orders eDH Incoming Referrals [phone] Nathaniel Adam MD [address] [place] [address] Mass of colon Social History Tobacco Use Types Packs/Day [...] AM EDT Office Visit Hematology/Oncology at [address] [phone] Sumanth Bermudez MD [facility] HEMATOLOGY/[place] [address] 12/28/2023 10:30 AM EDT Infusion Hematology Oncology at [address] [phone] 01/02/2024 3:20 PM EDT Hospital [place] [address] Astrid Ortega MD [facility] [place] [address] 04/22/2024 10:00 AM EST TH Visit (TeleHealth) Hematology and Oncology at [address] [phone] Tracy Beltran [facility] [address] 05/20/2024 10:40 AM EST Hospital Encounter Mammography/DXA at [place] [phone] 05/20/2024 11:50 AM EST Office Visit General Surgery at [place] [phone] Magaly Quijano APRN [facility] [place] [address] 11/15/2024 4:00 PM EDT Office Visit Hematology and Oncology at [place] [phone] Jenny Melissa MD [facility] DR HEMATOLOGY/[place] [address] Scheduled Referrals Name Type Priority Associated Diagnoses Order Schedule Referral to Colorectal Surgery Outpatient Referral Routine Mass of colon Ordered: 09/22/2023 documented as of this encounter Visit Diagnoses Diagnosis Mass of colon Other specified disorder of intestines documented in this encounter Care Teams Dining Room Tables Set Up Attendant Relationship Specialty Start Date End Date Josefina Crocker APRN [address] [place] [address] PCP - General Family Medicine 07/17/23 documented as of this encounter
--- OUTSIDE RECORDS SUMMARY | 2023-12-28 02:22 | XMS_ITS | Encounter Summary ---
Author Organization [facility] Address [facility] [facility] [place] [address] Care Team Providers Care Bevel Face Stoner And Polisher Name Role Phone Zuleima Duvall APRN Primary Care Provider [phone] Encounter Details Date Type Department Care Team (Late st Contact Info) Description 02/26/2021 Telephone Hematology [place] [phone] Jenny Melissa MD [facility] HEMATOLOGY/[place] [address] Social History Tobacco Use Types Packs/Day Years [...] AM EDT Office Visit Hematology/Oncology at [address] [phone] Sumanth Bermudez MD [facility] HEMATOLOGY/[place] [address] 12/28/2023 10:30 AM EDT Infusion Hematology Oncology at [address] [phone] 01/02/2024 3:20 PM EDT Hospital [place] [phone] Astrid Ortega MD [facility] [place]EC[place]IC [place] [address] 04/22/2024 10:00 AM EST TH Visit (TeleHealth) Hematology and Oncology at [address] [phone] Tracy Beltran [facility] [place] [address] 05/20/2024 10:40 AM EST Hospital Encounter Mammography[place] [address] 05/20/2024 11:50 AM EST Office [place] [address] Magaly Quijano APRN [facility] [place] [address] 11/15/2024 4:00 PM EDT Office Visit Hematology [place] [address] Jenny Melissa MD [facility] HEMATOLOGY/[place] [address] documented as of this encounter Visit Diagnoses Not on filedocumented in this encounter Care Teams Bevel Face Stoner And Polisher Relationship Specialty Start Date End Date Zuleima Duvall APRN [address] [place] [phone] PCP - General Family Medicine 01/21/21 05/17/23 documented as of this encounter
--- OUTSIDE RECORDS SUMMARY | 2023-12-28 02:22 | XMS_ITS | Encounter Summary ---
Author Organization [facility] Address [facility] [place] [address] Care Team Providers Care Formula Clerk Name Role Phone Zuleima Duvall APRN Primary Care Provider [phone] Reason for Visit * Reason Onset Date Comments Medication Refill 06/07/2022 Encounter Details Date Type Department Care Team (Late st Contact Info) Description 06/07/2022 Refill Hematology [place] [address] Jenny Melissa MD [facility] HEMATOLOGY/[place] [address] Social History Tobacco Use Types Packs/Day Years [...] Telephone Encounter - Izabella Callejas RN - 06/07/2022 2:43 PM EST Received request via [employer] for refill of Tamoxifen. Per review of medical record- Started April 2021. Per review of medical record, refill is appropriate. Last prescribed 04/15/22 Script prepared and sent to provider for review, signature and escribe. documented in this encounter Plan of Treatment Upcoming Encounters Date Type Department Care Team (Late st Contact Info) Description 12/28/2023 10:00 AM EDT Office Visit Hematology/Oncology at [address] [phone] Sumanth Bermudez MD [facility] HEMATOLOGY/[place] [address] 12/28/2023 10:30 AM EDT Infusion Hematology Oncology at [address] [address] 01/02/2024 3:20 PM EDT Hospital [place] [address] Astrid Ortega MD [facility] [place] [address] 04/22/2024 10:00 AM EST TH Visit (TeleHealth) Hematology and Oncology at [address] [phone] Tracy Beltran [facility] [place] [address] 05/20/2024 10:40 AM EST Hospital Encounter Mammography[place] [address] 05/20/2024 11:50 AM EST Office [place] [address] Magaly Quijano APRN [facility] [place] [address] 11/15/2024 4:00 PM EDT Office Visit Hematology [place] [address] Jenny Melissa MD [facility] DR HEMATOLOGY/[place] [address] documented as of this encounter Visit Diagnoses Not on filedocumented in this encounter Care Teams Formula Clerk Relationship Specialty Start Date End Date Zuleima Duvall APRN [address] [place] [address] PCP - General Family Medicine 01/21/21 05/17/23 documented as of this encounter
--- OUTSIDE RECORDS SUMMARY | 2023-12-28 02:22 | XMS_ITS | Encounter Summary ---
Author Organization [facility] Address [place] [address] Care Team Providers Care X Ray Operator Name Role Phone Zuleima Duvall APRN Primary Care Provider [phone] Encounter Details Date Type Department Care Team (Late st Contact Info) Description 04/15/2022 Refill Hematology [place] [address] Jenny Melissa MD [facility] HEMATOLOGY/[place] [address] Social History Tobacco Use Types Packs/Day Years [...] AM EDT Office Visit Hematology/Oncology at [address] [phone] Sumanth Bermudez MD [facility] HEMATOLOGY/[place] [address] 12/28/2023 10:30 AM EDT Infusion Hematology Oncology at [address] [address] 01/02/2024 3:20 PM EDT Hospital [place] [phone] Astrid Ortega MD [facility] [place] [address] 04/22/2024 10:00 AM EST TH Visit (TeleHealth) Hematology and Oncology at [address] [phone] Tracy Beltran [facility] [place] [address] 05/20/2024 10:40 AM EST Hospital Encounter Mammography/[place] [address] 05/20/2024 11:50 AM EST Office [place] [address] Magaly Quijano APRN [facility] [place] [address] 11/15/2024 4:00 PM EDT Office Visit Hematology [place] [address] Jenny Melissa MD [facility] HEMATOLOGY/[place] [address] documented as of this encounter Visit Diagnoses Not on filedocumented in this encounter Care Teams X Ray Operator Relationship Specialty Start Date End Date Zuleima Duvall APRN [address] [place] [phone] PCP - General Family Medicine 01/21/21 05/17/23 documented as of this encounter
--- OUTSIDE RECORDS SUMMARY | 2023-12-28 02:22 | XMS_ITS | Encounter Summary ---
Author Organization [facility] Address [facility] [place] [address] Care Team Providers Care Ribbon Sweatband Operator Name Role Phone ObiJosefina Mona RIOS Primary Care Provider [phone] Encounter Details Date Type Department Care Team (Late st Contact Info) Description 09/27/2023 12:05 AM EDT Ancillary [place] [phone] Jossie Jamison MD [facility] [place] [address] Social History Tobacco Use Types Packs/Day Years [...] AM EDT Office Visit Hematology/Oncology at [address] [phone] Sumanth Bermudez MD [facility] HEMATOLOGY/[place] [address] 12/28/2023 10:30 AM EDT Infusion Hematology Oncology at [address] [phone] 01/02/2024 3:20 PM EDT Hospital Encounter [place] [phone] Astrid Ortega MD [facility] [place] [address] 04/22/2024 10:00 AM EST TH Visit (TeleHealth) Hematology and Oncology at [address] [address] Tracy Beltran [facility] [place] [address] 05/20/2024 10:40 AM EST Hospital Encounter Mammography/[place] [phone] 05/20/2024 11:50 AM EST Office Visit General [place] [phone] Magaly Quijano APRN [facility] [address] 11/15/2024 4:00 PM EDT Office Visit Hematology [place] [address] Jenny Melissa MD [facility] HEMATOLOGY/[place] [address] documented as of this encounter Procedures Procedure Name Priority Date/Time Associated Diagnosis Comments FILM LIBRARY STORAGE ONLY CT ABDOMEN AND PELVIS Routine 09/27/2023 12:05 AM EDT documented in this encounter Results * Film Library- Storage Only CT Abdomen & Pelvis (09/27/2023 12:05 AM EDT) Narrative [facility] - 10/08/2023 8:24 PM EDT This exam is auto-finalizing. It's purpose is for storage only. Jossie Jamison MD IMG FILM LIBRARY ORD ERABLES [place], [place] documented in this encounter Visit Diagnoses Not on filedocumented in this encounter Care Teams Ribbon Sweatband Operator Relationship Specialty Start Date End Date Josefina Crocker APRN [address] [place] [address] PCP - General Family Medicine 07/17/23 documented as of this encounter
--- OUTSIDE RECORDS SUMMARY | 2023-12-28 02:22 | XMS_ITS | Encounter Summary ---
Author Organization [facility] Address [facility] [place] [address] Care Team Providers Care Irradiated Fuel Handler Name Role Phone None Primary Care Provider Unavailabl e Encounter Details Date Type Department Care Team (Latest Contact Info) Description 06/30/2023 11:00 AM EST TH Visit (TeleHealth) Hematology [place] [address] Nannette Chacon APRN [facility] [place] [address] Malignant neoplasm of right breast in female, estrogen receptor positive, unspecified site of breast; Malignant neoplasm of upper-outer quadrant of right breast in female, estrogen receptor positive; Depression, unspecified depression type Social History Tobacco Use Types Packs/Day Years [...] as of this encounter Progress Notes * Nannette Chacon, EKG/ECG TECHNICIAN - 06/30/2023 11:00 AM EST 72 yo with right breast cancer dx 2019 Current treatment : [id number] mg dose reduction trial Cc: breast cancer Interval history: Been off Tamoxifen for 6 weeks now. Had 2 big issues for the holiday Low Energy: Not sure if this has improved much, holidays, had a 2 week long cold, and colonoscopy in the 6 weeks and still has low energy but may be related to life stressors Feeling depressed: could karissa into tears at anytime while on tamoxifen but has improved with holiday. Only one episode of crying with colonoscopy prep Exercise/movement: not as much as she would like due to same issues on low energy. Reports she was put on 2 new medications for high blood pressure: lisinopril 40 mg/daily & amlodipine 5 mg/day Denies headache, double vision, CP/SOB. Patient Active Problem List Diagnosis Code Endometrial adenocarcinoma, endometrioid type, FIGO grade 2 C54.1 Malignant neoplasm of right breast in female, estrogen receptor positive C50.911, Z17.0 HPI: 12/16/20 dx AVH: ER/OR+/HER2- right breast IDC pT1cN0 Stage IA right upper outer quadrant Screening mammogram detected at [facility] 11/30/20 cat 0 Diagnostic images 12/10 , [...] 2, 0/2 LN + , with DCIS SLN neg. 01/23 oncotype score of 5 pT2N0 grade 2 Risk factors: personal hx of endometrial cancer; FHx breast cancer in one half- sister who recently of lung cancer and was a chronic smoker; 2 other sisters are without cancer. Marychuy's grand mother had bone cancer. Menses began at age 15 until approximately age 59; DUB resulted in endometrial biopsy s/p FANNIEDIOGENES Vladpj in 2016. 1st at age 31 Objective No vitals due to nature of telehealth visit Physical Exam: Constitutional: She is oriented to person, place, and time. She appears well- developed and well-nourished. No distress. Head: Normocephalic. Eyes: Conjunctivae are normal. sclera anicteric Neck: Normal range of motion. Pulmonary/Chest: Effort normal Extremities: cyanosis or edema Neurological: She is alert and oriented to person, place, and time. Skin: Skin clear Psychiatric: She has a normal mood and affect. Her behavior is normal. Results: 05/28/2023 Dexa: T-score: -2.1, JOSIE: left femoral neck, WHO diagnosis: osteopenia IMPRESSION Measurements meet WHO criteria for osteopenia. 05/28/2023 Left Mammogram FINDINGS: There are scattered areas of fibroglandular density. There are no suspicious microcalcifications, masses, or areas of distortion. The pattern is stable. CONCLUSION: No mammographic evidence of malignancy. BIRADS CATEGORY 1: NEGATIVE A/P: 72 yo with stage I breast cancer, struggling with depression symptoms she associates with the start of tamoxifen, now going on 3 years. After 6 week drug holiday feels some of her symptoms including the depression symptoms have improved. Willing to restart at lower dose as recommended by Dr. Melissa after last visit. -Patient will cut current supply of 20 mg tabs in half and our team will reach out in 2 weeks to see if this method of dose reduction is working or if she needs a new rx for the lower dose. Plan: F/u 6 months in person with Dr. Melissa Our team will check in with pill cutting in 2 weeks. Time spent: 40 minutes of which >50% was in discussion Nannette Chacon DNP, EKG/ECG TECHNICIAN, [facility]- Women's Health Nurse Practitioner Breast Oncology Pager: [phone] documented in this encounter Plan of Treatment Upcoming Encounters Date Type Department Care Team (Late Contact Info) Description 12/28/2023 10:00 AM EDT Office Visit Hematology/Oncology at [address] [phone] Sumanth Bermudez MD [facility] HEMATOLOGY/[place] [address] 12/28/2023 10:30 AM EDT Infusion Hematology Oncology at [address] [phone] 01/02/2024 3:20 PM EDT Hospital [place] [phone] Astrid Ortega MD [facility] [place] [address] 04/22/2024 10:00 AM EST TH Visit (TeleHealth) Hematology and Oncology at [address] [phone] Tracy Beltran [facility] [place] [address] 05/20/2024 10:40 AM EST Hospital Encounter Mammography/[place] [address] 05/20/2024 11:50 AM EST Office Visit [place] [phone] Magaly Quijano APRN [facility] GENERAL SURGERY [place], [place] [phone] 11/15/2024 4:00 PM EDT Office Visit Hematology [place] [phone] Jenny Melissa MD [facility] [place]OLOG[place] [address] documented as of this encounter Visit Diagnoses Diagnosis Malignant neoplasm of right breast in female, estrogen receptor positive, unspecified site of breast Malignant neoplasm of upper-outer quadrant of right breast in female, estrogen receptor positive Depression, unspecified depression type documented in this encounter Care Teams Irradiated Fuel Handler Relationship Specialty Start Date End Date None None PCP - General 05/18/23 07/16/23 documented as of this encounter
--- OUTSIDE RECORDS SUMMARY | 2023-12-28 02:22 | XMS_ITS | Encounter Summary ---
Author Organization [facility] Address [facility] [place] [address] Care Team Providers Care Molding Machine Operator Name Role Phone Zuleima Duvall APRN Primary Care Provider [phone] Encounter Details Date Type Department Care Team (Late st Contact Info) Description 10/05/2022 Orders Only Hematology [place] [address] Jenny Melissa MD [facility] [place]ATOLOGY/[place] [address] Social History Tobacco Use Types Packs/Day Years [...] 10:00 AM EDT Office Visit Hematology/Oncology at [address] [phone] Sumanth Bermudez MD [facility] HEMATOLOGY/[place] [address] 12/28/2023 10:30 AM EDT Infusion Hematology Oncology at [address] [phone] 01/02/2024 3:20 PM EDT Hospital [place] [phone] Astrid Ortega MD [facility] [place] [address] 04/22/2024 10:00 AM EST TH Visit (TeleHealth) Hematology and Oncology at [address] [phone] [facility] [place] [address] 05/20/2024 10:40 AM EST Hospital Encounter Mammography[place] [address] 05/20/2024 11:50 AM EST Office [place] [address] Magaly Quijano APRN [facility] [place] [address] 11/15/2024 4:00 PM EDT Office Visit Hematology [place] [address] Jenny Melissa MD [facility] HEMATOLOGY[place] [address] documented as of this encounter Visit Diagnoses Not on filedocumented in this encounter Care Teams Molding Machine Operator Relationship Specialty Start Date End Date Zuleima Duvall APRN [address] [place] [phone] PCP - General Family Medicine 01/21/21 05/17/23 documented as of this encounter
--- OUTSIDE RECORDS SUMMARY | 2023-12-28 02:22 | XMS_ITS | Encounter Summary ---
[place] [address] Care Team Providers Care Hose Tester Name Role Phone Zuleima Duvall APRN Primary Care Provider [phone] Encounter Details Date Type Department Care Team (Latest Contact Info) Description 03/12/2021 11:30 AM EDT Clinical Support [place] [phone] Encounter for postoperative wound check Social History Tobacco Use Types Packs/Day Years [...] as of this encounter Progress Notes * Berenice Nova RN - 03/12/2021 11:30 AM EDT Wound check: Date: 03/12/2021 Time: 12:18 PM Procedure: Pt is s/p right mastectomy with sentinel node excision 01/28/21 Surgeon: Dr. Trev Erazo Incision site/wound: Dime-sized stitch abscess noted just above right mastectomy incision. Thick, yellow exudate in wound bed and mild redness and irritation to surrounding skin where band aid had been over night. Patient reports she used a new type of band aid last night and just noticed the redness this morning. No tunneling of wound noted. Denies fevers, chills, pain or tenderness. Treatment: Superficial stitch removed from open wound. Wound covered with Aquacel AG advantage ribbon dressing and mepilex border dressing. Pain assessment: Patient denies any pain or tenderness. Patient teaching/follow-up: Patient provided with extra ribbon and mepilex border dressings. Reviewed dressing change instructions with patient and her . Reviewed signs and symptoms of infection (spreading redness, swelling, fevers/chills, body aches. documented in this encounter Plan of Treatment Upcoming Encounters Date Type Department Care Team (Late st Contact Info) Description 12/28/2023 10:00 AM EDT Office Visit Hematology/Oncology at [address] [phone] Sumanth Bermudez MD [facility] HEMATOLOGY/[place] [address] 12/28/2023 10:30 AM EDT Infusion Hematology Oncology at [address] [phone] 01/02/2024 3:20 PM EDT Hospital [place] [address] Astrid Ortega MD [facility] [place] [address] 04/22/2024 10:00 AM EST TH Visit (TeleHealth) Hematology and Oncology at [address] [address] Tracy Beltran [facility] [place] [address] 05/20/2024 10:40 AM EST Hospital Encounter Mammography/[place] [phone] 05/20/2024 11:50 AM EST Office [place] [phone] Magaly Quijano APRN [facility] [address] 11/15/2024 4:00 PM EDT Office Visit Hematology [place] [phone] Jenny Melissa MD [facility] HEMATOLOGY[place] [address] documented as of this encounter Visit Diagnoses Diagnosis Encounter for postoperative wound check Other specified aftercare following surgery documented in this encounter Care Teams Hose Tester Relationship Specialty Start Date End Date Zuleima Duvall APRN [address] [place] [phone] PCP - General Family Medicine 01/21/21 05/17/23 documented as of this encounter
--- OUTSIDE RECORDS SUMMARY | 2023-12-28 02:23 | XMS_ITS | Encounter Summary ---
[place] [address] Care Team Providers Care Family Practice Nurse Practitioner Name Role Phone Unavailable Primary Care Provider Unavailabl e Reason for Referral * Diagnostic Test (Routine) - Closed Specialty Diagnoses / Procedures Referred By Renato t Referred To Contact Radiology Diagnoses Malignant neoplasm of right breast in female, estrogen receptor positive, unspecified site of breast Procedures MRI Breast wwo Contrast Trev Low MD [facility] [place] [address] [place] [address] Referral ID Status Reason Start Date Expiration Date V isits Requested Visits Authorized [id number] Closed Specialty Service Requested 12/24/2020 06/26/2022 1 1 Reason for Visit * Diagnostic Test (Routine) - Closed Specialty Diagnoses / Procedures Referred By Renato t Referred To Contact Radiology Diagnoses Malignant neoplasm of right breast in female, estrogen receptor positive, unspecified site of breast Procedures MRI Breast wwo Contrast Trev Low MD [facility] [place] [address] [place] [address] Referral ID Status Reason Start Date Expiration Date V isits Requested Visits Authorized [id number] Closed Specialty Service Requested 12/24/2020 06/26/2022 1 1 Encounter Details Date Type Department Care Team (Latest Contact Info) Description 12/30/2020 9:02 AM EDT - 12/30/2020 9:06 AM EDT Hospital Encounter MRI at [facility] [place] [address] Trev Erazo MD [facility] [place] [address] Malignant neoplasm of right breast in female, estrogen receptor positive, unspecified site of breast Discharge Disposition: Home Social History Tobacco Use Types Packs/Day Years Used Date Smoking Tobacco: Never Smokeless Tobacco: Never Alcohol Use Standard Drinks/Week Comments Yes 0 (1 standard drink = 0.6 oz pur e alcohol) 1 a month Overall Financial Resource Strain (CARDIA) [...] needed. 10/05/2022 documented as of this encounter Progress Notes * Nicholas Gomez LPN - 12/30/2020 9:17 AM EDT MRI PRE-SEDATION ASSESSMENT NOTE NAME: Marychuy Hood AGE: 70 y.o. : 1950 37 Pending sale to [facility] [id number] Female [phone] (home) Telephone Information: Matt Hussein MD None Allergies Allergen Reactions ??? Hymenoptera Allergenic Extract Anaphylaxis Date/Time of call: December 25, 2020/8:14 AM/ PREVIOUS MRI SCAN? yes HEIGHT: WEIGHT: SCHEDULED SCAN: MRI BREAST WWO CONTRAST BILAT [[id number]] Order Questions Answers Where will study be performed? [facility] Radiology [120] Reason for exam and clinical history: New Breast cancer Stat read required? No Does patient require sedation? None SUBJECTIVE: claustrophobia CAN YOU LAY FLAT? yes AIRWAY/BREATHING ISSUES? no DO YOU HAVE ANY INVOLUNTARY MOVEMENTS? no (explain) DO YOU HAVE ANY PAIN? DO YOU TAKE PAIN MED ON A DAILY BASIS? no ASSESSMENT: okay to PO sedate PLAN: Ativan 1 mg PO x 2 ( EF) You must have a courtesy bus driver present when you check in. This patient has been informed that they require a courtesy bus driver to drive them home after this procedure. In the absence of a courtesy bus driver, IR will not be able to sedate for your scan. Pt verbalized understanding of these instructions during the pre-procedure education via phone. Yes Name of courtesy bus driver: Phone number: PRIOR SCAN DATE/S SEDATION TYPE SUCCESSFUL 12/30/20 MRI Breast WWO Ativan 1 mg PO x 2 Revised 10/31/17 documented in this encounter Plan of Treatment Upcoming Encounters Date Type Department Care Team (Late st Contact Info) Description 12/28/2023 10:00 AM EDT Office Visit Hematology/Oncology at [address] [phone] Sumanth Bermudez MD [facility] HEMATOLOGY/[place] [address] 12/28/2023 10:30 AM EDT Infusion Hematology Oncology at [address] [address] 01/02/2024 3:20 PM EDT Hospital Encounter CT Scan at [place] [phone] Astrdi Ortega MD [facility] [place] [address] 04/22/2024 10:00 AM EST TH Visit (TeleHealth) Hematology and Oncology at [address] [phone] Tracy Beltran [facility] [place] [address] 05/20/2024 10:40 AM EST Hospital Encounter Mammography/DXA at [place] [phone] 05/20/2024 11:50 AM EST Office Visit General Surgery at [place] [phone] Magaly Quijano APRN [facility] [place] [address] 11/15/2024 4:00 PM EDT Office Visit Hematology and Oncology at [place] [phone] Jenny Melissa MD [facility] HEMATOLOGY/[place] [address] documented as of this encounter Procedures Procedure Name Priority Date/Time Associated Diagnosis Comments MRI BREAST WWO CONTRAST BILAT Routine 12/30/2020 11:26 AM EDT Malignant neoplasm of right breast in female, estrogen receptor positive, unspecified site of breast documented in this encounter Results * MRI Breast wwo Contrast Bilat (12/30/2020 11:26 AM EDT) Anatomical Region Laterality Modality Breast N/A Magnetic Resonan ce Impressions 12/30/2020 1:26 PM EDT Multifocal disease right breast showing 1.6 cm mass with nonmass enhancement totaling 3.7 cm in anterior posterior dimension at the right lower outer quadrant 4:00 radian. Possible right axillary adenopathy. Unanticipated possible contralateral multifocal disease with small masses and nonmass enhancement lower central and lower outer quadrant. Maximum span 4 cm. RECOMMENDATION:Right axillary ultrasound and possible ultrasound-guided core biopsy. MR directed ultrasound and possible ultrasound-guided core biopsy of the left lower central lower outer quadrant. Recommend MR guided core biopsy of 2 of the several left breast lesions if there is no sonographic correlate. RIGHT AXILLA: BI-RADS Category 0: Incomplete-Need Additional Imaging Evaluation and/or Prior Mammograms for Comparison LEFT BREAST LESION 1 AND LESION 2: 4. Suspicious for malignancy RIGHT BREAST ??6. Known malignancy Thank you for letting us participate in the care of this patient. ??If you are a health care provider and have any questions regarding this report, please contact the number below. ??For patients who have questions please contact the health career based intervention coordinator that requested your imaging first. ? Electronically signed by: Nannette Corley MD, [facility] ([phone]), at 12/30/2020 1:26 PM Narrative 12/30/2020 1:26 PM EDT BILATERAL BREAST MRI CLINICAL INDICATION: ??Staging MRI in patient with known malignancy right breast measuring 1.8 cm at the 10:00 radian 4 cm from the nipple. TECHNIQUE: Multiplanar sequences were obtained pre- and post- gadolinium enhancement, to include SPGR weighted dynamic run-off and subtraction sequences obtained after the intravenous administration of 13 ccs of Dotarem. Computer algorithm analysis for lesion detection and kinetic contrast enhancement curve analysis was performed, using [employer] software. COMPARISON STUDIES: Compared and/or correlated with prior studies including 11/30/2020, 12/10/2020, 12/16/2020. FINDINGS: Background Enhancement Pattern (first post gadolinium image): Minimal Amount of Fibroglandular Tissue: Heterogeneous LEFT Breast: There are unanticipated small enhancing masses in addition to nonmass enhancement in the left lower breast just below nipple level, spanning 4 cm. The nonmass enhancement is in the middle third spanning 1 cm located 4 cm from the nipple. The largest of the small masses measures 0.5 cm and is identified in the posterior aspect of the breast, 5.8 cm from the nipple. The nonmass enhancement is 1.7 cm anterior to the mass.. Features of the left breast lesion(s) is/are as follows: LEFT BREAST LESION 1: ??0.5 cm Mass Lower slightly outer ??5 O'Clock 5.8 cm from the nipple by MRI Mass: Shape: Irregular Margins: Not circumscribed - Spiculated Enhancement: Homogenous Delayed phase: Progressive LEFT BREAST LESION 2: ??1 cm Non mass enhancement Lower central ??6 O'Clock 3.8 cm from the nipple by MRI Non mass enhancement: Distribution: Linear Enhancement: Initial upslope: Fast Delayed phase: Progressive Left breast lesion #3: 0.2 cm mass lower central left breast 6:00 radian 2.5 cm from the nipple by MRI. Round mass with progressive delayed phase. RIGHT Breast:The known malignancy in the right lower outer quadrant is depicted associated with susceptibility artifact from the clip marker. The lesion measures 1.6 cm by MRI and is associated with nonmass enhancement extending anteriorly from it, spanning 3.7 cm in diameter.. Specific features of the right breast lesion(s) is/are as follows: RIGHT BREAST LESION 1: ??1.6 cm Mass Lower outer quadrant ??4 O'Clock 5 cm from the nipple by MRI Mass Shape: Irregular Margins: Not circumscribed - Irregular Enhancement: Heterogeneous Delayed phase: Washout RIGHT BREAST LESION 2: ??1.1 cm Non mass enhancement Lower outer quadrant 4O'Clock 3.6 cm from the nipple by MRI Non mass enhancement: Distribution: Linear Enhancement: Initial upslope: Fast Delayed phase: Progressive Lymph Node Basins/Other: 2 morphologically abnormal though nonenlarged lymph nodes are seen in the area of the right axilla included in the examination, suggesting possible axillary adenopathy on the right.. No significant abnormalities are seen in the chest wall or skin.. Trev Erazo MD IMG MRI ORDERABLES documented in this encounter Visit Diagnoses Diagnosis Malignant neoplasm of right breast in female, estrogen receptor positive, unspecified site of breast documented in this encounter Administered Medications Inactive Administered Medications - up to 3 most recent administrations Medication Order MAR Action Action Date Dose Rate Site LORazepam (Ativan) tablet 1 mg 1 mg, Oral, EVERY 30 MIN PRN, 2 doses, Starting on Mon12/30/20 at 0706, Until Mon12/30/20 at 0953, Anxiety, Routine Given 12/30/2020 9:53 AM EDT 1 mg Given 12/30/2020 9:15 AM EDT 1 mg documented in this encounter
--- OUTSIDE RECORDS SUMMARY | 2023-12-28 02:23 | XMS_ITS | Encounter Summary ---
Author Organization [facility] [address] Care Team Providers Care Plant Propagator Name Role Phone Unavailable Primary Care Provider Unavailabl e Encounter Details Date Type Department Care Team (Latest Contact Info) Description 12/24/2020 12:15 PM EDT Ancillary Procedure [place] [address] Trev Erazo MD [facility] [place] [address] Malignant neoplasm of right breast in female, estrogen receptor positive, unspecified site of breast Social History Tobacco Use Types [...] AM EDT Office Visit Hematology/Oncology at [address] [phone] Sumanth Bermudez MD [facility] HEMATOLOGY/[place] [address] 12/28/2023 10:30 AM EDT Infusion Hematology Oncology at [address] [phone] 01/02/2024 3:20 PM EDT Hospital [place] [phone] Astrid Ortega MD [facility] [place] [address] 04/22/2024 10:00 AM EST TH Visit (TeleHealth) Hematology and Oncology at [address] [phone] Tracy Beltran [facility] [place] [address] 05/20/2024 10:40 AM EST Hospital Encounter Mammography[place] [phone] 05/20/2024 11:50 AM EST Office [place] [phone] Magaly Quijano APRN [facility] [place] [address] 11/15/2024 4:00 PM EDT Office Visit [place]ology [place] [phone] Jenny Melissa MD [facility] HEMATOLOGY/[place] [address] documented as of this encounter Procedures Procedure Name Priority Date/Time Associated Diagnosis Comments REQUEST FOR 2ND READ MAMMO Routine 12/24/2020 12:05 PM EDT Malignant neoplasm of right breast in female, estrogen receptor positive, unspecified site of breast documented in this encounter Results * Request for 2nd read Mammo (12/24/2020 12:05 PM EDT) Anatomical Region Laterality Modality SO Impressions 12/24/2020 12:36 PM EDT Known 1.8 cm malignancy right breast 10:00 radian 4 cm from the nipple by ultrasound. No evidence of malignancy left breast. RECOMMENDATION: Definitive surgical management right breast. BI-RADS Category 6: Known Biopsy-Proven Malignancy Please note: The interpretation of the [employer] Breast Imaging Radiologist subspecialist may differ from the original radiologist's interpretation. This is usually not due to a deficiency of the original interpreting radiologist, rather due to the greater skill level afforded by sub-specialization in the field and/or reasonable variations in interpretations. If you have a concern regarding the D-H interpretation you may contact the D- Breast Marketing Analytics Manager Office at . Thank you for letting us participate in the care of this patient. ??If you are a health care provider and have any questions regarding this report, please contact the number below. ??For patients who have questions please contact the health furnace caretaker that requested your imaging first. ? Electronically signed by: Nannette Corley MD, [facility] ([phone]), at 12/24/2020 12:36 PM Narrative 12/24/2020 12:36 PM EDT INTERPRETATION OF OUTSIDE BREAST IMAGING I have been asked to consult on this patient by Dr. Trev Erazo because he/she believes a review of this study may change or alter the care of this patient. STUDIES FROM: [facility] DATES: 11/30/2020, 12/10/2020, 12/16/2020 CLINICAL HISTORY: known breast cancer, surgical planning; known breast cancer/ surgical planning; What Modality is the exam? Mammography; Body Part (please add comments as necessary): breasts; Sending Institution [facility]; Date of exam [id number]; I believe a reinterpretation of this exam may alter care of Patient. Yes. ?? COMPARISONS: This study was compared with prior images. FINDINGS: 2-D and digital breast tomosynthesis imaging was performed of each breast. Additional spot compression images were obtained of the mass in the right upper outer quadrant. Ultrasound imaging reviewed. Please note: Breast ultrasound is straddle carrier operator dependent. Complete assessment of the breast tissue is not possible through static images or cine loops. Because breast ultrasound is a dynamic process the interpretive value of outside images is limited. There are scattered areas of fibroglandular density. There is an irregular mass measuring 1.4 cm in maximal mammographic dimension at the upper outer quadrant middle third. The left breast is unremarkable. Directed ultrasound depicts the mammographic mass as a solid homogeneously hypoechoic irregular mass with posterior enhancement whose maximal dimension is 1.8 cm. This is located at the right breast 10:00 radian sonographically 4 cm from the nipple. The lesion which underwent successful ultrasound-guided core biopsy with placement of a hooked coil clip in the area of the lesion. Procedure Note Nannette Corley MD - 12/24/2020 INTERPRETATION OF OUTSIDE BREAST IMAGING I have been asked to consult on this patient by Dr. Trev Erazo becausehe/she believes a review of this study may change or alter the care of thispatient. STUDIES FROM: [facility] DATES: 11/30/2020, 12/10/2020, 12/16/2020 CLINICAL HISTORY: known breast cancer, surgical planning; known breastcancer/ surgical planning; What Modality is the exam? Mammography; Body Part(please add comments as necessary): breasts; Sending Institution [facility]; Date of [id number]; I believe a reinterpretation of this exam may alter care of Patient. Yes. COMPARISONS: This study was compared with prior images. FINDINGS: 2-D and digital breast tomosynthesis imaging was performed of eachbreast. Additional spot compression images were obtained of the mass in the rightupper outer quadrant. Ultrasound imaging reviewed. Please note: Breastultrasound is straddle carrier operator dependent. Complete assessment of the breast tissue is notpossible through static images or cine loops. Because breast ultrasound is adynamic process the interpretive value of outside images is limited. There are scattered areas of fibroglandular density. There is an irregularmass measuring 1.4 cm in maximal mammographic dimension at the upper outerquadrant middle third. The left breast is unremarkable. Directed ultrasound depicts the mammographic mass as a solidhomogeneously hypoechoic irregular mass with posterior enhancement whose maximaldimension is 1.8 cm. This is located at the right breast 10:00 radian sonographically 4cm from the nipple. The lesion which underwent successful ultrasound-guided core biopsy with placement of a hooked coil clip in the area of the lesion. IMPRESSION Known 1.8 cm malignancy right breast 10:00 radian 4 cm from the nippleby ultrasound. No evidence of malignancy left breast. RECOMMENDATION: Definitive surgical management right breast. BI-RADS Category 6: Known Biopsy-Proven Malignancy Please note: The interpretation of the [employer] BreastImaging Radiologist subspecialist may differ from the original radiologist's interpretation. This is usually not due to a deficiency of the original interpreting radiologist, rather due to the greater skill level affordedby sub-specialization in the field and/or reasonable variations ininterpretations. If you have a concern regarding the D-H interpretation you may contact [facility] Breast Marketing Analytics Manager Office at . Thank you for letting us participate in the care of this patient. If youare a health care provider and have any questions regarding this report,please contact the number below. For patients who have questions please contactthe health furnace caretaker that requested your imaging first. Trev Erazo MD IMG OUTSIDE INTERPRE TATION ORDERABLES documented in this encounter Visit Diagnoses Diagnosis Malignant neoplasm of right breast in female, estrogen receptor positive, unspecified site of breast documented in this encounter
--- OUTSIDE RECORDS SUMMARY | 2023-12-28 02:23 | XMS_ITS | Encounter Summary ---
Author Organization [facility] [place] [address] Care Team Providers Care Insert Molding Operator Name Role Phone Unavailable Primary Care Provider Unavailabl e Encounter Details Date Type Department Care Team (Late st Contact Info) Description 12/25/2020 Patient Outreach Hematology [place] [address] Yamile Fine, RN Social History Tobacco Use Types Packs/Day [...] as of this encounter Progress Notes * Yamile Fine, RN - 12/25/2020 9:32 AM EDT [facility] Nurse Navigation Patient Care Plan for the Comprehensive Breast Program(CBP) Reason for call: contacted Marychuy Hood via phone to assess for nurse navigation services, per CBP notification, and to see if she had any questions prior to her surgical oncology consultation at [facility]. Introduced her to the CBP. Marychuy Hood is a 70 y.o. female with newly diagnosed ER/NV+/HER2- right breast invasive ductal carcinoma (right breast biopsy 12/16/2020 at [facility]). History of Cancer Marychuy has a history of endometrial cancer in 2015. She states she was treated at [facility] (surgery only) and underwent some genetic testing though she is not sure which genes were tested. Marychuy sounds positive, though concerned and a little shaken up. She has support. Her daughter and her would like to accompany her to appointment. She understands our policy regarding one person coming in to the clinic with her. She would like to speak to someone regarding her and daughter both accompanying her. Her had a stroke 1.5 years ago and needs time to take things in and will find not being with her stressful. She was given the nurses phone number and name of nurse welfare project manager for clinic to check with them regarding her request. She appears to be coping ok and is anxious to meet with a breast surgeon to determine a treatment plan. Her half sister underwent treatment including radiotherapy for breast cancer 18 years ago and is now dying of (primary) lung CA with liver metastases. Her sister's physician thought the lung CA may have been due to radiation (sister had distant hx of smoking). [facility] is not active. Plan: Appointments for breast MRI and consultation with a breast surgeon have been scheduled. She was introduced to the CBP and told she would receive information about her diagnosis and treatment for her review (the Breast Cancer Treatment Handbook; GATO Early-Stage: Invasive Breast Cancer program provided). Plan to meet with Marychuy on the day of her consult apt. She understands that Meghana Wong, ROSALBA, JOSH and I are available to her for support/concerns. She was offered Meghana's phone number and declined in favor of meeting with her next week at time of consult. Addressed her questions and encouraged her to contact me with any additional questions or concerns.She has our contact information. FAMILY HISTORY Breast Cancer: Half sister at age 60 (18 years ago). She is now dying of lung and liver cancer. Laterality:Right Is this a recurrence:No Family history of breast cancer:Yes Family history of ovarian cancer: No Personal history or breast cancer:No Method of detection: Mammogram Method of diagnosis: Ultrasound Core Biopsy Identified Barriers: Patient comments or concerns: fear and stress around having bother her daughter and accompany her to consultation. documented in this encounter Plan of Treatment Upcoming Encounters Date Type Department Care Team (Late st Contact Info) Description 12/28/2023 10:00 AM EDT Office Visit Hematology/Oncology at [address] [phone] Sumanth Bermudez MD [facility] HEMATOLOGY/[place] [address] 12/28/2023 10:30 AM EDT Infusion Hematology Oncology at [address] [phone] 01/02/2024 3:20 PM EDT Hospital Encounter [place] [phone] Astrid Ortega MD [facility] GYNECOLOGIC [place] [address] 04/22/2024 10:00 AM EST TH Visit (TeleHealth) Hematology and Oncology at [address] [phone] Tracy Beltran [facility] [place] [address] 05/20/2024 10:40 AM EST Hospital Encounter Mammography/[place] [address] 05/20/2024 11:50 AM EST Office Visit [place] [phone] Magaly Quijano APRN [facility] [place] [address] 11/15/2024 4:00 PM EDT Office Visit Hematology [place] [phone] Jenny Melissa MD [facility] HEMATOLOGY[place] [address] documented as of this encounter Visit Diagnoses Not on filedocumented in this encounter
--- OUTSIDE RECORDS SUMMARY | 2023-12-28 02:23 | XMS_ITS | Encounter Summary ---
[place] [address] Care Team Providers Care Transportation Program Director Name Role Phone Zuleima Duvall APRN Primary Care Provider [phone] Reason for Referral * Diagnostic Test (Routine) - Closed Specialty Diagnoses / Procedures Referred By Contac t Referred To Contact Radiology Diagnoses Malignant neoplasm of central portion of right breast in female, estrogen receptor positive Procedures NM Hathorne Node Injection Breast wo Trev Rasmussen MD [facility] [address] [place] [address] Referral ID Status Reason Start Date Expiration Date V isits Requested Visits Authorized [id number] Closed Specialty Service Requested 01/11/2021 07/14/2022 1 1 Reason for Visit * Diagnostic Test (Routine) - Closed Specialty Diagnoses / Procedures Referred By Contac t Referred To Contact Radiology Diagnoses Malignant neoplasm of central portion of right breast in female, estrogen receptor positive Procedures NM Hathorne Node Injection Breast wo Trev Rasmussen MD [facility] [place] [address] [facility] [place] [address] Referral ID Status Reason Start Date Expiration Date V isits Requested Visits Authorized [id number] Closed Specialty Service Requested 01/11/2021 07/14/2022 1 1 Encounter Details Date Type Department Care Team (Latest Contact Info) Description 01/28/2021 11:13 AM EDT - 01/28/2021 12:00 PM EDT Hospital En[place] [address] Trev Erazo MD [facility] [place] [place] [address] Malignant neoplasm of central portion of right breast in female, estrogen receptor positive Discharge Disposition: Home Social History Tobacco Use [...] Tablet Take 1 tablet by mouth daily. diphenhydrAMINE (Benadryl) 25 mg Capsule Take 25 mg by mouth every 6 hours as needed for Itching. unknown dose 10/05/2022 oxyCODONE (Roxicodone) 5 mg Tablet Take 1 tablet by mouth every 6 hours as needed for Pain (For pain not controlled by tylenol and ibuprofen). 5 tablet 01/28/2021 04/13/2021 melatonin 1 mg Tablet Take 1 mg [...] 10:00 AM EDT Office Visit Hematology/Oncology at [address] [phone] Sumanth Bermudez MD [facility] HEMATOLOGY/[place] [address] 12/28/2023 10:30 AM EDT Infusion Hematology Oncology at [address] [phone] 01/02/2024 3:20 PM EDT Hospital [place] [phone] Astrid Ortega MD [facility] [place] [address] 04/22/2024 10:00 AM EST TH Visit (TeleHealth) Hematology and Oncology at [address] [phone] Tracy Beltran [facility] [address] 05/20/2024 10:40 AM EST Hospital Encounter Mammography/[place] [phone] 05/20/2024 11:50 AM EST Office [place] [address] Magaly Quijano APRN [facility] [place] [address] 11/15/2024 4:00 PM EDT Office Visit [place]ology [place] [phone] Jenny Melissa MD [facility] HEMATOLOGY/[place] [address] documented as of this encounter Procedures Procedure Name Priority Date/Time Associated Diagnosis Comments NM SENTINEL NODE INJECTION BREAST WITHOUT IMAGING Routine 01/28/2021 11:39 AM EDT Malignant neoplasm of central portion of right breast in female, estrogen receptor positive documented in this encounter Results * NM Hathorne Node Injection Breast wo Imaging (01/28/2021 11:39 AM EDT) Anatomical Region Laterality Modality Nuclear Medicine Impressions 01/28/2021 3:21 PM EDT Hathorne node injections performed without complication. Thank you for letting us participate in the care of this patient. ??If you are a health care provider and have any questions regarding this report, please contact the number below. ??For patients who have questions please contact the health customer care voice consultant that requested your imaging first. ? Narrative 01/28/2021 3:21 PM EDT EXAMINATION: NM SENTINEL NODE INJECTION BREAST WO IMAGING CLINICAL HISTORY: PLEASE INJECT RIGHT BREAST CANCER FOR LYMPHATIC MAPPING TECHNIQUE: Technetium-99m filtered sulfur colloid was administered in divided doses totaling 1.8 mCi in the right breast. COMPARISON: None FINDINGS: No imaging was performed. The patient left the department in good condition. Procedure Note Jude Meneses MD - 01/28/2021 EXAMINATION: NM SENTINEL NODE INJECTION BREAST WO IMAGING CLINICAL HISTORY: PLEASE INJECT RIGHT BREAST CANCER FOR LYMPHATICMAPPING TECHNIQUE: Technetium-99m filtered sulfur colloid was administered individed doses totaling 1.8 mCi in the right breast. COMPARISON: None FINDINGS: No imaging was performed. The patient left the department ingood condition. IMPRESSION Hathorne node injections performed without complication. Thank you for letting us participate in the care of this patient. If youare a health care provider and have any questions regarding this report,please contact the number below. For patients who have questions please contactthe health customer care voice consultant that requested your imaging first. Trev Erazo MD IMG [place] ORDERABLES documented in this encounter Visit Diagnoses Diagnosis Malignant neoplasm of central portion of right breast in female, estrogen receptor positive documented in this encounter Administered Medications Inactive Administered Medications - up to 3 most recent administrations Medication Order MAR Action Action Date Dose Rate Site technetium (Tc-99m) sulfur colloid injection 0-18 mCi 0-18 mCi, Intradermal, ONCE PRN, 1 dose, Starting on Radha 01/28/21 at 1139, Until Radha 01/28/21 at 1135, Per Protocol, Radiology Contrast, Routine Given 01/28/2021 11:35 AM EDT 1.8 mCi documented in this encounter Care Teams Transportation Program Director Relationship Specialty Start Date End Date Zuleima Duvall APRN [address] [place] [phone] PCP - General Family Medicine 01/21/21 05/17/23 documented as of this encounter
--- OUTSIDE RECORDS SUMMARY | 2023-12-28 02:23 | XMS_ITS | Encounter Summary ---
Author Organization [facility] [place] [address] Care Team Providers Care Source Inspector Name Role Phone Unavailable Primary Care Provider Unavailabl e Encounter Details Date Type Department Care Team (Late Contact Info) Description 12/10/2020 12:05 AM EDT Ancillary Procedure [place] [address] Matt Hussein MD [address] [place] [phone] Social History Tobacco Use Types Packs/Day Years Used Date Smoking Tobacco: Never Smokeless Tobacco: Never Alcohol Use Standard Drinks/Week Comments Yes 0 (1 standard drink = 0.6 oz pur e alcohol) 1 a month Sex and Gender Information Value Date Recorded Sex Assigned at Not on file Gender Identity Not on file Sexual Orientation Not on file documented as of this encounter Plan of Treatment Upcoming Encounters Date Type Department Care Team (Late Contact Info) Description 12/28/2023 10:00 AM EDT Office Visit Hematology/Oncology at [address] [phone] Sumanth Bermudez MD [facility] HEMATOLOGY/[place] [address] 12/28/2023 10:30 AM EDT Infusion Hematology Oncology at [address] [phone] 01/02/2024 3:20 PM EDT Hospital Encounter CT Scan at [place] [phone] Astrid Ortega MD [facility] G[place]ECOLOGIC [place] [address] 04/22/2024 10:00 AM EST TH Visit (TeleHealth) Hematology and Oncology at [address] [phone] Tracy Beltran, [facility] [place] [address] 05/20/2024 10:40 AM EST Hospital Encounter Mammography/DXA at [place] [phone] 05/20/2024 11:50 AM EST Office Visit General Surgery at [place] [phone] Magaly Quijano APRN [facility] [place] [address] 11/15/2024 4:00 PM EDT Office Visit Hematology [place] [address] Jenny Melissa MD [facility] [place]EMATOLOGY/[place] [address] documented as of this encounter Procedures Procedure Name Priority Date/Time Associated Diagnosis Comments FILM LIBRARY-STORAGE ONLY US BREAST Routine 12/10/2020 12:05 AM EDT documented in this encounter Results * Film Library Storage Only US Breast (12/10/2020 12:05 AM EDT) Narrative [facility] - 12/24/2020 11:48 AM EDT This exam is auto-finalizing. It's purpose is for storage only. Matt Hussein MD IMG FILM LIBRARY ORDERABLES Performing Organization Address City/State/[facility] Co de Phone Number [place], [place] documented in this encounter Visit Diagnoses Not on filedocumented in this encounter
--- OUTSIDE RECORDS SUMMARY | 2023-12-28 02:23 | XMS_ITS | Encounter Summary ---
Author Organization [facility] Address [facility] [place] [address] Care Team Providers Care Ultimate Hoops Trainer Name Role Phone Zuleima Duvall APRN Primary Care Provider [phone] Reason for Referral * Consultation (Routine) - Closed Specialty Diagnoses / Procedures Referred By Renato linares Referred To Contact Hematology and Oncology Diagnoses Malignant neoplasm of upper-outer quadrant of right breast in female, estrogen receptor positive Family history of osteoporosis senior living (current) use of aromatase inhibitors Jenny Melissa MD [facility] DR HEMATOLOGY/[place] [address] Referral ID Status Reason Start Date Expiration Date V isits Requested Visits Authorized [id number] Closed Consult, Test & Treat 02/17/2021 08/16/2021 1 1 Reason for Visit * Reason Comments Follow-up * Consultation (Routine) - Closed Specialty Diagnoses / Procedures Referred By Renato linares Referred To Contact Hematology and Oncology Diagnoses Breast cancer S/P R MAST SURG 01/28 C/W [facility] (DC) Procedures [facility] Trev Erazo MD [facility] [place] [address] Jenny Melissa MD [facility] HEMATOLOGY/[place] [address] Referral ID Status Reason Start Date Expiration Date Visits Re quested Visits Authorized [id number] Closed 02/17/2021 02/17/2022 1 1 Encounter Details Date Type Department Care Team (Late st Contact Info) Description 02/17/2021 3:00 PM EDT Office Visit Hematology [place] [phone] Jenny Melissa MD [facility] HEMATOLOGY/[place] [address] Yamile Fine RN Endometrial adenocarcinoma, endometrioid type, FIGO grade 2; Malignant neoplasm of upper-outer quadrant of right breast in female, estrogen receptor positive; Family history of osteoporosis; senior living (current) use of aromatase inhibitors Social History Tobacco Use Types Packs/Day Years [...] Sign Reading Time Taken Comments Blood Pressure 184/90 02/17/2021 2:50 PM EDT patient states she is under lots of stress Pulse 78 02/17/2021 2:50 PM EDT Temperature 37.2 ??C (99 ??F) 02/17/2021 2:5 0 PM EDT Respiratory Rate 18 02/17/2021 2:50 PM EDT Oxygen Saturation 98% 02/17/2021 2:5 0 PM EDT Inhaled Oxygen Concentration - - Weight 54.7 kg (120 lb 9.6 oz) 02/17/2021 2:50 PM EDT Height 160.7 cm (5' 3.25) 02/17/2021 2 :50 PM EDT Body Mass Index 21.19 02/17/2021 2:50 PM EDT documented in this encounter Progress Notes * Jenny Melissa MD - 02/17/2021 3:00 PM EDT New patient consult ID: [id number] yo with new right breast cancer Requesting MD: Vincent Erazo Reason for referral: New dx right breast cancer HPI: 12/16/20 dx AVH: ER/RI+/HER2- right breast IDC [id number] Stage IA right upper outer quadrant Screening mammogram detected at [facility] 11/30/20 cat 0 [facility] images 12/10 , [facility] 31 FHX; osteoporosis ROS: no hx bone fracture, no previous dexa scans; active with the property, gardening, splitting and lugging wood for heat; hiking. Feels SOB and occasional light headed when she gets up in the morning. Hot flashes for a few days after TAHBSO, now resolved. PMHx: Early stage endometrial cancer in 2014, had 3 genes tested per pt that were normal. Current Outpatient Medications Medication Sig Dispense Refill ??? diphenhydrAMINE (Benadryl) 25 mg Capsule Take 25 mg by mouth every 6 hours as needed for Itching. unknown dose ??? melatonin 1 mg Tablet Take 1 mg by mouth daily as needed. Taken at bedtime as needed ??? EPINEPHrine (EPIPEN) 0.3 mg/0.3 mL (1:1,000) Auto-Injector Inject 0.3 mg into the muscle once. ??? multivitamin (THERAGRAN) Tablet Take 1 tablet by mouth daily. ??? B-Complex with Vitamin C (SUPER B C) Capsule Take 1 capsule by mouth daily. ??? Ascorbic Acid 500 mg Tablet, Chewable Take 1 tablet by mouth as needed. ??? oxyCODONE (Roxicodone) 5 mg Tablet Take 1 tablet by mouth every 6 hours as needed for Pain (Forpain not controlled by tylenol and ibuprofen). (Patient not taking: Reported on 02/17/2021) 5 tablet0 No current facility-administered medications for this visit. FHx: as above PE: Last value Range last 8 hrs Temperature Temp: 37.2 ??C (99 ??F) Temp: [37.2 ??C (99 ??F)] Heart Rate Heart Rate: 78 Heart Rate: [78] Blood Pressure BP: 184/90 (patient states she is under lots of stress) BP: (184)/(90) Respiratory Rate Resp: 18 Resp: [18] SpO2 SpO2: 98 % SpO2: [98 %] Gen: healthy appearing 70 yo woman, appears stated age, right arm in sling. HEENT neg, neck supple, sclera clear CV: reg rate Lungs: normal effort of breathing Ext no edema or rash IMpression: Marychuy is a very pleasant 70 yo woman with mammogram detected Stage IA right breast cancer, s/p mastectomy. We reviewed [facility] predict showing 10 yr OS 76% after surgery alone, compared to 83% for the average 68 yo without breast cancer. This 7% mortality risk can be reduced by 2% with endocrine therapy, 1-2% by chemotherapy and 1% by bisphosphonates, all together reducing her risk of mortality down to 2%. The benefit from chemotherapy will be further clarified by oncotype dx testing, which is still pending. There is no indication for radiation. Genetic testing may be indicated given she has had two malignancies in the past 6 yrs. We can trackdown the records from [facility] and see what's been done. Plan: Oncotype dx testing (previous sample insufficient, new sample sent 02/15/21) Dexa scan for baseline, to be done at [facility], if osteoporosis already present, may start with tamoxifen vs AI. Side effects , risks/ benefits discussed generally, will provide more detail at next visit. Referral to Med Onc at [facility] for routine f/u I'll call her with the oncotype result documented in this encounter Plan of Treatment Upcoming Encounters Date Type Department Care Team (Late st Contact Info) Description 12/28/2023 10:00 AM EDT Office Visit Hematology/Oncology at [address] [phone] Sumanth Bermudez MD [facility] HEMATOLOGY/[place] [address] 12/28/2023 10:30 AM EDT Infusion Hematology Oncology at [address] [phone] 01/02/2024 3:20 PM EDT Hospital [place] [phone] Astrid Ortega MD [facility] [place] [address] 04/22/2024 10:00 AM EST TH Visit (TeleHealth) Hematology and Oncology at [address] [phone] Tracy Beltran [facility] [place] [address] 05/20/2024 10:40 AM EST Hospital Encounter Mammography[place] [address] 05/20/2024 11:50 AM EST Office [place] [address] Magaly Quijano APRN [facility] [place] [address] 11/15/2024 4:00 PM EDT Office Visit Hematology [place] [address] Jenny Melissa MD [facility] HEMATOLOGY/[place] [address] Scheduled Referrals Name Type Priority Associated Diagnoses Order Schedule Referral to Hematology and Oncology Outpatient Referral Routine Malignant neoplasm of upper-outer quadrant of right breast in female, estrogen receptor positive Family history of osteoporosis senior living (current) use of aromatase inhibitors Ordered: 02/17/2021 documented as of this encounter Visit Diagnoses Diagnosis Endometrial adenocarcinoma, endometrioid type, FIGO grade 2 Malignant neoplasm of corpus uteri, except isthmus Malignant neoplasm of upper-outer quadrant of right breast in female, estrogen receptor positive Family history of osteoporosis remote computer terminal operator (current) use of aromatase inhibitors documented in this encounter Care Teams Ultimate Hoops Trainer Relationship Specialty Start Date End Date Zuleima Duvall APRN [address] [place] [phone] PCP - General Family Medicine 01/21/21 05/17/23 documented as of this encounter
--- OUTSIDE RECORDS SUMMARY | 2023-12-28 02:23 | XMS_ITS | Encounter Summary ---
[place] [address] Care Team Providers Care Hair Or Beauty Salon Manager Name Role Phone Unavailable Primary Care Provider Unavailabl e Reason for Referral * Diagnostic Test (Routine) - Closed Specialty Diagnoses / Procedures Referred By Renato linares Referred To Contact Radiology Diagnoses Malignant neoplasm of central portion of right breast in female, estrogen receptor positive Procedures NM Aurora Node Injection Breast wo Imaging Trev Erazo MD [facility] [place] [address] [place] [address] Referral ID Status Reason Start Date Expiration Date V isits Requested Visits Authorized [id number] Closed Specialty Service Requested 01/11/2021 07/14/2022 1 1 Encounter Details Date Type Department Care Team (Late st Contact Info) Description 01/11/2021 Orders [place] [address] Trev Erazo MD [facility] [place] [address] Malignant neoplasm of central portion [...] as of this encounter Progress Notes * Kathy Brandon - 01/11/2021 12:21 PM EDT [place] documented in this encounter Plan of Treatment Upcoming Encounters Date Type Department Care Team (Late st Contact Info) Description 12/28/2023 10:00 AM EDT Office Visit Hematology/Oncology at [address] [phone] Sumanth Bermudez MD [facility] HEMATOLOGY/[place] [address] 12/28/2023 10:30 AM EDT Infusion Hematology Oncology at [address] [phone] 01/02/2024 3:20 PM EDT Hospital [place] [address] Astrid Ortega MD [facility] [place] [address] 04/22/2024 10:00 AM EST TH Visit (TeleHealth) Hematology and Oncology at [address] [phone] Tracy Beltran [facility] [place] [address] 05/20/2024 10:40 AM EST Hospital Encounter Mammography/[place] [phone] 05/20/2024 11:50 AM EST Office [place] [phone] Magaly Quijano APRN [facility] DR GENERAL SURGERY [place], [place] [phone] 11/15/2024 4:00 PM EDT Office Visit Hematology [place] [phone] Jenny Melissa MD [facility] HEMATOLOGY/[place] [address] documented as of this encounter Results * NM Aurora Node Injection Breast wo Imaging (01/28/2021 11:39 AM EDT) Anatomical Region Laterality Modality Nuclear Medicine Impressions 01/28/2021 3:21 PM EDT Aurora node injections performed without complication. Thank you for letting us participate in the care of this patient. ??If you are a health care provider and have any questions regarding this report, please contact the number below. ??For patients who have questions please contact the health hospice care sales consultant that requested your imaging first. ? [...] patient left the department ingood condition. IMPRESSION Aurora node injections performed without complication. Thank you for letting us participate in the care of this patient. If youare a health care provider and have any questions regarding this report,please contact the number below. For patients who have questions please contactthe health hospice care sales consultant that requested your imaging first. Trev Erazo MD [facility] documented in this encounter Visit Diagnoses Diagnosis Malignant neoplasm of central portion of right breast in female, estrogen receptor positive Malignant neoplasm of central portion of right breast in female, estrogen receptor positive documented in this encounter
--- OUTSIDE RECORDS SUMMARY | 2023-12-28 02:23 | XMS_ITS | Encounter Summary ---
[place] [address] Care Team Providers Care Anesthesiology Resident Name Role Phone Unavailable Primary Care Provider Unavailabl e Reason for Visit * Diagnostic Test (Routine) - Closed Specialty Diagnoses / Procedures Referred By Renato linares Referred To Contact Radiology Diagnoses Abnormal ultrasound Procedures MRI Guided Biopsy Breast Vacuum Assisted Left Nannette Corley MD [facility] [place] [address] [place] [address] Referral ID Status Reason Start Date Expiration Date V isits Requested Visits Authorized [id number] Closed Specialty Service Requested 12/30/2020 07/02/2022 1 1 Encounter Details Date Type Department Care Team (Latest Contact Info) Description 01/04/2021 9:55 AM EDT - 01/04/2021 12:09 PM EDT Hospital [place] [phone] Nannette Corley MD [facility] [place] [address] Discharge Disposition: Home Social History [...] AM EDT Office Visit Hematology/Oncology at [address] [phone] Sumanth Bermudez MD [facility] HEMATOLOGY/[place] [address] 12/28/2023 10:30 AM EDT Infusion Hematology Oncology at [address] [phone] 01/02/2024 3:20 PM EDT Hospital [place] [address] Astrid Ortega MD [facility] [place] [address] 04/22/2024 10:00 AM EST TH Visit (TeleHealth) Hematology and Oncology at [address] [phone] Tracy Beltran [facility] [place] [address] 05/20/2024 10:40 AM EST Hospital Encounter Mammography[place] [phone] 05/20/2024 11:50 AM EST Office [place] [phone] Magaly Quijano APRN [facility] [place] [address] 11/15/2024 4:00 PM EDT Office Visit Hematology [place] [phone] Jenny Melissa MD [facility] HEMATOLOGY/[place] [address] documented as of this encounter Procedures Procedure Name Priority Date/Time Associated Diagnosis Comments MRI GUIDED BIOPSY BREAST VACUUM ASSISTED LEFT Routine 01/04/2021 12:30 PM EDT Abnormal ultrasound documented in this encounter Visit Diagnoses Not on filedocumented in this encounter Administered Medications Inactive Administered Medications - up to 3 most recent administrations Medication Order MAR Action Action Date Dose Rate Site gadoterate meglumine (Dotarem) (0.5 mMol/mL) injection solution 0-100 mL 0-100 mL, Intravenous, ONCE PRN, 1 dose, Starting on Mon01/04/21 at 1229, Until Mon01/04/21 at 1229, Per Protocol, Radiology Contrast, Routine Given 01/04/2021 12:29 PM EDT 11 mLs documented in this encounter
--- OUTSIDE RECORDS SUMMARY | 2023-12-28 02:23 | XMS_ITS | Encounter Summary ---
Author Organization [facility] [address] Care Team Providers Care Panel Monitor Name Role Phone Unavailable Primary Care Provider Unavailabl e Encounter Details Date Type Department Care Team (Late st Contact Info) Description 12/29/2020 Telephone [place] [phone] Claire Navas RN Social History Tobacco Use Types Packs/Day [...] encounter Miscellaneous Notes * Telephone Encounter - Claire Navas RN - 12/29/2020 11:52 AM EDT Marychuy phones in asking permission to have her and daughter present during her upcoming appointment with Dr. Erazo. I gave the patient permission to have both present for her appointment. documented in this encounter Plan of Treatment Upcoming Encounters Date Type Department Care Team (Late st Contact Info) Description 12/28/2023 10:00 AM EDT Office Visit Hematology/Oncology at [address] [phone] Sumanth Bermudez MD [facility] HEMATOLOGY/[place] [address] 12/28/2023 10:30 AM EDT Infusion Hematology Oncology at [address] [phone] 01/02/2024 3:20 PM EDT Hospital [place] [phone] Astrid Ortega MD [facility] [place] [address] 04/22/2024 10:00 AM EST TH Visit (TeleHealth) Hematology and Oncology at [address] [phone] Tracy Beltran [facility] [address] 05/20/2024 10:40 AM EST Hospital Encounter Mammography/[place] [phone] 05/20/2024 11:50 AM EST Office [place] [phone] Magaly Quijano APRN [facility] [place] [address] 11/15/2024 4:00 PM EDT Office Visit Hematology [place] [address] Jenny Melissa MD [facility] [place]OLOG[place] [address] documented as of this encounter Visit Diagnoses Not on filedocumented in this encounter
--- OUTSIDE RECORDS SUMMARY | 2023-12-28 02:23 | XMS_ITS | Encounter Summary ---
Author Organization [facility] [place] [address] Care Team Providers Care Boring Machine Feeder Name Role Phone Unavailable Primary Care Provider Unavailabl e Encounter Details Date Type Department Care Team (Late Contact Info) Description 11/30/2020 Ancillary Procedure [place] [address] Matt Hussein MD [address] [place] [phone] Social History Tobacco Use Types Packs/Day Years [...] AM EDT Office Visit Hematology/Oncology at [address] [phone] Sumanth Bermudez MD [facility] HEMATOLOGY/[place] [address] 12/28/2023 10:30 AM EDT Infusion Hematology Oncology at [address] [phone] 01/02/2024 3:20 PM EDT Hospital Encounter CT Scan at [place] [phone] Astrid Ortega MD [facility] [place] [address] 04/22/2024 10:00 AM EST TH Visit (TeleHealth) Hematology and Oncology at [address] [phone] Tracy Beltran [facility] [place] [address] 05/20/2024 10:40 AM EST Hospital Encounter Mammography/DXA at [place] [phone] 05/20/2024 11:50 AM EST Office Visit General Surgery at [address] Magaly Quijano APRN [facility] [place] [address] 11/15/2024 4:00 PM EDT Office Visit Hematology and Oncology at [place] [phone] Jenny Melissa MD [facility] HEMATOLOGY[place] [address] documented as of this encounter Procedures Procedure Name Priority Date/Time Associated Diagnosis Comments FILM LIBRARY STORAGE ONLY MAMMO Routine 11/30/2020 12:00 AM EDT documented in this encounter Results * Film Library- Storage Only Mammo (11/30/2020 12:00 AM EDT) Narrative LILA RIBEIRO - 12/24/2020 11:49 AM EDT This exam is auto-finalizing. It's purpose is for storage only. Matt Hussein MD IMG FILM LIBRARY ORDERABLES Performing Organization Address City/State/[facility] Co de Phone Number LILA RIBEIRO [place], [place] documented in this encounter Visit Diagnoses Not on filedocumented in this encounter
--- OUTSIDE RECORDS SUMMARY | 2023-12-28 02:23 | XMS_ITS | Encounter Summary ---
Author Organization [facility] [place] [address] Care Team Providers Care Stone Dresser Name Role Phone Zuleima Duvall APRN Primary Care Provider [phone] Reason for Visit * Reason Comments Establish Care * Consultation (Routine) - Closed Specialty Diagnoses / Procedures Referred By Renato linares Referred To Contact Hematology and Oncology Diagnoses Breast cancer Wes Singletary MD [address] [place] [address] [facility] Hem Onc [address] [place] [address] Referral ID Status Reason Start Date Expiration Date Visits Re quested Visits Authorized [id number] Closed 12/24/2020 12/24/2021 1 1 Encounter Details Date Type Department Care Team (Late st Contact Info) Description 12/30/2020 1:45 PM EDT Office [place] [phone] Trev Feliciano MD [facility] [place] [address] Malignant neoplasm of central portion of right [...] Sign Reading Time Taken Comments Blood Pressure 166/82 12/30/2020 1:55 PM EDT Pulse 80 12/30/2020 1:55 PM EDT Temperature 36.6 ??C (97.9 ??F) 12/30/2020 1:55 PM ED T Respiratory Rate 18 12/30/2020 1:55 PM EDT Oxygen Saturation 100% 12/30/2020 1:55 PM EDT Inhaled Oxygen Concentration - - Weight 57.8 kg (127 lb 8 oz) 12/30/2020 1:55 PM EDT Height 160.8 cm (5' 3.31) 12/30/2020 1:55 PM ED T Body Mass Index 22.37 12/30/2020 1:55 PM EDT documented in this encounter Progress Notes * Trev Feliciano MD - 12/30/2020 1:45 PM EDT Marychuy [place] is a 70-year-old woman sent for consultation by Wes Singletary for right breast cancer. Marychuy had a mammogram that showed a 1.4 cm mass in her right breast. Ultrasound described as a 1.8 cm mass located at 10:00 4 cm from the nipple. 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 MRI today showed lesion 1 in the right breast was a 1.6 cm mass located at 9:00 about 5 cm deep to the nipple, close to the chest wall. There is also 1.1 cm of rwr-iwnh-ubag enhancement that extends toward the nipple from this mass (termed lesion 2). Some right axillary nodes were not enlarged but were considered to have abnormal morphology and an ultrasound was recommended. The total size of theright breast primary mass and the mei-hchy-eqrl enhancement is about 3.7 cm. Left mammogram was negative. Left MRI shows 3 lesions: they are all located pretty much behind the left nipple in the 5-6 o'clock radian. Lesion 1 is a 0.5 cm mass at 5:00 6 cm from nipple. Lesion two was a 1 cm area of wod-rdoi-gyha enhancement at 6:00 4 cm from the nipple and lesion 3 is a 0.2 cmmass at 6:00 2 cm from the nipple. Left axillary nodes are normal. She has not felt any masses in either breast. She has a positive family history of breast cancer in a half sister; no other family history of breast or ovarian cancer. She has 2 daughters. Current medications is just vitamins. No known drug allergies. Past surgical history: hysterectomy and oophorectomy for endometrial cancer 6 years ago and has no evidence of recurrence. Review of systems is negative for any cardiac, pulmonary or renal symptomatology. The rest review of systems is negative. 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 She likes to hike; [place] is her favorite. Her daughter Kelsey is here with her. Physical exam: she is alert and oriented. In general she appears well. Pupils are equal. She is nonjaundiced. Lungs are clear. BMI is 22.3. On examination of her right breast I can feel a mass located at 9:30 between 4 and 5 cm from the nipple, it is 1.5 cm in diameter. The skin is movable over it and the mass is movable on the chest wall. There are no nipple abnormalities. There are no other right breast masses, there is no right axillary adenopathy. She has full range of motion of the right arm, no right arm edema. There are no left nipple abnormalities or breast masses,no left axillary adenopathy. I personally reviewed her mammogram, ultrasound and MRI images. Impression: 70-year-old woman with cancer in the lateral right breast. There is an approximately 1.5 to 1.8 cm mass with some cpu-rdju-kwbk enhancement on MRI with a total area about 3.7 cm. She alsohas suspicious right axillary nodes that need to have an ultrasound to further evaluate them. She also has 3 lesions in the same approximate radian in the left breast deep to the nipple. They need to be evaluated with probably an MR guided biopsy; radiologist suggested trying ultrasound firstbut it very well might need an MR guided biopsy to determine the nature of these lesions. I used my decision-making table and we discussed the advantages and disadvantages of lumpectomy plus radiation therapy versus mastectomy plus or minus immediate reconstruction. She is not sure what treatment she would like at this point. I discussed the concept of sentinel node excision with her and she understands that. I will call her when we get results back from the ultrasound or MRI guided biopsies of the left breast and the right axillary ultrasound results and we will make a definitive surgical plan then. Copy to Wes Singletary 01/08/21 Addendum I called Marychuy today Right ax US: benign nodes Left breast MR bx of two lesions: an incidental ALH and a benign papillary lesion. Will leave left breast alone. She chose right mastectomy, no reconstruction, rather than lumpectomy (does not want XRT). Will schedule right mastectomy and sentinel node excision. documented in this encounter Miscellaneous Notes * Addendum Note - Trev Feliciano MD - 12/30/2020 1:45 PM EDTAddended by: TREV FELICIANO on: 01/28/2021 12:44 PM Modules accepted: Orders, SmartSet documented in this encounter Plan of Treatment Upcoming Encounters Date Type Department Care Team (Late st Contact Info) Description 12/28/2023 10:00 AM EDT Office Visit Hematology/Oncology at [address] [phone] Sumanth Bermudez MD [facility] HEMATOLOGY/[place] [address] 12/28/2023 10:30 AM EDT Infusion Hematology Oncology at [address] [phone] 01/02/2024 3:20 PM EDT Hospital Encounter CT Scan at [place] [phone] Astrid Ortega MD [facility] [place] [address] 04/22/2024 10:00 AM EST TH Visit (TeleHealth) Hematology and Oncology at [address] [phone] Tracy Beltran [facility] [place] [address] 05/20/2024 10:40 AM EST Hospital Encounter Mammography/[place] [phone] 05/20/2024 11:50 AM EST Office Visit General Surgery at [place] [phone] Magaly Quijano APRN [facility] [place] [address] 11/15/2024 4:00 PM EDT Office Visit Hematology [place] [phone] Jenny Melissa MD [facility] HEMATOLOGY/[place] [address] documented as of this encounter Visit Diagnoses Diagnosis Malignant neoplasm of central portion of right breast in female, estrogen receptor positive documented in this encounter Care Teams Stone Dresser Relationship Specialty Start Date End Date Zuleima Duvall APRN [address] [place] [address] PCP - General Family Medicine 01/21/21 05/17/23 documented as of this encounter
--- OUTSIDE RECORDS SUMMARY | 2023-12-28 02:23 | XMS_ITS | Encounter Summary ---
Author Organization [facility] [place] [address] Care Team Providers Care Poly Area Supervisor Name Role Phone Unavailable Primary Care Provider Unavailabl e Encounter Details Date Type Department Care Team (Late Contact Info) Description 12/16/2020 12:05 AM EDT Ancillary Procedure [place] [address] Matt Hussein MD [address] [place] [phone] Social History Tobacco Use Types Packs/Day Years [...] 10:00 AM EDT Office Visit Hematology/Oncology at [address] [phone] Sumanth Bermudez MD [facility] HEMATOLOGY/[place] [address] 12/28/2023 10:30 AM EDT Infusion Hematology Oncology at [address] [phone] 01/02/2024 3:20 PM EDT Hospital Encounter CT Scan at [place] [phone] Astrid Ortega MD [facility] [place] [address] 04/22/2024 10:00 AM EST TH Visit (TeleHealth) Hematology and Oncology at [address] [phone] Tracy Beltran, [facility] [place] [address] 05/20/2024 10:40 AM EST Hospital Encounter Mammography/DXA at [place] [phone] 05/20/2024 11:50 AM EST Office Visit General Surgery at [place] [phone] Magaly Quijano APRN [facility] [place] [address] 11/15/2024 4:00 PM EDT Office Visit Hematology [place] [phone] Jenny Melissa MD [facility] HEMATOLOGY/[place] [address] documented as of this encounter Procedures Procedure Name Priority Date/Time Associated Diagnosis Comments FILM LIBRARY-STORAGE ONLY US BREAST Routine 12/16/2020 12:05 AM EDT documented in this encounter Results * Film Library Storage Only US Breast (12/16/2020 12:05 AM EDT) Narrative LILA RAD - 12/24/2020 11:47 AM EDT This exam is auto-finalizing. It's purpose is for storage only. Matt Hussein MD IMG FILM LIBRARY ORDERABLES Performing Organization Address City/State/[facility] Co de Phone Number GEMA [place], [place] documented in this encounter Visit Diagnoses Not on filedocumented in this encounter
--- OUTSIDE RECORDS SUMMARY | 2023-12-28 02:23 | XMS_ITS | Encounter Summary ---
Author Organization [facility] [place] [address] Care Team Providers Care Tomato Paste Maker Name Role Phone Unavailable Primary Care Provider Unavailabl e Encounter Details Date Type Department Care Team (Late st Contact Info) Description 12/24/2020 Telephone Hematology [place] [phone] Kate Ramírez Social History Tobacco Use Types Packs/Day Years [...] encounter Miscellaneous Notes * Telephone Encounter - Kate Ramírez - 12/24/2020 7:45 AM EDT Patient Name: Marychuy Hood Patient : 1950 Attn: Image Library ([facility]) From: [facility] - [phone] Phone: Fax: [phone] Fed-Ex# [phone] - Please overnight [x] Urgent [x] For Review [] Please Reply [] Please Recycle Pursuant to the Federal Mammography Quality Standards Act-Section 900.12(c), (4), (ii) Comments: Please send all Mammograms, Ultrasounds & Breast MRIs or any scan pertaining to breast cancer. (CD, Films, Electronic Transfer & Reports) to [facility], [place] [address] If Questions call [phone] Notice of Confidentiality: The documents accompanying this FAX transmission cover contain information from [facility] that is confidential and privileged. The information is intended for the use of the individual or entity named on this transmittal sheet. If you are not the intended recipient, be aware that any disclosure, copying, distribution or use of the contents is prohibited. If you have received the FAX in error, please notify us by telephone (collect) immediately to permit us to arrange for the retrieval of the documents at no cost to you. documented in this encounter Plan of Treatment Upcoming Encounters Date Type Department Care Team (Late st Contact Info) Description 12/28/2023 10:00 AM EDT Office Visit Hematology/Oncology at [address] [phone] [facility] HEMATOLOGY/[place] [address] 12/28/2023 10:30 AM EDT Infusion Hematology Oncology at [address] [phone] 01/02/2024 3:20 PM EDT Hospital Encounter [place] [phone] [facility] [place] [address] 04/22/2024 10:00 AM EST TH Visit (TeleHealth) Hematology and Oncology at [address] [phone] Tarcy Beltran [facility] [place] [address] 05/20/2024 10:40 AM EST Hospital Encounter Mammography/DXA at [place] [phone] 05/20/2024 11:50 AM EST Office Visit General Surgery at [place] [phone] [facility] [place] [address] 11/15/2024 4:00 PM EDT Office Visit Hematology and Oncology at [place] [phone] [facility] [place]EMATOLOGY/[place] [address] documented as of this encounter Visit Diagnoses Not on filedocumented in this encounter
--- OUTSIDE RECORDS SUMMARY | 2023-12-28 02:23 | XMS_ITS | Encounter Summary ---
Author Organization [facility] Address [facility] [place] [address] Care Team Providers Care Double Spindle Shaper Operator Name Role Phone Unavailable Primary Care Provider Unavailabl e Encounter Details Date Type Department Care Team (Latest Contact Info) Description 01/04/2021 12:10 PM EDT - 01/04/2021 11:59 PM EDT Hospital [place] [phone] Nannette Corley MD [facility] [place] [address] Abnormal ultrasound Discharge Disposition: Home Social History Tobacco Use [...] AM EDT Office Visit Hematology/Oncology at [address] [phone] Sumanth Bermudez MD [facility] HEMATOLOGY/[place] [address] 12/28/2023 10:30 AM EDT Infusion Hematology Oncology at [address] [phone] 01/02/2024 3:20 PM EDT Hospital [place] [phone] Astrid Ortega MD [facility] [place] [address] 04/22/2024 10:00 AM EST TH Visit (TeleHealth) Hematology and Oncology at [address] [phone] Tracy Beltran [facility] [place] [address] 05/20/2024 10:40 AM EST Hospital Encounter Mammography/[place] [phone] 05/20/2024 11:50 AM EST Office [place] [phone] Magaly Quijano APRN [facility] GENERAL SURGERY [place], [place] [phone] 11/15/2024 4:00 PM EDT Office Visit H[place] [phone] Jenny Melissa MD [facility] HEMATOLOGY/[place] [address] documented as of this encounter Procedures Procedure Name Priority Date/Time Associated Diagnosis Comments MAMMO DIAGNOSTIC WITHOUT CAD LEFT Routine 01/04/2021 12:27 PM EDT Abnormal ultrasound documented in this encounter Results * Mammo Diagnostic Without Cad Left (01/04/2021 12:27 PM EDT) Anatomical Region Laterality Modality Breast Left Mammography Impressions 01/06/2021 9:12 AM EDT Concordant result RECOMMENDATION: Surgery for RIGHT breast. In view of the small size and likely complete excision of the papilloma the LEFT breast and the presence of ALH only, surgical excision should be discussed with the patient, but is not felt to be radiologically necessary. She is a patient of Dr. Covarrubias. Results discussed with the patient by Dr. Godinez on 01/05/2021 REVIEW PATH CONFERENCE?: Yes Thank you for letting us participate in the care of this patient. ??If you are a health care provider and have any questions regarding this report, please contact the number below. ??For patients who have questions please contact the health child care lead teacher that requested your imaging first. ? Electronically signed by: Piper Godinez MD, [facility] ([phone]), at 01/06/2021 9:12 AM Narrative 01/06/2021 9:12 AM EDT MRI GUIDED CORE BIOPSY OF THE LEFT BREAST(S) x2 CLINICAL INDICATION: ??Nonmass enhancement LEFT breast TECHNIQUE: After obtaining informed consent the patient was placed in the 1.5 Jodi magnet using a breast imaging coil with a localizing grid. Multiplanar sequences were obtained pre- and post- intravenous administration of 11cc's Dotarem. Cardiostrong localizing software was used to identify and localize the lesion of interest. While using sterile technique, less than 5 cc's of 1% Xylocaine for superficial anesthesia, and less than 10 cc's of 1% Xylocaine with epinephrine for deep anesthesia a skin knick was made and a 9 gauge Suros Eviva needle ??was placed in position. Pre- sampling axial images were obtained and verified satisfactory location of the needle. Multiple samples were obtained using the vacuum-assisted device. A marker was deployed. Images were obtained after clip deployment to confirm satisfactory positioning of the marker relative to the lesion. Subsequently, a post biopsy mammogram was performed in the CC and true lateral projections to verify clip type and location. FINDINGS: The lesions was identified and per protocol the lesions were sampled and a clip was deployed. There were no post procedure complex. LEFT BREAST LESION #1 0.5 cm nonmass enhancement ??lateral Quadrant 3 OClock 6 cm from the nipple Clip: M clip in appropriate position LEFT BREAST LESION #3 0.5 cm nonmass enhancement ??lateral Quadrant 3 OClock 2.5 cm from the nipple Clip: Dumbbell 1.5 cm medial to biopsy site COMPLICATIONS: None. PROCEDURAL ATTESTATION: Resident: None IMAGING DIFFERENTIAL DIAGNOSIS: For both lesions: Papilloma, FCD, DCIS PATHOLOGIC DIAGNOSIS: Lesion 1: Papilloma, 4 mm therefore likely complete excision with no evidence malignancy Lesion 3: ALH, likely incidental Nannette Corley MD IMG MAMMO ORDERABL ES documented in this encounter Visit Diagnoses Diagnosis Abnormal ultrasound Other nonspecific (abnormal) findings on radiological and other examinations of body structure documented in this encounter
--- OUTSIDE RECORDS SUMMARY | 2023-12-28 02:23 | XMS_ITS | Encounter Summary ---
[place] [address] Care Team Providers Care Marine Engine Machinist Name Role Phone Unavailable Primary Care Provider Unavailabl e Reason for Referral * Diagnostic Test (Routine) - Closed Specialty Diagnoses / Procedures Referred By Renato t Referred To Contact Radiology Diagnoses Abnormal ultrasound Procedures MRI Guided Biopsy Breast Vacuum Assisted Left Nannette Corley MD [facility] [place] [address] [place] [address] Referral ID Status Reason Start Date Expiration Date V isits Requested Visits Authorized [id number] Closed Specialty Service Requested 12/30/2020 07/02/2022 1 1 Reason for Visit * Diagnostic Test (Routine) - Closed Specialty Diagnoses / Procedures Referred By Contac t Referred To Contact Radiology Diagnoses Abnormal ultrasound Procedures MRI Guided Biopsy Breast Vacuum Assisted Left Nannette Corley MD [facility] [place] [address] [place] [address] Referral ID Status Reason Start Date Expiration Date V isits Requested Visits Authorized [id number] Closed Specialty Service Requested 12/30/2020 07/02/2022 1 1 Encounter Details Date Type Department Care Team (Latest Contact Info) Description 01/04/2021 9:54 AM EDT Hospital Encounter MRI at [facility] [place] [address] Nannette Corley MD [facility] DR DIAGNOSTIC [place] [address] Abnormal ultrasound Discharge Disposition: Home Social History [...] as of this encounter Progress Notes * Shay Garcia, RN - 01/04/2021 10:39 AM EDT MRI PRE-SEDATION ASSESSMENT NOTE NAME: Marychuy Hood AGE: 70 y.o. : 1950 [address] [place] [address] Female [phone] (home) Telephone Information: Matt Hussein MD None Allergies Allergen Reactions ??? Hymenoptera Allergenic Extract Anaphylaxis Date/Time of call: December 31, 2020/9:33 AM/ PREVIOUS MRI SCAN? HEIGHT: WEIGHT: SCHEDULED SCAN: MRI GUIDED BIOPSY BREAST VACUUM ASSISTED LEFT [[id number]] SUBJECTIVE: Claustrophobic CAN YOU LAY FLAT? Yes AIRWAY/BREATHING ISSUES? None DO YOU HAVE ANY INVOLUNTARY MOVEMENTS? None DO YOU HAVE ANY PAIN? None DO YOU TAKE PAIN MED ON A DAILY BASIS? N/A ASSESSMENT: Appropriate for PO sedation PLAN: Ativan 1-2 mg PO ( ) You must have a coach tour driver present when you check in. This patient has been informed that they require a coach tour driver to drive them home after this procedure. In the absence of a coach tour driver, IR will not be able to sedate for your scan. Pt verbalized understanding of these instructions during the pre-procedure education via phone. Yes Name of coach tour driver: Daughter or spouse Phone number: PRIOR SCAN DATE/S SEDATION TYPE SUCCESSFUL 01/04/21 MRI guided biopsy breast left vacuum assisted Ativan 1 mg x2 PO yes Revised 10/31/17 documented in this encounter Plan of Treatment Upcoming Encounters Date Type Department Care Team (Late st Contact Info) Description 12/28/2023 10:00 AM EDT Office Visit Hematology/Oncology at [address] [phone] Sumanth Bermudez MD [facility] HEMATOLOGY/[place] [address] 12/28/2023 10:30 AM EDT Infusion Hematology Oncology at [address] [phone] 01/02/2024 3:20 PM EDT Hospital [place] [phone] Astrid Ortega MD [facility] [place] [address] 04/22/2024 10:00 AM EST TH Visit (TeleHealth) Hematology and Oncology at [address] [phone] Tracy Beltran [facility] [place] [address] 05/20/2024 10:40 AM EST Hospital Encounter Mammography/[place] [phone] 05/20/2024 11:50 AM EST Office [place] [phone] Magaly Quijano APRN [facility] [place] [address] 11/15/2024 4:00 PM EDT Office Visit Hematology [place] [phone] Jenny Melissa MD [facility] HEMATOLOGY/[place] [address] documented as of this encounter Procedures Procedure Name Priority Date/Time Associated Diagnosis Comments MRI GUIDED BIOPSY BREAST VACUUM ASSISTED LEFT Routine 01/04/2021 12:30 PM EDT Abnormal ultrasound SPECIMEN TO PATHOLOGY Routine 01/04/2021 12:07 PM EDT SPECIMEN TO PATHOLOGY Routine 01/04/2021 12:06 PM EDT SURGICAL PATHOLOGY REPORT Routine 01/04/2021 11:53 AM EDT documented in this encounter Results * MRI Guided Biopsy Breast Vacuum Assisted Left (01/04/2021 12:30 PM EDT) Anatomical Region Laterality Modality Breast Left Magnetic Resonan ce Impressions 01/06/2021 9:12 AM EDT Concordant result RECOMMENDATION: Surgery for RIGHT breast. In view of the small size and likely complete excision of the papilloma the LEFT breast and the presence of ALH only, surgical excision should be discussed with the patient, but is not felt to be radiologically necessary. She is a patient of Dr. Nietos. Results discussed with the patient by Dr. Godinez on 01/05/2021 REVIEW PATH CONFERENCE?: Yes Thank you for letting us participate in the care of this patient. ??If you are a health care provider and have any questions regarding this report, please contact the number below. ??For patients who have questions please contact the health med care manager that requested your imaging first. ? Narrative 01/06/2021 9:12 AM EDT MRI GUIDED CORE BIOPSY OF THE LEFT BREAST(S) x2 CLINICAL INDICATION: ??Nonmass enhancement LEFT breast TECHNIQUE: After obtaining informed consent the patient was placed in the 1.5 Jodi magnet using a breast imaging coil with a localizing grid. Multiplanar sequences were obtained pre- and post- intravenous administration of 11cc's Dotarem. iCopyright localizing software was used to identify and [...] 3: ALH, likely incidental Nannette Corley MD [facility] [place] [place] MRI ORDERABLES * Specimen to Pathology (01/04/2021 12:07 PM EDT) AP Specimen 01/04/2021 12:0 7 PM EDT 01/04/2021 12:07 PM EDT Narrative [facility] - 01/04/2021 12:07 PM EDT Specimen requisition ordered. ??Separate Pathology report to follow Piper Godinez MD PATHOLOGY/CYTOLOGY O OPAL Performing Organization Address [facility] Co de Phone Number [facility] [place] [address] * Specimen to Pathology (01/04/2021 12:06 PM EDT) AP Specimen 01/04/2021 12:0 6 PM EDT 01/04/2021 12:06 PM EDT [facility] - 01/04/2021 12:06 PM EDT Specimen requisition ordered. ??Separate Pathology report to follow Piper Godinez MD PATHOLOGY/CYTOLOGY O OPAL Performing Organization Address [facility]/ZIP Co de Phone Number [facility] [place] [address] * Surgical Pathology Report (01/04/2021 11:53 AM EDT) FINAL DIAGNOSIS (AP) [id number] ? Location: [facility] The signing pathologist has (i) examined the relevant preparation(s) for the specimen(s) and (ii) rendered or confirmed the diagnosis(es). . ?Surgical Pathology DIAGNOSIS A - ??Needle biopsies: ??Left breast, lesion 1 Diagnosis: ?- Benign papillary lesion with usual ductal hyperplasia, and adjacent columnar cell change and cysts (4 mm) Microcalcificat ions: ??N/A B - Needle biopsies: ??Left breast, lesion 3 Diagnosis: ?- Atypical lobular hyperplasia (see Discussion) Microcalcificat ions: ??N/A Electronically signed by: ?Francine PEREZ, Tyson Morales Verified: ??01/05/2021 10:15 ??Pathologist Performed at: ??-[facility] Dept. of Pathology, [place], [place] DISCUSSION The atypical lobular hyperplasia might be an incidental finding - radiologic correlation is suggested. SPECIMEN(S) SUBMITTED A - LEFT BREAST LESION 1 MRI BX 9G, biopsy (Multiple) B - LEFT BREAST LESION 3 MRI BX 9G, biopsy (Multiple) Report to: Trev Erazo MD CLINICAL INFORMATION Mass 1. IDC, 2. FA, 3. Papilloma SPECIMEN PROCESSING A - Labeled/Fixativ e: Left breast lesion 1 MRI BX 9G, formalin. Quantity/Size: Multiple, ranging 1.3 x 0.2 cm, 3.5 x 0.2 cm Tissue Description: Romo-pink fibrofatty needle core biopsies, admixed with a 2.5 x 1.8 x 0.3 cm aggregate of irregular fibrofatty breast tissue fragments and clotted blood. Sections/Proces sing: Entirely submitted in 4 cassettes labeled A1-A4. Ischemic Time: 2 minutes B - Labeled/Fixativ e: Left breast lesion 3 MRI BX 9G, formalin. Quantity/Size: Multiple, ranging from 1.0 x 0.2 cm, to 3.6 x 0.2 cm Tissue Description: Romo-pink fibrofatty needle core biopsies, admixed with a 1.7 x 1.0 x 0.7 cm aggregate of irregular fibrofatty tissue fragments and clotted blood. Sections/Proces sing: Entirely submitted in 5 cassettes labeled B1-B5. Ischemic Time: 5 minutes ??shb 01/05/2021 10:15 AM EDT [facility] 01/04/2021 11:5 3 AM EDT Piper Godinez MD PATHOLOGY/CYTOLOGY O OPAL [facility] [place] [address] documented in this encounter Visit Diagnoses Diagnosis Abnormal ultrasound Other nonspecific (abnormal) findings on radiological and other examinations of body structure documented in this encounter Administered Medications Inactive Administered Medications - up to 3 most recent administrations Medication Order MAR Action Action Date Dose Rate Site lidocaine (Xylocaine) 1% (10 mg/mL) injection 20 mg 20 mg, Intradermal, ONCE, 1 dose, On Mon01/04/21 at 1145, Routine Given 01/04/2021 11:45 AM EDT 20 mg lidocaine-EPINEPHrine (1% - 1:100,000) injection 40 mL 40 mL, Intradermal, ONCE, 1 dose, On Mon01/04/21 at 1145, Warning Vesicant/Irritant Medication , Routine Given 01/04/2021 11:45 AM EDT 40 mLs LORazepam (Ativan) tablet 1 mg 1 mg, Oral, EVERY 30 MIN PRN, 2 doses, Starting on Mon01/04/21 at 0721, Until Mon01/04/21 at 1032, Anxiety, MRI, Angio/IR (Day of Procedure), Routine Given 01/04/2021 10:32 AM EDT 1 mg Given 01/04/2021 10:07 AM EDT 1 mg documented in this encounter
--- OUTSIDE RECORDS SUMMARY | 2023-12-28 02:23 | XMS_ITS | Encounter Summary ---
Author Organization [facility] [place] [address] [address] Care Court Magistrate Name Role Phone Unavailable Primary Care Provider Unavailabl e Encounter Details Date Type Department Care Team (Latest Contact Info) Description 12/16/2020 9:33 PM EDT - 12/16/2020 11:59 PM EDT [place] [address] Discharge Disposition: Home Social History Tobacco Use [...] 10:00 AM EDT Office Visit Hematology/Oncology at [address] [phone] Sumanth Bermudez MD [facility] HEMATOLOGY/[place] [address] 12/28/2023 10:30 AM EDT Infusion Hematology Oncology at [address] [phone] 01/02/2024 3:20 PM EDT Hospital Encounter CT Scan at [place] [phone] Astrid Ortega MD [facility] [place] [address] 04/22/2024 10:00 AM EST TH Visit (TeleHealth) Hematology and Oncology at [address] [phone] Tracy Beltran, [facility] [place] [address] 05/20/2024 10:40 AM EST Hospital Encounter Mammography/DXA at [place] [phone] 05/20/2024 11:50 AM EST Office Visit General Surgery at [place] [phone] Magaly Quijano APRN [facility] [place] [address] 11/15/2024 4:00 PM EDT Office Visit Hematology [place] [phone] Jenny Melissa MD [facility] HEMATOLOGY/[place] [address] (work) documented as of this encounter Procedures Procedure Name Priority Date/Time Associated Diagnosis Comments SURGICAL PATHOLOGY REPORT Routine 12/16/2020 8:34 AM EDT documented in this encounter Results * Surgical Pathology Report (12/16/2020 8:34 AM EDT) FINAL DIAGNOSIS (AP) [id number] ? Location: [facility] The signing pathologist has (i) examined the relevant preparation(s) for the specimen(s) and (ii) rendered or confirmed the diagnosis(es). . ? Addendum ADDENDUM DISCUSSION SPECIAL TEST - FAILED: Test Requested: ??Oncotype DX [facility] Case: ??[id number] ??Block #: ??1 (A1) Outside Lab: ??[employer] Outside Lab Case: ??[id number] Reported by: ?? N/A Date reported: ??02/15/2021 Additional information/commen ts: ??Unable to report due to: Insufficient carcinoma present; a different tumor block will be sent from the surgical specimen. NOTE: ??Notices received of tests not performed or failed are not scanned into the patient's file unless otherwise requested. ??This may be the only reference to an attempted special test for this specimen. Electronically signed by: ?Ese Girard DO Verified: ??02/19/2021 14:32 ??Pathologist Performed at: ??-[facility] [place], [place], [place] ?Molecular Genetics RESULTS TEST: HER2 (ERBB2) FISH, Breast METHOD: Fluorescence in situ hybridization (FISH) with chromosome 17 centromere (17p11.1-q11.1) probe and a locus specific probe for the HER2 gene locus (17q11.2- q12). SAMPLE ANALYZED: A1-6 RESULT: ?NEGATIVE FOR HER2/OMAR AMPLIFICATION ? TOTAL # SIGNALS/TOTAL # NUCLEI COUNTED FOR HER2 PROBE = 72 ? TOTAL # SIGNALS/TOTAL # NUCLEI COUNTED FOR CEP-17 PROBE = 70 ? HER2 TO CEP-17 RATIO = 1.0 ?(NORMAL RANGE <2.0) ? TOTAL # NUCLEI COUNTED = 40 ? AVERAGE # HER2 signals/cell = 1.8 Interpretation: ??Paraffin-embedde d tissue sections were submitted for HER2 (ERBB2) gene amplification analysis by FISH. ??Direct analysis was performed using the Sequence Design Kit. ??Slide adequacy and signal enumeration were evaluated and satisfactory for both control and patient slides. ??A signal ratio derived from the HER2 probe and the CEP-17 centromere probe of ?2.0 is considered positive for HER2 gene amplification. . RESULTS The 2013 ASCO/CAP guideline recommendation for HER2 testing in breast cancer states that samples with a HER2 to CEP-17 ratio of less than 2.0 are non-amplified. Specimens with a HER2 to CEP-17 range of ?2.0 are considered amplified. This test is approved by the U.S. FDA for clinical diagnostic use. Reference: Solo TONY, et al. Recommendations for human epidermal growth factor receptor 2 testing in breast cancer: [place] [employer] of Clinical Oncology/College of [place] [employer] clinical practice guideline update. J Clin Oncol. 2013 Apr 05. Solo TONY et al. Human Epidermal Growth Factor Receptor 2 Testing in Breast Cancer: [place] Society of Clinical Oncology/College [employer] [place] [employer] Clinical Practice Guideline Focused Update. Arch Pathol Lab Med. 2018 November 01/J Clin Oncol. 2017November 01. Reviewed by: Martín Simon MD [facility] [place] Pathology Electronically signed by: ?Martín Simon MD Verified: ??12/22/2020 15:50 ??Hematopathologis t Performed at: ??-[facility] [place]. 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 *Diagnostic stubbs for hormone receptors (ASCO/CAP GUIDELINES, 2020): ?Negative immunoreactivity: <1% tumor cells with immunostaining ?Positive immunoreactivity: >=1% tumor cells with immunostaining ??Low Positive: 1-10% tumor cells with immunostaining* *There are limited data on the overall benefit of endocrine therapies for patients with low level (1-10%) ER expression, but they currently suggest possible benefit, so patients are considered eligible for endocrine treatment. There are data that suggest invasive cancers with these results are heterogeneous in both behavior and biology and often have gene expression profiles more similar to ER-negative cancers. Immunohistochemica l assays were performed on paraffin-embedded tissue sections fixed in 10% neutral buffered formalin for 6-72 hours using the polymer system technique with appropriate controls. The assays were performed according to the roast master ? 's instructions using Anti-ER (SP1) and Anti-WY (16) antibodies. These tests were developed and their performance characteristics determined by [facility]. They may not have been cleared or approved by the US Food and Drug Administration. The FDA does not require such tests to go through premarket FDA review. These tests are used for clinical purposes and should not be regarded as investigational or for research. This laboratory is certified . DIAGNOSIS under the Clinical Laboratory Improvement Amendments (CLIA) as qualified to perform high complexity clinical laboratory testing. Electronically signed by: ?Tyson Escamilla MD Verified: ??12/18/2020 9:12 ?? Pathologist Performed at: ??-[facility] [place]. [place], [place], [place] ADDITIONAL STUDIES Immunohistochemist ry Studies: Block ? Antibody ?Result (Positive/Negative ) A1 ? ER ? Positive A1 ? WY ? Positive A1 ? E-cadherin ? Positive ? *Diagnostic stubbs for hormone receptors (ASCO/CAP GUIDELINES, 2020): ?Negative immunoreactivity: <1% tumor cells with immunostaining ?Positive immunoreactivity: >=1% tumor cells with immunostaining ??Low Positive: 1-10% tumor cells with immunostaining* *There are limited data on the overall benefit of endocrine therapies for patients with low level (1-10%) ER expression, but they currently suggest possible benefit, so patients are considered eligible for endocrine treatment. There are data that suggest invasive cancers with these results are heterogeneous in both behavior and biology and often have gene expression profiles more similar to ER-negative cancers. Immunohistochemica l assays were performed on paraffin-embedded tissue sections fixed in 10% neutral buffered formalin for 6-72 hours using the polymer system technique with appropriate controls. The assays were performed according to the roast master ? 's instructions using Anti-ER (SP1) and Anti-WY (16) antibodies. These tests were developed and their performance characteristics determined by [facility]. They may not have been cleared or approved by the US Food and Drug Administration. The FDA does not require such tests to go through premarket FDA review. These tests are used for clinical purposes and should not be regarded as investigational or for research. This laboratory is certified under the Clinical Laboratory Improvement Amendments (CLIA) as qualified to perform high complexity clinical laboratory testing. SPECIMEN(S) SUBMITTED A - Right breast ultrasound ?? biopsy 10:00, 4 ??cm FN Referring Identifier: ??[id number] CLINICAL INFORMATION Right breast ultrasound biopsy 10 o'clock, 4 cm FN SPECIMEN PROCESSING A - Labeled/Fixative: Right breast 10 o'clock 4 cm FN, formalin. Quantity/Size: Three, averaging 0.8 x 0.2 cm Tissue Description: Yellow to pearce-white fibrofatty needle core biopsies. Sections/Processin g: Entirely submitted in 3 cassettes labeled A1-A3. Ischemic Time: <1 minute ??shb 02/19/2021 2:32 PM EDT [facility] 12/16/2020 8:34 AM EDT Narrative Resulting Agency Comment Spec In Lab / [facility] Rich Hodgson MD PATHOLOGY/CYTOLOGY O RDERABLES [facility] [place] [address] documented in this encounter Visit Diagnoses Not on filedocumented in this encounter
--- OUTSIDE RECORDS SUMMARY | 2023-12-28 02:23 | XMS_ITS | Encounter Summary ---
Author Organization [facility] Address [facility] [place] [address] Care Team Providers Care Handle Sewer Name Role Phone Zuleima Duvall APRN Primary Care Provider [phone] Encounter Details Date Type Department Care Team (Late st Contact Info) Description 02/04/2021 Telephone [place] [phone] Trev Erazo MD [facility] [place] [address] Social History Tobacco Use Types Packs/Day Years [...] encounter Miscellaneous Notes * Telephone Encounter - Trev Erazo MD - 02/04/2021 12:17 PM EDT I called Marychuy with her path report 2 cm int grade ER pos, Her-2 neg.. 2 sent nodes negative She is recovering well, drain close to 30 ml/day. She had NO pain...... Will let her med onc know path so can send Oncotype dx test documented in this encounter Plan of Treatment Upcoming Encounters Date Type Department Care Team (Late st Contact Info) Description 12/28/2023 10:00 AM EDT Office Visit Hematology/Oncology at [address] [phone] Sumanth Bermudez MD [facility] HEMATOLOGY/[place] [address] 12/28/2023 10:30 AM EDT Infusion Hematology Oncology at [address] [phone] 01/02/2024 3:20 PM EDT Hospital [place] [phone] Astrid Ortega MD [facility] [place] [address] 04/22/2024 10:00 AM EST TH Visit (TeleHealth) Hematology and Oncology at [address] [phone] Tracy Beltran [facility] [place] [address] 05/20/2024 10:40 AM EST Hospital Encounter Mammography[place] [address] 05/20/2024 11:50 AM EST Office Visit General Surgery at [place] [phone] Magaly Quijano APRN [facility] [place] [address] 11/15/2024 4:00 PM EDT Office Visit Hematology [place] [phone] Jenny Melissa MD [facility] HEMATOLOGY[place] [address] documented as of this encounter Visit Diagnoses Not on filedocumented in this encounter Care Teams Handle Sewer Relationship Specialty Start Date End Date Zuleima Duvall APRN [address] [place] [phone] PCP - General Family Medicine 01/21/21 05/17/23 documented as of this encounter
--- OUTSIDE RECORDS SUMMARY | 2023-12-28 02:23 | XMS_ITS | Encounter Summary ---
Author Organization Formerly [facility] Address [facility] [place] [address] Care Team Providers Care Clinical Business Analyst Name Role Phone Unavailable Primary Care Provider Unavailabl e Encounter Details Date Type Department Care Team (Latest Contact Info) Description 01/04/2021 8:20 AM EDT - 01/04/2021 9:53 AM EDT Hospital En[place] [phone] Trev Erazo MD [facility] [place] [address] Abnormal finding on breast imaging Discharge Disposition: Home Social History Tobacco Use [...] 10:00 AM EDT Office Visit Hematology/Oncology at [address] [phone] Sumanth Bermudez MD [facility] HEMATOLOGY/[place] [address] 12/28/2023 10:30 AM EDT Infusion Hematology Oncology at [address] [phone] 01/02/2024 3:20 PM EDT Hospital Encounter [place] [phone] Astrid Ortega MD [facility] [place] [address] 04/22/2024 10:00 AM EST TH Visit (TeleHealth) Hematology and Oncology at [address] [phone] [facility] [place] [address] 05/20/2024 10:40 AM EST Hospital Encounter Mammography/[place] [phone] 05/20/2024 11:50 AM EST Office Visit General Surgery at [place] [phone] Magaly Quijano APRN [facility] [place] [address] 11/15/2024 4:00 PM EDT Office Visit Hematology [place] [phone] Jenny Melissa MD [facility] HEMATOLOGY/[place] [address] documented as of this encounter Procedures Procedure Name Priority Date/Time Associated Diagnosis Comments MAMMO BREAST US LIMITED LEFT Routine 01/04/2021 9:12 AM EDT Abnormal finding on breast imaging documented in this encounter Results * US Breast Limited Left (01/04/2021 9:12 AM EDT) Anatomical Region Laterality Modality Breast Left Mammography Narrative 01/04/2021 10:04 AM EDT DIAGNOSTIC ULTRASOUND OF THE LEFT breast and RIGHT axilla CLINICAL HISTORY: Abnormal MRI, non-mass enhancement of the LEFT breast and questionable enlarged lymph nodes RIGHT axilla in patient with recent diagnosis of RIGHT breast cancer. COMPARISONS: None AREA SCANNED: RIGHT axilla and LEFT lateral breast FINDINGS: No abnormality was detected in the LEFT breast. There are normal small RIGHT axillary lymph nodes. INTERPRETATION: BIRADS 1. Normal MANAGEMENT: MRI guided biopsy of lesions 1 and 3 in the LEFT breast Thank you for letting us participate in the care of this patient. ??If you are a health care provider and have any questions regarding this report, please contact the number below. ??For patients who have questions please contact the health veterinarian laboratory animal care that requested your imaging first. ? Electronically signed by: Piper Godinez MD, [facility] ([phone]), at 01/04/2021 10:04 AM Trev Erazo MD IMG MAMMO ORDERABLES documented in this encounter Visit Diagnoses Diagnosis Abnormal finding on breast imaging Other (abnormal) findings on radiological examination of breast documented in this encounter
--- OUTSIDE RECORDS SUMMARY | 2023-12-28 02:23 | XMS_ITS | Encounter Summary ---
[facility] [place] [address] Care Team Providers Care Pediatric Speech Therapist Name Role Phone Zuleima Duvall APRN Primary Care Provider [phone] Encounter Details Date Type Department Care Team (Latest Contact Info) Description 01/28/2021 12:01 PM EDT - 01/28/2021 5:37 PM EDT Hospital En[place] [phone] Trev Erazo MD [facility] [address] Discharge Disposition: Home Social History Tobacco Use [...] Sign Reading Time Taken Comments Blood Pressure 176/79 01/28/2021 5:00 PM EDT Pulse 51 01/28/2021 5:00 PM EDT Temperature 36 ??C (96.8 ??F) 01/28/2021 3:56 PM EDT Respiratory Rate 19 01/28/2021 5:00 PM EDT Oxygen Saturation 98% 01/28/2021 5:00 PM EDT Inhaled Oxygen Concentration - - Weight 57.6 kg (127 lb) 01/28/2021 12:18 PM EDT Height 160 cm (5' 3) 01/28/2021 12:18 PM EDT Body Mass Index 22.5 01/28/2021 12:18 PM EDT documented in this encounter Discharge Instructions * Discharge Instructions* Vick Bone MD - 01/28/2021 4:09 PM EDT Images from the original note were not included. DRAIN CARE INSTRUCTIONS Drains help to keep fluid from collecting by removing the extra blood and fluid from under the skinor from an abscess within the body. A drain is temporary. It stays in place until the drainage has slowed down or stopped. You should call the clinic to schedule an appointment to have the drain removed when the output is less than 30mL over 24 hours. Please call in 10 days if the drain output remains greater than 30mL daily. Inspect the skin around the insertion site daily for signs of infection such as: ??? Redness or swelling ??? Pus or drainage ??? Fever over 100 F (38 C) or chills ??? Increased pain or discomfort at the insertion site Washing instructions: ??? Gently wash the skin with tap water and pat dry ??? Rinse and air dry the skin before wearing clothes Tube Maintenance: ??? Make sure the tube is properly secured to prevent accidental removal. ??? Strip tubing and empty your drain in the morning and evening ??? Record the drainage amount in the chart provided below. Contact your physician if: ??? There is a significant change in drainage amount or color. ??? If the tube becomes dislodged. ??? If you notice signs of infection (see above). What problems may I have with my drain? The bulb is not compressed- The bulb may not be squeezed tightly enough, the plug may not be closed securely, or the tube has slipped out a bit and is leaking. Follow the instructions on how to empty the drain. If the bulb remains expanded, then notify your doctor or nurse during business hours. ??? No drainage or sudden decrease in amount of drainage- This may be due to a plug in the drain. Please notify your doctor or nurse during business hours. ??? The tube accidentally falls out- If this happens, place a dry gauze dressing over the drain site and notify your doctor or nurse during business hours. ??? Increased redness, swelling, or heat around the tube insertion site- This may be a sign of infection. Take your temperature: if it is higher than 101F or 38.8C, call your doctor or nurse immediately. Otherwise, notify your doctor or nurse during business hours and keep the dressing clean and dry. How to empty the bulb of a Frank-Cui drain Follow any instructions your doctor gives you. How often you empty the bulb depends on how much fluid is draining. Empty the bulb when it is half full. 1. Wash your hands with soap and water. 2. Take the plug out of the bulb. 3. Empty the bulb. If your doctor asks you to measure the fluid, empty the fluid into a measuring cup, and write down the color and how much you collected. Your doctor will want to know this information. 4. Clean the plug with alcohol. 5. Squeeze the bulb until it is flat. This removes all the air from the bulb. You may need to put the bulb on a table or a counter to flatten it. 6. Keep the bulb flat, and put the plug in. The bulb should stay flat after you put the plug back in. This creates the suction that pulls the fluid into the bulb. 7. Empty the fluid into the toilet. 8. Wash your hands. How to help prevent clogs in your surgical drain Squeezing or milking the tube of your surgical drain can help prevent clogs so that it drains correctly. Your doctor will tell you when you need to do this. In general, you do this when: ?? You see a clot in the tube that prevents fluid from draining. The clot may look like a dark, stringy lining. ?? You see fluid leaking around the tube where it goes into the skin. Follow these steps for milking the tube. 1. Use one hand to hold and pinch the tube where it leaves the skin. 2. With the thumb and first finger of your other hand, pinch the tube just below where you're holding it. 3. Slowly and firmly push your thumb and first finger down the tubing toward the end of the tube. 4. Repeat this as many times as needed to move the clot. If you have a Frank-Cui (SHARIF) drain, the clot should move down the tube and into the bulb. If you have a [place] drain, the clot should move into the dressing. Frank-Cui Drainage Record NAME: Date of Surgery: Date: Time: If more than one drain, which one: Drainage Amount (per drain) Total Amount (per drain; in 24 hours) * Patient Instructions* Vick Bone MD - 01/28/2021 4:03 PM EDT Instructions following Breast Surgery Wound Care: You may shower tomorrow morning with the Tegaderm covering the site. Do not scrub area vigorously for the next 1 week. Do not soak incision(s) under water for the next 2 weeks (i.e. soaking in bath or swimming) as this may promote a wound infection. You may remove dressing if it becomes saturated/wet and replace with dry gauze as needed for seepage/comfort. If there are pieces of tape directly on the incision (steri-strips), please leave them onuntil they fall off on their own. You may trim them back as they begin to peel up. ICE: You may apply ice to incision during the first 48 hours following surgery to help limit swelling, bruising, and discomfort. You may also find wearing a bra for the first two days following surgery will help with discomfort, although this is not absolutely necessary. Your stitches will dissolve and do not need to be removed. Drain Care: You should keep track of the output of your drain and write down the total amount out in 24hrs. Once the output is less than 30mL over 24hrs, please call the clinic to make an appointment for drain removal. Activity: As tolerated by your comfort level. You should wear a sling on your right side during the day until your drain is removed to minimize movement and allow healing of the incision. Call Doctor for: Please call if you notice worsening redness or drainage from incision(s) lasting longer than 5 days after your surgery, any foul-smelling drainage from the incision, pain not controlled by pain medications, persistent nausea and vomiting, or for any fevers greater than 101.3 F. The number for questions is [phone] before 5 PM week. Pain Medication: Please use ibuprofen (motrin, advil) 600 mg three times per day with food and tylenol 650 mg every 8 hours between the ibuprofen doses. If you still have significant pain after taking ibuprofen and tylenol, then use the opioid that was prescribed for you. No driving for 8 hours after any dose of opioid pain medication if one was prescribed for you. Follow-up: Follow-up appointment will be scheduled with in 1-2 weeks. Scheduled Appointments: The following appointment with Dr. Erazo has been scheduled on your behalf: Future Appointments Date Time Provider Department Center 02/17/2021 11:00 AM Evelina Kaur PT PT Rehab [facility] 02/17/2021 3:00 PM Jenny Melissa MD [facility] HEM ONC [facility] 02/17/2021 4:45 PM Trev Erazo MD [facility] SURG [facility] Please call [phone] (clinic number) if any changes need to be made to your appointment time. documented in this encounter Medications at Time [...] needed. 10/05/2022 documented as of this encounter H&P Notes * Trev Erazo MD - 01/28/2021 12:41 PM EDT I examined and marked this patient today and she is ready for surgery. Right mastectomy and sentinel node excision for breast cancer. documented in this encounter Miscellaneous Notes * Brief Op Note - Vick Bone MD - 01/28/2021 3:48 PM EDT Brief Operative Note Patient Name: Marychuy Hood : [id number] MR#: [id number] Case Date: 01/28/2021 Surgeon: Surgeon(s) and Role: * Trev Erazo MD - Primary * Vick Bone MD - Resident Preoperative diagnosis: BREAST CANCER Postoperative diagnosis: BREAST CANCER Procedure(s) (LRB): MASTECTOMY, SIMPLE, COMPLETE (WRVU 15.85) (Right) BIOPSY OR EXCISION OF LYMPH NODE(S), OPEN, DEEP AXILLARY NODE(S) (WRVU 6.43) (Right) INTRAOPERATIVE ID (MAPPING) SENTINEL LYMPH NODE,INCLUDES INJECTION (WRVU 2.5) (Right) MODIFIER SENTINEL NODE EXCISION (Right) Anesthesia: General Findings: Right mastectomy with sentinel lymph node biopsy Complications: None Estimated Blood Loss: 15mL Specimens removed during surgery: Order Name Source Comment Collection Info Order Time SPECIMEN TO PATHOLOGY Right axillary sentinel node, 233 OR23 82484 BREAST CANCER right axillary sentinel node, 233 biopsy 01/28/2021 3:18 PM Time specimen removed from patient: 3:16 PM Number of tissue samples (in container) 1 SPECIMEN TO PATHOLOGY Right breast, long stitch lateral, short stitch cranial, 5 OR23 39611 BREAST CANCER Right breast, long stitch lateral, short stitch cranial, 5 resection 01/28/2021 3:18 PM Time specimen removed from patient: 3:17 PM Number of tissue samples (in container) 1 Fluids: Intraprocedure Crystalloid Total None PRBCs: none (See Anesthesia Record/Report for Other Blood Products) Urine Output: (no urine output recorded) Drains: 10Fr Luis drain Disposition: awakened from anesthesia, extubated and taken to the recovery room in a stable condition, having suffered no apparent untoward event. Condition: doing well without problems (Please see the Surgical Encounter Summary for any Implant and Specimen details pertinent to this patient.) Infection Bundle used? N/A * Op Note - Trev Erazo MD - 01/28/2021 2:19 PM EDT [facility] Operative Note Patient Name: Marychuy Hood : [id number] MR#: [id number] Case Date: 01/28/2021 Surgeon: Surgeon(s) and Role: * Trev Erazo MD - Primary * Vick Bone MD - Resident Preoperative diagnosis: BREAST CANCER Postoperative diagnosis: BREAST CANCER Procedure(s) (LRB): MASTECTOMY, SIMPLE, COMPLETE (WRVU 15.85) (Right) BIOPSY OR EXCISION OF LYMPH NODE(S), OPEN, DEEP AXILLARY NODE(S) (WRVU 6.43) (Right) INTRAOPERATIVE ID (MAPPING) SENTINEL LYMPH NODE,INCLUDES INJECTION (WRVU 2.5) (Right) MODIFIER SENTINEL NODE EXCISION (Right) Anesthesia: General Estimated Blood Loss: 50 ml Specimens removed during surgery: right breast; right axillary sentinel nodes Drains: Drain/Device Site 01/28/21 1529 Right breast collapsible closed device (Active) Surgical Closure: Primary Closure - skin incision is completely closed without any wires, ginna, drains or other devices Indications for surgery: Marychuy Hood is a 70-year-old woman with a cancer in her right lateralbreast. She desired mastectomy for treatment without reconstruction. Technetium was injected for sentinel node identification and we were able to detect a peak of radioactivity in the right axilla. Details of the operation: She was prepped with ChloraPrep and was draped. She was given preoperative antibiotics. I marked an elliptical incision that included the skin over her cancer in her lateralright breast and her nipple and areola. I anesthetized the skin with 1% lidocaine with half percentbupivacaine and then we made that elliptical incision. We placed 2-0 silk retraction sutures. We then created thin skin flaps inferiorly to past the inferior mammary fold, medially to the edge of thesternum, cranially to the clavicle and laterally to the latissimus. We then removed all the breast tissue from the pectoralis major muscle including the fascia. We clamped, divided and tied the tail of the breast as it entered the right axilla. We used the gamma probe and were able to detect a peak of radioactivity in the right axilla. We excised a right axillary sentinel node. The ex vivo count on that node was 233. The remaining count was5. The right axillary sentinel node was sent to pathology. That was a deep right axillary node frombeneath the fascia. The breast was marked with a long stitch lateral and a short stitch cranial and was sent to pathology. We obtained meticulous hemostasis. I then placed a pec block. I injected 10 mL of Marcaine lidocaine solution underneath the fascia ofthe serratus muscle lateral to the pec and the pectoralis minor muscles. We then placed a 10 [place] Frank-Cui drain through a stab incision in the inferior flap and sutured that in place. We closed the skin with interrupted 3-0 Vicryl and 4-0 Monocryl running cutaneous suture. Gauze and Tegaderm were placed Infection Bundle used? N/A Attestation: Case Date: 01/28/2021 I was present and I participated during the entire procedure (does not need to include opening and closing). TREV ERAZO MD 01/28/2021 documented in this encounter Plan of Treatment Upcoming Encounters Date Type Department Care Team (Late st Contact Info) Description 12/28/2023 10:00 AM EDT Office Visit Hematology/Oncology at [address] [phone] Sumanth Bermudez MD [facility] HEMATOLOGY/[place] [address] 12/28/2023 10:30 AM EDT Infusion Hematology Oncology at [address] [phone] 01/02/2024 3:20 PM EDT Hospital Encounter CT Scan at [place] [phone] Astrid Ortega MD [facility] [place] [address] 04/22/2024 10:00 AM EST TH Visit (TeleHealth) Hematology and Oncology at [address] [phone] Tracy Beltran [facility] [address] 05/20/2024 10:40 AM EST Hospital Encounter Mammography/DXA at [place] [phone] 05/20/2024 11:50 AM EST Office Visit General Surgery at [place] [phone] Magaly Quijano APRN [facility] [place] [address] 11/15/2024 4:00 PM EDT Office Visit Hematology [place] [phone] Jenny Melissa MD [facility] [place] [address] documented as of this encounter Procedures Procedure Name Priority Date/Time Associated Diagnosis Comments SURGICAL PATHOLOGY REPORT Routine 01/28/2021 3:18 PM EDT SPECIMEN TO PATHOLOGY Routine 01/28/2021 3:18 PM EDT SPECIMEN TO PATHOLOGY Routine 01/28/2021 3:18 PM EDT MODIFIER SENTINEL NODE EXCISION 01/28/2021 1:56 PM EDT BREAST CANCER Intraop [place] Lymph Id W/Dye Injection ([id number]) 01/28/2021 1:56 PM EDT BREAST CANCER Bx/Remv, Lymph Node, Deep Axill (11289) 01/28/2021 1:56 PM EDT BREAST CANCER Mastectomy, Simple, Complete (30763) 01/28/2021 1:56 PM EDT BREAST CANCER documented in this encounter Results * Surgical Pathology Report (01/28/2021 3:18 PM EDT) FINAL DIAGNOSIS (AP) [id number] ? Location: [facility]; [facility]; The signing pathologist has (i) examined the relevant preparation(s) for the specimen(s) and (ii) rendered or confirmed the diagnosis(es). . ? Addendum ADDENDUM DISCUSSION SPECIAL TEST PERFORMED: Test: ??Oncotype DX [facility] Case: ??[id number], block B1 Performing Lab: ??bCODE Performing Lab Case: ??[id number] Reported by: ??Gabe Kelly MD Date reported: ??02/25/2021 For the full text of the bCODE report please refer to Non- Documentation Pathology in the electronic health record (eDH). Electronically signed by: ?Ese Griard DO Verified: ??03/23/2021 14:59 ??Pathologist Performed at: ??-[facility] Dept. of Pathology, [place], [place] ?Surgical Pathology DIAGNOSIS A - Right axillary lymph node, excision: ??- Two lymph nodes negative for malignancy (0/2). ??- Intranodal hemangioma. 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 ??- Ductal carcinoma in-situ. ??- Biopsy site changes. ??- Benign skin and nipple. Electronically signed by: ?Ese Girard DO Verified: ??02/04/2021 10:14 ??Pathologist Performed at: ??-[facility] Dept. of Pathology, [place], [place] SYNOPTIC Specimen ? Procedure: ??Total mastectomy ? Specimen Laterality: ??Right Tumor ? Tumor Site: ??Clock position ?Clock Position: ??9 o'clock ? Histologic Type: ??Invasive ductal carcinoma with solid papillary features ? Glandular (Acinar) / Tubular Differentiation: ??Score 2 ? Nuclear Pleomorphism: ??Score 2 ? Mitotic Rate: ??Score 2 ? Overall Grade: ??Grade 2 (scores of 6 or 7) ? Tumor Size: ??20 Millimeters (mm) ? Ductal Carcinoma In Situ (DCIS): ??Present - Negative for extensive ?intraductal component (EIC) ?Architectural Patterns: ??Cribriform; ??Solid ?Nuclear Grade: ??Grade II (intermediate) ?Necrosis: ??Not identified ? Tumor Extent ?Skin Invasion: ??Skin is present and uninvolved . SYNOPTIC ? Lymphovascular Invasion: ??Not identified ? Treatment Effect in the Breast: ??No known presurgical therapy Margins ? Invasive Carcinoma Margins: ??Uninvolved by invasive carcinoma ?Distance from Closest Margin (Millimeters): ??Greater than 10 mm ?Closest Margin(s): ??Anterior; ??Posterior ? DCIS Margins: ??Uninvolved by DCIS ?Distance from Closest Margin (Millimeters): ??Greater than 10 mm ?Closest Margin(s): ??Anterior; ??Posterior Lymph Nodes ? Regional Lymph Nodes: ??Uninvolved by tumor cells ?Total Number of Lymph Nodes Examined: ??2 ?Number of [place] Nodes Examined: ??2 Pathologic Stage Classification (pTNM, AJCC 8th Edition) ? Primary Tumor (pT): ??pT1c ? Regional Lymph Nodes Modifier: ??(sn): [place] node(s) evaluated. ? Regional Lymph Nodes (pN): ??pN0 Tumor Block(s): ??B1 CAP eCC July 2019 Annual Release ER, HI, and HER2 studies (performed on prior biopsy, [id number]): ER: Positive (>90%, strong) HI: Positive (1-2%, moderate) HER2 FISH: Negative ADDITIONAL STUDIES Immunohistochemistry Studies: Formalin-fixed, paraffin-embedded tissue [...] diagnostic tests. Block ? Antibody ?Result (Positive/Negative) B1 ? Synaptophysin ?Positive, supporting the ?interpretation ?of solid papillary morphology SPECIMEN(S) SUBMITTED A - right axillary sentinel node, 233, biopsy (1) B - Right breast, long stitch lateral, short stitch cranial, 5, resection (1) CLINICAL INFORMATION Breast cancer SPECIMEN PROCESSING A - Labeled/Fixative: Right axillary sentinel node 233, fresh. Quantity/Size: Single, 4.5 x 2.5 x 0.5 cm. Tissue Description: Adipose tissue with two lymph nodes, up to 1.5 x 1.0 x 0.5 cm. Sections/Processing: Tractor Driver sections in 2 cassettes as follows: ?A1: ??One lymph node trisected and submitted entirely ?A2: ??One lymph node trisected and submitted entirely B - Labeled/Fixative: Right breast, long stitch lateral, short stitch cranial, 5, fresh. Quantity/Size/Weight : Single, 17.5 x 16.0 x 2.0 cm, 339 g. . SPECIMEN PROCESSING SPECIMEN DESCRIPTION Resection Specimen: Intact, right, simple mastectomy. Skin: 15.0 x 6.0 cm. Nipple: 1.0 x 1.0 x 1.0 cm diameter, rubbery, soft, everted. Deep Margin: Fragmented fatty tissue. No muscle identified. LESION ??Description: 2.0 x 2.0 x 2.0 cm, pink, firm, rubbery, mass, with well delineated borders. ??Location: 9 o'clock and 4 cm away from nipple base. ??Clip: Identified. ??Margins: 1.5 cm to deep margin, 3.0 cm to skin OTHER Parenchyma: Fibroadipose tissue. Ink Designation: Posterior margin inked black. Anterior margin inked blue. Adipose tissue at edge of skin inked blue. Sections/Processing: [place]ractor [place] sections in 11 cassettes as follows: ?B1: ??[place] lesion sectioned in the coronal plane representing lateral, ? medial, superior, and inferior margins ?B2: ??[place]ractor [place] lesion and deep margin inked black ?B3: ??[place] lesion and skin margin ?B4: ??[place] fibrous tissue adjacent to lesion medially ?B5: ??[place] fibrous tissue adjacent to lesion laterally ?B6: ??[place] parenchyma in the lower medial quadrant ?B7: ??[place] parenchyma in the upper medial quadrant ?B8: ??[place] parenchyma in the upper lateral quadrant ?B9: ??[place] parenchyma in the lower lateral quadrant ?B10: ??Nipple tip perpendicularly sectioned and submitted entirely ?B11: ??[place] nipple sectioned en face Ischemic Time: 1.1 hours ??jnk/ssb 03/23/2021 2:59 PM EDT [facility] 01/28/2021 3:18 PM EDT Trev Erazo MD PATHOLOGY/CYTOLOGY O OPAL Performing Organization Address [facility] de Phone Number [facility] [place] [address] * Specimen to Pathology (01/28/2021 3:18 PM EDT) AP Specimen 01/28/2021 3:18 PM EDT 01/28/2021 3:18 PM EDT Narrative [facility] - 01/28/2021 3:18 PM EDT Specimen requisition ordered. ??Separate Pathology report to follow Trev Erazo MD PATHOLOGY/CYTOLOGY O OPAL Performing Organization Address [facility] Co de Phone Number [facility] [place] [address] * Specimen to Pathology (01/28/2021 3:18 PM EDT) AP Specimen 01/28/2021 3:18 PM EDT 01/28/2021 3:18 PM EDT Narrative [facility] - 01/28/2021 3:18 PM EDT Specimen requisition ordered. ??Separate Pathology report to follow Trev Erazo MD PATHOLOGY/CYTOLOGY O RDERABLES [facility] [place] [address] documented in this encounter Visit Diagnoses Not on filedocumented in this encounter Administered Medications Inactive Administered Medications - up to 3 most recent administrations Medication Order MAR Action Action Date Dose Rate Site acetaminophen (Tylenol) tablet 1,000 mg 1,000 mg, Oral, ONCE, 1 dose, On Radha 01/28/21 at 1315, Administer with SIP of H2O only., Day of Surgery (Day of Procedure), Routine Given 01/28/2021 1:14 PM EDT 1,000 mg documented in this encounter Active and Recently Administered Medications Times are shown in EDT. Scheduled Medication Order 01/26/2021 01/27/2021 01/28/2021 acetaminophen (Tylenol) tablet 1,000 mg (COMPLETED) 1,000 mg, Oral, ONCE, 1 dose, On Radha 01/28/21 at 1315, Administer with SIP of H2O only., Day of Surgery (Day of Procedure), Routine 1314 (Given - Provid er: Vangie Banerjee RN) ceFAZolin (Ancef) 2 g in dextrose 5% 100 mL (2 x 1 g/50 mL premix bags) infusion (COMPLETED) 2 g, Intravenous, EVERY 3 HOURS, 1 dose, First dose on Radha 01/28/21 at 1315, Administer over 30 Minutes, Total dose of ceFAZolin 2 grams, administered using two ceFAZolin 1g/50mL IV bags. Infuse each ceFAZolin 1g/50mL bag over 30 minutes (100 ml/hr) for total infusion time of 60 minutes. On the MAR, document administration of first bag using New Bag (1 of 2) MAR action for dose of 1g. On the MAR, document administration of second bag using Next Bag (2 of 2) MAR action for dose of 1g (resulting in total dose of 2g)., Intra-Operative (Intra-Procedure), Indication for (Active or Suspected): Prophylaxis 1402 (Given - Provid er: Anastasia Singh) Continuous Medication Order 01/26/2021 01/27/2021 01/28/2021 lactated ringers infusion (CANCELED) 1,000 mL, at 100 mL/hr, Intravenous, CONTINUOUS, Starting on Radha 01/28/21 at 1315, Until Radha 01/28/21 at 1735, Day of Surgery (Day of Procedure) 1356 (New Bag - Prov ider: Anastasia Singh)1552 (Anesthesia Volume Adjustment - Provider: Anastasia Singh) PRN Medication Order 01/26/2021 01/27/2021 01/28/2021 BUpivacaine (pf) (Marcaine) (5 mg/mL) 0.5% injection (CANCELED) ONCE PRN, Starting on Radha 01/28/21 at 1524, Until Radha 01/28/21 at 1937, Intra-Operative (Intra-Procedure), Routine 1524 (Given - Provid er: Trev Erazo MD - Comment: mixed 1:1 with !% lidocaine.) lidocaine (pf) (Xylocaine) (10 mg/mL) 1% injection (CANCELED) ONCE PRN, Starting on Radha 01/28/21 at 1524, Until Radha 01/28/21 at 1937, Intra-Operative (Intra-Procedure), Routine 1524 (Given - Provid er: Trev Erazo MD - Comment: mixed 1:1 with 0.5% bupivacaine.) documented in this encounter Care Teams Pediatric Speech Therapist Relationship Specialty Start Date End Date Zuleima Duvall APRN [address] [place] [phone] PCP - General Family Medicine 01/21/21 05/17/23 documented as of this encounter
--- OUTSIDE RECORDS SUMMARY | 2023-12-28 02:23 | XMS_ITS | Encounter Summary ---
Author Organization [facility] [place] [address] Care Team Providers Care Comparator Operator Name Role Phone Unavailable Primary Care Provider Unavailabl e Encounter Details Date Type Department Care Team (Late Contact Info) Description 12/16/2020 Ancillary Procedure [place] [address] Matt Hussein MD [address] [place] [phone] Social History Tobacco Use Types Packs/Day Years [...] 10:00 AM EDT Office Visit Hematology/Oncology at [address] [phone] Sumanth Bermudez MD [facility] HEMATOLOGY/[place] [address] 12/28/2023 10:30 AM EDT Infusion Hematology Oncology at [address] [phone] 01/02/2024 3:20 PM EDT Hospital Encounter CT Scan at [place] [phone] Astrid Ortega MD [facility] [place] [address] 04/22/2024 10:00 AM EST TH Visit (TeleHealth) Hematology and Oncology at [address] [phone] Tracy Beltran [facility] [place] [address] 05/20/2024 10:40 AM EST Hospital Encounter Mammography/DXA at [place] [phone] 05/20/2024 11:50 AM EST Office Visit General Surgery at [address] Magaly Quijano APRN [facility] [place] [address] 11/15/2024 4:00 PM EDT Office Visit Hematology and Oncology at [place] [phone] Jenny Melissa MD [facility] HEMATOLOGY[place] [address] documented as of this encounter Procedures Procedure Name Priority Date/Time Associated Diagnosis Comments FILM LIBRARY STORAGE ONLY MAMMO Routine 12/16/2020 12:00 AM EDT documented in this encounter Results * Film Library- Storage Only Mammo (12/16/2020 12:00 AM EDT) Narrative LILA RIBEIRO - 12/24/2020 11:47 AM EDT This exam is auto-finalizing. It's purpose is for storage only. Matt Hussein MD IMG FILM LIBRARY ORDERABLES Performing Organization Address City/State/[facility] Co de Phone Number LILA RIBEIRO [place], [place] documented in this encounter Visit Diagnoses Not on filedocumented in this encounter
--- OUTSIDE RECORDS SUMMARY | 2023-12-28 02:23 | XMS_ITS | Encounter Summary ---
Author Organization [facility] [place] [address] Care Team Providers Care Fur Plucker Name Role Phone Unavailable Primary Care Provider Unavailabl e Encounter Details Date Type Department Care Team (Late st Contact Info) Description 12/30/2020 Notes [place] [phone] Rose Marie Wong MSW Social History Tobacco [...] Notes * Rose Marie Wong MSW - 12/30/2020 4:04 PM EDT Reason for visit: I'm able to meet with pt to introduce myself as comprehensive breast program geriatric social work professor, review role within CBP team, and to complete psychosocial assessment while pt is present today for surgical consultation with Dr. Erazo. Pt is accompanied by daughter, Kelsey; there was some confusion about [facility] visitor policy and pt's is waiting in the car while we speak today, though he was previously allowed into pt's earlier appts today. Pt presents with depressed mood and unhappy affect appropriate to situation. She is alert and oriented with normal speech and volume. Family/social history, living arrangements: Pt lives with and daughter. 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 Pt names family, friends, Lutheran catholic/environmental protection specialist as sources of strength/support. 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 She and her both receive SS income and are able to pay bills but experience financial stress. She reports concern about meeting $2400 annual insurance deductiblenext year, as well as the cost of firewood for the winter (@$1400) and estate tax (@$2000). I will look at available resources for these described issues. Tobacco/drug/alcohol history: Pt rarely uses ETOH and never tobacco or other drugs. Advance Directives: These are not discussed with pt today. I will f/u with pt at a later date re: this documentation. Adjustment to illness/mental health concerns: Pt acknowledges multiple stressors, including 's stroke and recovery process that has also impacted her ability to sleep since (melatonin helps), and a half sister dying of lung cancer. We review available supports for mental health and adjustment to illness, but pt reports that she can't imagine talking to anyone. She is agreeable to me checking in with her at future appts to check mental health status and assess whether she is more open to mental health support. She is encouraged to reach out should any symptoms of stress become prolonged or impair functioning. Summary of visit: Pt articulates some concern re: finances, insurance deductible, and cost of gas for transportation to [facility]. Pt is provided with $20 gas card today. I will f/u with pt at next opportunity on suitable resources for described concerns. Pt declines connection to resources for stress and mental health related to adjustment to illness, and verbalizes understanding of available socialwork services outlined in our discussion today. She accepts my contact information and agrees to reach out for any emerging needs. Plan: I will continue to follow pt to assess and assist with psychosocial needs at regular intervals. Meghana Wong, [facility] Comprehensive Breast Program/[place] [address] Pager #[phone] documented in this encounter Plan of Treatment Upcoming Encounters Date Type Department Care Team (Late st Contact Info) Description 12/28/2023 10:00 AM EDT Office Visit Hematology/Oncology at [address] [phone] Sumanth Bermudez MD [facility] HEMATOLOGY/[place] [address] 12/28/2023 10:30 AM EDT Infusion Hematology Oncology at [address] [phone] 01/02/2024 3:20 PM EDT Hospital [place] [address] Astrid Ortega MD [facility] [place] [address] 04/22/2024 10:00 AM EST TH Visit (TeleHealth) Hematology and Oncology at [address] [phone] Tracy Beltran [facility] [place] [address] 05/20/2024 10:40 AM EST Hospital Encounter Mammography[place] [phone] 05/20/2024 11:50 AM EST Office [place] [phone] Magaly Quijano APRN [facility] [place] [address] 11/15/2024 4:00 PM EDT Office Visit Hematology [place] [phone] Jenny Melissa MD [facility] HEMATOLOGY/[place] [phone] documented as of this encounter Visit Diagnoses Not on filedocumented in this encounter
--- OUTSIDE RECORDS SUMMARY | 2023-12-28 02:23 | XMS_ITS | Encounter Summary ---
Author Organization [facility] [place] [address] Care Team Providers Care Rn Flight Name Role Phone Unavailable Primary Care Provider Unavailabl e Encounter Details Date Type Department Care Team (Late st Contact Info) Description 12/30/2020 Patient Outreach Hematology [place] [phone] Yamile Fine, RN Social History Tobacco Use [...] Progress Notes * Yamile Fine, RN - 12/30/2020 3:07 PM EDT Comprehensive Breast Program (CBP) Nurse Navigator Note Marychuy Hood is a 70 y.o. female with right breast cancer. I met with the patient and her daughter, Kelsey, after her surgical oncology consultation. Per Dr. Erazo he would like to have contralateral (left) breast additional imaging and biopsy, as indicated by our radiologist per breast MRI findings, as well as right axillary U/S and biopsy as needed. Marychuy is in agreement with this plan and looks forward to a call from Katie in radiology. SPECIFIC TEACHIN. Breast Cancer Treatment Handbook (Lana Durant, 2017) was sent via mail. 2. Information from our Shared Decision-Marking Program on Early-Stage Breast Cancer previously provided. 3. She understands she will meet with a medical oncologist and, possibly, a radiation oncologist after surgery. 4. Contact phone number for questions or concerns in the immediate post- operative period. 5. Comprehensive Breast Program Binder provided. 6. Post Breast Surgery Exercises handout created by physical therapists at [facility] to begin after partial mastectomy and continue until she is back to her baseline. She understands she may begin the first two exercises gently after mastectomy and will meet with a physical therapist post-operatively who will customize her ROM routine. 7. Breast Cancer Treatment Process care map provided and reviewed. 8. Things to Consider...What I Wish I Knew advice from breast cancer patients handout provided. 9. Contact information for the General Surgery Clinic Nurses was given and the Doctor salesperson men's furnishings system explained. Twenty minutes was spent in education and providing support. She verbalized understanding of the plan of care and states all her questions were answered. Marychuy has our contact information. Pre-op MRI: Yes Abnormalities detected Ipsilateral and Contralateral (other than index lesion) Referral to familial counseling: possibly (if patient requests or if b/l breast cancer) documented in this encounter Plan of Treatment Upcoming Encounters Date Type Department Care Team (Late st Contact Info) Description 12/28/2023 10:00 AM EDT Office Visit Hematology/Oncology at [address] [phone] Sumanth Bermudez MD [facility] HEMATOLOGY/[place] [address] 12/28/2023 10:30 AM EDT Infusion Hematology Oncology at [address] [phone] 01/02/2024 3:20 PM EDT Hospital [place] [phone] Astrid Ortega MD [facility] [place] [address] 04/22/2024 10:00 AM EST TH Visit (TeleHealth) Hematology and Oncology at [address] [phone] Tracy Beltran [facility] [place] [address] 05/20/2024 10:40 AM EST Hospital Encounter Mammography/[place] [phone] 05/20/2024 11:50 AM EST Office [place] [phone] Magaly Quijano APRN [facility] [place] [address] 11/15/2024 4:00 PM EDT Office Visit Hematology [place] [phone] Jenny Melisas MD [facility] HEMATOLOGY/[place] [address] documented as of this encounter Visit Diagnoses Not on filedocumented in this encounter
--- OUTSIDE RECORDS SUMMARY | 2023-12-28 02:23 | XMS_ITS | Encounter Summary ---
[place] [address] Care Team Providers Care Dive Master Name Role Phone Unavailable Primary Care Provider Unavailabl e Reason for Visit * Diagnostic Test (Routine) - Closed Specialty Diagnoses / Procedures Referred By Renato linares Referred To Contact Radiology Diagnoses Malignant neoplasm of right breast in female, estrogen receptor positive, unspecified site of breast Procedures MRI Breast wwo Contrast Bilat Trev Erazo MD [facility] [address] [facility] [place] [address] Referral ID Status Reason Start Date Expiration Date V isits Requested Visits Authorized [id number] Closed Specialty Service Requested 12/24/2020 06/26/2022 1 1 Encounter Details Date Type Department Care Team (Latest Contact Info) Description 12/30/2020 9:07 AM EDT - 12/30/2020 11:59 PM EDT [place] [phone] Trev Erazo MD [facility] [place] [address] Discharge Disposition: Home Social History [...] AM EDT Office Visit Hematology/Oncology at [address] [phone] Sumanth Bermudez MD [facility] HEMATOLOGY/[place] [address] 12/28/2023 10:30 AM EDT Infusion Hematology Oncology at [address] [phone] 01/02/2024 3:20 PM EDT Hospital [place] [address] Astrid Ortega MD [facility] [place] [address] 04/22/2024 10:00 AM EST TH Visit (TeleHealth) Hematology and Oncology at [address] [phone] Tracy Beltran, [facility] [place] [address] 05/20/2024 10:40 AM EST Hospital Encounter Mammography[place] [phone] 05/20/2024 11:50 AM EST Office [place] [phone] Magaly Quijano APRN [facility] [address] 11/15/2024 4:00 PM EDT Office Visit [place]ematology [place] [phone] Jenny Melissa MD [facility] [place]EMATOLOGY[place] [address] documented as of this encounter Procedures Procedure Name Priority Date/Time Associated Diagnosis Comments MRI BREAST WWO CONTRAST BILAT Routine 12/30/2020 11:26 AM EDT Malignant neoplasm of right breast in female, estrogen receptor positive, unspecified site of breast documented in this encounter Visit Diagnoses Not on filedocumented in this encounter Administered Medications Inactive Administered Medications - up to 3 most recent administrations Medication Order MAR Action Action Date Dose Rate Site gadoterate meglumine (Dotarem) (0.5 mMol/mL) injection solution 0-100 mL 0-100 mL, Intravenous, ONCE PRN, 1 dose, Starting on Mon12/30/20 at 1054, Until Mon12/30/20 at 1042, Per Protocol, Radiology Contrast, Routine Given 12/30/2020 10:42 AM EDT 13 mLs documented in this encounter
--- OUTSIDE RECORDS SUMMARY | 2023-12-28 02:23 | XMS_ITS | Encounter Summary ---
Author Organization [facility] [place] [address] Care Team Providers Care Crime Scene Analyst Name Role Phone Unavailable Primary Care Provider Unavailabl e Encounter Details Date Type Department Care Team (Latest Contact Info) Description 08/16/2017 8:39 PM EDT - 08/16/2017 11:59 PM EDT Hospital [place] [address] Discharge Disposition: Home Social History Tobacco Use [...] AM EDT Office Visit Hematology/Oncology at [address] [phone] Sumanth Bermudez MD [facility] HEMATOLOGY/[place] [address] 12/28/2023 10:30 AM EDT Infusion Hematology Oncology at [address] [phone] 01/02/2024 3:20 PM EDT Hospital Encounter CT Scan at [place] [phone] Astrid Ortega MD [facility] [place] [address] 04/22/2024 10:00 AM EST TH Visit (TeleHealth) Hematology and Oncology at [address] [phone] Tracy Beltran, [facility] [place] [address] 05/20/2024 10:40 AM EST Hospital Encounter Mammography/DXA at [place] [phone] 05/20/2024 11:50 AM EST Office Visit General Surgery at [place] [phone] Magaly Quijano APRN [facility] [place] [address] 11/15/2024 4:00 PM EDT Office Visit Hematology [place] [phone] Jenny Melissa MD [facility] [address] [place] [address] documented as of this encounter Procedures Procedure Name Priority Date/Time Associated Diagnosis Comments SURGICAL PATHOLOGY REPORT Routine 08/16/2017 10:20 AM EDT documented in this encounter Results * Surgical Pathology Report (08/16/2017 10:20 AM EDT) FINAL DIAGNOSIS (AP) [id number] ? Location: [facility] The signing pathologist has (i) examined the relevant preparation(s) for the specimen(s) and (ii) rendered or confirmed the diagnosis(es). . ?Surgical Pathology DIAGNOSIS Skin, left yazidism, excision: - Verrucous keratosis, inflamed. Electronically signed by: ??Jhony PEREZ, PhD, Anisha Verified: ??08/22/2017 ?Dermatopathol ogist Performed at: ??-[facility] Dept. of Pathology, [place], [place] CLINICAL INFORMATION Specimen Submitted: A - Skin, Left yazidism, Clinical History: Present several months Clinical Diagnosis: Wart Referring Identifier: ??[id number] SPECIMEN PROCESSING A - Labeled/Fixativ e: L yazidism, formalin. Quantity/Size: Single, 1.4 x 0.5 x 0.3 cm. Tissue Description: Unoriented elliptical excision of strong skin with a central 0.5 cm verrucous papule. Sections/Proces sing: ?? Inked and serially sectioned with the tips in (1) and the central sections in (2) ??. (T2) ??kush 08/22/2017 9:17 AM EDT [facility] 08/16/2017 10:2 0 AM EDT Narrative Resulting Agency Comment Spec In Lab / [facility] Matt Rosado MD PATHOLOGY/CYTOLOG Y ORDERABLES [facility] [place] [address] documented in this encounter Visit Diagnoses Not on filedocumented in this encounter
--- OUTSIDE RECORDS SUMMARY | 2023-12-28 02:23 | XMS_ITS | Encounter Summary ---
Author Organization [facility] [place] [address] Care Team Providers Care Research Assistant Member Name Role Phone Zuleima Duvall APRN Primary Care Provider [phone] Encounter Details Date Type Department Care Team (Late st Contact Info) Description 01/28/2021 1:56 PM EDT Anesthesia Event [place] [phone] Dorothy Forte MD [facility] [place] [address] Anastasia Singh MD [facility] [place] [address] Anesthesia Record Procedure Summary Procedure Name Responsible Anesthesiologist Anesthesia Start Time Anesthesia Stop Time MASTECTOMY, SIMPLE, COMPLETE (WRVU 15) (Right: Breast) Dorothy Forte MD 01/28/21 1356 01/28/21 1552 Events Date Time Event Comment 01/28/2021 1320 1356 AN Verify 1356 Start 1356 An Start Data 1358 An Induction 1400 An Intubation 1401 Anesthesia Ready 1523 Quick Note Surgical team p erforming Pec 1 and Pec 2 blocks in the field 1548 Extubation/LMA Out 1551 an stop data 1552 Recovery or ICU Handoff Laura ent care was transferred to the destination unit staff after review of the patient's medical history, current anesthetic/surgical status and plan, according to the Provider Handoff Checklist. 1552 Stop Meds Name Total IV Lidocaine 100 mg Propofol 150 mg ePHEDrine 5 mg Ondansetron 8 mg ceFAZolin (Ancef) 2 g in dex trose 5% 100 mL (2 x 1 g/50 mL premix bags) infusion 2 g Propofol INF 997.92 mg Dexmedetomidine 16 mcg ketorolac (Toradol) (30 mg/mL) injection 30 mg lactated ringers infusion 800 mL * Agents Name O2 Air N2O Sevoflurane (et) * Blood No blood administrations on file. Lines, Drains, and Airways Type Details Placement Removal (RETIRED) Peripheral IV Line - Single Lumen 01/04/21; 1022; brachial vein, right; ouew-fsy-kfvsln catheter system; Anatomical Landmarks; 22 gauge; Sondra Balderas. Jan; 0; 03/10/21 (LDA Cleanup utility RA#[id number]); 1650 (LDA Cleanup utility RA#[id number]) 01/04/21 1022 by Sondra Montoya 03/10/21 1650 by Jhony Montana (RETIRED) Peripheral IV Line - Single Lumen 01/28/21; 1309; median cubital vein (antecubital fossa), left; omwe-icn-kqkvod catheter system; Anatomical Landmarks; 20 gauge; ELEUTERIO Freedman; distraction; 01/28/21; 1734 01/28/21 1309 by Vangie Banerjee RN 01/28/21 1734 by Lashanda Messer RN Supraglottic Mask Ventilation: No t Attempted (0); LMA Type: iGel; LMA Size: 4; Inserted by: Souleymane MS4; Removal Date: 01/28/21; Removal Time: 1548 01/28/21 1405 by Anastasia Singh MD 01/28/21 1548 by Anastasia Singh MD Incision 01/28/21; 1419; Righ t; breast; 01/31/22 (LDA cleanup utility RA#[id number]); 1715 (LDA cleanup utility RA#[id number]) 01/28/21 1419 by Bryanna Siegel RN 01/31/22 1715 by Selena Girard Drain/Device Site 01/28/21; 1529; Alda t; breast; collapsible closed device; Dr. Erazo; Sterile technique; 10fr flat; LDA not present upon assessment; 10/19/23; 0809 01/28/21 1529 by Bryanna Siegel, RN 10/19/23 0809 by Ghassan Rubio RN documented in this encounter Social History Tobacco Use Types Packs/Day Years [...] on file documented as of this encounter OR Notes * Anesthesia Postprocedure Evaluation - Dorothy Forte MD - 01/29/2021 8:11 AM EDT Department of Anesthesiology Post-procedure Note Patient: Marychuy Hood Procedure Summary Date: 01/28/21 Room / Location: [facility] OR [address] [place] [address] MAIN OR Anesthesia Start: 1356 Anesthesia Stop: 1552 Procedures: MASTECTOMY, SIMPLE, COMPLETE (WRVU 15.85) (Right Breast) BIOPSY OR EXCISION OF LYMPH NODE(S), OPEN, DEEP AXILLARY NODE(S) (WRVU 6.43) (Right Axilla) INTRAOPERATIVE ID (MAPPING) SENTINEL LYMPH NODE,INCLUDES INJECTION (WRVU 2.5) (Right ) MODIFIER SENTINEL NODE EXCISION (Right ) Diagnosis: (BREAST CANCER) Surgeons: Trev Erazo MD Responsible Provider: Dorothy Forte MD Anesthesia Type: general ASA Status: 2 All Anesthesia Providers: Anesthesiologist: Dorothy Forte MD Customer Service Specialist: Anastasia Singh MD Vitals Value Taken Time BP 173/87 01/28/21 1702 Temp 36 ??C (96.8 ??F) 01/28/21 1556 Pulse 52 01/28/21 1705 Resp 17 01/28/21 1705 SpO2 98 % 01/28/21 1700 Pain Level 0 01/28/21 1645 Vitals shown include unvalidated device data. Patient Location: PACU/[facility] Level of Consciousness: Awake and Alert Pain Management: Satisfactory Analgesia PONV: None Cardiovascular Status: At Baseline and Hemodynamically Stable Respiratory Status: At Baseline and Room Air Postoperative Fluid Status: Intravascular EUvolemia Possible Anesthetic Complications: NONE apparent at time of evaluation Final Primary Anesthesia Type: General (The anesthetic type performed was the same as planned.) Comments: Dorothy Forte MD * Anesthesia Preprocedure Evaluation - Dorothy Forte MD - 01/27/2021 4:49 PM EDT Pre-Anesthesia Evaluation for: Marychuy Hood a 70 y.o. female. Procedure(s): MASTECTOMY, SIMPLE, COMPLETE (WRVU 15.85) BIOPSY OR EXCISION OF LYMPH NODE(S), OPEN, DEEP AXILLARY NODE(S) (WRVU 6.43) INTRAOPERATIVE ID (MAPPING) SENTINEL LYMPH NODE,INCLUDES INJECTION (WRVU 2.5) MODIFIER SENTINEL NODE EXCISION Patient Active Problem List Diagnosis ??? Malignant neoplasm of right breast in female, estrogen receptor positive 12/16/20 dx AVH: ER/WI+/HER2- right breast IDC ??? Endometrial adenocarcinoma, endometrioid type, FIGO grade 2 History reviewed. No pertinent past medical history. Past Surgical History: Procedure Laterality Date ??? MRI GUIDED BIOPSY BREAST VACUUM ASSISTED LEFT Left 01/04/2021 MRI Guided Biopsy Breast Vacuum Assisted Left 01/04/2021 [facility] RAD MRI Social History Tobacco Use ??? Smoking status: Never Smoker ??? Smokeless tobacco: Never Used Substance Use Topics ??? Alcohol use: Not Currently Comment: 1-2 times a month Social History Substance and Sexual Activity Drug Use No Allergies Allergen Reactions ??? Hymenoptera Allergenic Extract Anaphylaxis Medications: MAR and/or home medications have been reviewed. Physical Exam: Preprocedure Vitals Current as of 01/27/21 1649 No BP, pulse, respiration, SpO2, or temperature recorded. Height: Weight: BMI: IBW: Airway Assessment: Mallampati: II TM distance: >3 FB Neck ROM: full Cardiovascular Assessment: Rhythm: regular Rate: normal system normal Pulmonary Assessment: unlabored breathing pulmonary exam normal Dental Assessment: Misc Assessment: IV access: Peripheral line Last Filed Perioperative Cognitive Screening None Anesthesia Plan: ASA 2 general, with a(n) intravenous induction PRELIMINARY NOTE 70 y.o. female with a history of endometrial cancer s/p hysterectomy and oophorectomy (2014), recently diagnosed ER+/HER-2 neg ductal breast carcinoma who presents for R mastectomy and sentinel node excision. Past Anesthesia History: - No anesthesia records available - No personal or family history of anesthetic complications NPO status appropriate NKDA PLAN GA / LMA vs ETT, standard ASA monitors, PIV x1 Region - Other Informed Consent: Anesthetic plan and risks discussed with patient. Plan discussed with resident and attending. Anesthesia Screening documented in this encounter Plan of Treatment Upcoming Encounters Date Type Department Care Team (Late st Contact Info) Description 12/28/2023 10:00 AM EDT Office Visit Hematology/Oncology at [address] [phone] Sumanth Bermudez MD [facility] HEMATOLOGY/[place] [address] 12/28/2023 10:30 AM EDT Infusion Hematology Oncology at [address] [phone] 01/02/2024 3:20 PM EDT Hospital [place] [address] Astrid Ortega MD [facility] [place] [address] 04/22/2024 10:00 AM EST TH Visit (TeleHealth) Hematology and Oncology at [address] [phone] [address]an [facility] [place] [address] 05/20/2024 10:40 AM EST Hospital Encounter Mammography/[place] [phone] 05/20/2024 11:50 AM EST Office [place] [phone] Magaly Quijano APRN [facility] [place] [address] 11/15/2024 4:00 PM EDT Office Visit Hematology [place] [phone] Jenny Melissa MD [facility] HEMATOLOGY/[place] [address] documented as of this encounter Visit Diagnoses Not on filedocumented in this encounter Administered Medications Inactive Administered Medications - up to 3 most recent administrations Medication Order MAR Action Action Date Dose Rate Site ceFAZolin (Ancef) 2 g in dextrose 5% 100 mL (2 x 1 g/50 mL premix bags) infusion 2 g, Intravenous, EVERY 3 HOURS, 1 [...] action for dose of 1g. On the AUG, document administration of second bag using Next Bag (2 of 2) MAR action for dose of 1g (resulting in total dose of 2g)., Intra-Operative (Intra-Procedure), Indication for (Active or Suspected): Prophylaxis Given 01/28/2021 2:02 PM EDT 2 g dexmedetomidine (Precedex) (4 mcg/mL) bolus injection (Anesthsia) Intravenous, PRN, Starting on Radha 01/28/21 at 1442, Until Radha 01/28/21 at 1552, Anesthesia Intra-op, Routine Given 01/28/2021 3:17 PM EDT 4 mcg Given 01/28/2021 2:57 PM EDT 4 mcg Given 01/28/2021 2:47 PM EDT 4 mcg ePHEDrine sulfate (5 mg/mL) multi-dose injection Intravenous, PRN, Starting on Radha 01/28/21 at 1417, Until Radha 01/28/21 at 1552, Anesthesia Intra-op, Routine Given 01/28/2021 2:17 PM EDT 5 mg ketorolac (Toradol) (30 mg/mL) injection Intravenous, PRN, Starting on Radha 01/28/21 at 1546, Until Radha 01/28/21 at 1552, Anesthesia Intra-op, Routine Given 01/28/2021 3:46 PM EDT 30 mg lactated ringers infusion 1,000 mL, at 100 mL/hr, Intravenous, CONTINUOUS, Starting on Radha 01/28/21 at 1315, Until Radha 01/28/21 at 1735, Day of Surgery (Day of Procedure) New Bag 01/28/2021 1:56 PM EDT lidocaine (pf) (Xylocaine) (20 mg/mL) 2% injection syringe Intravenous, PRN, Starting on Radha 01/28/21 at 1358, Until Radha 01/28/21 at 1552, Anesthesia Intra-op, Routine Given 01/28/2021 1:58 PM EDT 100 mg ondansetron (pf) (Zofran) (2 mg/mL) injection Intravenous, PRN, Starting on Radha 01/28/21 at 1546, Until Radha 01/28/21 at 1552, Anesthesia Intra-op, Routine Given 01/28/2021 3:46 PM EDT 8 mg propofoL (Diprivan) 10 mg/mL bolus injection (Anesthesia) Intravenous, PRN, Starting on Radha 01/28/21 at 1359, Until Radha 01/28/21 at 1552, Anesthesia Intra-op Given 01/28/2021 1:58 PM EDT 150 mg propofoL (Diprivan) infusion Intravenous, CONTINUOUS PRN, Starting on Radha 01/28/21 at 1400, Until Radha 01/28/21 at 1552, Anesthesia Intra-op, Routine Rate/Dose Change 01/28/2021 3:21 PM EDT 125 mcg/kg/min 43.2 mL/hr Rate/Dose Change 01/28/2021 3:13 PM EDT 150 mcg/kg/min 51. 84 mL/hr Rate/Dose Change 01/28/2021 2:57 PM EDT 175 mcg/kg/min 60. 48 mL/hr documented in this encounter Care Teams Research Assistant Member Relationship Specialty Start Date End Date Zuleima Duvall APRN [address] [place] [phone] PCP - General Family Medicine 01/21/21 05/17/23 documented as of this encounter
--- OUTSIDE RECORDS SUMMARY | 2023-12-28 02:23 | XMS_ITS | Encounter Summary ---
[place] [address] Care Team Providers Care Event Marketing Coordinator Name Role Phone Unavailable Primary Care Provider Unavailabl e Reason for Visit * Reason Onset Date Comments Prior Authorization 01/05/2021 Molecular te sting - Not a covered benefit Encounter Details Date Type Department Care Team (Late st Contact Info) Description 01/05/2021 [place] [phone] Marychuy Thibodeaux Prior Authorization (Molecular testing - Not a covered benefit) Social History Tobacco Use Types Packs/Day Years [...] encounter Miscellaneous Notes * Telephone Encounter - Marychuy Thibodeaux - 01/05/2021 3:29 PM EDT Molecular testing - Not a covered benefit: I received an e-mail from Latisha in [employer] asking me to review coverage for CPTs 38097 and 13669 which are to be done on breast tissue obtained on 12/16/20. Ordering provider is Trev Erazo MD in general surgery. Upon review, the patient's traditional Medicare A&B policy [id number] and secondary Medicare supplement (per the card scanned in Documents) [place] [id number] are active. Per Medicare's website, CPTs 86185 and 94120 are not covered under the policy, and the secondary policy will follow the primary's guidelines. I will e-mail Latisha to let her know of the approval. documented in this encounter Plan of Treatment Upcoming Encounters Date Type Department Care Team (Late st Contact Info) Description 12/28/2023 10:00 AM EDT Office Visit Hematology/Oncology at [address] [phone] Sumanth Bermudez MD [facility] HEMATOLOGY/[place] [address] 12/28/2023 10:30 AM EDT Infusion Hematology Oncology at [address] [phone] 01/02/2024 3:20 PM EDT Hospital [place] [phone] Astrid Ortega MD [facility] G[place]EC[place]IC [place] [address] 04/22/2024 10:00 AM EST TH Visit (TeleHealth) Hematology and Oncology at [address] [phone] Tracy Beltran, [facility] [place] [address] 05/20/2024 10:40 AM EST Hospital Encounter Mammography/DXA at [place] [phone] 05/20/2024 11:50 AM EST Office Visit General Surgery at [place] [phone] Magaly Quijano APRN [facility] [place] [address] 11/15/2024 4:00 PM EDT Office Visit Hematology and Oncology at [place] [phone] Jenny Melissa MD [facility] [place]OLOG[place] [address] documented as of this encounter Visit Diagnoses Not on filedocumented in this encounter
--- OUTSIDE RECORDS SUMMARY | 2023-12-28 02:23 | XMS_ITS | Encounter Summary ---
Author Organization [facility] Address [facility] [place] [address] Care Team Providers Care Pump Attendant Name Role Phone Zuleiam Duvall APRN Primary Care Provider Encounter Details Date Type Department Care Team (Late st Contact Info) Description 01/28/2021 2:15 PM EDT - 01/28/2021 5:00 PM EDT Surgery [place] [phone] Trev Erazo MD [facility] GENERAL [place] [address] MASTECTOMY, SIMPLE, COMPLETE (WRVU 15) Social History Tobacco Use Types Packs/Day Years [...] into the bulb. If you have a [place] drain, the clot should move into the [...] 101.3 F. The number for questions is [phone] before 5 PM week. Pain Medication: Please [...] Provider Department Center 02/17/2021 11:00 AM Evelina Kaur, PT PT Rehab [facility] 02/17/2021 3:00 PM Jenny Melissa MD [facility] HEM ONC [facility] 02/17/2021 4:45 PM Trev Erazo MD [facility] SURG [facility] Please call [phone] (clinic number) if any changes need to [...] Operative Note Patient Name: Marychuy Hood : [id number] MR#: [id number] Case Date: 01/28/2021 Surgeon: Surgeon(s) and Role: [...] PATHOLOGY Right axillary sentinel node, 233 OR23 [address]202 BREAST CANCER right axillary sentinel node, 233 biopsy 01/28/2021 3:18 PM Time specimen removed from patient: 3:16 PM Number of tissue samples (in container) 1 SPECIMEN TO PATHOLOGY Right breast, long stitch lateral, short stitch cranial, 5 OR23 39937 BREAST CANCER Right breast, long stitch lateral, [...] Erazo MD - 01/28/2021 2:19 PM EDT [facility] Operative Note Patient Name: Marychuy Hood : [id number] MR#: [id number] Case Date: 01/28/2021 Surgeon: Surgeon(s) and Role: [...] minor muscles. We then placed a 10 German Frank-Cui drain through a stab incision in [...] 10:00 AM EDT Office Visit Hematology/Oncology at [address] [phone] Sumanth Bermudez MD [facility] HEMATOLOGY/[place] [address] 12/28/2023 10:30 AM EDT Infusion Hematology Oncology at [address] [phone] 01/02/2024 3:20 PM EDT Hospital Encounter CT Scan at [place] [phone] Astrid Ortega MD [facility] GYNECOLOGIC [place] [address] 04/22/2024 10:00 AM EST TH Visit (TeleHealth) Hematology and Oncology at [address] [phone] Tracy Beltran [facility] [address] MEDICAL [place] [address] 05/20/2024 10:40 AM EST Hospital Encounter Mammography/[place] [phone] 05/20/2024 11:50 AM EST Office Visit General Surgery at [place] [phone] Magaly Quijano APRN [facility] GENERAL [place] [address] 11/15/2024 4:00 PM EDT Office Visit Hematology [place] [phone] Jenny Melissa MD [facility] DR [place] [address] documented as of this encounter Procedures Procedure Name Priority Date/Time Associated Diagnosis Comments SURGICAL PATHOLOGY REPORT Routine 01/28/2021 3:18 PM EDT SPECIMEN TO PATHOLOGY Routine 01/28/2021 3:18 PM EDT SPECIMEN TO PATHOLOGY Routine 01/28/2021 3:18 PM EDT MODIFIER SENTINEL NODE EXCISION 01/28/2021 1:56 PM EDT BREAST CANCER Intraop [place] Lymph Id W/Dye Injection (28614) 01/28/2021 1:56 PM EDT BREAST CANCER Bx/Remv, Lymph Node, Deep Axill (43847) 01/28/2021 1:56 PM EDT BREAST CANCER Mastectomy, Simple, Complete (30793) 01/28/2021 1:56 PM EDT BREAST CANCER documented in this encounter Results * Surgical Pathology Report (01/28/2021 3:18 PM EDT) FINAL DIAGNOSIS (AP) [id number] ? Location: [facility]; [facility]; The signing pathologist has (i) examined the relevant preparation(s) for the specimen(s) and (ii) rendered or confirmed the diagnosis(es). . ? Addendum ADDENDUM DISCUSSION SPECIAL TEST PERFORMED: Test: ??Oncotype DX [facility] Case: ??[id number], block B1 Performing Lab: ??[facility] Performing Lab Case: ??[id number] Reported by: ??Gabe Kelly MD Date reported: ??02/25/2021 For the full text of the [facility] report please refer to Non- Documentation Pathology in the electronic health record (eDH). Electronically signed by: ?Ese Girard DO Verified: ??03/23/2021 14:59 ??Pathologist Performed at: ??-[facility] Dept. of Pathology, [place], [place] ?Surgical Pathology DIAGNOSIS A - Right axillary lymph node, excision: ??- Two lymph nodes negative for malignancy (0/2). ??- Intranodal hemangioma. 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 ??- Ductal carcinoma in-situ. ??- Biopsy site changes. ??- Benign skin and nipple. Electronically signed by: ?Ese Girard DO Verified: ??02/04/2021 10:14 ??Pathologist Performed at: ??-[facility] Dept. of Pathology, [place], [place] SYNOPTIC Specimen ? Procedure: ??Total mastectomy [...] of Lymph Nodes Examined: ??2 ?Number of [place] Nodes Examined: ??2 Pathologic Stage Classification (pTNM, AJCC 8th Edition) ? Primary Tumor (pT): ??pT1c ? Regional Lymph Nodes Modifier: ??(sn): [place] node(s) evaluated. ? Regional Lymph Nodes (pN): ??pN0 Tumor Block(s): ??B1 [facility] July 2019 Annual Release ER, UT, and HER2 studies (performed on prior biopsy, [id number]): ER: Positive (>90%, strong) UT: Positive (1-2%, moderate) HER2 FISH: Negative ADDITIONAL [...] 1.5 x 1.0 x 0.5 cm. Sections/Processing: Container Packer Operator sections in 2 cassettes as follows: ?A1: [...] at edge of skin inked blue. Sections/Processing: Container Packer Operator sections in 11 cassettes as follows: ?B1: ??Container Packer Operator lesion sectioned in the coronal plane representing lateral, ? medial, superior, and inferior margins ?B2: ??Container Packer Operator lesion and deep margin inked black ?B3: ??Container Packer Operator lesion and skin margin ?B4: ??Container Packer Operator fibrous tissue adjacent to lesion medially ?B5: ??Container Packer Operator fibrous tissue adjacent to lesion laterally ?B6: ??Container Packer Operator parenchyma in the lower medial quadrant ?B7: ??Container Packer Operator parenchyma in the upper medial quadrant ?B8: ??Container Packer Operator parenchyma in the upper lateral quadrant ?B9: ??Container Packer Operator parenchyma in the lower lateral quadrant ?B10: ??Nipple tip perpendicularly sectioned and submitted entirely ?B11: ??Container Packer Operator nipple sectioned en face Ischemic Time: 1.1 hours ??jnk/ssb 03/23/2021 2:59 PM EDT [facility] 01/28/2021 3:18 PM EDT Trev Erazo MD PATHOLOGY/CYTOLOGY O OPAL Performing Organization Address [facility] de Phone Number [facility] [place] [address] * Specimen to Pathology (01/28/2021 3:18 PM EDT) AP Specimen 01/28/2021 3:18 PM EDT 01/28/2021 3:18 PM EDT Narrative [facility] - 01/28/2021 3:18 PM EDT Specimen requisition ordered. ??Separate Pathology report to follow Trev Erazo MD PATHOLOGY/CYTOLOGY O OPAL Performing Organization Address [facility] Co de Phone Number [facility] [place] [address] * Specimen to Pathology (01/28/2021 3:18 PM EDT) AP Specimen 01/28/2021 3:18 PM EDT 01/28/2021 3:18 PM EDT Narrative [facility] - 01/28/2021 3:18 PM EDT Specimen requisition ordered. ??Separate Pathology report to follow Trev Erazo MD PATHOLOGY/[place] [address] documented in this encounter Visit Diagnoses Not [...] Given 01/28/2021 1:14 PM EDT 1,000 mg BUpivacaine (pf) (Marcaine) (5 mg/mL) 0.5% injection ONCE PRN, Starting on Radha 01/28/21 at 1524, Until Radha 01/28/21 at 1937, Intra-Operative (Intra-Procedure), Routine Given 01/28/2021 3:24 PM EDT 9 mLs 19- Surgical Site lidocaine (pf) (Xylocaine) (10 mg/mL) 1% injection ONCE PRN, Starting on Radha 01/28/21 at 1524, Until Radha 01/28/21 at 1937, Intra-Operative (Intra-Procedure), Routine Given 01/28/2021 3:24 PM EDT 9 mLs 19- Surgical Site documented in this encounter Active and Recently [...] bupivacaine.) documented in this encounter Care Teams Pump Attendant Relationship Specialty Start Date End Date Zuleima Duvall APRN [address] [place] [phone] PCP - General Family Medicine 01/21/21 05/17/23 documented as of this encounter
--- OUTSIDE RECORDS SUMMARY | 2023-12-28 02:23 | XMS_ITS | Encounter Summary ---
[place] [address] Care Team Providers Care Soft Hat Binder Name Role Phone Zuleima Duvall APRN Primary Care Provider [phone] Encounter Details Date Type Department Care Team (Late st Contact Info) Description 02/04/2021 Telephone Hematology [place] [phone] Nannette Davalos Social History Tobacco Use Types Packs/Day Years [...] encounter Miscellaneous Notes * Telephone Encounter - Nannette Davalos - 02/04/2021 2:26 PM EDT No PA required for [employer] with Medicare A+B. Submitted testing request online with [employer]apine site. documented in this encounter Plan of Treatment Upcoming Encounters Date Type Department Care Team (Late st Contact Info) Description 12/28/2023 10:00 AM EDT Office Visit Hematology/Oncology at [address] [phone] Sumanth Bermudez MD [facility] HEMATOLOGY/[place] [address] 12/28/2023 10:30 AM EDT Infusion Hematology Oncology at [address] [phone] 01/02/2024 3:20 PM EDT Hospital [place]counter [place] [phone] Astrid Ortega MD [facility] [place] [address] 04/22/2024 10:00 AM EST TH Visit (TeleHealth) Hematology and Oncology at [address] [phone] Tracy Beltran [facility] [place] [address] 05/20/2024 10:40 AM EST Hospital Encounter Mammography/[place] [phone] 05/20/2024 11:50 AM EST Office Visit [place] [phone] Magaly Quijano APRN [facility] [place] [address] 11/15/2024 4:00 PM EDT Office Visit Hematology [place] [address] Jenny Melissa MD [facility] [place] [address] documented as of this encounter Visit Diagnoses Not on filedocumented in this encounter Care Teams Soft Hat Binder Relationship Specialty Start Date End Date Zuleima Duvall APRN [address] [place] [address] PCP - General Family Medicine 01/21/21 05/17/23 documented as of this encounter
--- OUTSIDE RECORDS SUMMARY | 2023-12-28 02:23 | XMS_ITS | Encounter Summary ---
[place] [address] Care Team Providers Care Veterinary Milk Specialist Name Role Phone Zuleima Duvall APRN Primary Care Provider Encounter Details Date Type Department Care Team (Latest Contact Info) Description 02/09/2021 11:00 AM EDT Clinical Support [place] [phone] Change or removal of drains Social History Tobacco Use Types Packs/Day Years [...] on file documented as of this encounter Patient Instructions * Patient Instructions* Claire Navsa, RN - 02/09/2021 11:00 AM EDT Marychuy Hood 02/09/2021 11:37 AM Contact information for the General Surgery Nurses After clinic hours, weekday holidays or on the weekend please call and ask to speak to the Doctor intelligence operations specialist ?? You need to keep your drain site covered with bacitracin and a gauze dressing while it is draining. This usually lasts 24-48 hours. Your dressing needs to be changed when it becomes wet. A small amount of drainage is normal. ?? You may develop a seroma (which is a collection of fluid) at or around the drain site. A seroma may be firm or soft and can vary in shapes and size. This is not a medical emergency, but we would like a call if this develops. Call if you develop any of the followin. Fever greater than 100.5 or chills. 2. Continual drainage from your drain site. 3. Redness and or swelling of your drain site or surgical incision (antonia the area with a permanent marker so you can tell if it is worsening). 4. Pain that is not controlled with Tylenol (acetaminophen), Advil (ibuprofen) or prescription painmedication. A copy of these instructions were given to Marychuy Hood who was able to verbalized their understanding and how to contact the clinic staff if they have any problems, questions or concerns. documented in this encounter Progress Notes * Claire Navas RN - 02/09/2021 11:00 AM EDT Date: 02/09/2021 Time: 11:59 AM Case Date: 01/28/2021 ?? Surgeon: Surgeon(s) and Role: * Trev Erazo MD - Primary * Vick Bone MD - Resident ?? Preoperative diagnosis: BREAST CANCER ?? Postoperative diagnosis: BREAST CANCER ?? Procedure(s) (LRB): MASTECTOMY, SIMPLE, COMPLETE (WRVU 15.85) (Right) BIOPSY OR EXCISION OF LYMPH NODE(S), OPEN, DEEP AXILLARY NODE(S) (WRVU 6.43) (Right) INTRAOPERATIVE ID (MAPPING) SENTINEL LYMPH NODE,INCLUDES INJECTION (WRVU 2.5) (Right) MODIFIER SENTINEL NODE EXCISION (Right) ? Anesthesia: General ?? Estimated Blood Loss: 50 ml ?? Specimens removed during surgery: right breast; right axillary sentinel nodes ?? Drain Site: Right lateral chest wall Amount of Time Drain was in: 10 days Drainage volume in past 24 hours: Less than 20cc Documentation of drain removal: The patient is identified as Marychuy Hood. Marychuy exposed the drain site and was comfortably positioned on exam table. I explained as I proceeded what I was doing. The suction on the collection bulb was released and the suture cut thus removing the suture from the skin. Marychuy was instructed to take a deep breath;at which time the drain was easily removed intact. Bacitracin ointment on dry sterile gauze was placed at the drain site and secured with tape. Marychuy tolerated the procedure with well. Patient Education: Marychuy Hood was instructed to keep the drain site covered with bacitracinand gauze while it continues to drain (usually 24-48 hours). The dressing should be changed when wet. I reviewed with Marychuy the following information which the received in a written form. All questions were answered and concerns addressed. 1. You will need to cover your drain site while it is draining. This usually lasts 24-48 hours. Your dressing needs to be changed when it becomes wet. A small amount of drainage is normal. Apply a small amount of Bacitracin ointment to the gauze and secure with tape over your drain site. 2. You may develop a seroma (a collection of fluid) at or around the drain site. A seroma may be firm or soft and can vary in shapes and size. This is not a medical emergency, but it is something to call the General Surgery nurses to discuss further instructions. The nurse's phone number is [phone]. 3. Call the General Surgery nurses or the General Surgery Doctor intelligence operations specialist if you develop any of the following: A. Fever greater than 100.5 or chills. B. Continual drainage from your drain site. C. Redness / swelling of your drain site or surgical incision. Should you develop redness antonia the area with a permanent marker so you can tell if it is worsening. D. Pain that is not controlled with Tylenol (acetaminophen), Advil (ibuprofen) or prescription painmedication. documented in this encounter Plan of Treatment Upcoming Encounters Date Type Department Care Team (Late st Contact Info) Description 12/28/2023 10:00 AM EDT Office Visit Hematology/Oncology at [address] [phone] Sumanth Bermudez MD [facility] HEMATOLOGY/[place] [address] 12/28/2023 10:30 AM EDT Infusion Hematology Oncology at [address] [phone] 01/02/2024 3:20 PM EDT Hospital [place] [phone] Astrid Ortega MD [facility] [place] [address] 04/22/2024 10:00 AM EST TH Visit (TeleHealth) Hematology and Oncology at [address] [phone] Tracy Beltran [facility] [place] [place] [address] 05/20/2024 10:40 AM EST Hospital Encounter Mammography/[place] [phone] 05/20/2024 11:50 AM EST Office [place] [phone] Magaly Quijano APRN [facility] GENERAL SURGERY [place], [place] [phone] 11/15/2024 4:00 PM EDT Office Visit Hematology [place] [address] Jenny Melissa MD [facility] [place] [address] documented as of this encounter Visit Diagnoses Diagnosis Change or removal of drains Other specified aftercare following surgery documented in this encounter Care Teams Veterinary Milk Specialist Relationship Specialty Start Date End Date Zuleima Duvall APRN [address] [place] [address] PCP - General Family Medicine 01/21/21 05/17/23 documented as of this encounter
--- OUTSIDE RECORDS SUMMARY | 2023-12-28 02:23 | XMS_ITS | Encounter Summary ---
Author Organization [facility] Address [facility] [place] [address] Care Team Providers Care Partition Assembly Machine Operator Name Role Phone Zuleima Duvall APRN Primary Care Provider [phone] Encounter Details Date Type Department Care Team (Latest Contact Info) Description 02/10/2021 7:54 AM EDT - 02/10/2021 11:59 PM EDT Hospital [place] [phone] Nannette Corley MD [facility] [place] [address] Discharge Disposition: Home Social History Tobacco Use [...] 10:00 AM EDT Office Visit Hematology/Oncology at [address] [phone] Sumanth Bermudez MD [facility] HEMATOLOGY/[place] [address] 12/28/2023 10:30 AM EDT Infusion Hematology Oncology at [address] [phone] 01/02/2024 3:20 PM EDT Hospital [place] [address] Astrid Ortega MD [facility] [place] [address] 04/22/2024 10:00 AM EST TH Visit (TeleHealth) Hematology and Oncology at [address] [phone] Tracy Beltran, [facility] [place] [address] 05/20/2024 10:40 AM EST Hospital Encounter Mammography/[place] [phone] 05/20/2024 11:50 AM EST Office [place] [phone] Magaly Quijano APRN [facility] [place] [address] 11/15/2024 4:00 PM EDT Office Visit Hematology [place] [phone] Jenny Melissa MD [facility] DR HEMATOLOGY/[place] [address] documented as of this encounter Procedures Procedure Name Priority Date/Time Associated Diagnosis Comments MAMMO BREAST PATHOLOGY MASTECTOMY Routine 02/10/2021 7:54 AM EDT documented in this encounter Results * MAMMO BREAST PATHOLOGY MASTECTOMY (02/10/2021 7:54 AM EDT) Narrative Katie Blackman - 02/10/2021 7:54 AM EDT This exam is auto-finalizing. No interpretation was done. Nannette Corley MD IMG MAMMO ORDERABL ES documented in this encounter Visit Diagnoses Not on filedocumented in this encounter Care Teams Partition Assembly Machine Operator Relationship Specialty Start Date End Date Zuleima Duvall APRN [address] [place] [address] PCP - General Family Medicine 01/21/21 05/17/23 documented as of this encounter
--- OUTSIDE RECORDS SUMMARY | 2023-12-28 02:23 | XMS_ITS | Encounter Summary ---
[place] [address] Care Team Providers Care Adult Nurse Practitioner Name Role Phone Unavailable Primary Care Provider Unavailabl e Encounter Details Date Type Department Care Team (Latest Contact Info) Description 12/30/2020 12:00 PM EDT Laboratory Appointment Lab [address] [place] [phone] Malignant neoplasm of right breast in female, [...] 10:00 AM EDT Office Visit Hematology/Oncology at [address] [phone] Sumanth Bermudez MD [facility] HEMATOLOGY/[place] [address] 12/28/2023 10:30 AM EDT Infusion Hematology Oncology at [address] [phone] 01/02/2024 3:20 PM EDT Hospital [place] [phone] Astrid Ortega MD [facility] [place] [address] 04/22/2024 10:00 AM EST TH Visit (TeleHealth) Hematology and Oncology at [address] [phone] Tracy Beltran [facility] [place] [address] 05/20/2024 10:40 AM EST Hospital Encounter Mammography/[place] [phone] 05/20/2024 11:50 AM EST Office [place] [phone] Magaly Quijano APRN [facility] [place] [address] 11/15/2024 4:00 PM EDT Office Visit Hematology [place] [phone] Jenny Melissa MD [facility] HEMATOLOGY/[place] [address] documented as of this encounter Procedures Procedure Name Priority Date/Time Associated Diagnosis Comments HEMOGRAM Routine 12/30/2020 11:30 AM EDT Malignant neoplasm of right breast in female, estrogen receptor positive, unspecified site of breast DIFFERENTIAL, AUTOMATED Routine 12/30/2020 11:30 AM EDT Malignant neoplasm of right breast in female, estrogen receptor positive, unspecified site of breast HC CBC,PLT & AUTO DIFF Routine 12/30/2020 11:30 AM EDT Malignant neoplasm of right breast in female, estrogen receptor positive, unspecified site of breast HC VENIPUNCTURE Routine 12/30/2020 11:30 AM EDT Malignant neoplasm of right breast in female, estrogen receptor positive, unspecified site of breast documented in this encounter Results * Differential, Automated (12/30/2020 11:30 AM EDT) Neutrophils % 69.9 % [facility] Neutr Abs (ANC) 3.88 1.70 - 6.10 x10(3)/[facility] Lymphocytes % 21.6 % [facility] Lymphocytes Abs 1.2 0.9 - 3.2 x10(3)/[facility] Monocytes % 6.3 % [facility] Monocyte Abs 0.4 0.3 - 0.9 x10(3)/[facility] Eosinophils % 1.3 % [facility] Eosinophils Abs 0.1 0.0 - 0.4 x10(3)/[facility] Basophils % 0.5 % [facility] Basophils Abs 0.0 0.0 - 0.1 x10(3)/[facility] Immature Gran % 0.40 % [facility] Comment: Immature granulocytes(IG's)percentage and absolute count will include metamyelocytes, myelocytes, and promyelocytes. Blood smears from CBCs yielding IG's will be scanned manually for concordance. If this scan disagrees with the automated IG or if promyelocytes are noted, a manual differential will be performed. [place] Gran Abs 0.02 0.00 - 0.04 x10(3)/[facility] Blood 12/30/2020 11:3 0 AM EDT 12/30/2020 11:45 AM EDT Narrative Resulting Agency Comment Spec In Lab Trev Erazo MD HEMATOLOGY ORDERABLE S [facility] [place] [address] * Hemogram (12/30/2020 11:30 AM EDT) WBC 5.6 4.0 - 9.5 x10(3)/[facility] RBC 4.57 4.00 - 5.21 x10(6)/[facility] Hemoglobin 13.5 11.7 - 15.5 gm/dL [facility] Hematocrit 41.0 35.7 - 45.8 % [facility] MCV 89.7 82.6 - 94.4 fL [facility] MCH 29.5 27.1 - 32.0 pg [facility] MCHC 32.9 31.7 - 35.0 gm/dL [facility] Platelets 338 145 - 357 x10(3)/[facility] RDWSD 40.8 37.0 - 46.0 [facility] RDWCV 12.3 11.5 - 14.1 % [facility] MPV 9.0 7.6 - 12.9 [facility] nRBC % Auto 0.0 % [facility] nRBC Abs Auto 0.000 0.000 - 0.000 x10(3)/[facility] Blood 12/30/2020 11:3 0 AM EDT 12/30/2020 11:45 AM EDT Narrative Resulting Agency Comment Spec In Lab Trev Erazo MD HEMATOLOGY ORDERABLE S [facility] [place] [address] * Comprehensive metabolic panel (non-fasting) (12/30/2020 11:30 AM EDT) Glucose Lvl 100 65 - 199 mg/dL [facility] Comment:Diabetes: >=200 mg/d L plus symptoms BUN 15 8 - 18 mg/dL [facility] Creatinine 0.95 0.70 - 1.20 mg/dL [facility] Sodium 140 135 - 145 mmol/L [facility] Potassium 5.0 3.5 - 5.0 mmol/L [facility] Comment: Please note: ??Patients with WBC >100,000 may have falsely elevated Potassium levels. ??For accurate Potassium quantification in these patients send serum separator tube (gold top) for subsequent determinations. ??Contact the Clinical Chemistry Laboratory if there are any questions. Chloride 101 98 - 107 mmol/L [facility] CO2 30 22 - 31 mmol/L [facility] Anion Gap 9 5 - 15 mmol/L [facility] Calcium 9.7 8.5 - 10.5 mg/dL [facility] Total Protein 7.6 6.1 - 8.0 gm/dL [facility] Albumin 4.6 3.2 - 5.2 gm/dL [facility] AST 24 0 - 30 unit/L [facility] ALT 26 0 - 30 unit/L [facility] Alk Phos 64 35 - 105 unit/L [facility] Total Bilirubin 0.3 0.2 - 1.3 mg/dL [facility] Estimated GFR 62 >=60 mL/min/1. 73 m?? [facility] Comment: This patient? s estimated glomerular filtration rate (eGFR) is between 62 mL/min/1.73 m2 (patients with less muscle mass) and 71 mL/min/1.73 m2 (patients with more muscle mass) as determined by the CKD-EPI equation. Assessment of eGFR is not appropriate when creatinine concentrations are rapidly changing. For clinical decisions where creatinine clearance will affect therapy, a 24-hour urine creatinine clearance may be advised. Assignment of CKD stage 1 - 5 for patients with an eGFR near the transition point between stages may be based on clinical assessment of muscle mass and symptoms in addition to eGFR. Blood 12/30/2020 11:3 0 AM EDT 12/30/2020 11:45 AM EDT Narrative Resulting Agency Comment Spec In Lab Trev Erazo MD CHEMISTRY ORDERABLES [facility] [place] [address] documented in this encounter Visit Diagnoses Diagnosis Malignant neoplasm of right breast in female, estrogen receptor positive, unspecified site of breast documented in this encounter
--- OUTSIDE RECORDS SUMMARY | 2023-12-28 02:23 | XMS_ITS | Encounter Summary ---
[place] [address] Care Team Providers Care Broaching Machine Set Up Operator Name Role Phone Unavailable Primary Care Provider Unavailabl e Reason for Referral * Diagnostic Test (Routine) - Closed Specialty Diagnoses / Procedures Referred By Renato linares Referred To Contact Radiology Diagnoses Malignant neoplasm of right breast in female, estrogen receptor positive, unspecified site of breast Procedures MRI Breast wwo Contrast Trev Low MD [facility] [place] [address] [place] [address] Referral ID Status Reason Start Date Expiration Date V isits Requested Visits Authorized [id number] Closed Specialty Service Requested 12/24/2020 06/26/2022 1 1 Encounter Details Date Type Department Care Team (Late st Contact Info) Description 12/24/2020 Orders [place] [address] Trev Erazo MD [facility] [place] [address] Malignant neoplasm of right breast in female, [...] AM EDT Office Visit Hematology/Oncology at [address] [phone] Sumanth Bermudez MD [facility] HEMATOLOGY/[place] [address] 12/28/2023 10:30 AM EDT Infusion Hematology Oncology at [address] [phone] 01/02/2024 3:20 PM EDT Hospital [place] [address] Astrid Ortega MD [facility] [place] [address] 04/22/2024 10:00 AM EST TH Visit (TeleHealth) Hematology and Oncology at [address] [phone] Tracy Beltran [facility] [place] [address] 05/20/2024 10:40 AM EST Hospital Encounter Mammography/[place] [address] 05/20/2024 11:50 AM EST Office Visit General Surgery at [place] [phone] Magaly Quijano APRN [facility] [place] [address] 11/15/2024 4:00 PM EDT Office Visit Hematology [place] [address] Jenny Melissa MD [facility] HEMATOLOGY/[place], [place] [phone] documented as of this encounter Results * Comprehensive metabolic panel (non-fasting) (12/30/2020 11:30 AM EDT) Glucose Lvl 100 65 - 199 mg/dL [facility] Comment:Diabetes: >=200 mg/d L plus symptoms BUN 15 8 - 18 mg/dL [facility] Creatinine 0.95 0.70 - 1.20 mg/dL [facility] Sodium 140 135 - 145 mmol/L [facility] Potassium 5.0 3.5 - 5.0 mmol/L [facility] Comment: Please note: ??Patients with WBC >100,000 may have falsely elevated Potassium levels. ??For accurate Potassium quantification in these patients send serum separator tube (gold top) for subsequent determinations. ??Contact the Clinical Chemistry Laboratory if there are any questions. Chloride 101 98 - 107 mmol/L [facility] CO2 30 22 - 31 mmol/L [facility] Anion Gap 9 5 - 15 mmol/L [facility] Calcium 9.7 8.5 - 10.5 mg/dL [facility] Total Protein 7.6 6.1 - 8.0 gm/dL [facility] Albumin 4.6 3.2 - 5.2 gm/dL [facility] AST 24 0 - 30 unit/L [facility] ALT 26 0 - 30 unit/L [facility] Alk Phos 64 35 - 105 unit/L [facility] Total Bilirubin 0.3 0.2 - 1.3 mg/dL [facility] Estimated GFR 62 >=60 mL/min/1. 73 m?? [facility] Comment: This patient? s estimated glomerular [...] In Lab Trev Erazo MD CHEMISTRY ORDERABLES Performing Organization Address City/State/[facility] Co de Phone Number [facility] [place] [address] * MRI Breast wwo Contrast Bilat (12/30/2020 [...] who have questions please contact the health careers adviser that requested your imaging first. ? Narrative 12/30/2020 1:26 PM EDT BILATERAL BREAST [...] contrast enhancement curve analysis was performed, using [employer] software. COMPARISON STUDIES: Compared and/or correlated with [...] skin.. Trev Erazo MD IMG MRI ORDERABLES * Request for 2nd read Mammo (12/24/2020 12:05 PM EDT) Anatomical Region Laterality Modality SO Impressions 12/24/2020 12:36 PM EDT Known 1.8 cm malignancy right breast 10:00 radian 4 cm from the nipple by ultrasound. No evidence of malignancy left breast. RECOMMENDATION: Definitive surgical management right breast. BI-RADS Category 6: Known Biopsy-Proven Malignancy Please note: The interpretation of the [facility] Breast Imaging Radiologist subspecialist may differ from the original radiologist's interpretation. This is usually not due to a deficiency of the original interpreting radiologist, rather due to the greater skill level afforded by sub-specialization in the field and/or reasonable variations in interpretations. If you have a concern regarding the [facility] interpretation you may contact the [facility] Breast A Operator Office at . Thank you for letting us participate in the care of this patient. ??If you are a health care provider and have any questions regarding this report, please contact the number below. ??For patients who have questions please contact the health careers adviser that requested your imaging first. ? Narrative 12/24/2020 12:36 PM EDT INTERPRETATION OF OUTSIDE BREAST IMAGING I have been asked to consult on this patient by Dr. Trev Erazo because he/she believes a review of this study may change or alter the care of this patient. STUDIES FROM: [facility] DATES: 11/30/2020, 12/10/2020, 12/16/2020 CLINICAL HISTORY: known breast cancer, surgical planning; known breast cancer/ surgical planning; What Modality is the exam? Mammography; Body Part (please add comments as necessary): breasts; Sending Institution [facility]; Date of exam [id number]; I believe a reinterpretation of this exam may alter care of Patient. Yes. ?? COMPARISONS: This study was compared with prior images. FINDINGS: 2-D and digital breast tomosynthesis imaging was performed of each breast. Additional spot compression images were obtained of the mass in the right upper outer quadrant. Ultrasound imaging reviewed. Please note: Breast ultrasound is roll threader operator dependent. Complete assessment of the breast [...] alter the care of thispatient. STUDIES FROM: [facility] DATES: 11/30/2020, 12/10/2020, 12/16/2020 CLINICAL HISTORY: known breast cancer, surgical planning; known breastcancer/ surgical planning; What Modality is the exam? Mammography; Body Part(please add comments as necessary): breasts; Sending Institution [facility]; Date of [id number]; I believe a reinterpretation of this exam may alter care of Patient. Yes. COMPARISONS: This study was compared with prior images. FINDINGS: 2-D and digital breast tomosynthesis imaging was performed of eachbreast. Additional spot compression images were obtained of the mass in the rightupper outer quadrant. Ultrasound imaging reviewed. Please note: Breastultrasound is roll threader operator dependent. Complete assessment of the breast [...] Malignancy Please note: The interpretation of the [facility] BreastImaging Radiologist subspecialist may differ from the original radiologist's interpretation. This is usually not due to a deficiency of the original interpreting radiologist, rather due to the greater skill level affordedby sub-specialization in the field and/or reasonable variations ininterpretations. If you have a concern regarding the [facility] interpretation you may [facility] at . Thank you for letting us participate in the care of this patient. If youare a health care provider and have any questions regarding this report,please contact the number below. For patients who have questions please contactthe health careers adviser that requested your imaging first. Trev Erazo MD IMG OUTSIDE INTERPRE TATION ORDERABLES documented in this encounter Visit Diagnoses Diagnosis Malignant neoplasm of right breast in female, estrogen receptor positive, unspecified site of breast Malignant neoplasm of right breast in female, estrogen receptor positive, unspecified site of breast Malignant neoplasm of right breast in female, estrogen receptor positive, unspecified site of breast documented in this encounter
--- OUTSIDE RECORDS SUMMARY | 2023-12-28 02:23 | XMS_ITS | Encounter Summary ---
Author Organization [facility] Address [facility] [place] [address] Care Team Providers Care Supervisor Mail Carriers Name Role Phone Unavailable Primary Care Provider Unavailabl e Encounter Details Date Type Department Care Team (Latest Contact Info) Description 01/04/2021 8:16 AM EDT - 01/04/2021 8:19 AM EDT Hospital [place] [phone] Nannette Corley MD [facility] [place] [address] Abnormal mammogram Discharge Disposition: Home Social History Tobacco Use [...] 10:00 AM EDT Office Visit Hematology/Oncology at [address] [phone] Sumanth Bermudez MD [facility] HEMATOLOGY/[place] [address] 12/28/2023 10:30 AM EDT Infusion Hematology Oncology at [address] [phone] 01/02/2024 3:20 PM EDT Hospital [place] [phone] Astrid Ortega MD [facility] [place] [address] 04/22/2024 10:00 AM EST TH Visit (TeleHealth) Hematology and Oncology at [address] [phone] Tracy Beltran [facility] [place] [address] 05/20/2024 10:40 AM EST Hospital Encounter Mammography/[place] [phone] 05/20/2024 11:50 AM EST Office Visit General Surgery at [place] [phone] Magaly Quijano APRN [facility] [place] [place] [address] 11/15/2024 4:00 PM EDT Office Visit Hematology and Oncology at [place] [phone] Jenny Melissa MD [facility] HEMATOLOGY/[place], [place] [phone] documented as of this encounter Procedures Procedure Name Priority Date/Time Associated Diagnosis Comments MAMMO US AXILLA RIGHT Routine 01/04/2021 9:12 AM EDT Abnormal mammogram documented in this encounter Results * Mammo US Axilla Right (01/04/2021 9:12 AM EDT) Anatomical Region Laterality Modality Breast Right Mammography Narrative 01/04/2021 10:04 AM EDT DIAGNOSTIC [...] who have questions please contact the health wound care technician that requested your imaging first. ? Nannette Corley MD IMG MAMMO ORDERABL ES documented in this encounter Visit Diagnoses Diagnosis Abnormal mammogram Abnormal mammogram, unspecified documented in this encounter
--- OUTSIDE RECORDS SUMMARY | 2023-12-28 02:23 | XMS_ITS | Encounter Summary ---
Author Organization [facility] [place] [address] Care Team Providers Care Student Financial Services Counselor Name Role Phone Unavailable Primary Care Provider Unavailabl e Encounter Details Date Type Department Care Team (Late Contact Info) Description 12/10/2020 Ancillary Procedure [place] [address] Matt Hussein MD [address] [place] [phone] Social History Tobacco Use Types Packs/Day Years [...] 10:00 AM EDT Office Visit Hematology/Oncology at [address] [phone] Sumanth Bermudez MD [facility] HEMATOLOGY/[place] [address] 12/28/2023 10:30 AM EDT Infusion Hematology Oncology at [address] [phone] 01/02/2024 3:20 PM EDT Hospital Encounter CT Scan at [place] [phone] Astrid Ortega MD [facility] [place] [address] 04/22/2024 10:00 AM EST TH Visit (TeleHealth) Hematology and Oncology at [address] [phone] Tracy Beltran [facility] [place] [address] 05/20/2024 10:40 AM EST Hospital Encounter Mammography/DXA at [place] [phone] 05/20/2024 11:50 AM EST Office Visit General Surgery at [address] Magaly Quijano APRN [facility] [place] [address] 11/15/2024 4:00 PM EDT Office Visit Hematology and Oncology at [place] [phone] Jenny Melissa MD [facility] HEMATOLOGY[place] [address] documented as of this encounter Procedures Procedure Name Priority Date/Time Associated Diagnosis Comments FILM LIBRARY STORAGE ONLY MAMMO Routine 12/10/2020 12:00 AM EDT documented in this encounter Results * Film Library- Storage Only Mammo (12/10/2020 12:00 AM EDT) Narrative LILA RIBEIRO - 12/24/2020 11:48 AM EDT This exam is auto-finalizing. It's purpose is for storage only. Matt Hussein MD IMG FILM LIBRARY ORDERABLES Performing Organization Address City/State/[facility] Co de Phone Number LILA RIBEIRO [place], [place] documented in this encounter Visit Diagnoses Not on filedocumented in this encounter
--- OUTSIDE RECORDS SUMMARY | 2023-12-28 02:23 | XMS_ITS | Encounter Summary ---
Author Organization [facility] Address [facility] [place] [address] Care Team Providers Care Machine Chain Maker Name Role Phone Zuleima Duvall APRN Primary Care Provider Encounter Details Date Type Department Care Team (Late st Contact Info) Description 02/17/2021 4:45 PM EDT Office [place] [phone] Trev Erazo MD [facility] [place] [address] Malignant neoplasm of central portion of right [...] as of this encounter Progress Notes * Trev Erazo MD - 02/17/2021 4:45 PM EDT Marychuy Hood is a 70-year-old woman who returns after right mastectomy and sentinel node excision on 01/28/2021. 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 It was ER positive, HER-2 negative, intermediate grade. 2 sentinel nodes were negative. Oncotype DX tissue was sent but was insufficient and is going to be resent. She had her drain taken out a week ago. She continues to wear her sling. On physical exam her mastectomy site is healing well. There is an area about 2 cm x 1 cm of partial-thickness skin loss on the superior medial mastectomy flap. There is some eschar there. She has a little bit of ecchymosis underneath the medial aspect of her mastectomy site, but no hematoma. There is no drainage from the incision or erythema. There is no residual seroma. Range of motion of her right arm is limited to about 90 degrees of abduction. Impression: Marychuy is recovering from her right mastectomy. I instructed her on range of motion exercises. She has also seen our physical therapist earlier today and has exercises specified from them. I gave her a copy of her pathology report and we reviewed it. She understands that she will be proceeding with adjuvant hormone therapy and that the decision regarding chemotherapy will depend on herOncotype DX score and further discussions with Dr. Melissa. I will plan to see her back in a month to check on her wound healing. Copy to Wes Singletary documented in this encounter Plan of Treatment Upcoming Encounters Date Type Department Care Team (Late st Contact Info) Description 12/28/2023 10:00 AM EDT Office Visit Hematology/Oncology at [address] [phone] Sumanth Bermudez MD [facility] HEMATOLOGY/[place] [address] 12/28/2023 10:30 AM EDT Infusion Hematology Oncology at [address] [phone] 01/02/2024 3:20 PM EDT Hospital Encounter CT Scan at [place] [phone] Astrid Ortega MD [facility] [place] [address] 04/22/2024 10:00 AM EST TH Visit (TeleHealth) Hematology and Oncology at [address] [phone] [facility] [place] [address] 05/20/2024 10:40 AM EST Hospital Encounter Mammography[place] [address] 05/20/2024 11:50 AM EST Office Visit General Surgery at [place] [phone] Magaly Quijano APRN [facility] [place] [address] 11/15/2024 4:00 PM EDT Office Visit [place]ematology [place] [phone] Jenny Melissa MD [facility] [place] [address] documented as of this encounter Visit Diagnoses Diagnosis Malignant neoplasm of central portion of right breast in female, estrogen receptor positive documented in this encounter Care Teams Machine Chain Maker Relationship Specialty Start Date End Date Zuleima Duvall APRN [address] [place] [address] PCP - General Family Medicine 01/21/21 05/17/23 documented as of this encounter
--- OUTSIDE RECORDS SUMMARY | 2023-12-28 02:24 | XMS_ITS | Encounter Summary ---
Author Organization [facility] Address [facility] [place] [address] Care Team Providers Care Meat Packer Name Role Phone Unavailable Primary Care Provider Unavailabl e Encounter Details Date Type Department Care Team (Late Contact Info) Description 09/02/2014 External [place] [phone] Provider, Scanning Social History Tobacco Use Types [...] AM EDT Office Visit Hematology/Oncology at [address] [phone] Sumanth Bermudez MD [facility] HEMATOLOGY/[place] [address] 12/28/2023 10:30 AM EDT Infusion Hematology Oncology at [address] [phone] 01/02/2024 3:20 PM EDT Hospital [place] [phone] Astrid Ortega MD [facility] [place] [address] 04/22/2024 10:00 AM EST TH Visit (TeleHealth) Hematology and Oncology at [address] [phone] Tracy Beltran [facility] [place] [address] 05/20/2024 10:40 AM EST Hospital Encounter Mammography/DXA at [place] [phone] 05/20/2024 11:50 AM EST Office Visit General Surgery at [place] [phone] Magaly Quijano APRN [facility] [place] [address] 11/15/2024 4:00 PM EDT Office Visit Hematology and Oncology at [place] [phone] Jenny Melissa MD [facility] [place]ATOLOG[place] [address] documented as of this encounter Procedures Procedure Name Priority Date/Time Associated Diagnosis Comments SURGICAL PATHOLOGY SCAN Routine 09/02/2014 documented in this encounter Results * Scan Doc: Surgical Pathology (09/02/2014) Wes Singletary MD MEDIA MGR SCAN E XT ORDR/RSLT documented in this encounter Visit Diagnoses Not on filedocumented in this encounter
--- OUTSIDE RECORDS SUMMARY | 2023-12-28 02:24 | XMS_ITS | Encounter Summary ---
Author Organization [facility] [place] [place] [address] Care Team Providers Care Log Handler Name Role Phone Zuleima Duvall GABRIEL Primary Care Provider [phone] Encounter Details Date Type Department Care Team (Late st Contact Info) Description 07/24/2014 [place] [address] Anastasiia Singletary MD [address] [place] [address] Social History Tobacco Use Types Packs/Day Years Used Date Smoking Tobacco: Never Assessed Sex and Gender Information Value Date Recorded Sex Assigned at Not on file Gender Identity Not on file Sexual Orientation Not on file documented as of this encounter Plan of Treatment Upcoming Encounters Date Type Department Care Team (Late Contact Info) Description 12/28/2023 10:00 AM EDT Office Visit Hematology/Oncology at [address] [phone] Sumanth Bermudez MD [facility] HEMATOLOGY/[place] [address] 12/28/2023 10:30 AM EDT Infusion Hematology Oncology at [address] [phone] 01/02/2024 3:20 PM EDT Hospital [place] [phone] Astrid Ortega MD [facility] [place] [address] 04/22/2024 10:00 AM EST TH Visit (TeleHealth) Hematology and Oncology at [address] [phone] Tracy Beltran [facility] [place] [address] 05/20/2024 10:40 AM EST Hospital Encounter Mammography/DXA at [place] [phone] 05/20/2024 11:50 AM EST Office Visit [place] [phone] Magaly Quijano APRN [facility] [place] [address] 11/15/2024 4:00 PM EDT Office Visit Hematology [place] [phone] Jenny Melissa MD [facility] HEMATOLOGY/[place] [address] documented as of this encounter Procedures Procedure Name Priority Date/Time Associated Diagnosis Comments PATHOLOGY ADDENDUM REPORT Routine 07/24/2014 9:14 AM EST SURGICAL PATHOLOGY REPORT Routine 07/24/2014 9:14 AM EST documented in this encounter Results * Pathology Addendum Report (07/24/2014 9:14 AM EST) Addendum Report ? [facility] ? Provider: ?? MAURI, ? Pt. Name: ?? WALI LEAL ?ANASTASIIA ? Acc #: ?[id number] ?Pt. ? Col Date: ?? 07/24/2014 ? /Sex: ?1950,(63 years),Female ? Rec Date: ?? 07/25/2014 ? LOC: ?[facility] ? ADDENDUM REPORT ? ---Addendum Discussion--- ? This case has been reviewed by Terri Pinto MD of [facility] ? by report dated 08/25/14 with the accession number [id number]. ? The [facility] diagnosis is in minor disagreement with our ? diagnosis. ??For the full text of the [facility] report(s) ? please refer to Non-DH Documentation Pathology in the electronic health ? record (eDH). ? 09/04/14 ? ANW ? 09/04/14 Verified by: ? Jovanni Mccain MD ? Pathologist ? (Electronic Signature) ? The attending pathologist whose signature appears on this report has ? reviewed all diagnostic slides and has edited the gross and/or ? microscopic portion of the report in rendering the final pathologic ? diagnosis. [facility] 07/24/2014 9:14 AM EST Narrative NADEGE PINA - 09/04/2014 12:54 PM EDT Spec In Lab / [facility] Anastasiia Singletary MD PATHOLOGY/CYTOLO GY ORDERABLES NADEGE P[facility] * Surgical Pathology Report (07/24/2014 9:14 AM EST) FINAL DIAGNOSIS (AP) 00- [id number] ? Location: The signing pathologist has (i) examined the relevant preparation(s) for the specimen(s) and (ii) rendered or confirmed the diagnosis(es). . ?Pathology Addendum Report Addendum Discussion This case has been reviewed by Terri Pinto MD of [facility] by report dated 08/25/14 with the accession number [id number]. The [facility] diagnosis is in minor disagreement with our diagnosis. ??For the full text of the [facility] report(s) please refer to Non-DH Documentation Pathology in the electronic health record (eDH). 09/04/14 ANW 09/04/14 Verified by: ? Jovanni Mccain MD ?Pathologist ?(Electronic Signature) The attending pathologist whose signature appears on this report has reviewed all diagnostic slides and has edited the gross and/or microscopic portion of the report in rendering the final pathologic diagnosis. ?Pathology Surgical Pathology Final Report Clinical Information Specimen Submitted: A - Endometrial biopsy B - Cervical polyp Clinical History: Postmenopausal bleeding and cervical polyp Clinical Diagnosis: Postmenopausal bleeding and cervical polyp Referring Identifier: ??[id number] Gross Description A - Labeled/Fixative : Endo BX, formalin. Quantity/Size: Fragments, 3.7 x 1.9 x 0.5 cm. Tissue Description: Soft strong to dark red-brown tissue. Sections/Process ing: (T3) B - Labeled/Fixative : Cervical polyp, formalin. Quantity/Size: One, 1.0 x 0.7 x 0.2 cm. Tissue Description: Strong brown polypoid tissue. 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 B - Benign endocervical polyp. . Diagnosis CR-0 07/28/14 JLG 07/28/14 Verified by: ? Adán PEREZ, Jovanni Rust ?Pathologist ?(Electronic Signature) The attending pathologist whose signature appears on this report has reviewed all diagnostic slides and has edited the gross and/or microscopic portion of the report in rendering the final pathologic diagnosis. 09/04/2014 12:54 PM EDT [facility] 07/24/2014 9:14 AM EST Narrative Resulting Agency Comment Spec In Lab / [facility] Anastasiia Singletary MD PATHOLOGY/CYTOLO GY ORDERABLES Performing Organization Address City/State/[facility] Co de Phone Number [facility] [place] [address] documented in this encounter Visit Diagnoses Not on filedocumented in this encounter Care Teams Log Handler Relationship Specialty Start Date End Date Zuleima Duvall APRN [address] [place] [phone] PCP - General 07/25/14 07/31/14 documented as of this encounter
--- OUTSIDE RECORDS SUMMARY | 2023-12-28 02:24 | XMS_ITS | Encounter Summary ---
Author Organization [facility] [place] [address] Care Team Providers Care Pickling Tank Operator Name Role Phone Unavailable Primary Care Provider Unavailabl e Encounter Details Date Type Department Care Team (Late st Contact Info) Description 08/01/2014 4:20 PM EST Clinical [place] [phone] Social History Tobacco Use Types Packs/Day Years [...] as of this encounter Progress Notes * Evelina Villalta RN - 08/01/2014 4:59 PM EST PAT questionnaire reviewed with patient and while in Pre Admission testing. Patient has nothad general anesthesia in the past and is unaware of any anesthesia concerns in her family. Pre-operative instruction booklet reviewed. Patient verbalizes a good understanding of all information. PLAN Testing: Lab work done as ordered. Special medication instructions: N/A Procedure date: 08/21/[address] Johnson. documented in this encounter Plan of Treatment Upcoming Encounters Date Type Department Care Team (Late st Contact Info) Description 12/28/2023 10:00 AM EDT Office Visit Hematology/Oncology at [address] [phone] Sumanth Bermudez MD [facility] HEMATOLOGY/[place] [address] 12/28/2023 10:30 AM EDT Infusion Hematology Oncology at [address] [phone] 01/02/2024 3:20 PM EDT Hospital [place] [phone] Astrid Ortega MD [facility] [place] [address] 04/22/2024 10:00 AM EST TH Visit (TeleHealth) Hematology and Oncology at [address] [phone] Tracy Beltran [facility] [place] [address] 05/20/2024 10:40 AM EST Hospital Encounter Mammography/[place] [phone] 05/20/2024 11:50 AM EST Office [place] [phone] Magaly Quijano APRN [facility] [place] [address] 11/15/2024 4:00 PM EDT Office Visit Hematology [place] [phone] Jenny Melissa MD [facility] [place] [address] documented as of this encounter Visit Diagnoses Not on filedocumented in this encounter
--- OUTSIDE RECORDS SUMMARY | 2023-12-28 02:24 | XMS_ITS | Encounter Summary ---
Author Organization [facility] [place] [address] Care Team Providers Care Robotics Specialist Name Role Phone Unavailable Primary Care Provider Unavailabl e Reason for Visit * Reason Comments Establish Care endometrial cancer Encounter Details Date Type Department Care Team (Latest Contact Info) Description 08/01/2014 3:00 PM EST Office Visit [place] [phone] [facility] [place] [address] Endometrial adenocarcinoma, endometrioid type, FIGO grade 2 (Primary Dx); Endometrial adenocarcinoma Discharge Disposition: Home Social History [...] Sign Reading Time Taken Comments Blood Pressure 130/70 08/01/2014 2:59 PM EST Pulse 60 08/01/2014 2:59 PM EST Temperature 36.7 ??C (98.1 ??F) 08/01/2014 2:59 PM ES T Respiratory Rate 18 08/01/2014 2:59 PM EST Oxygen Saturation 100% 08/01/2014 2:59 PM EST Inhaled Oxygen Concentration - - Weight 59 kg (130 lb 1.1 oz) 08/01/2014 2:59 PM EST Height 160.8 cm (5' 3.31) 08/01/2014 2:59 PM ES T Body Mass Index 22.82 08/01/2014 2:59 PM EST documented in this encounter Progress Notes * Ese Taylor A - 08/01/2014 2:58 PM EST Division of Gynecologic Oncology Camilla Chappell MD [facility] Josie Ott MD [facility] [place] [address] New Outpatient Visit: Reason for visit :Marychuy Hood is being seen in the clinic today at the request of Wes Junior Md [address] [place] [phone] for the evaluation of endometrial cancer. I have reviewed the available records, interviewed and examined the patient. History of Present Illness: Marychuy Hood is a 63 y.o. female referred for evaluation of endometrial cancer. Marychuy was in her usual state of health until the beginning of May when she noted some vaginal spotting but thought it was a side effect of a really bad cold. She was started on antibiotics butthe bleeding didn't stop. Then, Marychuy had a week of slightly heavier vaginal bleeding in the beginning of June. Her PCP did a pelvic exam and saw a polyp on her cervix. She was referred to a local hospice social worker who did an endometrial biopsy and cervical polypectomy. 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 B - Benign endocervical polyp. Today the patient feels anxious. She has noticed an increase in fatigue since the beginning of winter. She has started to take naps. The patient denies fever, chills, shortness of breath, chest pain,n/v, dysuria, hematuria, constipation, diarrhea, lower extremity edema or pain. Denies early satiety, unanticipated weight loss or other GI symptoms. Patient Active Problem List Diagnosis Code ??? Endometrial adenocarcinoma, endometrioid type, FIGO grade 2 182.0 Review of Systems: Review of Systems 11 systems in total reviewed, otherwise noncontributory Obstetric/Gynecologic History: , both at ter Menarche at age 15. Menopause at age 59. Used OCPs for 5 years. Denies STIs. Has had regular Pap smear screening and they have never been abnormal. Medical History: History reviewed. No pertinent past medical history. Surgical History: History reviewed. No pertinent past surgical history. Medications: Current Outpatient Prescriptions Medication Sig Dispense Refill ??? EPINEPHrine (EPIPEN) 0.3 mg/0.3 mL (1:1,000) Auto-Injector Inject 0.3 mg into the muscle once. ??? multivitamin (THERAGRAN) Tablet Take 1 tablet by mouth daily. ??? B-Complex with Vitamin C (SUPER B C) Capsule Take 1 capsule by mouth daily. ??? Ascorbic Acid 500 mg Tablet, Chewable Take 1 tablet by mouth as needed. No current facility-administered medications for this visit. Allergies: Allergies Allergen Reactions ??? Hymenoptera Allergenic Extract Anaphylaxis Family History: Family History Problem (# of Occurrences) Relation (Name,Age of Onset) Breast Cancer (1) Unspecified Negative family history of: Colorectal Cancer, Kidney Cancer, Bladder Cancer, Uterine Cancer, Ovarian Cancer Health Maintenance: Marychuy has never had a mammogram Last colonoscopy = never Social History: Marychuy lives in [place], she has been to Shailesh for 36 years. They have two children 30 and 33yo; and 1 granddaughter 2yo. 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 She has never smoked and drinks 0.5 beer/month. Denies illicit substance use. Physical Exam: Filed Vitals: 08/01/14 1459 BP: 130/70 Pulse: 60 Temp: 36.7 ??C (98.1 ??F) Resp: 18 Height: 160.8 cm (5' 3.31) Weight: 59 kg (130 lb 1.1 oz) SpO2: 100% Body mass index is 22.82 kg/(m^2). Body surface area is 1.62 meters squared. Physical Exam Constitutional: She appears well-developed and well-nourished. Accompanied by her , Shailesh. Neck: Normal range of motion. Cardiovascular: Normal rate, regular rhythm and normal heart sounds. Exam reveals no friction rub. No murmur heard. Pulmonary/Chest: Effort normal and breath sounds normal. No respiratory distress. She has no wheezes. Abdominal: Soft. Bowel sounds are normal. She exhibits no distension and no mass. There is no tenderness. There is no rebound and no guarding. Genitourinary: External genitalia is without lesions, Bartholins and [place]'s glands are not notable. Speculum exam: vagina is pink and ruggated, cervix appears multiparous, atrophy present. Bimanual exam: mobile, anteverted uterus at 8 week size at 1-2 cm above pubic bone. No adnexal masses palpated. Musculoskeletal: She exhibits no edema or tenderness. Lymphadenopathy: She has no cervical adenopathy. Neurological: She is alert. Skin: Skin is warm and dry. KPS: 100 Pertinent Radiographic/Diagnostic Results: None Diagnostic Tests/Procedures Ordered: CBC and BMP Impression/Plan: Marychuy Hood is a 63 y.o. with a biopsy revealing endometrial adenocarcinoma, FIGO grade 2. Based on these findings, a decision was made to proceed with surgery for definitive treatment, specifically a robotic-assisted hysterectomy and bilateral salpingoophorectomy and lymph node dissection. I r eviewed the natural course of endometrial cancer with the patient and the role that surgery plays in determining the stage of the cancer and it's subsequent treatment after surgery if indicated by the stage. I reassured Marychuy Hood that in the majority of endometrial cancer cases, they are diagnosed early and that the intent of therapy is curative. I reviewed the surgical approach, need for general anesthesia, and the expected postoperative recovery. The patient was informed that patient's undergoing this procedure typically are safe to go homethe day after surgery. Additionally, I discussed the risks of the procedure including infection, bleeding, chronic leg swelling (lymphedema), DVT/PE, , damage to pelvic or abdominal structures such as the bowel, bladder, ureters, blood vessels, nerves, and the possibility of needing to convertto an open surgery. All of Marychuy Hood questions were answered to her satisfaction and she verbalized understanding of the plan of care. Surgical consent was obtained and surgery will be scheduled in the near future. Marychuy and her has concerns regarding the cost of the procedure as they have a high deductible. They will be directed to financial services to discuss potential costs and payment options. Surgery date: August 21, 2014 Incision Planned: Robotic assisted laparoscopic Rx's given today: None Thank you for referring this juan patient to [facility] for her cancer care. I will keep you apprised of her progress. This patient was seen and evaluated with Dr. Johnson, Glass Cutter Helper Oncology Attending. Ese Taylor MD PGY2 08/01/2014 Staff Addendum: I saw and evaluated the patient with Dr. Taylor (final assembly inspector resident). I independently confirmed the resident's history and physical findings, and I reviewed the pertinent data. The assessment and plan were formulated in discussion with me, as outlined in the above note, and I agree wi th the note as written. Rg Johnson MD documented in this encounter Plan of Treatment Upcoming Encounters Date Type Department Care Team (Late st Contact Info) Description 12/28/2023 10:00 AM EDT Office Visit Hematology/Oncology at [address] [phone] Sumanth Bermudez MD [facility] HEMATOLOGY/[place] [address] 12/28/2023 10:30 AM EDT Infusion Hematology Oncology at [address] [phone] 01/02/2024 3:20 PM EDT Hospital [place] [address] [facility] [place] [address] 04/22/2024 10:00 AM EST TH Visit (TeleHealth) Hematology and Oncology at [address] [phone] Tracy Beltran [facility] [place] [address] 05/20/2024 10:40 AM EST Hospital Encounter Mammography/[place] [phone] 05/20/2024 11:50 AM EST Office [place] [phone] [facility] [place] [address] 11/15/2024 4:00 PM EDT Office Visit Hematology [place] [phone] [facility] [place]ATOLOGY[place] [address] documented as of this encounter Procedures Procedure Name Priority Date/Time Associated Diagnosis Comments HEMOGRAM Routine 08/01/2014 4:45 PM EST Endometrial adenocarcinoma DIFFERENTIAL, AUTOMATED Routine 08/01/2014 4:45 PM EST Endometrial adenocarcinoma CREATININE Routine 08/01/2014 4:45 PM EST Endometrial adenocarcinoma, endometrioid type, FIGO grade 2 CBC (WITH DIFF) Routine 08/01/2014 4:45 PM EST Endometrial adenocarcinoma, endometrioid type, FIGO grade 2 BUN Routine 08/01/2014 4:45 PM EST Endometrial adenocarcinoma, endometrioid type, FIGO grade 2 ELECTROLYTES PANEL Routine 08/01/2014 4: 45 PM EST Endometrial adenocarcinoma, endometrioid type, FIGO grade 2 documented in this encounter Results * Differential, Automated (08/01/2014 4:45 PM EST) Neutrophils % 52.3 % [facility] MILLENNIUM Neutr Abs (ANC) 2.25 1.50 - 6.30 x10(3)/mcL CERNER MILLENNIUM Lymphocytes % 39.9 % CERNER MILLENNIUM Lymphocytes Abs 1.7 1.0 - 3.6 x10(3)/mcL CERN[facility] MILLENNIUM Monocytes % 6.0 % CERNER MILLENNIUM Monocyte Abs 0.3 0.2 - 1.0 x10(3)/mcL CERNER MILLENNIUM Eosinophils % 1.6 % CERNER MILLENNIUM Eosinophils Abs 0.1 0.0 - 0.5 x10(3)/mcL CERNER MILLENNIUM Basophils % 0.2 % CERNER MILLENNIUM Basophils Abs 0.0 0.0 - 0.2 x10(3)/mcL CERNER MILLENNIUM Immature Gran % 0.00 % CERN ER MILLENNIUM Comment: Immature granulocytes(IG's)percentage and absolute count will include metamyelocytes, myelocytes, and promyelocytes. Blood smears from CBCs yielding IG's will be scanned manually for concordance. If this scan disagrees with the automated IG or if promyelocytes are noted, a manual differential will be performed. Citlalli Gran Abs 0.00 0.00 - 0.05 x10(3)/mcL CERNER MILLENNIUM Blood specimen (specimen) 08/01/2014 4:45 PM EST 08/01/2014 4:55 PM EST Narrative Resulting Agency Comment Spec In Lab Rg Johnson MD HEMATOLOGY ORDERABLE S CERNER MILLENNIUM * Hemogram (08/01/2014 4:45 PM EST) WBC 4.3 4.0 - 10.0 x10(3)/mcL CERNER MILLENNIUM RBC 4.25 3.93 - 5.22 x10(6)/mcL [facility]ERNER MILLENNIUM Hemoglobin 12.8 11.2 - 15.7 gm/dL [facility]ERN[facility] MILLENNIUM Hematocrit 38.3 34.0 - 45.0 % CERNER MILLENNIUM MCV 90.1 79.0 - 94.0 fL [facility] MCH 30.1 26.6 - 32.2 pg [facility]CB CHURCHENNIUM MCHC 33.4 32.0 - 36.5 gm/dL [facility] MILLENNIUM Platelets 327 145 - 370 x10(3)/mcL CERCB MILLENNIUM RDWSD 45.5 35.0 - 46.0 fL [facility] RDWCV 13.6 10.9 - 14.4 % [facility] MILLENNIUM MPV 9.3 9.0 - 12.0 fL [facility] Blood specimen (specimen) 08/01/2014 4:45 PM EST 08/01/2014 4:55 PM EST Narrative Resulting Agency Comment Spec In Lab Rg Johnson MD HEMATOLOGY ORDERABLE S Performing Organization Address [facility] Phone Number [facility] * Creatinine (08/01/2014 4:45 PM EST) [facility] Signature Creatinine 0.90 0.70 - 1.20 mg/dL [facility] Comment: Please note that the pediatric reference intervals supplied above were not validated at [facility]. Results from pediatric patients should be interpreted in conjunction to the patient's age, height and muscle mass. Estimated GFR >60 >=60 [facility] Comment: This estimated GFR (eGFR) value was calculated using the MDRD equation which has been validated on patients between the ages of 18 and 70. The MDRD should not be used to assess kidney function in patients < 18 years of age or in patients with extremes of body mass, or in patients with acute kidney failure. This value should be multiplied by 1.2 for patients. For further information please copy and paste the following links into your internet browser. [email or web address] Blood specimen (specimen) 08/01/2014 4:45 PM EST 08/01/2014 4:55 PM EST Narrative Resulting Agency Comment Spec In Lab Rg Johnson MD CHEMISTRY ORDERABLES Performing Organization Address City/[facility] de Phone Number CERNER MILLENNIUM * (ABNORMAL) BUN (08/01/2014 4:45 PM EST) BUN 21(H) 8 - 18 mg/dL [facility] MILLENNIUM Blood specimen (specimen) 08/01/2014 4:45 PM EST 08/01/2014 4:55 PM EST Narrative Resulting Agency Comment Spec In Lab Rg Johnson MD CHEMISTRY ORDERABLES Performing Organization Address [facility] de Phone Number [facility] M[facility] * Electrolytes panel (08/01/2014 4:45 PM EST) Sodium 139 135 - 145 mmol/L [facility]ERN[facility] MILLENNIUM Potassium 4.9 3.5 - 5.0 mmol/L [facility] MILL[facility]NIUM Comment: Please note: ??Patients with WBC >100,000 may have falsely elevated Potassium levels. ??For accurate Potassium quantification in these patients send serum separator tube (gold top) for subsequent determinations. ??Contact the Clinical Chemistry Laboratory if there are any questions. Chloride 99 98 - 107 mmol/L CERNER MILLENNIUM CO2 28 22 - 31 mmol/L [facility] MILLENNIUM Anion Gap 12 5 - 15 mmol/L [facility] MILLENNIUM Blood specimen (specimen) 08/01/2014 4:45 PM EST 08/01/2014 4:55 PM EST Narrative Resulting Agency Comment Spec In Lab Rg Johnson MD CHEMISTRY ORDERABLES Performing Organization Address [facility] Co de Phone Number [facility] CHURCHENNIUM documented in this encounter Visit Diagnoses Diagnosis Endometrial adenocarcinoma, endometrioid type, FIGO grade 2- Primary Malignant neoplasm of corpus uteri, except isthmus documented in this encounter
[2023-12-28] MEDS: Normal Saline Flush 10 ML SYR IVP (09:00)
[2023-12-28 09:25] LABS: Abs Immature Grans 0.01 10^3/uL (0.0-0.06); Absolute Basophil Count 0.02 10^3/uL (0.0-0.2); Absolute Eosinophil Count 0.08 10^3/uL (0.0-0.7); Absolute Lymphocyte Count 0.77 10^3/uL (1.2-3.4); Absolute Monocyte Count 0.34 10^3/uL (0.1-0.8); Absolute Neutrophil Count 1.96 10^3/uL (1.2-6.7); Basophils % 0.6 %; Eosinophils % 2.5 %; HCT 31.2 % (36.0-46.0); HGB 10.4 g/dL (11.2-15.7); Immature Grans % 0.3 %; Lymphocytes % 24.2 %; MCH 29.5 pg (27.0-33.0); MCHC 33.3 % (32.0-36.0); MCV 88 fL (80-95); MPV 8.3 fL (8.0-11.0); Monocytes % 10.7 %; Neutrophils % 61.7 %; Platelet Count 219 10^3/uL (130-400); RBC 3.53 10^6/uL (3.93-5.22); RDW 14.8 % (11.7-14.6); WBC 3.18 10^3/uL (4.4-10.8)
[2023-12-28 09:47] LABS: ALT 52 U/L (14-59); AST 36 U/L (15-37); Albumin 3.2 g/dL (3.4-5.0); Alkaline Phosphatase 71 U/L (46-116); BUN 15 mg/dL (7-18); Bilirubin, Total 0.28 mg/dL (0.2-1.0); CREATININE 0.9 mg/dL (0.55-1.02); Calcium 8.5 mg/dL (8.5-10.1); Chloride 103 mmol/L (98-107); Estimated GFR 68.35 (mL/min/1.73m2); Glucose 98 mg/dL (74-106); Potassium 4.3 mmol/L (3.5-5.1); Sodium 139 mmol/L (136-145); Total Protein 6.9 g/dL (6.4-8.2)
[2023-12-28 09:52] LABS: Anion Gap 7.7 mmol/L (3-11); CO2 28.3 mmol/L (21.0-32.0)
== END 2024-01-03 23:59 | disposition home or self-care (01) ==
LOC: INF 02:18
PROVIDERS: Internal Medicine; Visit Provider Internal Medicine Hematology & Oncology
DX: C54.1 Malignant neoplasm of endometrium (principal); Z45.2 Encounter for adjustment and management of vascular access device
CPT/HCPCS: 36591; 80053; 85025